=== PATIENT | female | born 1945 | race Caucasian/White ===

== ENCOUNTER → 2016-10-28 | Day surgery (SDC) | payer OTHER, MEDICARE ==
[2016-10-23 14:44] VITALS: Ht 160 cm; Wt 68.2 kg
[~2016-10-28] VITALS: Ht 160 cm; Wt 68.2 kg
[~2016-10-28] MED LIST: 500ML BSS 0.3ML EPI 1:1000PF IRRIG ONE; ACETAMINOPHEN 325 MG TAB PO PRN; ALBU1AER9 INH; AMVISC PLUS 0.8ML SYRINGE INT OCU ONE; ATROPINE SULFATE 0.1 MG/ML 5ML SYR IV PRN; BETAXOLOL HCL 0.25% OP SUSP PER DROP CHARGE OPR SCH; BRIMONIDINE TART 0.2% OP SOLN PER DROP CHARGE ONE; BSS FLUSH ONE; ENDOCOAT 0.85ML SYRINGE INT OCU ONE; EPP3/2 IM; ESZO3TAB15 PO; EpINEphrine INJ 1MG/ML AMP 1 MG/ML AMP ONE; FEXO1TAB58 PO; HydrALAZINE HCL 20 MG/ML VIAL ONE; IPRA0.03 NAE; LACTATED RINGER'S 1000ML 500 ML IV SCH; LEVO75TA PO; LIDOCAINE 4% OP SOLN DROP CHARGE ONE; LIDOCAINE 4% OP SOLN DROP CHARGE OPR SCH; LIDOCAINE HCL 1% MPF 2 ML VIAL ONE; METHPOW7 PO; MIDAZOLAM HCL 1 MG/ML 2ML VIAL ONE; MIX: 4ML BSS 1ML EPI 1:1000 PF INSTIL ONE; MOXIFLOXACIN OPH SOLN PER DROP CHARGE ONE; MULT60CA PO; NAPR1TAB9 PO; OCUCOAT 1 ML SOLN IO ONE; OMEP20TA14 PO; POLY335019 PO; POVIDONE-IODINE OP SOLN 30 ML BTL ONE; PROPARACAINE 0.5% OP SOLN PER DROP CHARGE OPR SCH; TOBRAMYCIN/DEXAMETHASONE OPH OINT PER APPLN CHARGE ONE
--- NOTE | 2016-10-28 06:27 | History & Physical Bridge - [place] ---
H&P Re-Evaluation Bridge Note: I have examined the patient, reviewed the History & Physical and in the interval since the performance of the History & Physical I have noted the following changes of clinical significance: No changes noted
[2016-10-28] MEDS: PHENYLEPHRINE HCL 2.5% OP SOLN PER DROP CHARGE OPR SCH ×2 (06:41→06:45)
[2016-10-28] MEDS: TROPICAMIDE 1% OP SOLN PER DROP CHARGE OPR SCH ×2 (06:42→06:46)
[2016-10-28] MEDS: CYCLOPENTOLATE HCL 1% OP SOLN PER DROP CHARGE OPR SCH ×2 (06:43→06:48)
[2016-10-28] MEDS: MOXIFLOXACIN OPH SOLN PER DROP CHARGE OPR SCH ×2 (06:44→06:53)
--- NOTE | 2016-10-28 07:14 | Discharge Instructions-SurgCtr ---
Discharge Instructions Date of Service Oct 28, 2016. Visit Reason for Visit: Right Cataract Discharge Discharge Diagnosis / Problem: lens implant right eye. Discharge Goals Goal(s): Improve function Activity Recommendations Activity Limitations: resume your previous activity Lifting Limitations: no more than 10 pounds Exercise/Sports Limitations: gradually increase as tolerated May Resume Sexual Activity: when tolerated Shower/Bathe: tomorrow Driving or Machine Use: resume 1 day after discharge Anesthesia . Post Anesthesia Instructions: If you have had General Anesthesia or IV Sedation: * Do not drive today. * Resume driving when surgeon permits. * Do not make important decisions or sign legal documents today. * Call surgeon for: 1. Temperature elevations greater than 101 degrees F. 2. Uncontrollable pain. 3. Excessive bleeding. 4. Persistent nausea and vomiting. 5. Medication intolerance (nausea, vomiting or rash). * For nausea and vomiting use only clear liquids such as: tea, soda, bouillon until nausea subsides, then gradually increase diet as tolerated. * If you have any concerns or questions, call your surgeon's office. If physician is unavailable and it is an emergency, call 911 or go to the nearest emergency room. . Instructions / Follow-Up Instructions / Follow-Up ACTIVITY RECOMMENDATIONS: * Light activities. * Mild irritation and blurred vision are common for the first few days. * You may walk outside, read, watch television. * Redness around the white part of the eye is common. MEDICATIONS: Resume previous medications unless instructed otherwise by your surgeon. Start all eye drops at 1 pm today: * Eye drops (today and tomorrow): Prednisone - one drop in operative eye every 3 hours while awake Ofloxacin - one drop in operative eye every 3 hours while awake Ilevro - one drop in operative eye once a day SPECIAL CARE INSTRUCTIONS: * Tape plastic shield over eye to sleep at night. Call your doctor at with any concerns or problems. FOLLOW UP VISIT: Follow-up with Dr Perez at [place] office as scheduled. Diet Recommendations Home Diet: no limitations Procedures Procedures Performed: Cataract Extraction with Lens Implant Pending Studies Studies pending at discharge: no Medical Emergencies . Who to Call and When: Medical Emergencies: If at any time you feel your situation is an emergency, please call 911 immediately. . Non-Emergent Contact Non-Emergency issues call your: Executive Vice President Of Sales Call Non-Emergent contact if: your pain is not controlled [phone] . . "Provider Documentation" section prepared by Phu Perez.
--- NOTE | 2016-10-28 07:16 | [facility] Operative Report ---
Operative Report Date of Service Oct 28, 2016. Operative Report 1. PREOPERATIVE DIAGNOSIS: Senile nuclear cataract, right eye. 2. POSTOPERATIVE DIAGNOSIS: Senile nuclear cataract, right eye. 3. PROCEDURE: Phacoemulsification of right cataract with posterior chamber lens implant, type [employer], model [id number], power +25.5 diopters. ANESTHESIA: Local standby. SURGEON: Dr. Perez. COMPLICATIONS: None. OPERATING TIME: 10 minutes. 4. OPERATION AND FINDINGS: DESCRIPTION OF PROCEDURE: The right pupil was dilated. The anesthetic was administered using a topical technique. The right eye was prepped and draped. A speculum was placed. A clear corneal incision was formed. The chamber was filled with Amvisc Plus and Endocoat. Epinephrine solution was used. A paracentesis was placed. A capsulorrhexis was performed. The nucleus was hydrodissected. The lens was removed with phacoemulsification. Time was 2.73 seconds. The aspiration unit was used to remove the cortex. The capsule was filled with Amvisc Plus. The lens implant was folded and placed into the capsule. The incision was hydrated. The Amvisc was aspirated. The wound was secure. The chamber was deep. The pupil was round. Brimonidine, TobraDex ointment and Vigamox solution were placed. The speculum was removed. The patient was returned to the Recovery Room in stable condition. I attest to the content of the Intraoperative Record and any orders documented therein. Any exceptions are noted below. The scribe's documentation has been prepared in my presence, under my direction and personally reviewed by me in its entirety. I confirm that the note above accurately reflects all work, treatment, procedures, and medical decision making performed by me. I personally scribed for Phu Perez M.D. ([email or web address]) on 10/28/16 at 07:16. Electronically submitted by Wendy Zaragoza ([email or web address]).
[2016-10-28 07:18] VITALS: TEMP 36.8
--- NOTE | 2016-10-28 07:32 | Anesthesia Progress Nt - [facility] ---
Anesthesia Post Op Note Date & Time Oct 28, 2016 at 07:33 Vital Signs Pain Intensity: 0 Vital Signs Past 12 Hours Date Time Temp Pulse Resp B/P Pulse Ox O2 Delivery O2 Flow Rate FiO2 10/28/16 07:18 36.8 75 18 162/81 99 Room Air 10/28/16 06:36 36.8 65 18 157/78 95 Room Air Notes Mental Status: alert / awake / arousable, participated in evaluation Pt Amnestic to Procedure: Yes Nausea / Vomiting: adequately controlled Pain: adequately controlled Airway Patency, RR, SpO2: stable & adequate BP & HR: stable & adequate Hydration State: stable & adequate Anesthetic Complications: no major complications apparent
[2016-10-28 08:07] VITALS: BP 152/64; PULSE 83; O2SAT 97
== END | disposition home or self-care (01) ==
LOC: X.SURG 06:22
PROVIDERS: ATTEND Specialist
DX: H25.11 Age-related nuclear cataract, right eye (principal)

== ENCOUNTER → 2016-11-11 | Day surgery (SDC) | payer OTHER, MEDICARE ==
[2016-11-09 10:34] VITALS: Ht 160 cm; Wt 68.2 kg
[~2016-11-11] VITALS: Ht 160 cm; Wt 68.2 kg
[~2016-11-11] MED LIST changes: +BETAXOLOL HCL 0.25% OP SUSP PER DROP CHARGE OPL SCH; -BETAXOLOL HCL 0.25% OP SUSP PER DROP CHARGE OPR SCH; +FENTANYL CITRATE INJ 50 MCG/1 ML 2 ML VIAL IV PRN; +FLUMAZENIL 0.1 MG/1 ML 10 ML VIAL IV PRN; -HydrALAZINE HCL 20 MG/ML VIAL ONE; +LABETALOL HCL IV 5 MG/ML 20ML IV PRN; +LIDOCAINE 4% OP SOLN DROP CHARGE OPL SCH; -LIDOCAINE 4% OP SOLN DROP CHARGE OPR SCH; +MEPERIDINE HCL 25 MG/ML CARP IV PRN; +NALOXONE HCL 0.4 MG/1 ML VIAL/CARP IV PRN; +ONDANSETRON INJ 2 MG/ML 2 ML VIAL IV PRN; +PHENYLEPHRINE 100MCG/ML 5ML SYR IV PRN; +PROPARACAINE 0.5% OP SOLN PER DROP CHARGE OPL SCH; -PROPARACAINE 0.5% OP SOLN PER DROP CHARGE OPR SCH
[2016-11-11] MEDS: PHENYLEPHRINE HCL 2.5% OP SOLN PER DROP CHARGE OPL SCH ×2 (06:37→06:42)
[2016-11-11] MEDS: TROPICAMIDE 1% OP SOLN PER DROP CHARGE OPL SCH ×2 (06:38→06:43)
[2016-11-11] MEDS: CYCLOPENTOLATE HCL 1% OP SOLN PER DROP CHARGE OPL SCH ×2 (06:39→06:44)
[2016-11-11] MEDS: MOXIFLOXACIN OPH SOLN PER DROP CHARGE OPL SCH ×2 (06:40→06:49)
--- NOTE | 2016-11-11 07:16 | Discharge Instructions-SurgCtr ---
Discharge Instructions Date of Service Nov 11, 2016. Visit Reason for Visit: Left Cataract Discharge Discharge Diagnosis / Problem: lens implant left eye Discharge Goals Goal(s): Improve function Activity Recommendations Activity Limitations: resume your previous activity Lifting Limitations: no more than 10 pounds Exercise/Sports Limitations: gradually increase as tolerated May Resume Sexual Activity: when tolerated Shower/Bathe: tomorrow Driving or Machine Use: resume 1 day after discharge Anesthesia . Post Anesthesia Instructions: If you have had General Anesthesia or IV Sedation: * Do not drive today. * Resume driving when surgeon permits. * Do not make important decisions or sign legal documents today. * Call surgeon for: 1. Temperature elevations greater than 101 degrees F. 2. Uncontrollable pain. 3. Excessive bleeding. 4. Persistent nausea and vomiting. 5. Medication intolerance (nausea, vomiting or rash). * For nausea and vomiting use only clear liquids such as: tea, soda, bouillon until nausea subsides, then gradually increase diet as tolerated. * If you have any concerns or questions, call your surgeon's office. If physician is unavailable and it is an emergency, call 911 or go to the nearest emergency room. . Instructions / Follow-Up Instructions / Follow-Up ACTIVITY RECOMMENDATIONS: * Light activities. * Mild irritation and blurred vision are common for the first few days. * You may walk outside, read, watch television. * Redness around the white part of the eye is common. MEDICATIONS: Resume previous medications unless instructed otherwise by your surgeon. Start all eye drops at 1 pm today: * Eye drops (today and tomorrow): Prednisone - one drop in operative eye every 3 hours while awake Ofloxacin - one drop in operative eye every 3 hours while awake SPECIAL CARE INSTRUCTIONS: * Tape plastic shield over eye to sleep at night. Call your doctor at with any concerns or problems. FOLLOW UP VISIT: Follow-up with Dr Perez at [facility] as scheduled. Diet Recommendations Home Diet: no limitations Procedures Procedures Performed: Left Cataract Phacoemulsification With Intraocular Lens Implant; Toric Lens Pending Studies Studies pending at discharge: no Medical Emergencies . Who to Call and When: Medical Emergencies: If at any time you feel your situation is an emergency, please call 911 immediately. . Non-Emergent Contact Non-Emergency issues call your: Sales Associate Cashier Call Non-Emergent contact if: your pain is not controlled [phone] . . "Provider Documentation" section prepared by Phu Perez.
--- NOTE | 2016-11-11 07:19 | [facility] Operative Report ---
Operative Report Date of Service Nov 11, 2016. Operative Report 1. PREOPERATIVE DIAGNOSIS: Senile nuclear cataract, left eye. 2. POSTOPERATIVE DIAGNOSIS: Senile nuclear cataract, left eye. 3. PROCEDURE: Phacoemulsification of left cataract with posterior chamber lens implant, type Andres, model [id number], power +21 diopters. ANESTHESIA: Local standby. SURGEON: Dr. Perez. COMPLICATIONS: None. OPERATING TIME: 10 minutes. 4. OPERATION AND FINDINGS: DESCRIPTION OF PROCEDURE: The left pupil was dilated. The anesthetic was administered using a topical technique. The left eye was prepped and draped. A speculum was placed. A clear corneal incision was formed. The chamber was filled with Amvisc Plus and Endocoat. Epinephrine solution was used. A paracentesis was placed. A capsulorrhexis was performed. The nucleus was hydrodissected. The lens was removed with phacoemulsification. Time was 3.61 seconds. The aspiration unit was used to remove the cortex. The capsule was filled with Amvisc Plus. The lens implant was folded and placed into the capsule. The lens implant was rotated to the proper position. The incision was hydrated. The Amvisc was aspirated. The wound was secure. The chamber was deep. The pupil was round. Brimonidine, TobraDex ointment and Vigamox solution were placed. The speculum was removed. The patient was returned to the Recovery Room in stable condition. I attest to the content of the Intraoperative Record and any orders documented therein. Any exceptions are noted below. The scribe's documentation has been prepared in my presence, under my direction and personally reviewed by me in its entirety. I confirm that the note above accurately reflects all work, treatment, procedures, and medical decision making performed by me. I personally scribed for Phu Perez M.D. ([email or web address]) on 11/11/16 at 07:19. Electronically submitted by Wendy Zaragoza ([email or web address]).
[2016-11-11 07:22] VITALS: TEMP 36.5
--- NOTE | 2016-11-11 07:41 | Anesthesia Progress Nt - [facility] ---
Anesthesia Post Op Note Date & Time Nov 11, 2016 at 07:41 Vital Signs Pain Intensity: 0 Vital Signs Past 12 Hours Date Time Temp Pulse Resp B/P Pulse Ox O2 Delivery O2 Flow Rate FiO2 11/11/16 07:25 142/83 11/11/16 07:22 36.5 58 16 164/96 99 Room Air 11/11/16 06:35 36.4 62 16 174/77 97 Room Air Notes Mental Status: alert / awake / arousable, participated in evaluation Pt Amnestic to Procedure: Yes Nausea / Vomiting: adequately controlled Pain: adequately controlled Airway Patency, RR, SpO2: stable & adequate BP & HR: stable & adequate Hydration State: stable & adequate Anesthetic Complications: no major complications apparent
[2016-11-11 07:47] VITALS: BP 152/77; PULSE 60; O2SAT 99
== END | disposition home or self-care (01) ==
LOC: X.SURG 06:21
PROVIDERS: ATTEND Specialist
DX: H25.12 Age-related nuclear cataract, left eye (principal)

== ENCOUNTER 2017-03-17 14:06 | Emergency (ER) | payer OTHER, MEDICARE ==
[~2017-03-17] VITALS: Ht 160 cm; Wt 69.7 kg
[~2017-03-17 14:06] MED LIST changes: -500ML BSS 0.3ML EPI 1:1000PF IRRIG ONE; -ACETAMINOPHEN 325 MG TAB PO PRN; -AMVISC PLUS 0.8ML SYRINGE INT OCU ONE; -ATROPINE SULFATE 0.1 MG/ML 5ML SYR IV PRN; -BETAXOLOL HCL 0.25% OP SUSP PER DROP CHARGE OPL SCH; -BRIMONIDINE TART 0.2% OP SOLN PER DROP CHARGE ONE; -BSS FLUSH ONE; -ENDOCOAT 0.85ML SYRINGE INT OCU ONE; -EpINEphrine INJ 1MG/ML AMP 1 MG/ML AMP ONE; -FENTANYL CITRATE INJ 50 MCG/1 ML 2 ML VIAL IV PRN; -FLUMAZENIL 0.1 MG/1 ML 10 ML VIAL IV PRN; -LABETALOL HCL IV 5 MG/ML 20ML IV PRN; -LACTATED RINGER'S 1000ML 500 ML IV SCH; -LIDOCAINE 4% OP SOLN DROP CHARGE ONE; -LIDOCAINE 4% OP SOLN DROP CHARGE OPL SCH; -LIDOCAINE HCL 1% MPF 2 ML VIAL ONE; -MEPERIDINE HCL 25 MG/ML CARP IV PRN; -MIDAZOLAM HCL 1 MG/ML 2ML VIAL ONE; -MIX: 4ML BSS 1ML EPI 1:1000 PF INSTIL ONE; -MOXIFLOXACIN OPH SOLN PER DROP CHARGE ONE; -NALOXONE HCL 0.4 MG/1 ML VIAL/CARP IV PRN; -OCUCOAT 1 ML SOLN IO ONE; -ONDANSETRON INJ 2 MG/ML 2 ML VIAL IV PRN; -PHENYLEPHRINE 100MCG/ML 5ML SYR IV PRN; -POVIDONE-IODINE OP SOLN 30 ML BTL ONE; -PROPARACAINE 0.5% OP SOLN PER DROP CHARGE OPL SCH; -TOBRAMYCIN/DEXAMETHASONE OPH OINT PER APPLN CHARGE ONE
[2017-03-17 14:10] VITALS: TEMP 36.5; Ht 160 cm; Wt 69.7 kg
--- NOTE | 2017-03-17 14:31 | EMERGENCY ROOM VISIT NOTE ---
History First contact with patient: 14:15 Chief Complaint: ABDOMINAL PAIN Stated Complaint: BLOATING, ABD PAIN Nursing Triage Summary: Abdominal pain, nausea x 3 days. History of Present Illness The patient is a 71 year old female who presents to the Emergency Room via private vehicle with complaints of "bloating, abdominal pain". The patient states that Wednesday she noticed that she was sore in the right side of the abdomen, and now also on the left. She states that she is tried to sleep, but has been unable to do so secondary to the pain. She states it feels as though there is a bloating, and her abdomen feels rigid. She states that she follows with Dr. Dahl, of general surgery she has had mastectomy as well as a trans -flap reconstruction. She has had mesh in the abdomen, and believes it may have migrated. She states that she rates the current pain as a 5/10 but after history and physical exam is now a 6/10. She states that she has had to leave without relief of her pain. She denies any chest pain, shortness of breath, fevers, chills, nausea, vomiting. She states that she does take a regular regimen of MiraLAX. She also states that since the pain began on Wednesday her stools have been smaller in caliber. Review of Systems A complete 10-point Review of Systems was discussed with the patient, with pertinent positives and negatives listed in the History of Present Illness. All remaining Review of Systems questions can be considered negative unless otherwise specified. Past Medical/Surgical History Medical Problems: (1) Breast cancer Surgical Problems: (1) H/O cardiac catheterization Social History Smoking Status: Never Smoker Alcohol Use: none Marital Status: single Occupation Status: employed Current/Historical Medications Scheduled Epinephrine (Epipen), 0.3 MG IM UD Fexofenadine-Pseudoephedrine (Sulma-D 24 Hour Allergy), 1 TAB PO QAM Levothyroxine Sodium (Synthroid), 75 MCG PO QAM Methylcellulose (Laxative) (Citrucel Fiber Laxative), 1 DOSE PO QPM Multiple Vitamins W/ Minerals (Preservision Areds 2), 1 CAP PO BID Omeprazole Magnesium (Prilosec Otc), 20 MG PO BID Polyethylene Glycol 3350 (Miralax), 17 GM PO QPM Scheduled PRN Albuterol Sulfate (Proair Hfa), 2 PUFFS INH Q4 PRN for SOB/Wheezing Ipratropium [place] (Nasal) (Ipratropium [place]), 2 SPRAY COLBY TID PRN for RHINITIS Naproxen (Aleve), 2 TABS PO BID PRN for Pain Physical Exam Vital Signs Date Time Temp Pulse Resp B/P (MAP) Pulse Ox O2 Delivery O2 Flow Rate FiO2 03/17/17 17:31 62 18 159/83 98 Room Air 03/17/17 15:47 62 18 161/62 99 Room Air 03/17/17 14:39 100 Room Air 03/17/17 14:10 36.5 85 18 156/85 100 Room Air Physical Exam VITAL SIGNS - Vital signs and nursing notes were reviewed. Afebrile, hypertensive at 156/85, non-tachycardic and is saturating well on room air at 100%. GENERAL -71-year-old female appearing her stated age who is in no acute distress. Communicates well with provider and answers questions appropriately. SKIN - Without rashes. No petechial rashes. HEAD - NC/AT. EYES - PERRL with EOMI bilaterally. Sclera anicteric. MOUTH/OROPHARYNX - Without perioral cyanosis. NECK - Neck with FROM. Supple to palpation. LUNGS - Chest wall symmetric without accessory muscle use, intercostals retractions, or central cyanosis. Normal vesicular breath sounds CTA B/L. No wheezes, rales, or rhonchi appreciated. CARDIAC - RRR with S1/S2. No murmur, rubs, or gallops appreciated. ABDOMEN - Abdominal contour without pulsations or visible masses. BS normoactive all four quadrants. There is tenderness to palpation overlying the epigastric and periumbilical region. It is tense to palpation but not rigid. No palpable masses, hepatosplenomegaly, or ascites noted. EXTREMITIES - No clubbing or peripheral cyanosis. No pretibial edema present. + 5/5 strength noted in UE/LE bilaterally. NEUROLOGIC - Cranial nerves II through XII grossly intact. PSYCH - A&O. Pt is very pleasant and interacts well with examiner. Medical Decision & Procedures ER Provider Diagnostic Interpretation: CT SCAN OF THE ABDOMEN AND PELVIS WITHOUT CONTRAST CLINICAL HISTORY: Diffuse abdominal pain COMPARISON STUDY: October 2009 TECHNIQUE: CT scan of the abdomen and pelvis was performed from the lung bases to the proximal femurs. Images are reviewed in the axial, sagittal, and coronal planes. IV contrast was not administered for this examination. A dose lowering technique was utilized adhering to the principles of ALARA. CT DOSE: 690.43 mGycm FINDINGS: Lower chest: There are minor basilar atelectatic changes Liver: The unenhanced liver is normal in size, contour, and attenuation. There is no intrahepatic biliary ductal dilatation. Gallbladder: Unremarkable. Spleen: Normal in size and attenuation. Pancreas: Unremarkable. Adrenal glands: Unremarkable. Kidneys: No renal, ureteral, or bladder calculi are visualized. Bowel: There are no transition zones to indicate bowel obstruction. There is colonic diverticulosis. There are no acute peridiverticular inflammatory changes. By history the appendix is surgically absent. Peritoneum: There is no intraperitoneal free air or abdominal ascites. There is a tiny fat-containing umbilical hernia. There is a tiny fat-containing right anterolateral ventral wall hernia. There is rectus muscle atrophy. Vasculature: The abdominal aorta is normal in course and caliber. Adenopathy: None. Pelvic viscera: The uterus appears surgically absent. Skeletal structures: No destructive osseous lesions are seen. IMPRESSION: 1. No evidence of bowel obstruction. No evidence of free air 2. No renal, ureteral, or bladder calculi identified 3. Diverticulosis. No evidence of acute diverticulitis 4. Postsurgical changes involve the anterior abdominal wall. Tiny fat-containing umbilical hernia and right anterolateral lateral abdominal wall hernia Electronically signed by: Damian Pal M.D. 03/17/2017 3:24 PM Dictated Date/Time: 03/17/2017 3:19 PM Laboratory Results 03/17/17 15:30 Red Blood Count 4.07, Mean Corpuscular Volume 91.6, Mean Corpuscular Hemoglobin 31.4, Mean Corpuscular Hemoglobin Concent 34.3, Mean Platelet Volume 10.9, Neutrophils (%) (Auto) 62.1, Lymphocytes (%) (Auto) 27.8, Monocytes (%) (Auto) 7.3, Eosinophils (%) (Auto) 2.4, Basophils (%) (Auto) 0.2, Neutrophils # (Auto) 3.31, Lymphocytes # (Auto) 1.48, Monocytes # (Auto) 0.39, Eosinophils # (Auto) 0.13, Basophils # (Auto) 0.01 03/17/17 15:30 Test 03/17/17 14:45 03/17/17 15:30 Urine Color DK YELLOW Urine Appearance CLOUDY (CLEAR) Urine pH 6.0 (4.5-7.5) Urine Specific [place] 1.015 (1.000-1.030) Urine Protein TRACE (NEG) Urine Glucose (UA) NEG (NEG) Urine Ketones TRACE (NEG) Urine Occult Blood NEG (NEG) Urine Nitrite NEG (NEG) Urine Bilirubin NEG (NEG) Urine Urobilinogen NEG (NEG) Urine Leukocyte Esterase TRACE (NEG) Urine WBC (Auto) 1-5 /hpf (0-5) Urine RBC (Auto) 0-4 /hpf (0-4) Urine Hyaline Casts (Auto) 1-5 /lpf (0-5) Urine Epithelial Cells (Auto) >30 /lpf (0-5) Urine Bacteria (Auto) 1+ (NEG) Urine Pathogenic Casts /lpf (0) Urine Yeast (Auto) PRESENT (NONE PRSENT) White Blood Count 5.33 K/uL (4.8-10.8) Red Blood Count 4.07 M/uL (4.2-5.4) Hemoglobin 12.8 g/dL (12.0-16.0) Hematocrit 37.3 % (37-47) Mean Corpuscular Volume 91.6 fL (80-100) Mean Corpuscular Hemoglobin 31.4 pg (25-34) Mean Corpuscular Hemoglobin Concent 34.3 g/dl (32-36) Platelet Count 225 K/uL (130-400) Mean Platelet Volume 10.9 fL (7.4-10.4) Neutrophils (%) (Auto) 62.1 % Lymphocytes (%) (Auto) 27.8 % Monocytes (%) (Auto) 7.3 % Eosinophils (%) (Auto) 2.4 % Basophils (%) (Auto) 0.2 % Neutrophils # (Auto) 3.31 K/uL (1.4-6.5) Lymphocytes # (Auto) 1.48 K/uL (1.2-3.4) Monocytes # (Auto) 0.39 K/uL (0.11-0.59) Eosinophils # (Auto) 0.13 K/uL (0-0.5) Basophils # (Auto) 0.01 K/uL (0-0.2) RDW Standard Deviation 44.7 fL (36.4-46.3) RDW Coefficient of Variation 13.3 % (11.5-14.5) Immature Granulocyte % (Auto) 0.2 % Immature Granulocyte # (Auto) 0.01 K/uL (0.00-0.02) Prothrombin Time 10.8 SECONDS (9.0-12.0) Prothromb Time International Ratio 1.0 (0.9-1.1) Activated Partial Thromboplast Time 26.8 SECONDS (21.0-31.0) Partial Thromboplastin Ratio 1.0 Venous Blood pH 7.38 (7.36-7.41) Venous Blood Partial Pressure CO2 48 mmHg (38.0-50.0) Venous Blood Partial Pressure O2 28 mmHg Venous Blood HCO3 27 mmol/L Venous Blood Oxygen Saturation < 60.0 % Venous Blood Base Excess 1.7 mEq/L Anion Gap 6.0 mmol/L (3-11) Est Creatinine Clear Calc Drug Dose 55.8 ml/min Estimated GFR () 79.9 Estimated GFR (Non- 69.0 BUN/Creatinine Ratio 22.5 (10-20) Lactic Acid Level 1.0 mmol/L (0.4-2.0) Calcium Level 8.9 mg/dl (8.5-10.1) Magnesium Level 2.0 mg/dl (1.8-2.4) Total Bilirubin 0.4 mg/dl (0.2-1) Aspartate Amino Transf (AST/SGOT) 31 U/L (15-37) Alanine Aminotransferase (ALT/SGPT) 46 U/L (12-78) Alkaline Phosphatase 78 U/L (45-117) Troponin I < 0.015 ng/ml (0-0.045) Total Protein 6.6 gm/dl (6.4-8.2) Albumin 3.9 gm/dl (3.4-5.0) Globulin 2.7 gm/dl (2.5-4.0) Albumin/Globulin Ratio 1.4 (0.9-2) Lipase 180 U/L (73-393) Medications Administered Medications (Trade) Dose Ordered Sig/Pa Route Start Time Stop Time Status Last Admin Dose Admin Fluconazole (Diflucan Tab) 150 mg NOW STAT PO 03/17/17 17:07 03/17/17 17:08 DC 03/17/17 17:27 150 MG Medical Decision Patient was seen and evaluated as above. After obtaining a thorough history and physical examination IV access was initiated, and the above workup was performed. Patient was asked to us today with generalized abdominal pain. She also notes a bloating sensation. She denies any chest pain or shortness of breath. Bedside EKG was obtained secondary to the abdominal pain, and reveals a change in lead V2. This was discussed with my attending, and the decision was made to repeat EKG. It was unchanged. Her troponin was negative. Pain is been going on for 2 days in the abdomen and not the chest. She denies history of heart attack. CBC reveals no leukocytosis. Her blood cell count low at 4.07. VBG unremarkable. Coags unremarkable. CMP reveals BUN high at 19 which is slightly increased from previous. Creatinine is actually improved. Lactic acid negative. Troponin negative. Lipase normal. Liver enzymes normal. Urine does reveal trace ketones, trace protein, trace leuks, and likely contaminated sample secondary to epithelial cells. Yeast is present. I will treat with Diflucan 1. CT scan was obtained without contrast that she noted she had an allergy to all iodinated contrast agents. CT scan results as above. No acute process. I suspect she likely experiencing gas secondary to the MiraLAX she is ingesting. She is to follow-up with her family doctor. She is to return with worsening. Strict precautions were given to her regarding returning to the emergency department secondary to that EKG change which could' ve occurred any point over the past few years since her previous EKG that was performed here. I do not suspect any cardiac causes to her pain at this time, but was rather trying to address all findings are today. She was discharged home in good condition. She noted that she had an appointment she would must to go to a 6 PM. Medication list was reviewed. Blood pressure is high and she is referred to her family doctor for further evaluation and management. In evaluation treatment of this patient the following differential diagnoses were entertained: Acute intra-abdominal process, reflux, MA, PE, among others. Impression Primary Impression: Abdominal pain Additional Impression: Yeast infection Departure Information Dispostion Home / Self-Care Condition GOOD Referrals Tarun Jang D.O. (PCP) Patient Instructions My [facility] Additional Instructions You have been treated in the Emergency Department your Abdominal Pain. Laboratory results and imaging studies have ruled out any emergent causes for your abdominal pain which would warrant admission or surgery. It appears that your urine does show a small amount of yeast. We gave you medication for that here. Please follow-up with her family doctor regarding today's visit. If your urine grows bacteria few will be notified. Drink plenty of water and stay well hydrated. As with any trip to the Emergency Department, you should follow-up with your Primary Care Provider from today's visit. Return to the emergency department if your symptoms persist despite treatment plan outlined above or if the following symptoms occur: increased fevers, chills , worsening nausea/vomiting, blood in your stool or urine. Thank you for your time. Problem Qualifiers Primary Impression: Abdominal pain Abdominal location: generalized Qualified Codes: R10.84 - Generalized abdominal pain
[2017-03-17 14:39] VITALS: O2SAT 100
[2017-03-17 15:10] LABS: URINE APPEARANCE CLOUDY (CLEAR); URINE BILIRUBIN NEG (NEG); URINE COLOR DK YELLOW; URINE EPITHELIAL CELL AUTO >30 /lpf (0-5); URINE NITRITE NEG (NEG); URINE SPECIFIC GRAVITY 1.015 (1.000-1.030); UROBILINOGEN NEG (NEG); ZZUR CULT IF INDIC CLEAN CATCH YES
[2017-03-17 15:16] LABS: MANUAL MICROSCOPIC REQUIRED? NO; REVIEW REQ? YES
--- NOTE | 2017-03-17 15:25 | DIAGNOSTIC IMAGING REPORT ---
CT SCAN OF THE ABDOMEN AND PELVIS WITHOUT CONTRAST CLINICAL HISTORY: Diffuse abdominal pain COMPARISON STUDY: October 2009 TECHNIQUE: CT scan of the abdomen and pelvis was performed from the lung bases to the proximal femurs. Images are reviewed in the axial, sagittal, and coronal planes. IV contrast was not administered for this examination. A dose lowering technique was utilized adhering to the principles of ALARA. CT DOSE: 690.43 mGycm FINDINGS: Lower chest: There are minor basilar atelectatic changes Liver: The unenhanced liver is normal in size, contour, and attenuation. There is no intrahepatic biliary ductal dilatation. Gallbladder: Unremarkable. Spleen: Normal in size and attenuation. Pancreas: Unremarkable. Adrenal glands: Unremarkable. Kidneys: No renal, ureteral, or bladder calculi are visualized. Bowel: There are no transition zones to indicate bowel obstruction. There is colonic diverticulosis. There are no acute peridiverticular inflammatory changes. By history the appendix is surgically absent. Peritoneum: There is no intraperitoneal free air or abdominal ascites. There is a tiny fat-containing umbilical hernia. There is a tiny fat-containing right anterolateral ventral wall hernia. There is rectus muscle atrophy. Vasculature: The abdominal aorta is normal in course and caliber. Adenopathy: None. Pelvic viscera: The uterus appears surgically absent. Skeletal structures: No destructive osseous lesions are seen. IMPRESSION: 1. No evidence of bowel obstruction. No evidence of free air 2. No renal, ureteral, or bladder calculi identified 3. Diverticulosis. No evidence of acute diverticulitis 4. Postsurgical changes involve the anterior abdominal wall. Tiny fat-containing umbilical hernia and right anterolateral lateral abdominal wall hernia Electronically signed by: Damian Pal M.D. 03/17/2017 3:24 PM Dictated Date/Time: 03/17/2017 3:19 PM
[2017-03-17 15:55] LABS: VEN BLD GAS O2 SATURATION < 60.0 %; VEN BLOOD GAS BASE EXCESS 1.7 mEq/L; VENOUS BLOOD GAS PCO2 48 mmHg (38.0-50.0); VENOUS BLOOD GAS PO2 28 mmHg
[2017-03-17 15:56] LABS: BASO % 0.2 %; BASO ABS # 0.01 K/uL (0-0.2); COMPLETE YES; EOS % 2.4 %; HEMATOCRIT 37.3 % (37-47); IG% 0.2 %; LYMPH % 27.8 %; LYMPH ABS # 1.48 K/uL (1.2-3.4); MEAN CELL VOLUME 91.6 fL (80-100); MEAN CORPUSCULAR HEMOGLOBIN 31.4 pg (25-34); MEAN CORPUSCULAR HGB CONC 34.3 g/dl (32-36); MEAN PLATELET VOLUME 10.9 fL (7.4-10.4); MONO % 7.3 %; NEUT % 62.1 %; PLATELET COUNT 225 K/uL (130-400); RED BLOOD COUNT 4.07 M/uL (4.2-5.4); WHITE BLOOD COUNT 5.33 K/uL (4.8-10.8)
[2017-03-17 16:04] LABS: PROTHROMBIN TIME (PATIENT) 10.8 SECONDS (9.0-12.0)
[2017-03-17 16:13] LABS: ALT/SGPT 46 U/L (12-78); BLOOD UREA NITROGEN 19 mg/dl (7-18); BUN/CREATININE RATIO 22.5 (10-20); CALCIUM 8.9 mg/dl (8.5-10.1); CARBON DIOXIDE 27 mmol/L (21-32); CHLORIDE 105 mmol/L (98-107); CREATININE 0.84 mg/dl (0.60-1.20); GLUCOSE 98 mg/dl (70-99); POTASSIUM 3.8 mmol/L (3.5-5.1); SODIUM 138 mmol/L (136-145)
[2017-03-17 16:18] LABS: ALB/GLOB RATIO 1.4 (0.9-2); ALKALINE PHOSPHATASE 78 U/L (45-117); AST/SGOT 31 U/L (15-37)
[2017-03-17] MEDS ORDERED: FLUCONAZOLE 100 MG TAB PO STA (17:07)
[2017-03-17 17:31] VITALS: BP 159/83; PULSE 62; O2SAT 98
== END 2017-03-17 17:45 | disposition home or self-care (01) ==
LOC: C.EDB 14:07 → C.EDC 17:45
DX: R10.9 Unspecified abdominal pain (principal); B37.9 Candidiasis, unspecified; Z85.3 Personal history of malignant neoplasm of breast; Z79.899 Other long term (current) drug therapy; Z90.10 Acquired absence of unspecified breast and nipple

== ENCOUNTER 2023-05-29 11:05 | Inpatient (IN) ==
--- NOTE | 2023-05-29 11:14 | Emergency Department Note ---
Impression & Plan Near syncope, Contusion of scalp, Ambulatory dysfunction ED Provider Note HISTORY OF PRESENT ILLNESS: Patient is a 77-year-old female presenting after a fall from standing. History obtained via EMS from the patient's [facility], as the patient is very demented. Patient reportedly has had some almost passing out episodes in the last few days. She reportedly had an unwitnessed fall from standing earlier today and was found to have a contusion to the back of her head. They state that the patient is her baseline mental status. On arrival to the ER, the patient has no complaints. She is unable to describe anything that happened this morning. She has no complaints of back pain or hip pain ROS: as above PHYSICAL EXAM: Constitutional: Patient appears in no acute distress. HENT: Head: Normocephalic. Hematoma to the upper posterior scalp. Eyes: EOMI, PERRL Mouth/Throat: Mucous membranes moist. Neck: Trachea midline. Neck supple. No midline cervical spine tenderness to palpation. Cardiovascular: RRR, No murmurs, rubs or gallops. Intact distal pulses. Pulmonary/Chest: No respiratory distress. Breath sounds clear and equal bilaterally. No wheezes or rales. No chest wall tenderness to palpation. Abdominal: Abdomen soft, no tenderness, rebound or guarding. Musculoskeletal: No edema, tenderness or deformity noted. Patient is able to straight leg raise bilaterally without any pain or back pain or hip pain. Skin: Warm and dry. No rash, erythema, pallor or cyanosis Psychiatric: Appropriate mood and affect for situation. Neurological: Alert and keenly responsive. CN II-XII grossly intact, moving all extremities equally and fully. MDM: - Vitals signs stable. - History obtained via EMS, given patient's dementia. Patient presents with fal l from standing. Patient reportedly was at her [facility] when she had an unwitnessed fall. She was found to have a contusion to the back of her head. Patient's staff reports she has had episodes of almost passing out and hitting her head in the last few days. Patient is demented and unable to provide any history - Chronic conditions affecting care: GERD; lymph node cancer - Differential diagnoses include, but are not limited to: intracranial hemorrhage; CVA; ACS; pneumonia - Order placed for continuous cardiac monitoring. At this time, monitor showed rate of 70 bpm with normal sinus rhythm, per my interpretation. - External medical records reviewed. EMS run sheet was reviewed. Patient was vitally stable in route. No medications were given prehospital - EKG reviewed by myself showed normal sinus rhythm. Rate bradycardic at 51 bpm. QTc 422. No acute ischemic changes - Laboratory workup interpreted by myself showed normal WBC; stable electrolytes; normal troponin - CXR negative for pneumonia, per my interpretation - CT head wo contrast negative for acute pathology - CT cervical spine negative for acute injury - Orthostatic vital signs stable. - Patient attempted to ambulate with nursing staff, but was very unsteady on her feet. I did call and speak to the patient's facility and they report that she is normally ambulatory without any assistive devices. Unclear etiology for her ambulatory dysfunction at this time. No obvious traumatic injuries. She has not given a urine sample yet - Discussion was had with social work specialist about patient's case and need for admission - Hospitalist consulted for admission - [facility] and [facility]. 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 Garces 06-13-09 History of appendectomy History of colonoscopy 2004, 04/07/2011 History of hysterectomy 1988 History of tonsillectomy History of tooth extraction Hx of breast biopsy 04/22/09 Dr. Garces Incisional hernia REPAIR 06/2017 Dr. Garces Status post transverse rectus abdominis muscle (TRAM) flap breast reconstruction Dr. Ray Lea [place] [facility] [place] Family History Mother Cancer Diabetes Stroke Social History Smoking Status: Unknown if ever smoked Second Hand Exposure: No; Do You Dip or Chew Tobacco: No; Hx Alcohol Use: Yes Alcohol type: wine Hx Substance Use: No Preferred Language: Montserratian Communication Ability: Effective Director Medical Affairs Required: Yes Beliefs That Will Affect Care: None marital status: Single Current Living Situation: Alone Feels Safe at Home: Yes Assistive Devices: Glasses Allergies Allergies Allergy/AdvReac Type Severity Reaction Status Date / Time animal dander Allergy Severe SHORTNESS Verified 05/29/23 15:03 OF BREATH bee venom protein (honey bee) Allergy Severe ANAPHYLAXIS Verified 05/29/23 15:03 bisacodyl Allergy Severe ANAPHYLAXIS Verified 05/29/23 15:03 Iodinated Contrast Media Allergy Severe HIVES, Verified 05/29/23 15:03 DIFFICULTY BREATHING latex Allergy Severe itchy, Verified 05/29/23 15:03 shortness of breath penicillin G Allergy Severe ANAPHYLAXIS Verified 05/29/23 15:03 povidone-iodine Allergy Severe Anaphylaxis Verified 05/29/23 15:03 tuna oil Allergy Severe HIVES AND Verified 05/29/23 15:03 ANAPHYLAXIS codeine Allergy Intermediate GI SYMPTOMS Verified 05/29/23 15:03 ephedrine Allergy Intermediate RASH Verified 05/29/23 15:03 iodine Allergy Intermediate HIVES Verified 05/29/23 15:03 ENVIRONMENTAL Allergy Severe SHORTNESS Uncoded 05/29/23 15:03 OF BREATH ACRYLIC CEMENT OR BONDING Allergy Intermediate HIVES, Uncoded 05/29/23 15:03 PAIN, SWELLING JEWELRY Allergy Intermediate BLISTERS Uncoded 05/29/23 15:03 WITH "CHEAP JEWELRY" Home Meds Home Medications Medication Instructions Recorded Confirmed epinephrine 0.3 mg/0.3 mL 0.3 mg IM Q3H PRN Allergic Reaction 09/12/18 05/29/23 injection, auto-injector (EpiPen) levothyroxine 50 mcg tablet 50 mcg PO QAM 02/26/21 05/29/23 donepezil 10 mg tablet 10 mg PO QAM 02/26/22 05/29/23 acetaminophen 650 mg 1,300 mg PO Q6H PRN Pain 09/22/22 05/29/23 tablet,extended release furosemide 20 mg tablet (Lasix) 20 mg PO QAM 09/22/22 05/29/23 potassium chloride 10 mEq 10 meq PO QAM 09/22/22 05/29/23 capsule,extended release quetiapine 25 mg tablet (Seroquel) 25 mg PO BID 09/22/22 05/29/23 memantine 10 mg tablet 10 mg PO BID 05/29/23 05/29/23 ondansetron HCl 4 mg tablet 4 mg PO Q8 PRN Nausea 05/29/23 05/29/23 Results & Data (ED) Vital Signs Vital Signs - 24 hr 05/29/23 11:24 05/29/23 11:29 05/29/23 11:30 Temperature 36.6 C Temperature Source Oral Pulse Rate - Lying Pulse Rate - Sitting Pulse Rate - Standing Pulse Rate Pulse Rate [Right Finger] 53 L Respiratory Rate 18 Respiratory Effort / Characteristics Non-Labored Spontaneous Respiratory Depth Normal Respiratory Pattern Regular Blood Pressure - Lying Blood Pressure - Sitting Blood Pressure- Standing Blood Pressure [Right Arm] 144/75 H Blood Pressure Mean [Right Arm] 98 Blood Pressure Position [Right Arm] Sitting Pulse Oximetry 99 99 Oxygen Delivery Method Room Air Room Air Sepsis Recent Fever Within 48 Hours No Sepsis New/Unexplained Change in Mental Status N/A Sepsis Action Taken by Nursing No Action Required 05/29/23 13:09 05/29/23 14:25 Temperature Temperature Source Pulse Rate - Lying 53 L Pulse Rate - Sitting 63 Pulse Rate - Standing 81 Pulse Rate 68 Pulse Rate [Right Finger] Respiratory Rate Respiratory Effort / Characteristics Respiratory Depth Respiratory Pattern Blood Pressure - Lying 157/72 H Blood Pressure - Sitting 180/55 H Blood Pressure- Standing 181/92 H Blood Pressure [Right Arm] Blood Pressure Mean [Right Arm] Blood Pressure Position [Right Arm] Pulse Oximetry Oxygen Delivery Method Sepsis Recent Fever Within 48 Hours Sepsis New/Unexplained Change in Mental Status Sepsis Action Taken by Nursing Laboratory Data 05/29/23 11:31 05/29/23 11:31 Lab Results 05/29/23 05/29/23 05/29/23 Range/Units 11:31 11:31 11:31 WBC 6.99 (4.8-10.8) K/ul RBC 3.77 L (4.20-5.40) M/uL Hgb 11.5 L (12.0-16.0) g/dl Hct 34.4 L (37.0-47.0) % MCV 91.2 (80.0-100.0) fL MCH 30.5 (25.0-34.0) pg MCHC 33.4 (32.0-36.0) g/dL RDW Std Deviation 44.3 (36.4-46.3) fL RDW Coeff of Angel 13.3 (11.5-14.5) % Plt Count 205 (130-400) K/uL MPV 11.8 (9.4-12.4) fL Immature Gran % (Auto) 0.3 % Neut % (Auto) 66.8 % Lymph % (Auto) 18.5 % Levy % (Auto) 8.2 % Eos % (Auto) 5.6 % Baso % (Auto) 0.6 % Neut # (Auto) 4.68 (1.40-6.50) K/uL Lymph # (Auto) 1.29 (1.20-3.40) K/uL Levy # (Auto) 0.57 (0.11-0.59) K/uL Eos # (Auto) 0.39 (0.00-0.50) K/uL Baso # (Auto) 0.04 (0.00-0.20) K/uL Immature Gran # (Auto) 0.02 (0.01-0.20) K/uL PT 11.4 (9.0-12.0) Seconds INR 1.0 (0.9-1.1) Sodium 141 (136-145) mmol/L Potassium 4.1 (3.5-5.1) mmol/L Chloride 105 (98-107) mmol/L Carbon Dioxide 31 (21-32) mmol/L Anion Gap 5 (3-11) BUN 22 (6-23) mg/dl Creatinine 0.90 (0.6-1.2) mg/dl Est Cr Clr Drug Dosing Not Reportable Est GFR ( Amer) 70.5 ml/min Est GFR (Non-Af Amer) 60.8 ml/min BUN/Creatinine Ratio 24.4 H (10-20) Glucose 109 H (70-99(Fasting)) mg/dl Calcium 9.0 (8.6-10.3) mg/dl Magnesium 1.9 (1.7-2.4) mg/dl Total Bilirubin 0.5 (0.2-1.0) mg/dl AST 20 (13-39) U/L ALT 12 (7-52) U/L Alkaline Phosphatase 77 (34-104) U/L Troponin I High Sens 6.7 (0-14) pg/ml Total Protein 6.2 (6.0-8.3) gm/dl Albumin 3.9 (3.4-5.0) gm/dl Globulin 2.3 L (2.5-4.0) gm/dl Albumin/Globulin Ratio 1.7 (0.9-2) Imaging Data Radiologist's Impression: Cervical Spine CT 05/29/23 11:06 CT cervical spine wo con CT DOSE: 981.24 mGy.cm CLINICAL HISTORY: 77 years-old Female with fall from standing. Acute neck injury status post fall COMPARISON: None. TECHNIQUE: Multiple axial CT images of the cervical spine were obtained without contrast. A dose lowering technique was utilized adhering to the principles of ALARA. FINDINGS: Multilevel changes of the cervical spine are again noted which appears similar to the prior study. This includes severe disc space narrowing at C4-C5 and C5-C6 with moderate disc space narrowing at C6-C7. Mostly moderate multilevel facet arthrosis. Demineralized appearance of the bones. No acute fracture or subluxation identified. The cervical soft tissues appear unremarkable. The visualized lung apices appear clear. IMPRESSION: No acute cervical spine fracture or subluxation identified. ACT 112: Negative or not required by law. The above report was generated using voice recognition software. It may contain grammatical, syntax or spelling errors. Electronically signed by: Diego De La Cruz M.D. 05/29/2023 12:[address] 05/29/23 11:06 CT head/brain wo con CLINICAL HISTORY: 77 years-old Female with fall from standing. Acute head injury status post fall TECHNIQUE: Multiple axial CT images of the head were obtained without contrast. A dose lowering technique was utilized adhering to the principles of ALARA. COMPARISON: 01/15/2023 FINDINGS: No acute intracranial hemorrhage, midline shift, intracranial mass, hydrocephalus, territorial ischemia or abnormal extra-axial collection. Involu tional changes with chronic microvascular ischemic disease. Coarse calcifications of the falx cerebri. The calvarium is intact. The paranasal sinuses, mastoid air cells, and middle ear cavities are clear. IMPRESSION: No acute intracranial abnormality or calvarial fracture. ACT 112: Negative or not required by law. The above report was generated using voice recognition software. It may contain grammatical, syntax or spelling errors. Electronically signed by: Diego De La Cruz M.D. 05/29/2023 11:52 AM Discharge Plan Visit Data Chief Complaint: Fall Stated Complaint: FALL, CONTUSION TO HEAD, POSSIBLE SYNCOPE ED Provider: Theresa Davis Discharge Problem: Near syncope, Contusion of scalp, Ambulatory dysfunction Patient Disposition: Home - Self-Care Discharge Instructions Krames/Other Patient Handouts: ED Near-Fainting, Uncertain Cause Activity Restrictions/Additional Instructions: Your work-up in the emergency department was grossly unremarkable. Please return to the ER if you develop any chest pain, shortness of breath, lightheadedness or dizziness, or any new or worsening symptoms. Please follow close with your primary care provider. Recommend staying well-hydrated in the next few days Forms Stand Alone Forms: My [facility], Important Visit Information Prescriptions Prescriptions: No Action epinephrine [EpiPen] 0.3 mg/0.3 mL Auto-Injector 0.3 mg IM Q3H PRN (Reason: Allergic Reaction) levothyroxine 50 mcg tablet 50 mcg PO QAM donepezil 10 mg tablet 10 mg PO QAM quetiapine [Seroquel] 25 mg Tablet 25 mg PO BID potassium chloride 10 mEq Capsule, Extended Release 10 meq PO QAM acetaminophen [Tylenol Arthritis] 650 mg Tablet Extended Release 1,300 mg PO Q6H PRN (Reason: Pain) furosemide [Lasix] 20 mg Tablet 20 mg PO QAM ondansetron HCl 4 mg tablet 4 mg PO Q8 PRN (Reason: Nausea) memantine 10 mg tablet 10 mg PO BID Referrals Referrals: [facility] [Primary Care Provider] -
[2023-05-29 11:49] LABS: Basophils # (auto) 0.04 K/uL (0.00-0.20); Basophils % (auto) 0.6 %; Eosinophils # (auto) 0.39 K/uL (0.00-0.50); Eosinophils % (auto) 5.6 %; Hematocrit (blood only) 34.4 % (37.0-47.0); Hemoglobin 11.5 g/dl (12.0-16.0); Immature Granulocytes # (auto) 0.02 K/uL (0.01-0.20); Immature Granulocytes % (auto) 0.3 %; Lymphocytes # (auto) 1.29 K/uL (1.20-3.40); Lymphocytes % (auto) 18.5 %; Mean Corpuscular Hemoglobin 30.5 pg (25.0-34.0); Mean Corpuscular Hgb Conc 33.4 g/dL (32.0-36.0); Mean Corpuscular Volume 91.2 fL (80.0-100.0); Mean Platelet Volume 11.8 fL (9.4-12.4); Monocytes # (auto) 0.57 K/uL (0.11-0.59); Monocytes % (auto) 8.2 %; Neutrophils # (auto) 4.68 K/uL (1.40-6.50); Neutrophils % (auto) 66.8 %; Platelet Count 205 K/uL (130-400); RDW Coefficient of Variation 13.3 % (11.5-14.5); RDW Standard Deviation 44.3 fL (36.4-46.3); Red Blood Count 3.77 M/uL (4.20-5.40); White Blood Count 6.99 K/ul (4.8-10.8)
--- NOTE | 2023-05-29 11:55 | CT Scan Report ---
CT head/brain wo con CLINICAL HISTORY: 77 years-old Female with fall from standing. Acute head injury status post fall TECHNIQUE: Multiple axial CT images of the head were obtained without contrast. A dose lowering tech nique was utilized adhering to the principles of ALARA. COMPARISON: 01/15/2023 FINDINGS: No acute intracranial hemorrhage, midline shift, intracranial mass, hydrocephalus, territorial ischem ia or abnormal extra-axial collection. Involutional changes with chronic microvascular ischemic disea se. Coarse calcifications of the falx cerebri. The calvarium is intact. The paranasal sinuses, mastoid air cells, and middle ear cavities are clear . IMPRESSION: No acute intracranial abnormality or calvarial fracture. ACT 112: Negative or not required by law. The above report was generated using voice recognition software. It may contain grammatical, syntax o r spelling errors. Electronically signed by: Diego De La Cruz M.D. 05/29/2023 11:52 AM
--- NOTE | 2023-05-29 12:07 | CT Scan Report ---
CT cervical spine wo con CT DOSE: 981.24 mGy.cm CLINICAL HISTORY: 77 years-old Female with fall from standing. Acute neck injury status post fall COMPARISON: None. TECHNIQUE: Multiple axial CT images of the cervical spine were obtained without contrast. A dose low ering technique was utilized adhering to the principles of ALARA. FINDINGS: Multilevel changes of the cervical spine are again noted which appears similar to the prior study. This includes severe disc space narrowing at C4-C5 and C5-C6 with moderate disc space narrowi ng at C6-C7. Mostly moderate multilevel facet arthrosis. Demineralized appearance of the bones. No ac [place] fracture or subluxation identified. The cervical soft tissues appear unremarkable. The visualized lung apices appear clear. IMPRESSION: No acute cervical spine fracture or subluxation identified. ACT 112: Negative or not required by law. The above report was generated using voice recognition software. It may contain grammatical, syntax o r spelling errors. Electronically signed by: Diego De La Cruz M.D. 05/29/2023 12:05 PM
[2023-05-29 12:10] LABS: Alanine Aminotransferase 12 U/L (7-52); Albumin Globulin Ratio 1.7 (0.9-2); Albumin Level 3.9 gm/dl (3.4-5.0); Alkaline Phosphatase 77 U/L (34-104); Anion Gap 5 (3-11); Aspartate Aminotransferase 20 U/L (13-39); BUN Creatinine Ratio 24.4 (10-20); Bilirubin,Total 0.5 mg/dl (0.2-1.0); Blood Urea Nitrogen 22 mg/dl (6-23); Carbon Dioxide 31 mmol/L (21-32); Chloride 105 mmol/L (98-107); Est GFR (African American) 70.5 ml/min; Est GFR (Non-African American) 60.8 ml/min; Globulin 2.3 gm/dl (2.5-4.0); Glucose 109 mg/dl (70-99(Fasting)); Magnesium 1.9 mg/dl (1.7-2.4); Potassium 4.1 mmol/L (3.5-5.1); Sodium 141 mmol/L (136-145); Total Protein 6.2 gm/dl (6.0-8.3)
[2023-05-29 12:15] LABS: Troponin I High Sensitivity 6.7 pg/ml (0-14)
[2023-05-29 12:26] LABS: Prothrombin Time 11.4 Seconds (9.0-12.0)
--- NOTE | 2023-05-29 15:45 | History & Physical Report ---
Date of Service May 29, 2023 Assessment & Plan (1) Fall: (2) Ambulatory dysfunction: Plan: Patient is 77 y/o F with PMH Alzheimer dementia with hallucinations, GERD, hypothyroidism, asthma, IBS, PMR, history of breast cancer, osteoarthritis, presented to ER from [facility] after reported fall and hitting head without reported LOC. In ER patient at reported baseline mental status CT head: No acute intracranial abnormality or calvarial fracture. CT C-spine: No acute cervical spine fracture or subluxation identified Attempted to ambulate patient in ER and required 2 person assist We will obtain pelvis x-ray to rule out fracture UA pending PT/OT eval CBC, BMP in a.m. (3) Alzheimer's dementia: Plan: Continue donezepil, memantine, quetiapine Patient will require frequent reorientation (4) Hypothyroidism: Plan: Continue levothyroxine DVT Prophylaxis Lovenox SQ DNR/DNI as per discussion with pt's son Jovi who is POA Follows with [facility] for routine care Pt was seen and care coordinated with Dr Cortez. See addendum History of Present Illness Chief Complaint: Fall Primary Care Provider: Henok Baron PA-C Patient is 77 y/o F with PMH Alzheimer dementia with hallucinations, GERD, hypothyroidism, asthma, IBS, PMR, history of breast cancer, osteoarthritis, presented to ER from [facility] after reported fall. History obtained from ER staff and patient's son and chart review. ER staff report patient sent in for witnessed fall and hit her head and [facility] staff reported patient was at baseline mental status. I spoke with patient's son, Jovi (POA), and he states that he was told by [facility] staff that it appeared patient tripped and fell and hit her head and no LOC was reported. Son states at baseline patient does not use walker and ambulates on her own. Son states patient has had 2 falls in past 6-8 months. Son states at baseline patient typically oriented to self only. Also spoke to patient's other son Galo to update him on status of his mother. Multiple attempts at calling [employer] without answer. Allergies Allergy/AdvReac Type Severity Reaction Status Date / Time animal dander Allergy Severe SHORTNESS Verified 05/29/23 15:03 OF BREATH bee venom protein (honey bee) Allergy Severe ANAPHYLAXIS Verified 05/29/23 15:03 bisacodyl Allergy Severe ANAPHYLAXIS Verified 05/29/23 15:03 Iodinated Contrast Media Allergy Severe HIVES, Verified 05/29/23 15:03 DIFFICULTY BREATHING latex Allergy Severe itchy, Verified 05/29/23 15:03 shortness of breath penicillin G Allergy Severe ANAPHYLAXIS Verified 05/29/23 15:03 povidone-iodine Allergy Severe Anaphylaxis Verified 05/29/23 15:03 tuna oil Allergy Severe HIVES AND Verified 05/29/23 15:03 ANAPHYLAXIS codeine Allergy Intermediate GI SYMPTOMS Verified 05/29/23 15:03 ephedrine Allergy Intermediate RASH Verified 05/29/23 15:03 iodine Allergy Intermediate HIVES Verified 05/29/23 15:03 ENVIRONMENTAL Allergy Severe SHORTNESS Uncoded 05/29/23 15:03 OF BREATH ACRYLIC CEMENT OR BONDING Allergy Intermediate HIVES, Uncoded 05/29/23 15:03 PAIN, SWELLING JEWELRY Allergy Intermediate BLISTERS Uncoded 05/29/23 15:03 WITH "CHEAP JEWELRY" Home Medications Medication Instructions Recorded Confirmed Type epinephrine 0.3 mg/0.3 mL 0.3 mg IM Q3H PRN Allergic Reaction 09/12/18 05/29/23 History injection, auto-injector (EpiPen) levothyroxine 50 mcg tablet 50 mcg PO QAM 02/26/21 05/29/23 History donepezil 10 mg tablet 10 mg PO QAM 02/26/22 05/29/23 History acetaminophen 650 mg 1,300 mg PO Q6H PRN Pain 09/22/22 05/29/23 History tablet,extended release furosemide 20 mg tablet (Lasix) 20 mg PO QAM 09/22/22 05/29/23 History potassium chloride 10 mEq 10 meq PO QAM 09/22/22 05/29/23 History capsule,extended release quetiapine 25 mg tablet (Seroquel) 25 mg PO BID 09/22/22 05/29/23 History memantine 10 mg tablet 10 mg PO BID 05/29/23 05/29/23 History ondansetron HCl 4 mg tablet 4 mg PO Q8 PRN Nausea 05/29/23 05/29/23 History Past Med/Surg History Medical History (Updated 05/29/23 @ 17:53 by Angelia Benedict PA-C) Acute posthemorrhagic anemia Asthma STABLE Benign neoplasm of colon Cancer BREAST CANCER S/P B/L MASTECTOMY + RADIATION Cervical spondylolysis Chondrocalcinosis of knee GERD (gastroesophageal reflux disease) CONTROLLED Hypothyroidism IBS (irritable bowel syndrome) Lymph node cancer pt states 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 Garces 06-13-09 History of appendectomy History of colonoscopy 2004, 04/07/2011 History of hysterectomy 1988 History of tonsillectomy History of tooth extraction Hx of breast biopsy 04/22/09 Dr. Garces Incisional hernia REPAIR 06/2017 Dr. Garces Status post transverse rectus abdominis muscle (TRAM) flap breast reconstruction Dr. 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 Beliefs That Will Affect Care: None marital status: Single Current Living Situation: Assisted Feels Safe at Home: Yes Assistive Devices: None Review of Systems Review of Systems: Unobtainable due to cognitive status Physical Exam Physical Exam: General: no acute distress, WDWN Head: normocephalic, +ecchymosis posterior scalp Eyes: PERRL, conjunctiva non-injected, anicteric ENT: normal inspection external ears, nose, mucous membranes moist Neck: supple, trachea midline, moves neck without noted difficulty or discomfort Lungs: clear, no respiratory distress, no wheezing/rhonchi/rales CV: RRR, no murmur, no pretibial edema Abd: normal BS, soft, non-tender Ext: no cyanosis, no calf tenderness Neuro: Alert, oriented to self only, able to say her name but not her birthday. +confusion noted and talks repeatedly about "being in a trench". no other focal deficits noted Skin: warm, dry Results & Data Results & Data Vital Signs (Past 12 Hours) Vital Signs Temp Pulse Pulse Resp BP Pulse Ox O2 Del Method 05/29/23 13:09 68 05/29/23 11:30 99 Room Air 05/29/23 11:24 36.6 C 53 L 18 144/75 H 99 Room Air Laboratory Results Short CBC 05/29/23 Range/Units 11:31 WBC 6.99 (4.8-10.8) K/ul Hgb 11.5 L (12.0-16.0) g/dl Hct 34.4 L (37.0-47.0) % Plt Count 205 (130-400) K/uL BMP 05/29/23 11:31 Sodium 141 Potassium 4.1 Chloride 105 Carbon Dioxide 31 BUN 22 Creatinine 0.90 Glucose 109 H Calcium 9.0 Liver Function 05/29/23 Range/Units 11:31 Total Bilirubin 0.5 (0.2-1.0) mg/dl AST 20 (13-39) U/L ALT 12 (7-52) U/L Alkaline Phosphatase 77 (34-104) U/L Albumin 3.9 (3.4-5.0) gm/dl Diagnostic Findings Cervical Spine CT 05/29/23 11:06 CT cervical spine wo con CT DOSE: 981.24 mGy.cm CLINICAL HISTORY: 77 years-old Female with fall from standing. Acute neck injury status post fall COMPARISON: None. TECHNIQUE: Multiple axial CT images of the cervical spine were obtained without contrast. A dose lowering technique was utilized adhering to the principles of ALARA. FINDINGS: Multilevel changes of the cervical spine are again noted which appears similar to the prior study. This includes severe disc space narrowing at C4-C5 and C5-C6 with moderate disc space narrowing at C6-C7. Mostly moderate multilevel facet arthrosis. Demineralized appearance of the bones. No acute fracture or subluxation identified. The cervical soft tissues appear unremarkable. The visualized lung apices appear clear. IMPRESSION: No acute cervical spine fracture or subluxation identified. ACT 112: Negative or not required by law. The above report was generated using voice recognition software. It may contain grammatical, syntax or spelling errors. Electronically signed by: Diego De La Cruz M.D. 05/29/2023 12:[address] 05/29/23 11:06 CT head/brain wo con CLINICAL HISTORY: 77 years-old Female with fall from standing. Acute head injury status post fall TECHNIQUE: Multiple axial CT images of the head were obtained without contrast. A dose lowering technique was utilized adhering to the principles of ALARA. COMPARISON: 01/15/2023 FINDINGS: No acute intracranial hemorrhage, midline shift, intracranial mass, hydroceph alus, territorial ischemia or abnormal extra-axial collection. Involutional changes with chronic microvascular ischemic disease. Coarse calcifications of the falx cerebri. The calvarium is intact. The paranasal sinuses, mastoid air cells, and middle ear cavities are clear. IMPRESSION: No acute intracranial abnormality or calvarial fracture. ACT 112: Negative or not required by law. The above report was generated using voice recognition software. It may contain grammatical, syntax or spelling errors. Electronically signed by: Diego De La Cruz M.D. 05/29/2023 11:52 AM ECG Additional Comments: Sinus bradycardia, PVC, rate 51 per my interpretation Supervising Physician Co-Signing Physician Notes Patient seen and examined independently. Discussed with the above provider. Patient is a 77-year-old female with past medical history of dementia, hypothyroidism who presented to the ED with unwitnessed fall. CT of cervical spine and CT head unremarkable for acute abnormality. Will obtain hip x-ray and get PT OT evaluation for further assessment. (1) Fall Encounter type: initial encounter Qualified Code(s): W19.XXXA - Unspecified fall, initial encounter
--- NOTE | 2023-05-29 16:50 | Electrocardiogram Report ---
Test Reason : Blood Pressure : / mmHG Vent. Rate : 051 BPM Atrial Rate : 051 BPM P-R Int : 200 ms QRS Dur : 082 ms QT Int : 458 ms P-R-T Axes : 070 011 036 degrees QTc Int : 422 ms Sinus bradycardia with occasional Premature ventricular complexes Abnormal ECG When compared with ECG of 15-JAN-2023 13:50, Premature supraventricular complexes are no longer Present Confirmed by Dm Tubbs ([id number]) on 05/29/2023 4:50:12 PM Referred By: REFERRED SELF Confirmed By:Douglas Tubbs
--- NOTE | 2023-05-29 18:07 | XRay Report ---
XR hip YAMILKA 2v w pelvis HISTORY: 77 years-old Female fall, ambulatory dysfunction acute pelvic pain status post fall COMPARISON: 12/03/2022 TECHNIQUE: AP view of the pelvis with 2 views of the hips FINDINGS: Surgical clips within the pelvis. Arterial calcifications. Mild osteoarthritis of the hips. No acute fracture, dislocation or avascular necrosis. IMPRESSION: No acute fracture or dislocation. ACT 112: Negative or not required by law. The above report was generated using voice recognition software. It may contain grammatical, syntax o r spelling errors. Electronically signed by: Diego De La Cruz M.D. 05/29/2023 6:06 PM
[2023-05-29] MEDS ORDERED: POLYETHYLENE (MIRALAX) 17 GM PACK PO PRN (21:41)
[2023-05-29] MEDS ORDERED: ACETAMINOPHEN 325 MG TAB PO PRN (21:41)
[2023-05-29] MEDS ORDERED: Patient's HEIGHT &/or WEIGHT Needed STA (21:51)
[2023-05-29] MEDS: QUEtiapine FUMARATE 25 MG TABLET PO SCH (22:24)
[2023-05-29] MEDS: MEMANTINE HCL 10 MG TAB PO SCH (22:24)
[2023-05-30] MEDS: ENOXAPARIN INJ 40 MG/0.4 ML SYR SQ SCH ×2 (01:55→19:52)
[2023-05-30] MEDS: LEVOTHYROXINE SODIUM 50 MCG TABLET PO SCH (06:36)
[2023-05-30] MEDS: POTASSIUM CHLORIDE 10 MEQ TABCR PO SCH (08:13)
[2023-05-30] MEDS: QUEtiapine FUMARATE 25 MG TABLET PO SCH ×2 (08:13→19:52)
[2023-05-30] MEDS: DONEPEZIL HCL 10 MG TAB PO SCH (08:13)
[2023-05-30] MEDS: MEMANTINE HCL 10 MG TAB PO SCH ×2 (08:13→19:52)
[2023-05-30] MEDS: FUROSEMIDE 20 MG TAB PO SCH (08:14)
[2023-05-30 09:12] LABS: Hematocrit (blood only) 33.2 % (37.0-47.0); Hemoglobin 11.1 g/dl (12.0-16.0); Mean Corpuscular Hemoglobin 30.4 pg (25.0-34.0); Mean Corpuscular Hgb Conc 33.4 g/dL (32.0-36.0); Mean Platelet Volume 11.9 fL (9.4-12.4); Platelet Count 209 K/uL (130-400); RDW Coefficient of Variation 13.3 % (11.5-14.5); RDW Standard Deviation 44.8 fL (36.4-46.3); Red Blood Count 3.65 M/uL (4.20-5.40); White Blood Count 6.46 K/ul (4.8-10.8)
[2023-05-30 09:33] LABS: BUN Creatinine Ratio 21.8 (10-20); Calcium 8.8 mg/dl (8.6-10.3); Creatinine Clr Calc Pharmacy 44.1 ml/min; Est GFR (African American) 83.8 ml/min; Est GFR (Non-African American) 72.3 ml/min; Potassium 3.8 mmol/L (3.5-5.1)
--- NOTE | 2023-05-30 13:38 | Hospitalist Progress Note ---
Date of Service May 30, 2023 Assessment & Plan (1) Fall: (2) Ambulatory dysfunction: Plan: Patient is 77 y/o F with PMH Alzheimer dementia with hallucinations, GERD, hypothyroidism, asthma, IBS, PMR, history of breast cancer, osteoarthritis, presented to ER from [facility] after reported fall and hitting head without reported LOC. In ER patient at reported baseline mental status CT head: No acute intracranial abnormality or calvarial fracture. CT C-spine: No acute cervical spine fracture or subluxation identified Attempted to ambulate patient in ER and required 2 person assist Pelvic x-ray personally reviewed; no acute finding Urinalysis not suggestive of infection PT OT evaluation (3) Alzheimer's dementia: Plan: Continue donezepil, memantine, quetiapine Patient will require frequent reorientation (4) Hypothyroidism: Plan: Continue levothyroxine DVT Prophylaxis Lovenox SQ DNR/DNI as per discussion with pt's son Jovi who is POA Dispopending PT OT evaluation. Please note the above document was generated using voice recognition software. It may contain grammatical, syntax or spelling errors. Any formal questions or concerns about the content, text or information contained within the body of this dictation should be directly addressed to the provider for clarification Admission and Anticipated Discharge Date Admission Date: May 29, 2023 Subjective Patient seen and examined at bedside. She is comfortable lying on the bed; not in any distress. Review of Systems Review of Systems: Unobtainable due to cognitive status Physical Exam Physical Exam: General: no acute distress, WDWN Head: normocephalic, +ecchymosis posterior scalp Eyes: PERRL, conjunctiva non-injected, anicteric ENT: normal inspection external ears, nose, mucous membranes moist Neck: supple, trachea midline, moves neck without noted difficulty or discomfort Lungs: clear, no respiratory distress, no wheezing/rhonchi/rales CV: RRR, no murmur, no pretibial edema Abd: normal BS, soft, non-tender Ext: no cyanosis, no calf tenderness Neuro: Alert, oriented to self only, able to say her name but not her birthday. +confusion noted and talks repeatedly. no other focal deficits noted Skin: warm, dry Results & Data Results & Data Vital Signs (Past 12 Hours) Vital Signs Temp Pulse Resp BP Pulse Ox O2 Del Method 05/30/23 07:44 36.8 C 62 16 151/75 H 94 Room Air Laboratory Results Laboratory Results WBC 6.46 K/ul (4.8-10.8) 05/30/23 08:06 RBC 3.65 M/uL (4.20-5.40) L 05/30/23 08:06 Hgb 11.1 g/dl (12.0-16.0) L 05/30/23 08:06 Hct 33.2 % (37.0-47.0) L 05/30/23 08:06 MCV 91.0 fL (80.0-100.0) 05/30/23 08:06 MCH 30.4 pg (25.0-34.0) 05/30/23 08:06 MCHC 33.4 g/dL (32.0-36.0) 05/30/23 08:06 RDW Std Deviation 44.8 fL (36.4-46.3) 05/30/23 08:06 RDW Coeff of Angel 13.3 % (11.5-14.5) 05/30/23 08:06 Plt Count 209 K/uL (130-400) 05/30/23 08:06 MPV 11.9 fL (9.4-12.4) 05/30/23 08:06 Immature Gran % (Auto) 0.3 % 05/29/23 11:31 Neut % (Auto) 66.8 % 05/29/23 11:31 Lymph % (Auto) 18.5 % 05/29/23 11:31 [place] % (Auto) 8.2 % 05/29/23 11:31 Eos % (Auto) 5.6 % 05/29/23 11:31 Baso % (Auto) 0.6 % 05/29/23 11:31 Neut # (Auto) 4.68 K/uL (1.40-6.50) 05/29/23 11:31 Lymph # (Auto) 1.29 K/uL (1.20-3.40) 05/29/23 11:31 [place] # (Auto) 0.57 K/uL (0.11-0.59) 05/29/23 11:31 Eos # (Auto) 0.39 K/uL (0.00-0.50) 05/29/23 11:31 Baso # (Auto) 0.04 K/uL (0.00-0.20) 05/29/23 11:31 Immature Gran # (Auto) 0.02 K/uL (0.01-0.20) 05/29/23 11:31 PT 11.4 Seconds (9.0-12.0) 05/29/23 11:31 INR 1.0 (0.9-1.1) 05/29/23 11:31 Sodium 139 mmol/L (136-145) 05/30/23 08:06 Potassium 3.8 mmol/L (3.5-5.1) 05/30/23 08:06 Chloride 107 mmol/L (98-107) 05/30/23 08:06 Carbon Dioxide 27 mmol/L (21-32) 05/30/23 08:06 Anion Gap 5 (3-11) 05/30/23 08:06 BUN 17 mg/dl (6-23) 05/30/23 08:06 Creatinine 0.78 mg/dl (0.6-1.2) 05/30/23 08:06 Est Cr Clr Drug Dosing 44.1 ml/min 05/30/23 08:06 Est GFR ( Amer) 83.8 ml/min 05/30/23 08:06 Est GFR (Non-Af Amer) 72.3 ml/min 05/30/23 08:06 BUN/Creatinine Ratio 21.8 (10-20) H 05/30/23 08:06 Glucose 81 mg/dl (70-99(Fasting)) 05/30/23 08:06 Calcium 8.8 mg/dl (8.6-10.3) 05/30/23 08:06 Magnesium 1.9 mg/dl (1.7-2.4) 05/29/23 11:31 Total Bilirubin 0.5 mg/dl (0.2-1.0) 05/29/23 11:31 AST 20 U/L (13-39) 05/29/23 11:31 ALT 12 U/L (7-52) 05/29/23 11:31 Alkaline Phosphatase 77 U/L (34-104) 05/29/23 11:31 Troponin I High Sens 6.7 pg/ml (0-14) 05/29/23 11:31 Total Protein 6.2 gm/dl (6.0-8.3) 05/29/23 11:31 Albumin 3.9 gm/dl (3.4-5.0) 05/29/23 11:31 Globulin 2.3 gm/dl (2.5-4.0) L 05/29/23 11:31 Albumin/Globulin Ratio 1.7 (0.9-2) 05/29/23 11:31 Nasal Screen MRSA (PCR) Negative (Negative) 05/30/23 06:[address] 05/29/23 11:06 CT cervical spine wo con CT DOSE: 981.24 mGy.cm CLINICAL HISTORY: 77 years-old Female with fall from standing. Acute neck injury status post fall COMPARISON: None. TECHNIQUE: Multiple axial CT images of the cervical spine were obtained without contrast. A dose lowering technique was utilized adhering to the principles of ALARA. FINDINGS: Multilevel changes of the cervical spine are again noted which appears similar to the prior study. This includes severe disc space narrowing at C4-C5 and C5-C6 with moderate disc space narrowing at C6-C7. Mostly moderate multilevel facet arthrosis. Demineralized appearance of the bones. No acute fracture or subluxation identified. The cervical soft tissues appear unremarkable. The visualized lung apices appear clear. IMPRESSION: No acute cervical spine fracture or subluxation identified. ACT 112: Negative or not required by law. The above report was generated using voice recognition software. It may contain grammatical, syntax or spelling errors. Electronically signed by: Diego De La Cruz M.D. 05/29/2023 12:[address] 05/29/23 11:06 CT head/brain wo con CLINICAL HISTORY: 77 years-old Female with fall from standing. Acute head injury status post fall TECHNIQUE: Multiple axial CT images of the head were obtained without contrast. A dose lowering technique was utilized adhering to the principles of ALARA. COMPARISON: 01/15/2023 FINDINGS: No acute intracranial hemorrhage, midline shift, intracranial mass, hydrocephalus, territorial ischemia or abnormal extra-axial collection. Involutional changes with chronic microvascular ischemic disease. Coarse calcifications of the falx cerebri. The calvarium is intact. The paranasal sinuses, mastoid air cells, and middle ear cavities are clear. IMPRESSION: No acute intracranial abnormality or calvarial fracture. ACT 112: Negative or not required by law. The above report was generated using voice recognition software. It may contain grammatical, syntax or spelling errors. Electronically signed by: Diego De La Cruz M.D. 05/29/2023 11:52 AM Hip/Pelvis X-Ray 05/29/23 16:35 XR hip YAMILKA 2v w pelvis HISTORY: 77 years-old Female fall, ambulatory dysfunction acute pelvic pain status post fall COMPARISON: 12/03/2022 TECHNIQUE: AP view of the pelvis with 2 views of the hips FINDINGS: Surgical clips within the pelvis. Arterial calcifications. Mild osteoarthritis of the hips. No acute fracture, dislocation or avascular necrosis. IMPRESSION: No acute fracture or dislocation. ACT 112: Negative or not required by law. The above report was generated using voice recognition software. It may contain grammatical, syntax or spelling errors. Electronically signed by: Diego De La Cruz M.D. 05/29/2023 6:06 PM (1) Fall Encounter type: initial encounter Qualified Code(s): W19.XXXA - Unspecified fall, initial encounter
[2023-05-31] MEDS: LEVOTHYROXINE SODIUM 50 MCG TABLET PO SCH (05:51)
[2023-05-31] MEDS: MEMANTINE HCL 10 MG TAB PO SCH (09:03)
[2023-05-31] MEDS: POTASSIUM CHLORIDE 10 MEQ TABCR PO SCH (09:03)
[2023-05-31] MEDS: FUROSEMIDE 20 MG TAB PO SCH (09:03)
[2023-05-31] MEDS: DONEPEZIL HCL 10 MG TAB PO SCH (09:03)
[2023-05-31] MEDS: QUEtiapine FUMARATE 25 MG TABLET PO SCH (09:04)
--- NOTE | 2023-05-31 13:50 | Discharge Summary ---
Date of Service May 31, 2023 Admission HPI Per Admitting Provider Patient is 77 y/o F with PMH Alzheimer dementia with hallucinations, GERD, hypothyroidism, asthma, IBS, PMR, history of breast cancer, osteoarthritis, presented to ER from [facility] after reported fall. History obtained from ER staff and patient's son and chart review. ER staff report patient sent in for witnessed fall and hit her head and [facility] staff reported patient was at baseline mental status. I spoke with patient's son, Jovi (KEATON), and he states that he was told by [facility] staff that it appeared patient tripped and fell and hit her head and no LOC was reported. Son states at baseline patient does not use walker and ambulates on her own. Son states patient has had 2 falls in past 6-8 months. Son states at baseline patient typically oriented to self only. Also spoke to patient's other son Galo to update him on status of his mother. Multiple attempts at calling [facility] without answer. Admission Exam Per Admitting Provider General: no acute distress, WDWN Head: normocephalic, +ecchymosis posterior scalp Eyes: PERRL, conjunctiva non-injected, anicteric ENT: normal inspection external ears, nose, mucous membranes moist Neck: supple, trachea midline, moves neck without noted difficulty or discomfort Lungs: clear, no respiratory distress, no wheezing/rhonchi/rales CV: RRR, no murmur, no pretibial edema Abd: normal BS, soft, non-tender Ext: no cyanosis, no calf tenderness Neuro: Alert, oriented to self only, able to say her name but not her birthday. +confusion noted and talks repeatedly about "being in a trench". no other focal deficits noted Skin: warm, dry Principal Diagnosis unwitnessed fall Ambulate dysfunction Discharge Exam General: no acute distress, WDWN Head: normocephalic, +ecchymosis posterior scalp Eyes: PERRL, conjunctiva non-injected, anicteric ENT: normal inspection external ears, nose, mucous membranes moist Neck: supple, trachea midline, moves neck without noted difficulty or discomfort Lungs: clear, no respiratory distress, no wheezing/rhonchi/rales CV: RRR, no murmur, no pretibial edema Abd: normal BS, soft, non-tender Ext: no cyanosis, no calf tenderness Neuro: Alert, oriented to self only, able to say her name but not her birthday. +confusion noted and talks repeatedly. no other focal deficits noted Skin: warm, dry Discharge Data Allergies Allergy/AdvReac Type Severity Reaction Status Date / Time animal dander Allergy Severe SHORTNESS Verified 05/29/23 15:03 OF BREATH bee venom protein (honey bee) Allergy Severe ANAPHYLAXIS Verified 05/29/23 15:03 bisacodyl Allergy Severe ANAPHYLAXIS Verified 05/29/23 15:03 Iodinated Contrast Media Allergy Severe HIVES, Verified 05/29/23 15:03 DIFFICULTY BREATHING latex Allergy Severe itchy, Verified 05/29/23 15:03 shortness of breath penicillin G Allergy Severe ANAPHYLAXIS Verified 05/29/23 15:03 povidone-iodine Allergy Severe Anaphylaxis Verified 05/29/23 15:03 tuna oil Allergy Severe HIVES AND Verified 05/29/23 15:03 ANAPHYLAXIS codeine Allergy Intermediate GI SYMPTOMS Verified 05/29/23 15:03 ephedrine Allergy Intermediate RASH Verified 05/29/23 15:03 iodine Allergy Intermediate HIVES Verified 05/29/23 15:03 ENVIRONMENTAL Allergy Severe SHORTNESS Uncoded 05/29/23 15:03 OF BREATH ACRYLIC CEMENT OR BONDING Allergy Intermediate HIVES, Uncoded 05/29/23 15:03 PAIN, SWELLING JEWELRY Allergy Intermediate BLISTERS Uncoded 05/29/23 15:03 WITH "CHEAP JEWELRY" Consultations 05/29/23 15:38 ED Decision to Admit Stat Ordered Studies 05/29/23 11:06 CT cervical spine wo con Stat CT head/brain wo con Stat Hospital Course (1) Fall: (2) Ambulatory dysfunction: (3) Alzheimer's dementia: (4) Hypothyroidism: Patient is 77 y/o F with PMH Alzheimer dementia with hallucinations, GERD, hypothyroidism, asthma, IBS, PMR, history of breast cancer, osteoarthritis, presented to ER from [facility] after reported fall and hitting head without reported LOC. In ER patient at reported baseline mental status CT head: No acute intracranial abnormality or calvarial fracture. CT C-spine: No acute cervical spine fracture or subluxation identified Attempted to ambulate patient in ER and required 2 person assist Pelvic x-ray personally reviewed; no acute finding Urinalysis not suggestive of infection PT OT evaluation was done; patient was at baseline functional status Patient discharged back to rehab No medication changes were done Please note the above document was generated using voice recognition software. It may contain grammatical, syntax or spelling errors. Any formal questions or concerns about the content, text or information contained within the body of this dictation should be directly addressed to the provider for clarification Total Time Total Time Spent Total Time Spent (In Minutes): 45 Total Time Includes: Examination of the Patient, Discharge Planning, Medication Reconciliation, Communication With Other Providers and Other Discharge Plan Discharge Items Patient Disposition: Personal Mcfp Reason For Visit: FALL Discharge Diagnosis: Mechanical fall Activity: Resume your previous activity Non-emergency contact: Primary Care Provider Call non-emergency contact if: you have any medication questions and your sym ptoms worsen Follow-up/Referrals: Henok Baron PA-C [Outside Practitioners] - 06/02/23 10:00 am (Date & Time 06/02/2023 10:00 AM Provider Brandy Pruett MD Department General Internal Medicine [facility] ) Veronica Suitland [Primary Care Provider] - Diet: Regular Addtl Attending Provider Instructions: You were admitted to the hospital due to mechanical fall. Imaging and lab work were done which did not show any acute finding No medication changes were done. Please follow-up with your primary care doctor within 1 week of discharge next Pending Studies at Discharge: No Stand-Alone Forms: My [employer], Smoking Cessation Skilled Items Patient informed of condition?: No DNR: Yes Discharge Level of Care: Skilled Communicable Disease: No Discharge Prognosis: Stable Lines: None Urinary Catheter: No Medications and DC Order Prescriptions: Continued epinephrine [EpiPen] 0.3 mg/0.3 mL Auto-Injector 0.3 mg IM Q3H PRN (Reason: Allergic Reaction) levothyroxine 50 mcg tablet 50 mcg PO QAM donepezil 10 mg tablet 10 mg PO QAM quetiapine [Seroquel] 25 mg Tablet 25 mg PO BID potassium chloride 10 mEq Capsule, Extended Release 10 meq PO QAM acetaminophen 650 mg Tablet Extended Release 1,300 mg PO Q6H PRN (Reason: Pain) furosemide [Lasix] 20 mg Tablet 20 mg PO QAM ondansetron HCl 4 mg tablet 4 mg PO Q8 PRN (Reason: Nausea) memantine 10 mg tablet 10 mg PO BID Discharge Orders: Discharge Order (Routine); Ordered 05/31/23 Ordered By: Jairo Cortez Admission Data Admit Date/Time: 05/29/23 15:53 Attending Provider: Jairo Cortez Admgraham Provider: Jairo Cortez Primary Care Provider: Veronica kirbySuitland Other Providers: Jairo Cortez Other Interventions: Discharge Summary Assessment (RN) Last Done: 05/31/23 10:29
== END 2023-05-31 16:40 | disposition home or self-care (01) | DRG 312 ==
LOC: ED 11:05 → 3W 15:53

== ENCOUNTER 2023-08-20 09:30 | Inpatient (IN) ==
--- NOTE | 2023-08-20 09:50 | Emergency Department Note ---
Impression & Plan Bilateral edema of lower extremity, Elevated troponin, Dementia, Pleural effusion, Elevated brain natriuretic peptide (BNP) level ED Provider Note ED Provider Note NAME: MORENITA ROBLEDO AGE:77 SEX: Female : 1945 ARRIVES VIA: EMS INFORMANT: EMS ED PROVIDER(s): Flower Alba DO CHIEF COMPLAINT: Right arm and right leg swelling HPI: This is a 77-year-old female presents emerged part via EMS due to staff concern at [place] where the patient resides for increased right lower extremity swelling and right upper extremity swelling. Patient does take Lasix daily according to the medication list provided and staff reported to EMS this was recently increased. Patient unable to provide any history due to significant dementia. When asked where she has pain the patient replied "600". PAST MEDICAL HISTORY:See Below PAST SURGICAL HISTORY:See Below FAMILY HISTORY:See Below SOCIAL HISTORY:See Below HOME MEDICATIONS:See Below ALLERGIES:See Below VITALS:See Below PHYSICAL EXAMINATION: GENERAL: alert, well appearing, well nourished, no distress, non-toxic EYE EXAM: normal conjunctiva, PERRL and EOM's grossly intact OROPHARYNX: no exudate, no erythema, lips, buccal mucosa, and tongue normal and mucous membranes are moist NECK: supple, no nuchal rigidity, no adenopathy, non-tender LUNGS: Clear to auscultation. Normal chest wall mechanics, no w/r/r HEART: no murmurs, S1 normal and S2 normal CHEST: Well-healed surgical scars from prior bilateral mastectomy ABDOMEN: abdomen soft, non-tender, normo-active bowel sounds, no masses, no rebound or guarding. BACK: Back is symmetrical on inspection and there is no deformity, no midline tenderness, no CVA tenderness. SKIN: no rashes, petechiae, orbruising UPPER EXTREMITIES: upper extremities are grossly normal. FROM, nml pulses b/l. No obvious upper extremity edema bilaterally LOWER EXTREMITIES: 1+ b/l symmetric pitting edema. FROM, nml pulses b/l. NEURO EXAM: Confused cranial nerves II-XII grossly intact, normal speech, no facial droop,moving extremities spontaneously, will not cooperate for neurotesting Vital Signs: reviewed and remarkable Differential Diagnosis: CHF, DVT, PE, lymphedema, obstructive lymphadenopathy, occult infection, electrolyte abnormality, KENNETH, nephrotic syndrome, as well as others were considered MEDICAL DECISION MAKING: This is a 77-year-old female who presents emergency department via EMS due to staff concern at [place] for increased edema. Patient unable to provide history due to significant dementia. She was afebrile vital signs stable, no increased work of breathing or hypoxia. Edema in the upper and lower extremities appear symmetric. Labs drawn and sent, IV established, EKG and chest x-ray performed bedside interpreted by me and patient monitored on telemetry. She was sent for lower extremity Dopplers to rule out DVT additionally given her inability to provide history and documented anaphylaxis reaction to IV dye. Patient's Dopplers were negative. No evidence of KENNETH, no evidence of infection. Troponin mildly elevated as well as BNP. She was given additional dose of Lasix and did begin to diurese here. I did attempt to contact a son listed as the primary point of contact and left a voicemail. A repeat troponin was drawn and sent and was increased additionally. No prior echo or cardiology evaluation available to review. In light of findings, case discussed with hospitalist team for additional evaluation and management. Consultation(s): 1435: Discussed with Sonam Benedict, [facility] hospitalist team, for additional evaluation and management. ER Treatment Provided: See below Diagnostics Interpreted By Me: -ECG: Normal sinus at 85, first-degree AV block, normal axis, normal intervals, no acute ST/T wave changes, low voltage throughout -Cardiac Monitoring: An order was placed for continuous cardiac monitoring. The monitor shows a rate of 82 with normal sinus rhythm. -Laboratory studies: As stated above and show below. -Imaging studies: X-ray Chest: A single view study of the chest was reviewed and was negative for cardiomegaly, focal infiltrate, or wide mediastinum. Increased interstitial ayala b/l and b/l pleural effusion. 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 Garces Incisional hernia REPAIR 06/2017 Dr. Garces History of hysterectomy 1989 History of colonoscopy 2004, 04/07/2011 History of appendectomy Status post transverse rectus abdominis muscle (TRAM) flap breast reconstruction Dr. Ray Lea at [facility] H/O mastectomy B/L Dr. 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 Beliefs That Will Affect Care: None marital status: Single Current Living Situation: Long-Term Feels Safe at Home: Yes Assistive Devices: None Allergies Allergies Allergy/AdvReac Type Severity Reaction Status Date / Time animal dander Allergy Severe SHORTNESS Verified 08/20/23 15:06 OF BREATH bee venom protein (honey bee) Allergy Severe ANAPHYLAXIS Verified 08/20/23 15:06 Iodinated Contrast Media Allergy Severe Anaphylaxis Verified 08/20/23 15:06 iodine Allergy Severe Anaphylaxis Verified 08/20/23 15:06 latex Allergy Severe itchy, Verified 08/20/23 15:06 shortness of breath penicillin G Allergy Severe ANAPHYLAXIS Verified 08/20/23 15:06 povidone-iodine Allergy Severe Anaphylaxis Verified 08/20/23 15:06 tuna oil Allergy Severe HIVES AND Verified 08/20/23 15:06 ANAPHYLAXIS bisacodyl Allergy Intermediate Hives Verified 08/20/23 15:06 codeine Allergy Intermediate GI SYMPTOMS Verified 08/20/23 15:06 ephedrine Allergy Intermediate RASH Verified 08/20/23 15:06 ENVIRONMENTAL Allergy Severe SHORTNESS Uncoded 08/20/23 15:06 OF BREATH ACRYLIC CEMENT OR BONDING Allergy Intermediate EDEMA Uncoded 08/20/23 15:06 FACE/LIPS/TONGUE JEWELRY Allergy Intermediate BLISTERS Uncoded 08/20/23 15:06 WITH "CHEAP JEWELRY" Home Meds Home Medications Medication Instructions Recorded Confirmed epinephrine 0.3 mg/0.3 mL 0.3 mg IM DIRECTED PRN Allergic 09/12/18 08/20/23 injection, auto-injector (EpiPen) Reaction levothyroxine 50 mcg tablet 50 mcg PO QAM 02/26/21 08/20/23 donepezil 10 mg tablet 10 mg PO QAM 02/26/22 08/20/23 acetaminophen 650 mg 1,300 mg PO Q6H PRN Pain 09/22/22 08/20/23 tablet,extended release potassium chloride 10 mEq 20 meq PO QAM 09/22/22 08/20/23 capsule,extended release memantine 10 mg tablet 10 mg PO BID 05/29/23 08/20/23 ondansetron HCl 4 mg tablet 4 mg PO Q8 PRN Nausea/vomiting 05/29/23 08/20/23 furosemide 40 mg tablet 40 mg PO QAM 08/20/23 08/20/23 lorazepam 0.5 mg tablet 0.5 mg PO BID PRN Anxiety 08/20/23 08/20/23 melatonin 5 mg tablet 5 mg PO HS 08/20/23 08/20/23 quetiapine 50 mg tablet 50 mg PO BID 08/20/23 08/20/23 Results & Data (ED) Vital Signs Vital Signs - 24 hr 08/20/23 09:41 08/20/23 09:50 08/20/23 11:24 Temperature 37.2 C Temperature Source Oral Pulse Rate 84 81 Pulse Rate [Right Finger] 84 Respiratory Rate 20 18 Respiratory Effort / Characteristics Non-Labored Spontaneous Non-Labored Spontaneous Respiratory Depth Normal Normal Blood Pressure 151/75 H Blood Pressure [Left Arm] 143/89 H Blood Pressure Mean 100 Blood Pressure Mean [Left Arm] 107 Pulse Oximetry 93 92 Oxygen Delivery Method Room Air Room Air Sepsis Recent Fever Within 48 Hours No Sepsis New/Unexplained Change in Mental Status N/A Sepsis Action Taken by Nursing No Action Required 08/20/23 12:58 08/20/23 14:28 Temperature Temperature Source Pulse Rate 81 Pulse Rate [Right Finger] 83 Respiratory Rate 20 Respiratory Effort / Characteristics Non-Labored Spontaneous Respiratory Depth Normal Blood Pressure Blood Pressure [Left Arm] 139/97 Blood Pressure Mean Blood Pressure Mean [Left Arm] 111 Pulse Oximetry 93 Oxygen Delivery Method Room Air Sepsis Recent Fever Within 48 Hours Sepsis New/Unexplained Change in Mental Status Sepsis Action Taken by Nursing Laboratory Data 08/20/23 09:58 08/20/23 09:58 Lab Results 08/20/23 08/20/23 Range/Units 09:58 13:33 WBC 4.66 L (4.8-10.8) K/ul RBC 3.85 L (4.20-5.40) M/uL Hgb 11.1 L (12.0-16.0) g/dl Hct 35.9 L (37.0-47.0) % MCV 93.2 (80.0-100.0) fL MCH 28.8 (25.0-34.0) pg MCHC 30.9 L (32.0-36.0) g/dL RDW Std Deviation 49.5 H (36.4-46.3) fL RDW Coeff of Angel 14.4 (11.5-14.5) % Plt Count 187 (130-400) K/uL MPV 11.6 (9.4-12.4) fL Immature Gran % (Auto) 0.2 % Neut % (Auto) 74.5 % Lymph % (Auto) 15.9 % [place] % (Auto) 8.6 % Eos % (Auto) 0.4 % Baso % (Auto) 0.4 % Neut # (Auto) 3.47 (1.40-6.50) K/uL Lymph # (Auto) 0.74 L (1.20-3.40) K/uL [place] # (Auto) 0.40 (0.11-0.59) K/uL Eos # (Auto) 0.02 (0.00-0.50) K/uL Baso # (Auto) 0.02 (0.00-0.20) K/uL Immature Gran # (Auto) 0.01 (0.01-0.20) K/uL PT 11.4 (9.0-12.0) Seconds INR 1.0 (0.9-1.1) D-Dimer 590 H* (0-500) ug/L FEU Sodium 144 (136-145) mmol/L Potassium 4.0 (3.5-5.1) mmol/L Chloride 108 H (98-107) mmol/L Carbon Dioxide 31 (21-32) mmol/L Anion Gap 5 (3-11) BUN 27 H (6-23) mg/dl Creatinine 0.85 (0.6-1.2) mg/dl Est Cr Clr Drug Dosing 48.5 ml/min Est GFR ( Amer) 75.5 ml/min Est GFR (Non-Af Amer) 65.2 ml/min BUN/Creatinine Ratio 31.8 H (10-20) Glucose 80 (70-99(Fasting)) mg/dl Calcium 9.0 (8.6-10.3) mg/dl Magnesium 2.0 (1.7-2.4) mg/dl Total Bilirubin 0.4 (0.2-1.0) mg/dl AST 56 H (13-39) U/L ALT 58 H (7-52) U/L Alkaline Phosphatase 97 (34-104) U/L Troponin I High Sens 18.3 H 28.9 H D (0-14) pg/ml B-Natriuretic Peptide 246 H (0-100) pg/ml Total Protein 6.1 (6.0-8.3) gm/dl Albumin 3.8 (3.4-5.0) gm/dl Globulin 2.3 L (2.5-4.0) gm/dl Albumin/Globulin Ratio 1.7 (0.9-2) Administered Medications Discontinued Medications Furosemide (Furosemide 40 Mg/4 Ml Vial) 40 mg IV ONE ONE Stop: 08/20/23 11:03 Last Admin: 08/20/23 11:17 Dose: 40 mg Documented By: DORENE Imaging Data Radiologist's Impression: Chest X-Ray 08/20/23 09:48 XR chest 1V portable HISTORY: Lower extremity edema. Confusion. COMPARISON: Chest 01/15/2023. FINDINGS: No pneumothorax. There are low lung volumes. The heart is mildly enlarged. There are small to moderate bilateral pleural effusions with diffuse interstitial/vascular thickening consistent with pulmonary edema. Patchy airspace opacity within the left lower lobe. Surgical clips within the right axilla. Bibasilar densities are also noted. No acute fractures. IMPRESSION: 1. Cardiomegaly with pulmonary edema and small to moderate bilateral pleural fusions. 2. Bibasilar densities are nonspecific and could be due to atelectasis from the pleural effusions or a pneumonia. ACT 112: Negative or not required by law. Electronically signed by: Galo Grullon M.D. 08/20/2023 10:47 AM Venous Doppler Study 08/20/23 11:02 BILATERAL LOWER EXTREMITY VENOUS DOPPLER HISTORY: leg swelling COMPARISON STUDY: None. FINDINGS: There is normal compressibility, flow, and augmentation within the bilateral lower extremity deep venous systems. IMPRESSION: No DVT within the right or left lower extremity. ACT 112: Negative or not required by law. Electronically signed by: Galo Grullon M.D. 08/20/2023 12:25 PM Discharge Plan Visit Data Chief Complaint: Swelling/Edema to Extremity ED Provider: Flower Alba Discharge Problem: Bilateral edema of lower extremity, Elevated troponin, Dementia, Pleural effusion, Elevated brain natriuretic peptide (BNP) level Forms Stand Alone Forms: [facility] [employer] Prescriptions Prescriptions: No Action epinephrine [EpiPen] 0.3 mg/0.3 mL Auto-Injector 0.3 mg IM DIRECTED PRN (Reason: Allergic Reaction) levothyroxine 50 mcg tablet 50 mcg PO QAM donepezil 10 mg tablet 10 mg PO QAM potassium chloride 10 mEq Capsule, Extended Release 20 meq PO QAM acetaminophen 650 mg Tablet Extended Release 1,300 mg PO Q6H PRN (Reason: Pain) furosemide 40 mg tablet 40 mg PO QAM lorazepam 0.5 mg Tablet 0.5 mg PO BID PRN (Reason: Anxiety) quetiapine 50 mg tablet 50 mg PO BID melatonin 5 mg Tablet 5 mg PO HS ondansetron HCl 4 mg tablet 4 mg PO Q8 PRN (Reason: Nausea/vomiting) memantine 10 mg tablet 10 mg PO BID Referrals Referrals: Veronica kirbyInchelium [Primary Care Provider] -
[2023-08-20 10:22] LABS: Basophils # (auto) 0.02 K/uL (0.00-0.20); Basophils % (auto) 0.4 %; Eosinophils # (auto) 0.02 K/uL (0.00-0.50); Eosinophils % (auto) 0.4 %; Hematocrit (blood only) 35.9 % (37.0-47.0); Hemoglobin 11.1 g/dl (12.0-16.0); Immature Granulocytes # (auto) 0.01 K/uL (0.01-0.20); Immature Granulocytes % (auto) 0.2 %; Lymphocytes # (auto) 0.74 K/uL (1.20-3.40); Lymphocytes % (auto) 15.9 %; Mean Corpuscular Hemoglobin 28.8 pg (25.0-34.0); Mean Corpuscular Hgb Conc 30.9 g/dL (32.0-36.0); Mean Corpuscular Volume 93.2 fL (80.0-100.0); Mean Platelet Volume 11.6 fL (9.4-12.4); Monocytes % (auto) 8.6 %; Neutrophils # (auto) 3.47 K/uL (1.40-6.50); Neutrophils % (auto) 74.5 %; Platelet Count 187 K/uL (130-400); RDW Coefficient of Variation 14.4 % (11.5-14.5); RDW Standard Deviation 49.5 fL (36.4-46.3); Red Blood Count 3.85 M/uL (4.20-5.40); White Blood Count 4.66 K/ul (4.8-10.8)
[2023-08-20 10:40] LABS: Albumin Globulin Ratio 1.7 (0.9-2); Albumin Level 3.8 gm/dl (3.4-5.0); BUN Creatinine Ratio 31.8 (10-20); Bilirubin,Total 0.4 mg/dl (0.2-1.0); Creatinine Clr Calc Pharmacy 48.5 ml/min; Est GFR (African American) 75.5 ml/min; Est GFR (Non-African American) 65.2 ml/min; Globulin 2.3 gm/dl (2.5-4.0); Total Protein 6.1 gm/dl (6.0-8.3)
[2023-08-20 10:46] LABS: Troponin I High Sensitivity 18.3 pg/ml (0-14)
--- OUTSIDE RECORDS SUMMARY | 2023-08-20 10:46 | External Medical Summary ---
Author Name Unknown Address Unknown Organization [id number]:[facility] [place] [address] Laboratory Report Ordering Provider Test Date Status ADRIA BLANCAS 06/11/2023 14:42:34 Final Observation Date Value Abnormality Reference (Units ) Status BUN 06/11/2023 14:42:34 26 Above high normal 6-20 (mg/dL) Final Creatinine 06/11/2023 14:42:34 0.9 0.5-1.0 (mg/dL) Final Glomerular filtration rate/1.73 sq M.predicted [Volume Rate/Area] in Serum, Plasma or Blood by Creatinine-based formula (CKD-EPI) 06/11/2023 14:42:34 63 >=60 (mL/min) Final eGFR is calculated based on the CKD-EPI 2020 equation SODIUM 06/11/2023 14:42:34 144 135-146 (m mol/L) Final Potassium 06/11/2023 14:42:34 4.1 3.5-5.1 (m mol/L) Final Cl 06/11/2023 14:42:34 104 98-107 (mm ol/L) Final CO2 06/11/2023 14:42:34 29 22-32 (mmo l/L) Final Anion gap 06/11/2023 14:42:34 11 7-15 (mmol /L) Final Glucose 06/11/2023 14:42:34 91 70-120 (mg /dL) Final Calcium 06/11/2023 14:42:34 9.5 8.4-10.2 ( mg/dL) Final Performing Location [facility] [place] [address]
--- OUTSIDE RECORDS SUMMARY | 2023-08-20 10:46 | External Medical Summary | Summary of Care ---
Author Name Unknown Organization [facility] Address [address] [facility] [place] [address] Phone [phone] Care Team Providers Care Food Science Technician Name Role Phone Henok Covington PA-C Primary Care Provider [phone] Reason for Visit * Reason Comments eRx-Medication Refill Encounter Details Date Type Department Care Team (Late st Contact Info) Description 06/02/2023 Refill General Internal Medicine [facility] [address] [facility] [place] [address] Henok Covington PA-C [address] [facility] [place] [address] Bee sting allergy Allergies Active Allergy Reactions Criticality Noted Date Comments Acrylic Polymer 10/19/2003 blisters Adhesive Tape 02/15/2003 PAPER TAPE ONLY Bee Venom 03/23/2004 stinging insects Cat Dander 12/02/2004 Codeine Nausea/vomiting 02/25/2011 Bisacodyl Hives High 04/07/2011 Iodinated Contrast Media Edema airway High 06/09/2010 Iodine Edema airway High 02/15/2003 Latex Edema Other High 01/19/2012 Caused sores in mouth s/p dental appointment Other - Environmental Edema face/lips/tongue High 04/09/2009 Acrylic used with a dental procedure. --[employer] agent for dental procedures with polymer Developed blisters and edema in mouth and throat. Penicillins 02/15/2003 Blisters in mouth Sulfa Antibiotics 10/22/2016 Tuna Flavor 09/02/2005 Tuna fish documented as of this encounter (statuses as of 06/03/2023) Medications Medication Sig Dispensed Refills Start Date End Date Status Multiple Vitamins-Minerals (PRESERVISION AREDS) Tablet Take 1 Tablet by mouth in the morning and 1 Tablet before bedtime. 0 Active Zoster Vac Recomb Adjuvanted 50 MCG/0.5ML Intramuscular Suspension Reconstituted (Shingrix)Indicati ons:Need for vaccination for zoster Inject 0.5 mL into a large muscle now and repeat dose in 60 to 180 days 1 Each 1 05/27/2020 Active Levothyroxine Sodium 50 MCG Oral Tablet (Levoxyl)Indicatio ns:Hypothyroidism due to acquired atrophy of thyroid Take 1 Tab by mouth daily. (at least 30 min prior to breakfast or other meds) 30 Tab 11 02/06/2021 Active Donepezil HCl 10 MG Oral Tablet (Aricept) Take 1 Tab by mouth daily. Take with largest meal of the day. 30 Tab 5 03/26/2021 Active Potassium Chloride ER 10 MEQ Oral Tablet Extended Release Take 1 Tablet by mouth in the morning. 0 Active Furosemide 20 MG Oral Tablet (Lasix) Take 1 Tablet by mouth in the morning and 1 Tablet before bedtime. 0 03/25/2022 Active QUEtiapine Fumarate 25 MG Oral Tablet (SEROquel) Take 1 Tablet by mouth in the morning and 1 Tablet before bedtime. 0 10/01/2022 Active Acetaminophen ER 650 MG Oral Tablet Extended Release (Tylenol ER) Take 1 Tablet by mouth every 6 hours as needed. 0 Active Memantine HCl 10 MG Oral Tablet (Namenda) Take 1 Tablet by mouth in the morning and 1 Tablet before bedtime. Do not start before December 19, 2022. 180 Tablet 3 12/19/2022 Active EPINEPHrine 0.3 MG/0.3ML Injection Solution Auto-injector (Autoinjector)Thalia cations:Bee sting allergy INJECT 1 PEN (=0.3 MG) INTO THE MUSCLE NEEDED FOR SEVERE ALLERGIC REACTION -PLACE ORANGE END AGAINST OUTER THIGH, PRESS FIRMLY, HOLD IN PLACE FOR 10 SECS AND GO TO ER 2 Each 1 06/03/2023 Active EpiPen 2-Aaron 0.3 MG/0.3ML Injection Solution Auto-injectorIndic ations:Bee sting allergy For a severe reaction: Place orange end against the outer thigh, press firmly, hold in place for 10 seconds and go to the Emergency room. 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 09/25/2022 Bilateral primary osteoarthritis of knee 018 Neural foraminal stenosis of cervical spine 09/2017 Allergic to insect stings 06/27/2012 Irritable bowel syndrome with constipation 04/14 Voice and resonance disorder, hoarseness 011 Intermittent asthma with reliever use up to twic e per week 06/09/2010 HISTORY OF CANCER OF BREAST 08/20/2009 ADVANCE DIRECTIVE INFORMATION 09/02/2005 Overview: Yes, Patient instructed to provide copy of advance directive for provider to review and to be scanned into Electronic Medical Record Hypothyroidism 04/06/2003 Cervical spondylosis Overview: by MRI documented as of this encounter (statuses as of 06/03/2023) Resolved Problems Problem Noted Date Diagnosed Date Resolved Date 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 09/25/2022 09/25/2022 Alzheimer's disease 01/05/2021 09/25/19 23 PMR (polymyalgia rheumatica) 06/22/2019 09/25/2022 Myelopathy 03/20/2019 04/23/2020 B12 deficiency 12/20/2018 09/25/2022 Constipation due to outlet dysfunction 04/13/2015 09/25/2022 LPRD (laryngopharyngeal reflux disease) 04/10/2015 05/16/2019 Allergic conjunctivitis 04/10/201505/02 Overview: History Adverse food reaction 10/04/20142018 Overview: tuna fish caused throat tightness; tolerates other fish without problem GERD (gastroesophageal reflux disease) 06/27/2012 05/16/2019 Recurrent sinus infections 06/27/2012 1 08/14/2016 Chronic laryngitis 08/05/2010 8 RECURRENT ACUTE SINUSITIS 08/05/2010 Acute posthemorrhagic anemia 06/14/2009 06/14/2017 Examination following surgery 06/14/2009 12/14/2017 Malignant neoplasm of female breast 04/18/2007 12/14/2017 Overview: 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 04/06/2003 04/09/2009 Mixed rhinitis 04/06/2003 05/11/2019 Overview: acute documented as of this encounter (statuses as of 06/03/2023) Immunizations Name Administration Dates Next Due COVID-19 mRNA, LNP-s, No Pre serve, 2-Dose Series (Petnet) 10/21/2020,09/30/2020 Pneumococcal Conjugate Vacc, 13 Valent (Prevnar) 12/05/2015 Pneumococcal Polysaccharide PPV23 (Pneumovax) 09/06/2009 SEASONAL INFLUENZA, PF, 6 M & Above, IM , (FLULAVAL or FLUZONE) 06/20/2018 Season Influenza, Quad, PF, Adjuvanted, 65+ Yrs, IM (FLUAD) 05/27/2020 Seasonal Influenza, Split, I IV3, With Preserve, Inj 04/14/2011,04/30/2010,09/06/2009,05/16 Seasonal Influenza, Trivalen t, Adjuvanted, 65+ yrs 05/16/2019 TD - Tetanus/Diptheria (ADULT) 12/13/2007 TDAP (age 10 and older)(Boostrix) 12/14/2017 Varicella Zoster Vaccine (Adult) 06/14/2007 Zoster Vaccine Recombinant (Shingrix) 10/13/2019 documented as of this encounter Social History Tobacco Use Types Packs/Day Years Used Date Smoking Tobacco: Never Smokeless Tobacco: Never Comments:no passive smoke Alcohol Use Standard Drinks/Week Comments Yes 6 (1 standard drink = 0.6 oz pur e alcohol) occ PHQ-2 Answer Date Recorded PHQ Adult Total Score 0 11/25/2020 Hunger Vital Sign Answer Date Recorded Worried About Running Out of Food in the Last Ye ar Never true 06/22/2019 Ran Out of Food in the Last Year Never true 06/22/2019 Sex and Gender Information Value Date Recorded Sex Assigned at Female 12/20/2018 1:04 PM EDT Gender Identity Female 12/20/2018 1:04 PM EDT Sexual Orientation Straight 12/20/2018 1: 04 PM EDT Job Start Date Occupation Industry Not on file Not on file Not on file documented as of this encounter Miscellaneous Notes * Telephone Encounter - Henok Covington PA-C - 06/03/2023 11:15 AM EDTSigned Prescriptions: Disp Refills EPINEPHrine 0.3 MG/0.3ML Injection Solutio*2 Each 1 Sig: INJECT 1 PEN (=0.3 MG) INTO THE MUSCLE NEEDED FOR SEVERE ALLERGIC REACTION -PLACE ORANGE END AGAINST OUTER THIGH, PRESS FIRMLY, HOLD IN PLACE FOR 10 SECS AND GO TO ER Authorizing Provider: HENOK COVINGTON * Telephone Encounter - Jovi Rebolledo [facility] - 06/03/2023 10:59 AM EDTPending Prescriptions: Disp Refills EPINEPHrine 0.3 MG/0.3ML Injection Solutio*2 Each 1 Sig: INJECT 1 PEN (=0.3 MG) INTO THE MUSCLE NEEDED FOR SEVERE ALLERGIC REACTION -PLACE ORANGE END AGAINST OUTER THIGH, PRESS FIRMLY, HOLD IN PLACE FOR 10 SECS AND GO TO ER * Telephone Encounter - Jovi Rebolledo [facility] - 06/03/2023 10:59 AM EDT Pending Prescriptions: Disp Refills EPINEPHrine 0.3 MG/0.3ML Injection Solutio*2 Each 1 Sig: INJECT 1 PEN (=0.3 MG) INTO THE MUSCLE NEEDED FOR SEVERE ALLERGIC REACTION -PLACE ORANGE END AGAINST OUTER THIGH, PRESS FIRMLY, HOLD IN PLACE FOR 10 SECS AND GO TO ER 04/06/2023 (in office), Visit date not found (telemedicine) 10/05/2023 If no future appointments scheduled, and last appointment is greater than a year ago, please schedule patient for a follow-up appointment Last date the medication was ordered: 01/06/23 Pharmacy: [facility] [address] Is this request for a controlled substance?No Urine Drug Screen:No results found. However, due to the size of the patient record, not all encounters were searched. Please check Results Review for a complete set of results. Patient Phone Numbers Labs: Lab Results Component Value Date/Time CREAT 1.0 04/06/2023 01:55 PM CREAT 0.81 10/06/2022 12:00 AM CREAT 0.9 04/23/2020 02:35 PM POTASSIUM 4.3 04/06/2023 01:55 PM POTASSIUM 4.1 10/06/2022 12:00 AM POTASSIUM 4.6 04/23/2020 02:35 PM TSH 0.64 04/06/2023 01:55 PM TSH 0.92 05/27/2020 12:48 PM LDLCALC 110 11/02/2016 09:36 AM LDLDIRECT NOT APPLICABLE 11/02/2016 09:36 AM LDLDIRECT 102 04/27/2012 05:05 PM ALT 21 03/25/2022 12:51 PM ALT 19 04/23/2020 02:35 PM HGBA1C 5.7 10/12/2008 10:09 AM documented in this encounter Plan of Treatment Upcoming Encounters Date Type Department Care Team (Late st Contact Info) Description 07/20/2023 8:00 AM EST Telemedicine Neurology, [place] [address] [facility] [place] [id number] Yarelis Guevara PA-C [facility] [place] [address] 10/05/2023 1:40 PM EST Office Visit General Internal Medicine [facility] [place] [place] [address] [facility] [place] [address] Henok Covington PA-C [address] [facility] [place] [address] Health Maintenance Due Date Last Done Comments Zoster Vaccines (3 of 3) 12/08/2019 10/13/2019, 06/02 Depression Screening 11/25/2021 11/25/2020 COVID-19 Vaccine ( season) 2023 10/21/2020, 09/30/2020 Influenza Vaccine (FLU shot) (#1) 2023 05/27/2020, 05/16/2019, 06/20/2018, Additional history exists TSH 04/06/2024 04/06/2023, 03/03, 11/25/2021, Additional history exists DTaP,Tdap,and Td Vaccines (2 - Td or Tdap) 12/15/2027 12/14/2017, 12/13/2007 Hepatitis C Screening Completed 01/31/2010 Pneumococcal Vaccine: 65+ Years Completed 12/05/2015, 09/06/2009 DXA Scan Discontinued 06/27/2018, 03/02, 02/28/2013, Additional history exists GARDASIL-HPV IMMUNIZATION SERIES Aged Out No longer eligible based on patient's age to complete this topic Hepatitis B Aged Out No longer eligi ble based on patient's age to complete this topic MENINGOCOCCAL (MENACTRA/MENVEO) Aged Out No longer eligible based on patient's age to complete this topic documented as of this encounter Medical Devices Implanted Type Area Branch Account Executive Device Identifier Shelf Expiration Date Model / Serial / Lot Mesh Flat Sheet 10x14 [id number] - [id number] Implanted:Qty: 1 on 06/13/2009 [place] [facility] [place]: Abdomen CR BARD : DAVOL 09/02/2013 [id number] / / [id number] Description:Bard Mesh monofi lament knitted polypropylene 10 x 14 inches documented as of this encounter Visit Diagnoses Diagnosis Bee sting allergy Allergy to insects and arachnids documented in this encounter Advance Directives Latest Code Status on File Code Status Date Activated Date Inactivated Comments Full Code 06/13/2009 3:57 PM 06/19/2009 3:27 PM Thi s order reflects the patients wishes and were consensually agreed upon. Question Answer Comments Discussion of Advance Directives occurred with: Patient Does the patient have a Living Will? Yes, in chart and reviewed as current Care Teams Food Science Technician Relationship Specialty Start Date End Date Henok Covington PA-C [address] [place] [address] [place] [id number] PCP - General Physician Captain Airline Pilot 04/06/23 documented as of this encounter
--- OUTSIDE RECORDS SUMMARY | 2023-08-20 10:46 | External Medical Summary | Summary of Care ---
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 Penicillins 02/15/2003 Blisters in mouth Sulfa Antibiotics 10/22/2016 Tuna Flavor 09/02/2005 Tuna fish documented as of this encounter (statuses as of 07/20/2023) Medications Medication Sig Dispensed Refills Start Date End Date Status Multiple Vitamins-Minerals (PRESERVISION AREDS) Tablet Take 1 Tablet by mouth in the morning and 1 Tablet before bedtime. 0 Active Zoster Vac Recomb Adjuvanted 50 MCG/0.5ML Intramuscular Suspension Reconstituted (Shingrix)Indications :Need for vaccination for zoster Inject 0.5 mL into a large muscle now and repeat dose in 60 to 180 days 1 Each 1 05/27/2020 Active Levothyroxine Sodium 50 MCG Oral Tablet (Levoxyl)Indications: Hypothyroidism due to acquired atrophy of thyroid Take [...] Active EPINEPHrine 0.3 MG/0.3ML Injection Solution Auto-injector (Autoinjector)Indicat ions:Bee sting allergy INJECT 1 PEN (=0.3 MG) INTO THE MUSCLE NEEDED FOR SEVERE ALLERGIC REACTION -PLACE ORANGE END AGAINST OUTER THIGH, PRESS FIRMLY, HOLD IN PLACE FOR 10 SECS AND GO TO ER 2 Each 1 06/03/2023 Active documented as of this encounter (statuses as of 07/20/2023) Active Problems Problem Noted Date Diagnosed Date [...] as of this encounter (statuses as of 07/20/2023) Resolved Problems Problem Noted Date Diagnosed Date [...] as of this encounter (statuses as of 07/20/2023) Immunizations Name Administration Dates Next Due COVID-19 mRNA, LNP-s, No Pre serve, 2-Dose Series (Pfizer) 10/21/2020,09/30/2020 Pneumococcal Conjugate Vacc, 13 Valent (Prevnar) 12/05/2015 Pneumococcal Polysaccharide PPV23 (Pneumovax) 09/06/2009 Season Influenza, Quad, PF, Adjuvanted, 65+ Yrs, IM (FLUAD) 05/27/2020 Seasonal Influenza, PF, 6 M & above, IM , (FluLaval or Fluzone) 06/20/2018 Seasonal Influenza, Split, I IV3, With Preserve, [...] on file documented as of this encounter Patient Instructions * Patient Instructions* Yarelis Guevara PA-C - 07/20/2023 8:09 AM EST Images from the original note were not included. 22/02 Alzheimer's Association Help Line: [phone] For immediate support, guidance, education, help Caregiver educational courses, webinars: Https://training.alz.org/ Alzheimers [employer] [place] -- https://alzfdn.org/ AFA Helpline: 9 am-9 pm ET, seven days a week. Connect with a licensed life and health agent by phone [phone]; or text message: [phone] 24 Hour Alzheimer's Caregiver Helpline -- Youre Not Alone. Were here to help whenever you reach out. Virtual/Telephonic Caregiver Support Groups & Platforms 2022 Alzheimers Association Virtual Caregiver Support Group The and Wednesday every month 09/15/2022 - 08/24/2023 -- 11:30 AM - 12:30 PM Go online, multiple online options: https://www.alz.org/help-support/community/support-groups [facility] Support Group for Caregivers of a Loved One in a Care Setting -- via Telephone -- (Starting February 11, 2023) -- 3:30 pm - 4:30 pm (ET) This group, which is open to family members and caregivers whose loved ones reside in a care setting, will provide opportunities for participants to connect with others in a supportive environment; share thoughts and emotions; and learn about coping strategies and resources. For more information orto start the registration process, please contact Deanna Bosch at or [phone]. REGISTER: [email or web address]-[email or web address] WHEN: One hour most Mondays: 7:00 PM EST WHERE: Hosted on the Zoom platform via desktop computer, tablet, or smartphone. Once registered, you may join with Zoom online, or just by phone. Cameras are also turned OFF by default (unless turned on with consent), but you can always see/hear the expert live via Zoom. DEMENTIA CAREGIVER BLOG WEBSITES: ALZHEIMERS SPEAKS -- #1 online influencer for Alzheimers https://www.[facility].InsideMaps/ ALZ AUTHORS -- https://[employer]ia.InsideMaps/ BLOG, PODCASTS, BOOKS, STORIES, HELPFUL WEBSITES THE REEF -- MALE CAREGIVER BLOG https://alzheimerAriel [email or web address].InsideMaps/rwj-qwrw-jrv-male-caregivers/ Quick Guide: Holidays & Dementia For most families, the holidays are filled with opportunities for togetherness, sharing laughter and memories. For people caring for loved ones with dementia, the holidays can also be filled with stress, disappointment and sadness. Because of the changes caused by dementia, families as well as the person with the disease, may feel a special sense of loss during the holidays. Caregivers may also feel overwhelmed by trying to maintain holiday traditions while providing care. In addition, there may be some hesitation about inviting family and friends over to share the holiday for fear they will be uncomfortable with the changes they see in the person with the disease. Preparing for the Holidays in General: Adjust expectations - The gift of perspective, the stress of caregiving, layered with holiday traditions can take a toll. Set your own limits, and be clear about them with others. You do not have to live up to the expectations of friends or relatives. Your situation is different now. If you receive invitations to events that the person with dementia cannot attend, consider going yourself. Ask a friend or family member to spend time with the person while youre out. Try to avoid situations that may confuse or frustrate the person with dementia, such as significantchanges in routine and strange places. Consider simplifying your holidays around the home. For example, rather than cooking an elaborate dinner, consider a smaller dinner with close family. Celebrate earlier in the day to reduce the likelihood of owning - Have a holiday lunch rather than a dinner. Involve the person with dementia in simple holiday preparations, or have him or her observe your preparations. Observing you will familiarize him or her with the upcoming festivities. Participating with you may give the person the pleasure of helping and the fun of anticipating and reminiscing. Prepare quiet distractions to use, such as looking at pictures or going for a walk, if the person with dementia becomes upset or overstimulated. Make sure there is a quiet space where the person can rest and have time to recharge. If this is the first visit since the person with dementia became severely impaired, inform people ahead of time what they can expect. The memory-impaired person may not remember guests names or relationships but can still enjoy their company. Explain that memory loss is the result of the diseaseand is not intentional. Stress that the meaningfulness of the moment together matters more than what the person remembers. Preparing for Family Gatherings - Holidays with a Person who has Dementia Invite family and friends to a [id number] meeting, video or phone call to discuss the situation: The holidays are full of emotions, so it can help to let guests know what to expect before they arrive. Familiarize friends and family with changes in behavior and appearance that they may notice in your loved one. Give them tips for communicating and how to watch for increased anxiety or situations that might cause frustration and methods for helping calm your loved one down. Make sure everyone understands your caregiving situation and has realistic expectations about what you can do. Be honest about any limitations or needs, such as keeping a daily routine. You may find this easier to share changes in a letter or email that can be sent to multiple recipients: Im writing to let you know how things are going at our house. While were looking forward to your visit, we thought it might be helpful if you understood our current situation before you arrive You may notice that ___ has changed since you last saw him/her. Among the changes you may noticeare ___. Because ___ sometimes has problems remembering and thinking clearly, his/ her behavior is a little unpredictable. Please understand that ___ may not remember who you are and may confuse you with someone else. Please dont feel offended by this. He/she appreciates your being with us and so do I. If the person is in the early stages of dementia - relatives and friends might not notice any changes. But the person with dementia may have trouble following conversation or tend to repeat him- or herself. Family can help with communication by being patient, not interrupting or correcting, and giving the person time to finish his or her thoughts. If the person is in the middle or late stages of dementia - there may be significant changes in cognitive abilities since the last time an out-of-town friend or relative has visited. These changes can be hard to accept. Make sure visitors understand that changes in behavior and memory are caused bythe disease and not the person. Be good to yourself - Give yourself permission to do only what you can reasonably manage. If youve always invited 15 to 20 people to your home, consider paring it down to a few guests for a simple meal. Let others contribute - Have a potluck dinner or ask them to host at their home. You also may want to consider breaking large gatherings up into smaller visits of two or three people at a time to keep the person with Alzheimers and yourself from getting overtired. Timing - If evening confusion and agitation are a problem, consider changing a holiday dinner into a holiday lunch or brunch. If you do keep the celebration at night, keep the room well-lit and try to avoid any known triggers. Involve the person with dementia with preparations - As the persons abilities allow, invite him or her to help you prepare food, wrap packages, help decorate or set the table. This could be as simple as having the person measure an ingredient or hand decorations to you as you put them up. (Be careful with decoration choices. Blinking lights may confuse or scare a person with dementia, and decorations that look like food could be mistaken as edible.) Build on past traditions and memories - Focus on activities that are meaningful to the person with dementia. Your family member may find comfort in singing old holiday songs or looking through old photo albums. Preparing the Person with Dementia: Begin showing a photo of the guest to the person a week before arrival. Each day, explain who the visitor is while showing the photo; or if it is not at that extent and there are just a few *blips* once in a while, talk about and tell stories about those coming - Like a prep. Arrange a phone call for the person with dementia and the visitor(s). The call gives the visitor anidea of what to expect and gives the person with dementia an opportunity to become familiar with the visitor. Keep the memory-impaired persons routine as close to normal as possible. During the hustle and bustle of the holiday season, guard against fatigue and find time for adequate rest. Try a trial run of what may occur - If there will be music or chu movies playing, see how they respond a few days prior. If you need to move furniture to accommodate for guests, do not do it all at once. Do a little overa few days. Sudden change can be triggering and cause confusion. Also make sure there are no safetyhazards or fall hazards with these changes. If there will be more than a few people, try to socialize them in groups or with several people before hand. You may get a feel of how they will respond. It can help ease the person with dementia into things. Being in large groups can be intimidating, and it can also be difficult to keep track of conversation if several people are talking. How should family members initially approach a loved one with dementia? DOS ?? Enter the room slowly and offer your hand respectfully. Wait for the loved one to take it and respect them if they do not. Introduce yourself by name and relationship. If you want to hug them, lean in slowly and read their cues. If they get tense or back up, they arenot comfortable. Realize that people who never wanted to be touched may suddenly be interested in holding your hand all the time - and vice versa. *Communication Tips: Help family understand that communication is different with a person who has dementia, and provide suggestions on how to better communicate with your loved one. -Be patient & supportive - Offer comfort & reassurance - Focus on feelings, not facts Address the person by name when talking to them Speak slowly and clearly - Use short, simple and familiar words Ask one question at a time - Some may do better with closed ended responses to questions. Give them time to process what was said and respond If they are struggling to get the words out, they get frustrated and it may be helpful to help themfind the words - Offer a guess if he/she is struggling to find a word. But some will also getagitated if you try to finish all of their sentences for them. People with dementia may lose their ability to have a conversation: Guests and caregivers can converse, but should make the loved one feel included even if they dont respond. Dont shy away from reminiscing as that can be a comfort to the caregiver. If there is a significant language deficit and they ramble or babble do not act like they are not actually speaking or trying to communicate. Acknowledge them with a smile and kind words.Try to engage as much as you can. If dementia is more progressed and/or there are language/communication deficits, use nonverbal communication such as pointing, touching, photos. Communication and picture boards can be helpful. DONTS ?? Do not talk about the person as if he/she was not there. Avoid criticizing, correcting, and arguing. This almost always makes things worse. Never ask Do you know who I am? Do you remember me? Avoid asking them If they remember a certain situation - This can cause anxiety and they may become defensive or agitated if they do not remember. This can be very upsetting to the person with dementia, but also their loved ones based on the response. Do not say things like you just asked me that. Do not make them feel like they are a bother or stupid. It can be *annoying* to answer the same question 100x, especially if you are not a caregiver or used to this OR if you are a caregiver on their last leg due to the demands of the holiday season! Do not get angry or raise your voice. What are the best ways family members can spend quality time with a loved one during a visit? Bring a bag of tricks - snacks, coloring books, crafts, photographs or memorabilia. There are so many ways we can connect with each other even when a person can no longer talk or remember a shared history. Music - especially singing songs together - is a wonderful way to share an experience. *Although people lose the ability to converse, their ability to sing may be preserved in a beautiful way. [place]/ primary language - If [place]ian is your loved ones second language. *Try speaking to them in their primary language - Often times this can be more preserved. Engage loved ones in ways that match their abilities - Perhaps they can hold a bowl or roll dough. Its even meaningful if they simply sit at the table while others perform the tasks. You also can look at holiday cards together and use the visuals to make small talk. CULTIVATE A SENSE OF PURPOSE IN THOSE WITH DEMENTIA For people living with Alzheimers disease or dementia, the right activities are crucial. Findingactivities for seniors with dementia can offer benefits such as cognitive stimulation, the opportunity to connect with others, comfort and relaxation, and more. But perhaps the main obstacles to pursuing effective dementia activities are the helplessness, lack of identity and boredom that typicallyaccompany a dementia diagnosis. The condition is progressive, and many people with dementia simply give up doing what they used to enjoy, losing their sense of purpose. But that only leads to sadness, depression and loneliness. Finding meaningful activities for your loved one with dementia is myers to coping with this challenging disease, and is worthwhile for both of you. THE IMPORTANCE OF PURPOSE Research has shown that having a sense of purpose is therapeutic for people living with dementia. In what is now considered a landmark study, [facility] in [place] conducted a long-term study of over 1,400 senior citizens over a 15-year period. Those who rated high on their purpose of life scale had a 30% lower rate of cognitive decline over those who rated lower. Sense of purpose and meaning in life are also increased through role continuation, reminiscence, and the vanessa of teaching children. These relationships, established between children and individuals with dementia, can decrease anxiety and help preserve physical health. MOVING PAST FEELINGS OF HELPLESSNESS Though dementia can, in fact, limit certain abilities, its important to avoid something called learned helplessness. This happens when expectations about the capabilities of an afflicted individual become so low that they lead to an actual decline in their true abilities. For example, if you do everything for your loved one, theyll eventually forget how or be unwilling to do these things themselves. This growing feeling of helplessness is directly at odds with the sense of purpose youre trying to instill. The myers is finding the balance between offering help when its needed, while encouraging independence and self-sufficiency whenever possible. FINDING DEMENTIA ACTIVITIES WITH A BENEFICIAL OUTCOME Many people with dementia struggle with feelings that theyve become a burden to the person caring for them. They want to help, but dont know what to do. Even a simple chore they can manage easily will give them something to do and provide the beginnings of a new sense of purpose. These can besimple chores like folding laundry or sorting through a drawer to help organize the items inside. Even simple tasks like these can help people with dementia feel useful.Finding purpose might be as simple as drawing upon what your loved one has always enjoyed. Did they love animals? Sometimes peopleenjoy cutting out magazine photos and making a collage or simply pinning them to a bulletin board. It may take some thought and experimentation to create activities that are neither too difficult norso simple that they may offend your loved one.A step up from this type of dementia activity involves looking back over the persons life and helping them develop their biography or timeline of events in a scrapbook. This can be very enjoyable for you and your loved one. People with dementia are often able to remember events from decades ago more easily than what happened last week. This dementia activity provides a range of tasks to do, such as looking through old photos and finding other mementos like ticket stubs or theater programs that are appropriate for a scrapbook. And as the scrapbook develops, the pleasure and satisfaction from sharing it is quite rewarding.Perosphere is a website that features articles, activities and resources for caregivers working with Alzheimers patients. SOME OF THE BEST ACTIVITIES FOR SENIORS WITH DEMENTIA These include activities that yield a tangible outcome and purpose, like making things together -- a cushion cover, a birdhouse, threading beads for a necklace. The sense of engagement and satisfaction can be very high with this type of dementia activity. Here are some additional guidelines for finding the right activities for seniors with dementia: Focus on activities that promote relaxation. Dementia can be a source of great anxiety and tension.Some people with dementia will not be able to take part in certain physical activities, but this doesnt mean theyve lost their capacity for enjoyment. Relaxation through music, sunlight, warmth, smell and touch is always beneficial. Sometimes the activity is more important than the outcome. Worry less about how an activity should be done or what the end product is supposed to be than how engaged your loved one is. People in the middle and late stages of dementia arent always capable of understanding the goal of an activity.Try to help them enjoy the process by being in the moment. Know your loved ones daily rhythms. People move through the disease in their own way at their own pace. Be alert to signs that an activity may be causing frustration. Make some modifications or try something else if necessary. Is there a better time of day to try this particular activity? Are noise and distractions causing sensory overload? The goal is engagement. Whether playing a game or performing exercises together, the important thing is that the person with dementia stays connected and engaged in the activity. Sensory stimulation in this way helps preserve basic skills -- such as being able to button a shirt -- and lets them function as independently as possible for as long as possible. Arrange for a visit with children or a pet. Visiting with children or a dog or cat can often touch people with dementia deeply. Embrace artistic pursuits like painting, writing or music. Visual arts, assembling a collage or creating a karen ornament, writing, and music are great ways to encourage creativity, improve behavioralissues, and provide an outlet for self-expression. The arts can help create a mood, stimulate the imagination and offer genuine enjoyment. Source: https://[employer]mal.InsideMaps/blog/onzrqrkljz-fntjos-llnf-activities/ Develop new habits for talking with someone who has Alzheimers (or other dementia). Learn to cherish each new conversation My [id number], Concepcion, loved to talk. She was polite and engaging, a good listener ready to sharea kind word of encouragement. Her friends and family always looked forward to talking with her. But Alzheimers changed how Concepcion was able to engage in conversations. When she started losing her ability to store new memories, we had to learn new ways to talk with her. Rethinking Conversation Think of how many conversations you have had during your lifetime. You have had years of practice. And you have developed many practical habits, such as asking questions, sharing details, correcting mistakes, and building on earlier conversations. Such habits help when talking with a normally functioning person. But when talking with someone who has Alzheimers, you need a new set of habits. When I tried talking with Concepcion the same way I always had, both of us usually ended up frustrated, confused, and discouraged. So, I started rethinking how to have conversations with her and others living with Alzheimers. I sought advice from other caregivers, and I tried new methods. Several books were extremely helpful to me, especially Creating Moments of Vanessa by Renetta Rodriguez and Contented Dementia by Steve Queen. As I started thinking differently, I started having better conversations with Concepcion. Frustration and confusion didnt disappear completely. But more and more of our conversations were now marked bylaughter, kindness, and vanessa. I was learning to adapt. I was recognizing that Alzheimers had stolen Zoey ability to storenew memories. And I was adapting my behavior accordingly. By changing my thinking and my actions, Iwas helping Concepcion feel more comfortable. When she felt more comfortable, she was more likely to be p olite and encouraging. In other words, she was more like herself. 4 Helpful Habits for Talking With Someone Who Has Alzheimers: Its a simple list. But putting these four things into practice can be challenging. Why? Because each involves a new way of thinking. They go against what youve been taught. In fact, each of these simple statements involves a complete reversal of some of our most common habits of conservation. Make statements (instead of asking questions) Example of what not to say: Are you hungry? What do you want for breakfast? Instead, try: Its almost time for breakfast. Pancakes sound good to me. Share feelings (instead of details) Example of what not to say: Your sister is flying in from [place] this afternoon at 2:36 p.m., so Ill pick her up at the airport and well drive straight here. If her flight is on time,we should be here by 4 at the latest. Instead, try: Im so happy. Your sister is coming to visit you today. She loves you so much. Always agree (instead of correcting mistakes) Example of what not to say: No. Your daughter isnt coming today. She has to work. Instead, try: Yes. Your daughter loves you, and she likes to come and see you. Start fresh (instead of building on earlier conversations) Example of what not to say: Yesterday you said you wanted to go for a drive in the country, so thats what were doing. Instead, try: Today would be a beautiful day for a drive in the country. Practice, Practice, Practice Habits form over time. You will need training and practice. Some of these new habits may feel unnatural. Thats okay. Keep at it. You will get better. As you develop these habits, you will start toexperience more enjoyable and more productive conversations. Developing new habits of conversation is especially challenging when talking with a loved one, suchas a parent or a spouse. You have grown accustomed to how conversation happens between you and those closest to you. You cherish the back and forth, the give and take. You have come to rely on the responses of your loved one. My , Damari, had enjoyed a lifetime of quality conversations with her mom. She had learned to rely on her moms ability to accurately answer her questions. For her entire life, Damari had been able to go to her mom and share new stories and details of her life. Practicing new habits of conversation felt unnatural and reminded her of what she had lost. Paying Attention Talking with someone who has Alzheimers, especially a loved on, can be challenging. But the rewards are immeasurable. Damari and I started learning to grieve for the loss of the easy rild-wjp-evqcvdiav we used to have with her mom. At the same time, we were developing new habits and learning tocherish each new conversation. We started learning to pay close attention to Trishs responses, and we started learning what to say and what not to say. Trial and error, mixed with patience, can be a wonderful teacher. Let your loved one who has Alzheimers become your guide. If something you say upsets them, try saying something else. Or, at least, try saying it in a different way. If something you say or do makes the person smile, keep that up and try more of the same. Learn new habits. Work on making statements, instead of asking questions. Focus on sharing feelingsinstead of facts and details. Practice agreeing, instead of correcting mistakes and misconceptions.And learn to start fresh, recognizing the potential for vanessa in each new day and each new conversation. [email or web address]/tdwuiec-jurc-gdargjn-fsv-elq-tplgltekjt/ _ Music connects us with our memories and with each other. Its an essential part of life, so its an essential part of dementia care. A growing amount of research is confirming the power of music. But we dont need scientists to tell us why music matters. We all know. Music surrounds us, and somehow, music gets inside of us. We all know the feeling of hearing a song that takes us back, renewing memories. Songs of childhood. Songs of summer. Songs of love. Music Connects For a person who has Alzheimers, a favorite song can be the myers to unlocking old memories. Musiccan help connect someone who has Alzheimers with their own vanessa-filled memories. [place] seen it happen many times. Hearing the right song can bring a smile to a face, or sometimes a tender tear to an eye. Music can connect a person to a specific time in their life. When a certain song unlocks a set of special memories, you may hear stories shared for the first time. [place] seen Take Me Out to the Ball Game bring a man back to his own days playing baseball. [place] seen All Shook Up take awoman back to a high school dance. And [place] seen Some Enchanted Evening bring people back to a first love. Music also connects us with each other. As we share a song, we share memories. And we create new memories. While we were caring for my szwlcx-eo-riq, Concepcion, our family experienced the vanessa of singing together. Yes, we grieved as Alzheimers stole her memories and, eventually, her life. The loss and the pain is very real. But so are the moments of vanessa. Now, as our family continues to grieve, we also cherish each special moment of vanessa we shared with Concepcion. Many of those moments of vanessa involved music, so we know firsthand why music matters. When Im leading singalongs, of course Im doing my best to connect with the audience. As we sing together, we also share smiles and winks and knowing looks. But Im also connecting with my ownmemories, including memories of singing with Concepcion. So, when I sing Keep on the Enrique Side I remember standing next to her, watching her grandchildren perform at a [place] festival. When I sing Blue Suede Shoes, I remember hearing her talk about Gabriele Delaney and her high school days.And when I sing Cant Help Falling in Love With You, I remember how Concepcion loved that song and how she would reach out and take my hand as I sang those words of the chorus. Music Brings Vanessa Music is part of life. Were each immersed in music in a personal way. 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 She then started working to help people understand more about dementia and how to live with it. Please watch this video to hear some of the reasons Dr. Mendoza believes music is an essential part of dementia care. Throughout our lives, Dr. Mendoza says, we use music to calm, to reassure, to energize, and to bring vanessa. For someone living with Alzheimers, music continues to provide those benefits, even when few other things can. More Reasons Why Music Matters It is a non-medical way to help manage symptoms of dementia, anxiety and depression. It is inherently social, so it helps reduce social isolation. Improves quality of life; promotes confidence, retention of speech and language skills. ACTIVITIES FOR PEOPLE WITH DEMENTIA Create a memory box: A memory or rummage box can help your older adult feel connected to their pastcareer and previous hobbies. Get any kind of box and fill it with things they would have used at work, copies of photos and non-important keepsakes, or objects from hobbies. Untie knots: Find our buy a length of medium-thickness rope from the local [employer] store. Loosely tie a few simple knots and ask your older adult to help you untie them. Thread pasta with yarn or string: Get some dry pasta with big holes and some thick yarn or regular string. Make a needle by taping around the end of the string, making it longer than the piece of pasta. Have your older adult string the pasta using their needle and thread. Create a box of fun fabrics: This is fun for everyone, but especially for someone who used to enjoysewing or fabric crafts. Get a box and put dozens of pieces of assorted fabrics inside. Try to get different colors and a variety of textures like lace, felt, silk, velvet, wool, cotton, etc. Sort some items: Give them a box filled with different colored beads, miscellaneous buttons, or coins; have them sort these items into groups based on similarity. This activity not only offers them aclear, specific objective, but also engagement with colors and textures that stimulate the senses, which can help to keep them interested for a prolonged period of time. Thread beads to make necklaces/bracelets Music: singing, instruments, play guess that tune Make a collage or a scrap book Get a rubix cube, fidget spinner, fidget board Jigsaw puzzles, card games, card matching, cross words, trivia Coloring, painting, Playdoh, reading/audiobooks Cook or bake something together Keep a garden or plant (indoor or outdoor) Give them a list of regular chores or tasks documented in this encounter Progress Notes * Yarelis Guevara PA-C - 07/20/2023 10:15 AM EST [facility] Today I had the pleasure of seeing Sandy Soares in follow-up at the [facility]. History: Ms. Sandy Soares is a 77 year old right-handed female with 12 years of education presenting for follow up for Alzheimer's dementia (onset at least since 2017, progressive, rapid worsening since 2020) with hallucination, delusion and paranoia. Neuropsychological testing in 12/2020 showed global impairment, impression was late mild dementia likely due to Alzheimer's disease, with contribution from vascular etiologies. Last appointment was October 2022, seen by Dr. Doyle. Two appts ago, we were unable to complete an MMSE, given patient was getting frustrated. Son Jovi is her POA. She also has advanced directive/living will. October 2022: No major events. Cognition has worsened, unable to recall. I did not start memantine even though I planned it (forgot to send Rx?). She does not recall son's name on arrival, which is new. She carries a baby doll whom she talks to and coos. Living at [place], 1 level. Med list that was brought did not properly show mediations (words were cut off) and we requested new copies, not yet received. Jovi sees her every 2 weeks. Other son Galo sees her weekly. Apptite good. No nausea or vomiting reported No reported BM problems No pain with bathroom She is a poor historian. Unable to to answer questions appropriately. Home noticed swelling in her ankles. Interval Changes: - Son, "Gene" says holding pretty steady, but she needs more cueing with tasks. Need to say/ask things a few times. Denied known issue with hearing. - Namenda BID, Aricept QD, Seroquel -- working well for mood and behaviors. Always a little "feisty" whole life. Facility has not mentioned any concerns. - Appetite and weight stable. No trouble swallowing. - Some day and night confusion. - She has been calling her sons her brother for the last 4-6 months. When asked today who was next to her, what his name was, could not tell me. - Walking stable, no frequent falls, but since last appt she had a few, feel it was related to fatigue, tripped over feet. No further events. - She went to [facility] December 2022, cbc wnl, UA without infx. CTH and c spine WNL. No fractures in pelvis/ribs. - Pending follow up appt/labs/med recs for thyroid. - Meds the same per son. FUNCTIONAL ASSESSMENT: Intact/impaired Comments Tineo ADLs: Bathing ? Dressing some confusion with certain clothing (turtle neck as skirt). Overdresses. Toileting ? Transferring (bed to chair) intact Knows to ask family to slow down. Trouble with weakness. Has fluid in the knees and arthritic knees. Continence Intact to family's knowledge. Feeding intact Outpatient Medications Prior to Visit Medication Sig Dispense Refill EPINEPHrine 0.3 MG/0.3ML Injection Solution Auto-injector (Autoinjector) INJECT 1 PEN (=0.3 MG) INTO THE MUSCLE NEEDED FOR SEVERE ALLERGIC REACTION -PLACE ORANGE END AGAINST OUTER THIGH, PRESS FIRMLY, HOLD IN PLACE FOR 10 SECS AND GO TO ER 2 Each 1 Memantine HCl 10 MG Oral Tablet (Namenda) Take 1 Tablet by mouth in the morning and 1 Tablet beforebedtime. Do not start before December 19, 2022. 180 Tablet 3 Acetaminophen ER 650 MG Oral Tablet Extended Release (Tylenol ER) Take 1 Tablet by mouth every 6 hours as needed. QUEtiapine Fumarate 25 MG Oral Tablet (SEROquel) Take 1 Tablet by mouth in the morning and 1 Tabletbefore bedtime. Furosemide 20 MG Oral Tablet (Lasix) Take 1 Tablet by mouth in the morning and 1 Tablet before bedtime. Potassium Chloride ER 10 MEQ Oral Tablet Extended Release Take 1 Tablet by mouth in the morning. Donepezil HCl 10 MG Oral Tablet (Aricept) Take 1 Tab by mouth daily. Take with largest meal of the day. 30 Tab 5 Levothyroxine Sodium 50 MCG Oral Tablet (Levoxyl) Take 1 Tab by mouth daily. (at least 30 min priorto breakfast or other meds) 30 Tab 11 Zoster Vac Recomb Adjuvanted 50 MCG/0.5ML Intramuscular Suspension Reconstituted (Shingrix) Inject 0.5 mL into a large muscle now and repeat dose in 60 to 180 days 1 Each 1 Multiple Vitamins-Minerals (PRESERVISION AREDS) Tablet Take 1 Tablet by mouth in the morning and 1 Tablet before bedtime. No facility-administered medications prior to visit. Last reviewed on 04/06/2023 1:24 PM by Albina Arias LPN Review of patient's allergies indicates: Allergen Reactions Dulcolax [Bisacodyl] Hives Iodinated Contrast Media Edema airway Iodine Edema airway Latex Edema Other Caused sores in mouth s/p dental appointment Other - Environmental Edema face/lips/tongue Acrylic used with a dental procedure. 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 Acrylic Polymer blisters Adhesive Tape PAPER TAPE ONLY Bee Venom stinging insects Cat Dander Codeine Nausea/vomiting Penicillins Blisters in mouth Sulfa Antibiotics Tuna Flavor Tuna fish Examination: On examination today, the patients general appearance was well nourished, well developed, and inno apparent distress. Awake and alert. Normal respiratory effort. No acute distress, she started getting antsy when cognitive testing attempted. Limited. No facial droop or abnormal movements noted. +Aphasia/cog communication deficit - Repeated 3 words: Table apple and prince - Repeated today is a caryn day but had to ask couple times - Could not name pen -- "long thing" - Could not tell me who was next to her/or their name (son) - Could not tell me month/year Assessment: Sandy Soares is a 77 year old right-handed female presenting for follow up for moderate to severe Alzheimer's dementia + vascular contribution (onset at least since 2017, progressive with rapid worsening since 2020) with psychosis (hallucination, delusion and paranoia). Neuropsychological testing in 12/2020 showed global impairment, impression was late mild dementia likely due toAlzheimer's disease, with contribution from vascular etiologies at that time. Since 05/2022, she continues to progress, but since January 2023 she has been pretty steady, mild expected changes. Donepezil 10 mg daily (10/2020- ) provided no benefit. Quetiapine 25 mg BID (since at least 03/2022- ) with some benefit. Memantine was started and tolerating. EKG 08/2019 showed QTc 407 ms. November 2022 EKG reviewed by isrrael Harp, eva to start quetiapine. We were unable to perform cognitive testing again today due to her level of cognitive impairment and ability to participate. She resides at [place] on the first level. Son Jovi is POA, other son Galo involved as well. No safety concerns currently, but over the summer she had a few falls, went to [facility] December 2022 with normal UA, CBC, and CTH/C spine/Xrays without acute findings or fractures. No events since. 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 Continue memantine 10 mg 2x daily. Continue Quetiapine 25 mg BID. If needed, melatonin 1-2 hours before bed. 5 mg, can increase up to 15 mg max over few weeks. Keep cognitively, socially and physically engaged much as possible. Fall prevention and precautions. Recommend PT as allotted per insurance, even for general conditioning and health. At risk for long QT syndrome Recommend annual EKG Additional Information: This encounter was completed via telemedicine. Patient was identified by name and . They were informed this is a telemedicine visit and nobody was present in the room with me. Patient agreed to continue with encounter. I spent a total of 31 minutes on the date of service in preparation, delivery, and documentation of the care provided to this patient, excluding any timespent in the performance of separately billed services. Pre-charting/Chart review; 4 mins. Encounter; 1013 - 1032 AM; 19 mins. Documentation, orders, communications, resources; 10:32 - 10:40 AM; 8 mins. Yarelis Guevara PA-C documented in this encounter Plan of Treatment Upcoming Encounters Date Type Department Care Team (Late st Contact Info) Description 10/05/2023 1:40 PM EST Office Visit General Internal Medicine State Juliette Barker [address] [place] [address] [place] [address] Henok Baron PA-C [address] [employer] [place] [id number] Health Maintenance Due Date Last Done Comments Zoster Vaccines (3 of 3) 12/08/2019 10/13/2019, 06/02 Depression Screening 11/25/2021 11/25/2020 COVID-19 Vaccine (3 - season) 2023 10/21/2020, 09/30/2020 Influenza Vaccine (FLU [...] this encounter Medical Devices Implanted Type Area Field Property Loss Specialist Device Identifier Shelf Expiration Date Model / Serial / Lot Mesh Flat Sheet [id number] - [id number] Implanted:Qty: 1 on 06/13/2009 [place] [facility] [place] Abdomen CR BARD : DAVOL 09/02/2013 [id number] / / [id number] Description:Bard Mesh monofi lament knitted polypropylene 10 x 14 inches documented as of this encounter Visit Diagnoses Diagnosis 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
--- OUTSIDE RECORDS SUMMARY | 2023-08-20 10:46 | External Medical Summary | Summary of Care ---
Author Name Unknown Organization [facility] Address [address] [facility] [address] Phone [phone] Care Team Providers Care Employment Agency Manager Name Role Phone Henok Covington PA-C Primary Care Provider +1- [phone] Reason for Visit * Reason Comments Follow Up 6mo return--Son ment ions her knees are starting to bother her again, has not had shots or fluid drained for about a year. 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 Penicillins 02/15/2003 Blisters in mouth Sulfa Antibiotics 10/22/2016 Tuna Flavor 09/02/2005 Tuna fish documented as of this encounter (statuses as of 04/07/2023) Medications Medication Sig Dispensed Refills Start Date [...] 19, 2022. 180 Tablet 3 12/19/2022 Active EpiPen 2-Aaron 0.3 MG/0.3ML Injection Solution Auto-injectorIndicati ons:Bee sting allergy For a severe reaction: Place orange end against the outer thigh, press firmly, hold in place for 10 seconds and go to the Emergency room. 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 09/25/2022 Bilateral primary osteoarthritis of knee 06/20/2018 Neural foraminal stenosis of cervical sp ine 06/04/2018 Allergic to insect stings 06/27/2012 Irritable bowel syndrome with constipati on 04/14/2011 Voice and resonance disorder, hoarseness 08/05/2010 Intermittent asthma with reliever use up to twice per week 06/09/2010 HISTORY OF CANCER OF BREAST 08/20/2009 ADVANCE DIRECTIVE INFORMATION 09/02/2005 Overview: Yes, Patient instructed to provide copy of advance directive for provider to review and to be scanned into Electronic Medical Record Hypothyroidism 04/06/2003 Cervical spondylosis Overview: by MRI documented as of this encounter (statuses as of 04/07/2023) Resolved Problems Problem Noted Date Resolved Date 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 09/25/2022 09/25/2022 Alzheimer's disease 01/05/2021 09/25/2022 PMR (polymyalgia rheumatica) 06/22/2019 Myelopathy 03/20/2019 04/23/2020 B12 deficiency 12/20/2018 09/25/2022 Constipation due to outlet dysfunction 5 09/25/2022 LPRD (laryngopharyngeal reflux disease) 04/10/20 15 05/16/2019 Allergic conjunctivitis 04/10/2015 05/11/20 19 Overview: History Adverse food reaction 10/04/2014 06/22/2019 Overview: tuna fish caused throat tightness; tolerates other fish without problem GERD (gastroesophageal reflux disease) 2 05/16/2019 Recurrent sinus infections 06/27/201206/14 Chronic laryngitis 08/05/2010 12/14/2017 RECURRENT ACUTE SINUSITIS 08/05/20102011 Acute posthemorrhagic anemia 06/14/2009 Examination following surgery 06/14/2009 Malignant neoplasm of female breast 04/18/2007 12/14/2017 Overview: 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 04/06/2003 04/09/2009 Mixed rhinitis 04/06/2003 05/11/2019 Overview: acute documented as of this encounter (statuses as of 04/07/2023) Immunizations Name Administration Dates Next Due COVID-19 mRNA, LNP-s, No Pre serve, 2-Dose Series (Pfizer) 10/21/2020,09/30/2020 Pneumococcal Conjugate Vacc, 13 Valent (Prevnar) 12/05/2015 Pneumococcal Polysaccharide PPV23 (Pneumovax) 09/06/2009 Season Influenza, Quad, PF, Adjuvanted, 65+ Yrs, IM (FLUAD) 05/27/2020 Seasonal Influenza, PF, 6 mo ns & Above, IM , (Flulaval) 06/20/2018 Seasonal Influenza, Split, I IV3, With [...] = 0.6 oz pur e alcohol) occ Food Insecurity Answer Date Recorded Within the past 12 months, y ou worried that your food would run out before you got money to buy more. Never true 06/22/2019 Within the past 12 months, t he food you bought just didn't last and you didn't have money to get more. Never true 06/22/2019 Sex Assigned at Date Recorded Female 12/20/2018 1:04 PM E DT Job Start Date Occupation Industry Not on file Not on file Not on file documented as of this encounter Last Filed Vital Signs Vital Sign Reading Time Taken Comments Blood Pressure 134/72 04/06/2023 1:25 PM EDT Pulse 47 04/06/2023 1:25 PM EDT Temperature 36.1 C (97 F) 04/06/2023 1:25 PM EDT Respiratory Rate - - Oxygen Saturation 99% 04/06/2023 1:25 PM EDT Inhaled Oxygen Concentration - - Weight 52.3 kg (115 lb 6.4 oz) 04/06/2023 1:25 P M EDT Height 160 cm (5' 3") 04/06/2023 1:25 PM EDT Body Mass Index 20.44 04/06/2023 1:25 PM EDT documented in this encounter Progress Notes * Henok Covington PA-C - 04/06/2023 1:34 PM EDT Subjective: Sandy Soares is a 77 year old female. Chief Complaint Patient presents with Follow Up 6mo return--Son mentions her knees are starting to bother her again, has not had shots or fluid drained for about a year. HPI: 77 y/o female with hypothyroidism, asthma, IBS, PMR, alzheimers, cervical foraminal stenosis seen today for follow up. Seems to be fiddlign with her knees. No overt complaint of knee pain. Previously drawn fluid off inpast. Has appointment with orthopedics this week. Living at [facility]. Seems to be doing well. 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 Zoster Vac Recomb Adjuvanted 50 MCG/0.5ML Intramuscular Suspension Reconstituted (Shingrix) Inject 0.5 mL into a large muscle now and repeat dose in 60 to 180 days 1 Each 1 Levothyroxine Sodium 50 MCG Oral Tablet (Levoxyl) Take 1 Tab by mouth daily. (at least 30 min priorto breakfast or other meds) 30 Tab 11 Donepezil HCl 10 MG Oral Tablet (Aricept) Take 1 Tab by mouth daily. Take with largest meal of the day. 30 Tab 5 Potassium Chloride ER 10 MEQ Oral Tablet Extended Release Take 1 Tablet by mouth in the morning. Furosemide 20 MG Oral Tablet (Lasix) Take 1 Tablet by mouth in the morning and 1 Tablet before bedtime. QUEtiapine Fumarate 25 MG Oral Tablet (SEROquel) Take 1 Tablet by mouth in the morning and 1 Tabletbefore bedtime. Acetaminophen ER 650 MG Oral Tablet Extended Release (Tylenol ER) Take 1 Tablet by mouth every 6 hours as needed. Memantine HCl 10 MG Oral Tablet (Namenda) Take 1 Tablet by mouth in the morning and 1 Tablet beforebedtime. Do not start before December 19, 2022. 180 Tablet 3 EpiPen 2-Aaron 0.3 MG/0.3ML Injection Solution Auto-injector For a severe reaction: Place orange end against the outer thigh, press firmly, hold in place for 10 seconds and go to the Emergency room. 2 Each 1 No current facility-administered medications for this visit. Review of patient's allergies indicates: Allergen Reactions Dulcolax [Bisacodyl] Hives Iodinated Contrast Media Edema airway Iodine Edema airway Latex Edema Other Caused sores in mouth s/p dental appointment Other - Environmental Edema face/lips/tongue Acrylic used with a dental procedure. 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 Acrylic Polymer blisters Adhesive Tape PAPER TAPE ONLY Bee Venom stinging insects Cat Dander Codeine Nausea/vomiting Penicillins Blisters in mouth Sulfa Antibiotics Tuna Flavor Tuna fish All other review of systems reviewed and negative other than mentioned in HPI. Objective: BP 134/72 | Pulse 47 | Temp 36.1 C (97 F) (Tympanic) | Ht 1.6 m (5' 3") | Wt 52.3 kg (115 lb 6.4 oz) | SpO2 99% | BMI 20.44 kg/m | BSA 1.52 m Results for orders placed or performed in visit on 10/07/22 BASIC METABOLIC PANEL Result Value Ref Range CREATININE-OUTSIDE LAB 0.81 0.6 - 1.2 MG/DL EGFR-OUTSIDE LAB 69.5 ML/MIN POTASSIUM-OUTSIDE LAB 4.1 3.5 - 5.1 MMOL/L GLUCOSE-OUTSIDE LAB 76 70 - 99 MG/DL *Note: Due to a large number of results and/or encounters for the requested time period, some results have not been displayed. A complete set of results can be found in Results Review. Physical Exam Constitutional: General: She is not in acute distress. Appearance: Normal appearance. She is normal weight. She is not ill-appearing or toxic-appearing. HENT: Head: Normocephalic and atraumatic. Right Ear: Tympanic membrane normal. Left Ear: Tympanic membrane normal. Mouth/Throat: Mouth: Mucous membranes are moist. Pharynx: Oropharynx is clear. No oropharyngeal exudate or posterior oropharyngeal erythema. Eyes: Extraocular Movements: Extraocular movements intact. Conjunctiva/sclera: Conjunctivae normal. Pupils: Pupils are equal, round, and reactive to light. Cardiovascular: Rate and Rhythm: Normal rate and regular rhythm. Heart sounds: Murmur heard. No friction rub. No gallop. Pulmonary: Effort: Pulmonary effort is normal. Breath sounds: Normal breath sounds. No wheezing, rhonchi or rales. Abdominal: General: Bowel sounds are normal. There is no distension. Palpations: Abdomen is soft. There is no mass. Tenderness: There is no abdominal tenderness. There is no guarding or rebound. Neurological: Mental Status: She is alert. ASSESSMENT: Hypothyroidism due to acquired atrophy of thyroid (Primary) - TSH; Future; Expected date: 04/06/2023 Continue levoxyl. Intermittent asthma with reliever use up to twice per week without complication No complaints. 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 Aricept, namenda, seroquel Follow Up: Return in about 6 months (around 10/05/2023), or if symptoms worsen or fail to improve, for Return with AP. | For: Return with AP Henok Covington PA-C documented in this encounter Nursing Notes * Albina Arias LPN - 04/06/2023 1:24 PM EDT Chief Complaint Patient presents with Follow Up 6mo return--Son mentions her knees are starting to bother her again, has not had shots or fluid drained for about a year. documented in this encounter Miscellaneous Notes * Addendum Note - Henok Covington PA-C - 04/07/2023 7:23 AM EDTAddended by: HENOK COVINGTON on: 04/07/2023 07:23 AM Modules accepted: Orders documented in this encounter Plan of Treatment Upcoming Encounters Date Type Specialty Care Team Description 07/20/2023 Telemedicine Neurology Yarelis Guevara PA-C [address] [facility] [place] [address] 10/05/2023 Office Visit Internal Medicine [facility]ovington [facility] [address] Scheduled Orders Name Type Priority Associated Diagnoses Orde r Schedule CBC Lab Routine Anemia, unspecified type Expected: 05/07/2023 (Approximate), Expires: 04/06/2024 BASIC METABOLIC PANEL Lab Routine Anemia, unspecified type Expected: 05/07/2023 (Approximate), Expires: 04/06/2024 Health Maintenance Due Date Last Done Comments Zoster Vaccines (3 of 3) 12/08/2019 10/13/2019, 06/02 COVID-19 Vaccine (3 - Pfizer series) 12/16/2020 10/21/2020, 09/30/2020 Depression Screening, Annual for Pts 12 and Over 11/25/2021 11/25/2020 Influenza Vaccine (FLU shot) (#1) 2023 05/27/2020, [...] this encounter Medical Devices Implanted Type Area Gis Database Administrator Device Identifier Shelf Expiration Date Model / Serial / Lot Mesh Flat Sheet 10x14 [id number] - [id number] Implanted:Qty: 1 on 06/13/2009 at OR [facility] [place] N/A: Abdomen CR BARD : DAVOL 09/02/2013 [id number] / / [id number] Description:Bard Mesh monofi lament knitted polypropylene 10 x 14 inches documented as of this encounter Results * TSH (04/06/2023 1:55 PM EDT) TSH 0.64 0.27 - 4.20 uIU/mL 04/07/2023 1:33 AM EDT LABORATORY [facility] Blood Venous blood specimen / Unknown Venipuncture / Unknown 04/06/2023 1:55 PM EDT 04/06/2023 1:55 PM EDT Henok Covington PA-C LAB BLOOD ORDERABL ES LABORATORY [facility] [address] [place] [address] * (ABNORMAL) CBC (04/06/2023 1:55 PM EDT) WBC 5.68 4.00 - 10.80 K/uL 04/06/2023 2:15 PM EDT [facility] 56 RBC 3.79 3.85 - 5.15 M/uL 04/06/2023 2:15 PM EDT [facility] 56 HGB 11.5(L) 12.0 - 15.3 g/dL 04/06/2023 2:15 [address]T [address] HCT 36.1 36.0 - 45.2 % 04/06/2023 2:15 PM EDT [facility] 56 MCV 95.3 81.5 - 97.5 fL 04/06/2023 2:15 PM EDT [address] MCH 30.3 27.0 - 34.0 pg 04/06/2023 2:15 PM EDT [address] MCHC 31.9 32.0 - 36.0 g/dL 04/06/2023 2:15 PM EDT [address] RDW 13.9 11.5 - 15.5 % 04/06/2023 2:15 PM EDT [facility] 56 PLT 202 140 - 400 K/uL 04/06/2023 2:15 PM EDT [facility] 56 MPV 11.7 6.6 - 11.1 fL 04/06/2023 2:15 PM EDT [facility] 56 Blood Venous blood specimen / Unknown Venipuncture / Unknown 04/06/2023 1:55 PM EDT 04/06/2023 1:55 PM EDT Henok Covington PA-C LAB BLOOD ORDERABL ES [facility] [address] [place] [address] documented in this encounter Visit Diagnoses Diagnosis Hypothyroidism due to acquired atrophy of thyroid- Primary Intermittent asthma with reliever use up to twice per week without complication History of polymyalgia rheumatica Personal history of other musculoskeletal disorders Bilateral primary osteoarthritis of knee 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
--- OUTSIDE RECORDS SUMMARY | 2023-08-20 10:46 | External Medical Summary | Summary of Care ---
Author Name Unknown Organization [facility] Address [address] [facility] [place] [address] Phone [phone] Care Team Providers Care Transfer Car Operator Name Role Phone Henok Baron PA-C Primary Care Provider +1- [phone] Reason for Visit * Reason Comments Outpatient Testing Encounter Details Date Type Department Care Team (Late st Contact Info) Description 06/11/2023 2:50 PM EST Laboratory Laboratory [address] [place] [address] [place] [phone] [facility] Lab Scenery [address] [place] [address] Anemia, unspecified type Allergies Active Allergy Reactions Criticality Noted Date [...] 04/09/2009 Acrylic used with a dental procedure. 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 Penicillins 02/15/2003 Blisters in mouth Sulfa Antibiotics 10/22/2016 Tuna Flavor 09/02/2005 Tuna fish documented as of this encounter (statuses as of 06/11/2023) Medications Medication Sig Dispensed Refills Start Date [...] as of this encounter (statuses as of 06/11/2023) Active Problems Problem Noted Date Diagnosed Date [...] as of this encounter (statuses as of 06/11/2023) Resolved Problems Problem Noted Date Diagnosed Date [...] as of this encounter (statuses as of 06/11/2023) Immunizations Name Administration Dates Next Due COVID-19 [...] on file documented as of this encounter Plan of Treatment Upcoming Encounters Date Type Department Care Team (Late st Contact Info) Description 07/20/2023 8:00 AM EST Telemedicine Neurology, [place] [address] [facility] [place] [phone] Yarelis Guevara PA-C [address] [facility] [place] [address] 10/05/2023 1:40 PM EST Office Visit General Internal Medicine [facility] [address] [facility] [place] [address] Henok Baron PA-C [address] [facility] [place] [address] Pending Results Name Type Priority Associated Diagnoses Date /Time CBC Lab Routine Anemia, unspecified type 06/11/2023 2:42 PM EST BASIC METABOLIC PANEL Lab Routine Anemia, unspecified type 06/11/2023 2:42 PM EST Health Maintenance Due Date Last Done Comments [...] this encounter Medical Devices Implanted Type Area Project Systems Engineer Device Identifier Shelf Expiration Date Model / Serial / Lot Mesh Flat Sheet 10x14 [id number] - [id number] Implanted:Qty: 1 on 06/13/2009 at [place] [facility] [place] N/A: Abdomen CR BARD : DAVOL 09/02/2013 [id number] / / [id number] Description:Bard Mesh monofi lament knitted polypropylene 10 x 14 inches documented as of this encounter Visit Diagnoses Diagnosis Anemia, unspecified type documented in this encounter [...] chart and reviewed as current Care Teams Transfer Car Operator Relationship Specialty Start Date End Date Henok Baron PA-C [facility] [place] [address] PCP - General Physician Nurse Anesthesia Program Director 04/06/23 documented as of this encounter
--- OUTSIDE RECORDS SUMMARY | 2023-08-20 10:46 | External Medical Summary | Summary of Care ---
Author Name Unknown Organization [facility] Address [address] [facility] [place] [address] Phone [phone] Care Team Providers Care Outside Sales Executive Name Role Phone Henok Baron PA-C Primary Care Provider +1- [phone] Reason for Visit * Reason Onset Date Comments Test Results 04/07/2023 Encounter Details Date Type Department Care Team Description 04/07/2023 Telephone General Internal Medicine [facility] [address] [facility] [place] [address] Henok Baron PA-C [address] [facility] [place] [address] Test Results Allergies Active Allergy Reactions Severity Noted Date [...] 04/09/2009 Acrylic used with a dental procedure. 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 Reason for Call: Test Results Contact: Telephone Call Contact Type: Information Total Time including non face to face (minutes): 5 * Telephone Encounter - Julian Khoury LPN - 04/07/2023 10:26 AM EDT Left message for patient to return call. * Telephone Encounter - Julian Khoury LPN - 04/07/2023 10:25 AM EDT ----- Message from Henok Baron PA-C sent at 04/07/2023 7:23 AM EDT ----- Slight elevation in BUN and hgb. Repeat CBC and BMP in one month. documented in this encounter Plan of Treatment Upcoming Encounters Date Type Specialty Care Team Description 07/20/2023 Telemedicine Neurology Yarelis Guevara PA-C [address] [facility] [place] [address] 10/05/2023 Office Visit Internal Medicine Henok Baron PA-C 200 [place] [address] Health Maintenance Due Date Last Done Comments [...] this encounter Medical Devices Implanted Type Area Back Tender Insulation Board Device Identifier Shelf Expiration Date Model / Serial / Lot Mesh Flat Sheet 10x14 [id number] - [id number] Implanted:Qty: 1 on 06/13/2009 at [place] [facility] [place] N/A: Abdomen CR BARD : DAVOL 09/02/2013 [id number] / / [id number] Description:Bard Mesh monofi lament knitted polypropylene 10 x 14 inches documented as of this encounter Advance Directives Latest Code Status on File Code Status Date Activated Date Inactivated Comments Full Code 06/13/2009 3:57 PM 06/19/2009 3:27 PM Thi s order reflects the patients wishes and were consensually agreed upon. Question Answer Comments Discussion of Advance Directives occurred with: Patient Does the patient have a Living Will? Yes, in chart and reviewed as current Care Teams Outside Sales Executive Relationship Specialty Start Date End Date Henok Baron PA-C [facility] [address] PCP - General Physician Mission Commander 04/06/23 documented as of this encounter
--- OUTSIDE RECORDS SUMMARY | 2023-08-20 10:46 | External Medical Summary | Summary of Care ---
Author Name Unknown Organization [facility] Address [address] [facility] [place] [address] Phone [phone] Care Team Providers Care Wellness Program Manager Name Role Phone Henok Baron PA-C Primary Care Provider +1- [phone] Reason for Visit * Reason Comments Outpatient Testing Encounter Details Date Type Department Care Team (Late st Contact Info) Description 06/11/2023 2:50 PM EST Laboratory Laboratory [address]ery [place] [address] [place] [phone] [facility] Lab Scenery [address] [place] [address] Anemia, unspecified type Allergies Active Allergy Reactions [...] 04/09/2009 Acrylic used with a dental procedure. 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 [address] [place] [address] Henok Baron PA-C [address] [facility] [place] [address] Pending Results Name Type Priority Associated Diagnoses [...] this encounter Medical Devices Implanted Type Area Bench Chemist Device Identifier Shelf Expiration Date Model / Serial / Lot Mesh Flat Sheet 10x14 [id number] - [id number] Implanted:Qty: 1 on 06/13/2009 at OR [facility] [place] N/A: Abdomen CR BARD : DAVOL 09/02/2013 [id number] / / [id number] Description:Bard Mesh monofi lament knitted polypropylene 10 [...] chart and reviewed as current Care Teams Wellness Program Manager Relationship Specialty Start Date End Date Henok Baron PA-C [facility] [place] [address] PCP - General Physician Transcript Evaluator 04/06/23 documented as of this encounter
--- OUTSIDE RECORDS SUMMARY | 2023-08-20 10:46 | External Medical Summary ---
Author Name Unknown Address Unknown Organization [id number]:[facility] [address] Laboratory Report Ordering Provider Test Date Status ADRIA BLANCAS 06/11/2023 14:42:34 Final Observation Date Value Abnormality Reference (Units ) Status WBC, Total 06/11/2023 14:42:34 7.23 4.00-10.8 0 (K/uL) Final RBC 06/11/2023 14:42:34 3.93 3.85-5.15 (M/uL) Final Hemoglobin 06/11/2023 14:42:34 11.8 Below low normal 12 .0-15.3 (g/dL) Final HCT 06/11/2023 14:42:34 37.6 36.0-45.2 (%) Final MCV 06/11/2023 14:42:34 95.7 81.5-97.5 (fL) Final MCH 06/11/2023 14:42:34 30.0 27.0-34.0 (pg) Final MCHC 06/11/2023 14:42:34 31.4 32.0-36.0 (g/dL) Final RDW 06/11/2023 14:42:34 14.0 11.5-15.5 (%) Final Platelets 06/11/2023 14:42:34 271 140-400 (K /uL) Final MPV 06/11/2023 14:42:34 11.4 6.6-11.1 ( fL) Final Performing Location [facility] [address]
--- OUTSIDE RECORDS SUMMARY | 2023-08-20 10:46 | External Medical Summary | Summary of Care ---
Author Name Unknown Organization [facility] Address [address] [facility] [place] [address] Phone [phone] Care Team Providers Care Hotel Services Supervisor Name Role Phone Henok Baron PA-C Primary Care Provider +1- [phone] Reason for Visit * Reason Onset Date Comments Test Results 04/07/2023 Encounter Details Date Type Department Care Team Description 04/07/2023 Telephone General Internal Medicine [facility] [address] [facility] [place] [address] Henok Baron PA-C [address] [facility] [place] [address] Test Results Allergies Active Allergy Reactions Severity [...] 04/09/2009 Acrylic used with a dental procedure. 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 * Telephone Encounter - Jluian Khoury LPN - 04/07/2023 10:25 AM EDT ----- Message from Henok Baron PA-C sent at 04/07/2023 7:23 AM EDT ----- Slight elevation in BUN and hgb. Repeat CBC and BMP in one month. documented in this encounter Plan of Treatment Upcoming Encounters Date Type Specialty Care Team Description 07/20/2023 Telemedicine Neurology Yarelis Guevara PA-C [address] [facility] [place] [id number] 10/05/2023 Office Visit Internal Medicine Henok Baron PA-C [address] [place] [address] Health Maintenance Due Date Last Done Comments [...] this encounter Medical Devices Implanted Type Area Metal Or Wood Blocker Device Identifier Shelf Expiration Date Model / Serial / Lot Mesh Flat Sheet 10x14 [id number] - [id number] Implanted:Qty: 1 on 06[place]13[place]2009 [place] [facility] [place] Abdomen CR BARD : DAVOL 09/02/2013 [id number] / / [id number] Description:Bard Mesh monofi lament knitted polypropylene 10 [...] chart and reviewed as current Care Teams Hotel Services Supervisor Relationship Specialty Start Date End Date Henok Baron PA-C [address] [facility] [place] [address] PCP - General Physician Nurseryperson 04/06/23 documented as of this encounter
--- OUTSIDE RECORDS SUMMARY | 2023-08-20 10:47 | External Medical Summary ---
Author Name Unknown Address Unknown Organization [id number]:[facility] [place] - [address] [facility] [address] Laboratory Report Ordering Provider Test Date Status ADRIA BLANCAS 04/06/2023 13:55:18 Final Observation Date Value Abnormality Reference (Units ) Status TSH 04/06/2023 13:55:18 0.64 0.27-4.20 (uIU/mL) Final Performing Location [facility] - [address] [facility] [address]
--- OUTSIDE RECORDS SUMMARY | 2023-08-20 10:47 | External Medical Summary ---
Author Name Unknown Address Unknown Organization K09:[facility] [place] [address] Laboratory Report Ordering Provider Test Date Status ADRIA BLANCAS 04/06/2023 13:55:18 Final Observation Date Value Abnormality Reference (Units ) Status WBC, Total 04/06/2023 13:55:18 5.68 4.00-10.8 0 (K/uL) Final RBC 04/06/2023 13:55:18 3.79 3.85-5.15 (M/uL) Final Hemoglobin 04/06/2023 13:55:18 11.5 Below low normal 12 .0-15.3 (g/dL) Final HCT 04/06/2023 13:55:18 36.1 36.0-45.2 (%) Final MCV 04/06/2023 13:55:18 95.3 81.5-97.5 (fL) Final MCH 04/06/2023 13:55:18 30.3 27.0-34.0 (pg) Final MCHC 04/06/2023 13:55:18 31.9 32.0-36.0 (g/dL) Final RDW 04/06/2023 13:55:18 13.9 11.5-15.5 (%) Final Platelets 04/06/2023 13:55:18 202 140-400 (K /uL) Final MPV 04/06/2023 13:55:18 11.7 6.6-11.1 ( fL) Final Performing Location [facility] [place] [address]
--- OUTSIDE RECORDS SUMMARY | 2023-08-20 10:47 | External Medical Summary | Summary of Care ---
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 Penicillins 02/15/2003 Blisters in mouth Sulfa Antibiotics 10/22/2016 Tuna Flavor 09/02/2005 Tuna fish documented as of this encounter (statuses as of 04/06/2023) Medications Medication Sig Dispensed Refills Start Date [...] as of this encounter (statuses as of 04/06/2023) Active Problems Problem Noted Date History of [...] as of this encounter (statuses as of 04/06/2023) Resolved Problems Problem Noted Date Resolved Date [...] as of this encounter (statuses as of 04/06/2023) Immunizations Name Administration Dates Next Due COVID-19 [...] Telemedicine Neurology Yarelis Guevara PA-C [address] [facility] [place] [address] 10/05/2023 Office Visit Internal Medicine [facility]C [facility] [address] Pending Results Name Type Priority Associated Diagnoses Date /Time BASIC METABOLIC PANEL Lab Routine Fall, subsequent encounter 04/06/2023 1:55 PM EDT CBC Lab Routine 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) 04/06/2023 1:55 PM EDT TSH Lab Routine Hypothyroidism due to acquired atrophy of thyroid 04/06/2023 1:55 PM EDT Health Maintenance Due Date Last Done Comments Zoster Vaccines (3 of 3) 12/08/2019 10/13/2019, 06/02 COVID-19 Vaccine (3 - Pfizer series) 12/16/2020 10/21/2020, 09/30/2020 Depression Screening, Annual for Pts 12 and Over 11/25/2021 11/25/2020 TSH 03/25/2023 03/25/2022, 11/01, 05/27/2021, Additional history exists Influenza Vaccine (FLU shot) (#1) 2023 05/27/2020, 05/16/2019, 06/20/2018, Additional history exists DTaP,Tdap,and Td Vaccines (2 [...] this encounter Medical Devices Implanted Type Area Infection Control Coordinator Device Identifier Shelf Expiration Date Model / Serial / Lot Mesh Flat Sheet 10x14 [id number] - [id number] Implanted:Qty: 1 on 06/13/2009 at OR [facility] N/A: Abdomen CR BARD : DAVOL 09/02/2013 [id number] / / [id number] Description:Bard Mesh monofi lament knitted polypropylene 10 x 14 inches documented as of this encounter Visit Diagnoses Diagnosis Fall, subsequent encounter 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
--- OUTSIDE RECORDS SUMMARY | 2023-08-20 10:47 | External Medical Summary ---
Author Name Unknown Address Unknown Organization K09:[facility] [place] [address] Laboratory Report Ordering Provider Test Date Status ADRIA BLANCAS 04/06/2023 13:55:18 Final Observation Date Value Abnormality Reference (Units ) Status BUN 04/06/2023 13:55:18 33 Above high normal 6-20 (mg/dL) Final Creatinine 04/06/2023 13:55:18 1.0 0.5-1.0 (mg/dL) Final Glomerular filtration rate/1.73 sq M.predicted [Volume Rate/Area] in Serum, Plasma or Blood by Creatinine-based formula (CKD-EPI) 04/06/2023 13:55:18 55 Below low normal >=60 (mL/min) Final eGFR is calculated based on the CKD-EPI 2020 equation SODIUM 04/06/2023 13:55:18 143 135-146 (m mol/L) Final Potassium 04/06/2023 13:55:18 4.3 3.5-5.1 (m mol/L) Final Cl 04/06/2023 13:55:18 105 98-107 (mm ol/L) Final CO2 04/06/2023 13:55:18 28 22-32 (mmo l/L) Final Anion gap 04/06/2023 13:55:18 10 7-15 (mmol /L) Final Glucose 04/06/2023 13:55:18 93 70-120 (mg /dL) Final Calcium 04/06/2023 13:55:18 9.5 8.4-10.2 ( mg/dL) Final Performing Location [facility] [place] [address]
--- OUTSIDE RECORDS SUMMARY | 2023-08-20 10:47 | External Medical Summary | Summary of Care ---
Author Name Unknown Organization [facility] Address [address] [facility] [place] [address] Phone [phone] Care Team Providers Care Slot Supervisor Name Role Phone Henok Baron PA-C Primary Care Provider +1- [phone] Reason for Visit * Reason Comments Follow Up 6mo return--Son ment ions her knees are starting to bother her again, has not had shots or fluid drained for about a year. 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 [place]. Seems to be doing well. PMH: Patient [...] face/lips/tongue Acrylic used with a dental procedure. 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 | For: Return with AP Henok Baron PA-C documented in this encounter Nursing Notes * Albina Arias LPN - 04/06/2023 1:24 PM EDT Chief Complaint Patient presents with Follow Up 6mo return--Son mentions her knees are starting to bother her again, has not had shots or fluid drained for about a year. documented in this encounter Plan of Treatment Upcoming Encounters Date Type Specialty Care Team Description 07/20/2023 Telemedicine Neurology Yarelis Guevara PA-C [address] [facility] [place] [address] 10/05/2023 Office Visit Internal Medicine Henok Baron PA-C [address] [facility] [address] Pending Results Name Type Priority Associated Diagnoses Date /Time TSH Lab Routine Hypothyroidism due to acquired atrophy of thyroid 04/06/2023 1:55 PM EDT Scheduled Orders Name Type Priority Associated Diagnoses Orde r Schedule TSH Lab Routine Hypothyroidism due to acquired atrophy of thyroid Expected: 04/06/2023 (Approximate), Expires: 04/05/2024 Health Maintenance Due Date Last Done Comments [...] this encounter Medical Devices Implanted Type Area Bolt Threader Device Identifier Shelf Expiration Date Model / Serial / Lot Mesh Flat Sheet 10x14 [id number] - [id number] Implanted:Qty: 1 on 06/13/2009 at [place] [facility] [place] N/A: Abdomen CR BARD : DAVOL 09/02/2013 [id number] / / [id number] Description:Bard Mesh monofi lament knitted polypropylene 10 x 14 inches documented as of this encounter Results * (ABNORMAL) CBC (04/06/2023 1:55 PM EDT) WBC 5.68 4.00 - 10.80 K/uL 04/06/2023 2:15 PM EDT [facility] 56- RBC 3.79 3.85 - 5.15 M/uL 04/06/2023 2:15 PM EDT [facility] 56- HGB 11.5(L) 12.0 - 15.3 g/dL 04/06/2023 2:15 PM EDT [facility] 56- HCT 36.1 36.0 - 45.2 % 04/06/2023 2:15 PM EDT [facility] 56- MCV 95.3 81.5 - 97.5 fL 04/06/2023 2:15 PM EDT [facility] 56- MCH 30.3 27.0 - 34.0 pg 04/06/2023 2:15 PM EDT [facility] 56- MCHC 31.9 32.0 - 36.0 g/dL 04/06/2023 2:15 PM EDT [facility] 56-02 RDW 13.9 11.5 - 15.5 % 04/06/2023 2:15 PM EDT [facility] 56- PLT 202 140 - 400 K/uL 04/06/2023 2:15 PM EDT [facility] 56-02 MPV 11.7 6.6 - 11.1 fL 04/06/2023 2:15 PM EDT [facility] 56-02 Blood Venous blood specimen / Unknown Venipuncture / Unknown 04/06/2023 1:55 PM EDT 04/06/2023 1:55 PM EDT Henok Baron PA-C LAB BLOOD ORDERABL ES [facility] [address] [facility] [address] documented in this encounter Visit Diagnoses Diagnosis Hypothyroidism due to acquired atrophy of thyroid- Primary Intermittent asthma with reliever use up to twice per week without complication History of polymyalgia rheumatica Personal history of other musculoskeletal disorders Bilateral primary osteoarthritis of knee 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
--- NOTE | 2023-08-20 10:49 | XRay Report ---
XR chest 1V portable HISTORY: Lower extremity edema. Confusion. COMPARISON: Chest 01/15/2023. FINDINGS: No pneumothorax. There are low lung volumes. The heart is mildly enlarged. There are small to moderate bilateral pleural effusions with diffuse interstitial/vascular thickening consistent with pulmonary edema. Patchy airspace opacity within the left lower lobe. Surgical clips within the right axilla. Bibasilar densities are also noted. No acute fractures. IMPRESSION: 1. Cardiomegaly with pulmonary edema and small to moderate bilateral pleural fusions. 2. Bibasilar densities are nonspecific and could be due to atelectasis from the pleural effusions or a pneumonia. ACT 112: Negative or not required by law. Electronically signed by: Galo Grullon M.D. 08/20/2023 10:47 AM
[2023-08-20 10:51] LABS: Prothrombin Time 11.4 Seconds (9.0-12.0)
[2023-08-20 11:01] LABS: D Dimer 590 ug/L FEU (0-500)
[2023-08-20] MEDS ORDERED: FUROSEMIDE 40 MG/4 ML VIAL IV ONE (11:02)
--- NOTE | 2023-08-20 12:27 | Ultrasound Report ---
BILATERAL LOWER EXTREMITY VENOUS DOPPLER HISTORY: leg swelling COMPARISON STUDY: None. FINDINGS: There is normal compressibility, flow, and augmentation within the bilateral lower extremit y deep venous systems. IMPRESSION: No DVT within the right or left lower extremity. ACT 112: Negative or not required by law. Electronically signed by: Galo Grullon M.D. 08/20/2023 12:25 PM
--- NOTE | 2023-08-20 14:49 | History & Physical Report ---
Date of Service August 20, 2023 Assessment & Plan (1) Fluid overload: (2) Elevated troponin: Plan: Patient is 77 y/o F with PMH Alzheimer dementia with hallucinations, GERD, hypothyroidism, asthma, IBS, PMR, history of breast cancer, osteoarthritis, presented to ER from [facility] for reported lower extremity edema x several weeks. In ER afebrile, not hypoxic, other vitals stable. BNP: 246. D-dimer: 590 is WNL for age adjusted D-dimer. Troponin: 18-->28.9 EKG: poor tracing, sinus rhythm, nonspecific T wave changes Trend troponin. Likely demand from CHF CXR: Cardiomegaly with pulmonary edema and small to moderate bilateral pleural fusions. Bibasilar densities are nonspecific and could be due to atelectasis from the pleural effusions or a pneumonia. Doppler BLE: No DVT within the right or left lower extremity. In ER given lasix 40mg IV with 500ml urine output so far Continue Lasix 40mg IV daily Low sodium diet, daily weights, monitor I's & O's Echo EKG in am Cardiology consult CBC, BMP in am (3) Alzheimer's dementia: Plan: Continue donezepil, memantine, quetiapine Attempt frequent reorientation Follows with [facility] neurology (4) Hypothyroidism: Plan: Continue levothyroxine (5) Polymyalgia rheumatica: Plan: Reported history of PMR. Not on any medications DVT Prophylaxis Lovenox SQ DNR/DNI as per discussion with pt's son and Gene PUGH Pt was seen and care coordinated with Dr Menon. See addendum History of Present Illness Chief Complaint: LE edema Primary Care Provider: [facility] Patient is 77 y/o F with PMH Alzheimer dementia with hallucinations, GERD, hypothyroidism, asthma, IBS, PMR, history of breast cancer, osteoarthritis, presented to ER from [facility] for reported lower extremity edema. History obtained from [facility] staff, patient's son as patient unable to provide any history. [facility] staff report past couple weeks patient with increased bilateral lower extremity edema. Unfortunately very limited information was able to be obtained from staff. Patient on Lasix 40mg daily. Staff report Lasix dose was increased however unsure when that was. Staff have not noted fever/chills, SOB, cough, vomiting or diarrhea. Patient states her name but is unable to give any more history. Spoke with patient's son and Gene PUGH on phone. Allergies Allergy/AdvReac Type Severity Reaction Status Date / Time animal dander Allergy Severe SHORTNESS Verified 08/20/23 15:06 OF BREATH bee venom protein (honey bee) Allergy Severe ANAPHYLAXIS Verified 08/20/23 15:06 Iodinated Contrast Media Allergy Severe Anaphylaxis Verified 08/20/23 15:06 iodine Allergy Severe Anaphylaxis Verified 08/20/23 15:06 latex Allergy Severe itchy, Verified 08/20/23 15:06 shortness of breath penicillin G Allergy Severe ANAPHYLAXIS Verified 08/20/23 15:06 povidone-iodine Allergy Severe Anaphylaxis Verified 08/20/23 15:06 tuna oil Allergy Severe HIVES AND Verified 08/20/23 15:06 ANAPHYLAXIS bisacodyl Allergy Intermediate Hives Verified 08/20/23 15:06 codeine Allergy Intermediate GI SYMPTOMS Verified 08/20/23 15:06 ephedrine Allergy Intermediate RASH Verified 08/20/23 15:06 ENVIRONMENTAL Allergy Severe SHORTNESS Uncoded 08/20/23 15:06 OF BREATH ACRYLIC CEMENT OR BONDING Allergy Intermediate EDEMA Uncoded 08/20/23 15:06 FACE/LIPS/TONGUE JEWELRY Allergy Intermediate BLISTERS Uncoded 08/20/23 15:06 WITH "CHEAP JEWELRY" Home Medications Medication Instructions Recorded Confirmed Type epinephrine 0.3 mg/0.3 mL 0.3 mg IM DIRECTED PRN Allergic 09/12/18 08/20/23 History injection, auto-injector (EpiPen) Reaction levothyroxine 50 mcg tablet 50 mcg PO QAM 02/26/21 08/20/23 History donepezil 10 mg tablet 10 mg PO QAM 02/26/22 08/20/23 History acetaminophen 650 mg 1,300 mg PO Q6H PRN Pain 09/22/22 08/20/23 History tablet,extended release potassium chloride 10 mEq 20 meq PO QAM 09/22/22 08/20/23 History capsule,extended release memantine 10 mg tablet 10 mg PO BID 05/29/23 08/20/23 History ondansetron HCl 4 mg tablet 4 mg PO Q8 PRN Nausea/vomiting 05/29/23 08/20/23 History furosemide 40 mg tablet 40 mg PO QAM 08/20/23 08/20/23 History lorazepam 0.5 mg tablet 0.5 mg PO BID PRN Anxiety 08/20/23 08/20/23 History melatonin 5 mg tablet 5 mg PO HS 08/20/23 08/20/23 History quetiapine 50 mg tablet 50 mg PO BID 08/20/23 08/20/23 History Past Med/Surg History Medical History (Updated 08/20/23 @ 16:19 by Flower Alba DO) Chondrocalcinosis of knee Benign neoplasm of colon Polymyalgia rheumatica Acute posthemorrhagic anemia 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 Garecs Incisional hernia REPAIR 06/2017 Dr. Garces History of hysterectomy 1989 History of colonoscopy 2004, 04/07/2011 History of appendectomy Status post transverse rectus abdominis muscle (TRAM) flap breast reconstruction [place] Ray Le[place] [facility] [place] mastectomy B/L Dr. Garces 06-13-09 History of tooth extraction History of tonsillectomy Family History Mother Cancer Diabetes Stroke Social History Smoking Status: Unknown if ever smoked Second Hand Exposure: No; Do You Dip or Chew Tobacco: No; Hx Alcohol Use: Yes Alcohol type: wine Hx Substance Use: No Preferred Language: Malaysian Communication Ability: Impaired Communication Ability Comment: advanced dementia Venereal Disease Investigator Required: No Beliefs That Will Affect Care: None marital status: Single Current Living Situation: [facility] Feels Safe at Home: Yes Assistive Devices: None Review of Systems Review of Systems: Unobtainable due to cognitive status Physical Exam Physical Exam: PE per Dr Menon Results & Data Results & Data Vital Signs (Past 12 Hours) Vital Signs Temp Pulse Pulse Resp BP BP Pulse Ox 08/20/23 14:28 81 08/20/23 12:58 83 20 139/97 93 08/20/23 11:24 84 18 143/89 H 92 08/20/23 09:50 81 08/20/23 09:41 37.2 C 84 20 151/75 H 93 O2 Del Method 08/20/23 14:28 08/20/23 12:58 Room Air 08/20/23 11:24 Room Air 08/20/23 09:50 08/20/23 09:41 Room Air Laboratory Results Short CBC 08/20/23 Range/Units 09:58 WBC 4.66 L (4.8-10.8) K/ul Hgb 11.1 L (12.0-16.0) g/dl Hct 35.9 L (37.0-47.0) % Plt Count 187 (130-400) K/uL BMP 08/20/23 09:58 Sodium 144 Potassium 4.0 Chloride 108 H Carbon Dioxide 31 BUN 27 H Creatinine 0.85 Glucose 80 Calcium 9.0 Liver Function 08/20/23 Range/Units 09:58 Total Bilirubin 0.4 (0.2-1.0) mg/dl AST 56 H (13-39) U/L ALT 58 H (7-52) U/L Alkaline Phosphatase 97 (34-104) U/L Albumin 3.8 (3.4-5.0) gm/dl Diagnostic Findings Chest X-Ray 08/20/23 09:48 XR chest 1V portable HISTORY: Lower extremity edema. Confusion. COMPARISON: Chest 01/15/2023. FINDINGS: No pneumothorax. There are low lung volumes. The heart is mildly enlarged. There are small to moderate bilateral pleural effusions with diffuse interstitial/vascular thickening consistent with pulmonary edema. Patchy airspace opacity within the left lower lobe. Surgical clips within the right axilla. Bibasilar densities are also noted. No acute fractures. IMPRESSION: 1. Cardiomegaly with pulmonary edema and small to moderate bilateral pleural fusions. 2. Bibasilar densities are nonspecific and could be due to atelectasis from the pleural effusions or a pneumonia. ACT 112: Negative or not required by law. Electronically signed by: Galo Grullon M.D. 08/20/2023 10:47 AM Venous Doppler Study 08/20/23 11:02 BILATERAL LOWER EXTREMITY VENOUS DOPPLER HISTORY: leg swelling COMPARISON STUDY: None. FINDINGS: There is normal compressibility, flow, and augmentation within the bilateral lower extremity deep venous systems. IMPRESSION: No DVT within the right or left lower extremity. ACT 112: Negative or not required by law. Electronically signed by: Galo Grullon M.D. 08/20/2023 12:25 PM Supervising Physician Co-Signing Physician Notes 77 year old woman with Alzheimer's dementia, GERD, hypothyroidism, IBS, asthma, PMR, IBS, h/o breast cancer brought in from nursing facility for leg swelling. Cannot obtain any history from patient. She is alert and oriented to person only. Inappropriate and occasional nonsensical response to questions. On exam, General: Elderly woman in no distress Eyes: PERRL, conjunctivae normal, not pale, anicteric sclerae, EOM intact bilaterally ENMT: External ear and nose normal, oropharynx normal Respiratory: Normal respiratory effort, no respiratory distress, Diminished breath sounds Cardiovascular: RRR S1 S2 Gastrointestinal (Abdomen): Abdomen is not distended, soft, non-tender to palpation, no guarding, no palpable hepatosplenomegaly, normal bowel sounds Musculoskeletal: Bilateral pedal edema Neurologic: Alert, oriented to person only. Limited exam due to mental status. Labs notable for Hb 11.1 (baseline), WBC 4.66, DDimer 590, AST 56, ALT 58, Trop 18-28, BNP 246 XR Chest showing Cardiomegaly with pulm edema, small to mod bilateral pleural effusion Acute diastolic heart failure IV lasix Get TTE Cards consult Doppler LE did not show DVT Continue home meds I spent a total of 45 minutes coordinating, documenting and providing care for this patient excluding time spent in performance of separately billed services
[2023-08-20] MEDS ORDERED: ACETAMINOPHEN 325 MG TAB PO PRN (21:13)
[2023-08-20] MEDS ORDERED: POLYETHYLENE (MIRALAX) 17 GM PACK PO PRN (21:13)
[2023-08-20] MEDS: QUEtiapine FUMARATE 25 MG TABLET PO SCH (22:07)
[2023-08-20] MEDS: MEMANTINE HCL 10 MG TAB PO SCH (22:07)
[2023-08-20] MEDS: MELATONIN 3 MG TAB PO SCH (22:07)
[2023-08-20] MEDS: ENOXAPARIN INJ 40 MG/0.4 ML SYR SQ SCH (22:08)
[2023-08-21] MEDS: LEVOTHYROXINE SODIUM 50 MCG TABLET PO SCH (05:10)
--- NOTE | 2023-08-21 06:17 | Electrocardiogram Report ---
Test Reason : Blood Pressure : / mmHG Vent. Rate : 085 BPM Atrial Rate : 085 BPM P-R Int : 206 ms QRS Dur : 062 ms QT Int : 402 ms P-R-T Axes : 061 038 028 degrees QTc Int : 478 ms Poor data quality, interpretation may be adversely affected Sinus rhythm with Premature supraventricular complexes Low voltage QRS Septal infarct (cited on or before 20-AUG-2023) Nonspecific T wave abnormality Abnormal ECG When compared with ECG of 29-MAY-2023 13:15, Premature ventricular complexes are no longer Present Premature supraventricular complexes are now Present Vent. rate has increased BY 34 BPM Nonspecific T wave abnormality now evident in Lateral leads Confirmed by Kvng May ([id number]) on 08/21/2023 6:17:21 AM Referred By: Confirmed By:Kvng May
[2023-08-21 06:41] LABS: Basophils # (auto) 0.03 K/uL (0.00-0.20); Basophils % (auto) 0.7 %; Hematocrit (blood only) 35.9 % (37.0-47.0); Hemoglobin 11.9 g/dl (12.0-16.0); Lymphocytes # (auto) 1.06 K/uL (1.20-3.40); Lymphocytes % (auto) 24.2 %; Mean Corpuscular Hemoglobin 29.9 pg (25.0-34.0); Mean Corpuscular Hgb Conc 33.1 g/dL (32.0-36.0); Mean Corpuscular Volume 90.2 fL (80.0-100.0); Mean Platelet Volume 11.7 fL (9.4-12.4); Monocytes # (auto) 0.33 K/uL (0.11-0.59); Monocytes % (auto) 7.5 %; Neutrophils # (auto) 2.96 K/uL (1.40-6.50); Neutrophils % (auto) 67.6 %; Platelet Count 200 K/uL (130-400); RDW Coefficient of Variation 14.2 % (11.5-14.5); RDW Standard Deviation 47.2 fL (36.4-46.3); Red Blood Count 3.98 M/uL (4.20-5.40); White Blood Count 4.38 K/ul (4.8-10.8)
[2023-08-21 07:00] LABS: Albumin Globulin Ratio 1.7 (0.9-2); Albumin Level 3.8 gm/dl (3.4-5.0); BUN Creatinine Ratio 30.2 (10-20); Bilirubin,Total 0.4 mg/dl (0.2-1.0); Calcium 9.2 mg/dl (8.6-10.3); Creatinine Clr Calc Pharmacy 45.8 ml/min; Est GFR (African American) 74.5 ml/min; Est GFR (Non-African American) 64.3 ml/min; Globulin 2.3 gm/dl (2.5-4.0); Potassium 3.8 mmol/L (3.5-5.1); Total Protein 6.1 gm/dl (6.0-8.3)
[2023-08-21 07:14] LABS: Thyroid Stimulating Hormone 2.243 uIu/ml (0.300-4.500)
[2023-08-21] MEDS ORDERED: INFLUENZA VACCINE HIGH-DOSE (HD-IIV4) PF 65+ 0.7mL SYR IM ONE (07:24)
[2023-08-21] MEDS ORDERED: PNEUMOCOCCAL VACCINE (PCV20) 20-VAL CONJ-DIP CRM/PF 0.5 ML SYR IM ONE (07:24)
[2023-08-21] MEDS ORDERED: FUROSEMIDE 40 MG/4 ML VIAL IV SCH (09:00)
[2023-08-21] MEDS: POTASSIUM CHLORIDE CRTAB 20 MEQ TABCR PO SCH (09:59)
[2023-08-21] MEDS: QUEtiapine FUMARATE 25 MG TABLET PO SCH ×2 (09:59→20:52)
[2023-08-21] MEDS: DONEPEZIL HCL 10 MG TAB PO SCH (09:59)
[2023-08-21] MEDS: MEMANTINE HCL 10 MG TAB PO SCH ×2 (10:00→20:52)
[2023-08-21] MEDS: FUROSEMIDE 40 MG/4 ML VIAL IV SCH ×2 (10:00→17:33)
--- NOTE | 2023-08-21 12:31 | Hospitalist Progress Note ---
Date of Service August 21, 2023 Assessment & Plan (1) Fluid overload: (2) Demand ischemia: Plan: Patient is 77 y/o F with PMH Alzheimer dementia with hallucinations, GERD, hypothyroidism, asthma, IBS, PMR, history of breast cancer, osteoarthritis, presented to ER from [facility] for reported lower extremity edema x several weeks. Her body weight in May was documented to be around 53 kg; presents with weight of 60 kgs BNP: 246. High sensitive troponin troponin: 18,> 28.9 > 23 EKG: poor tracing, sinus rhythm, nonspecific T wave changes CXR on admission personally reviewed cardiomegaly with pulmonary edema and small to moderate bilateral pleural fusions. Doppler BLE: No DVT within the right or left lower extremity. Echocardiogram shows EF of 55 to 60%; dilated IVC with reduced collapsibility with sniff indicates elevated right atrial pressure of 15 mmHg. Estimated systolic pulmonary pressure of 58 mmHg. Continue IV diuretics with Lasix 40 mg twice daily. Daily weights Strict IRA's. Patient was discharged last admission in May on Lasix 20 mg once a day; currently on Lasix 40 mg once a day. Will follow-up cardiology recommendation regarding diuretic dose at discharge. (3) Alzheimer's dementia: Plan: Continue donezepil, memantine, quetiapine Attempt frequent reorientation Follows with [facility] neurology (4) Hypothyroidism: Plan: Continue levothyroxine (5) Polymyalgia rheumatica: Plan: Reported history of PMR. Not on any medications DVT Prophylaxis Lovenox SQ DNR/DNI as per discussion with pt's son and Gene PUGH Discussed with patient's son at bedside. Provided clinical update. Answered questions/queries. Time spent evaluating patient, direct bedside care, chart review, placing orders, interpretation of diagnostic studies, discussion with consultants, patient, and family members, as well as other required patient management activities is 50 minutes Please note the above document was generated using voice recognition software. It may contain grammatical, syntax or spelling errors. Any formal questions or concerns about the content, text or information contained within the body of this dictation should be directly addressed to the provider for clarification Admission and Anticipated Discharge Date Admission Date: August 20, 2023 Subjective Patient seen and examined at bedside. She appears to be comfortable; not in any distress. She is not requiring any supplemental oxygen. Vitals remained stable. Review of Systems Review of Systems: Unobtainable due to cognitive status Physical Exam Physical Exam: Constitutional: Awake, oriented to self. Able to follow simple commands. Respiratory: Decreased breath sound at bases. Cardiovascular: RRR, no murmur, no edema Vessels: no JVD or carotid bruit Chest: normal inspection of chest Abdomen: normal bowel sounds, soft, nontender, no hepatosplenomegaly Musculoskeletal: no cyanosis or clubbing, extremities motor strength 5/5. 1+ pitting edema Skin: no rashes, warm and dry normal turgor Neurologic: PERRL, EOMI, accommodation nl, no face palsy, no dysarthria CN's II- XI intact bilaterally and moves all extremities Psychiatric: A+Ox1 euthymic affect Results & Data Results & Data Vital Signs (Past 12 Hours) Vital Signs Temp Pulse Pulse Resp BP Pulse Ox O2 Del Method 08/21/23 12:08 84 16 131/70 93 Room Air 08/21/23 08:06 100 H 16 139/73 93 Room Air 08/21/23 07:50 77 08/21/23 04:00 36.5 C 88 18 134/79 92 Room Air 08/21/23 00:34 36.7 C 91 H 18 127/79 92 Room Air
--- NOTE | 2023-08-21 19:50 | Cardiology Consultation ---
Date of Consultation August 21, 2023 Assessment & Plan (1) Fluid overload: ?outside of the CXR pt does not appear to be fluid overloaded on exam today? Pt does have moderate pulmonary HTN and TR so she will some degree of LE swelling She has been getting IV lasix and based on I/Os is making good urine I think we can transition to PO tomorrow-given her elevated pulmonary pressures would recommend change to torsemide 20mg daily rather than her home dose of lasix (2) Pulmonary hypertension: (3) Tricuspid regurgitation: (4) Hypothyroidism: Continue levothyroxine (5) Alzheimer's dementia: Continue donezepil, memantine, quetiapine (6) Polymyalgia rheumatica: Plan 77y/o F with PMH polymyalgia rheumatic, advanced dementia, hypothryoidism. [facility] in from [facility] due to concerns for leg swelling. Her BNP was not that elevated; i am concerned that maybe some of that CXR is mroe due to PNA then all fluid. Recommend changing to torsemide 20mg daily tomorrow Repeat CXR tomorrow-if the possible lower lobe infiltrates are still there would do a CT chest; if they are resolved then it will help us confirm she needs better diuretics i will also add low dose toprol given her telemetry is variable HR and SA please re-consult as necessary discussed with the hospitalist via tiger text and he agreed with my recommendations History of Present Illness Reason for Consultation: CHF Requesting Physician: hospitalist Attending Physician: Jairo Cortez MD Allergies Allergy/AdvReac Type Severity Reaction Status Date / Time animal dander Allergy Severe SHORTNESS Verified 08/20/23 15:06 OF BREATH bee venom protein (honey bee) Allergy Severe ANAPHYLAXIS Verified 08/20/23 15:06 Iodinated Contrast Media Allergy Severe Anaphylaxis Verified 08/20/23 15:06 iodine Allergy Severe Anaphylaxis Verified 08/20/23 15:06 latex Allergy Severe itchy, Verified 08/20/23 15:06 shortness of breath penicillin G Allergy Severe ANAPHYLAXIS Verified 08/20/23 15:06 povidone-iodine Allergy Severe Anaphylaxis Verified 08/20/23 15:06 tuna oil Allergy Severe HIVES AND Verified 08/20/23 15:06 ANAPHYLAXIS bisacodyl Allergy Intermediate Hives Verified 08/20/23 15:06 codeine Allergy Intermediate GI SYMPTOMS Verified 08/20/23 15:06 ephedrine Allergy Intermediate RASH Verified 08/20/23 15:06 ENVIRONMENTAL Allergy Severe SHORTNESS Uncoded 08/20/23 15:06 OF BREATH ACRYLIC CEMENT OR BONDING Allergy Intermediate EDEMA Uncoded 08/20/23 15:06 FACE/LIPS/TONGUE JEWELRY Allergy Intermediate BLISTERS Uncoded 08/20/23 15:06 WITH "CHEAP JEWELRY" Home Medications Medication Instructions Recorded Confirmed Type epinephrine 0.3 mg/0.3 mL 0.3 mg IM DIRECTED PRN Allergic 09/12/18 08/20/23 History injection, auto-injector (EpiPen) Reaction levothyroxine 50 mcg tablet 50 mcg PO QAM 02/26/21 08/20/23 History donepezil 10 mg tablet 10 mg PO QAM 02/26/22 08/20/23 History acetaminophen 650 mg 1,300 mg PO Q6H PRN Pain 09/22/22 08/20/23 History tablet,extended release potassium chloride 10 mEq 20 meq PO QAM 09/22/22 08/20/23 History capsule,extended release memantine 10 mg tablet 10 mg PO BID 05/29/23 08/20/23 History ondansetron HCl 4 mg tablet 4 mg PO Q8 PRN Nausea/vomiting 05/29/23 08/20/23 History furosemide 40 mg tablet 40 mg PO QAM 08/20/23 08/20/23 History lorazepam 0.5 mg tablet 0.5 mg PO BID PRN Anxiety 08/20/23 08/20/23 History melatonin 5 mg tablet 5 mg PO HS 08/20/23 08/20/23 History quetiapine 50 mg tablet 50 mg PO BID 08/20/23 08/20/23 History Patient History Medical History Chondrocalcinosis of knee Benign neoplasm of colon Polymyalgia rheumatica Acute posthemorrhagic anemia Lymph node cancer pt states lymph nodes removed from right breast/axillia Cervical spondylolysis Osteoarthritis IBS (irritable bowel syndrome) GERD (gastroesophageal reflux disease) CONTROLLED Hypothyroidism Cancer BREAST CANCER S/P B/L MASTECTOMY + RADIATION Migraine HX Asthma STABLE Surgical History Coronary angioplasty status [facility] At [facility] Hx of breast biopsy 04/22/09 Dr. Garces Incisional hernia REPAIR 06/2017 Dr. Garces History of hysterectomy 1989 History of colonoscopy 2004, 04/07/2011 History of appendectomy Status post transverse rectus abdominis muscle (TRAM) flap breast reconstruction Dr. Ray Lea at [facility] H/O mastectomy B/L Dr. Garces 06-13-09 History of tooth extraction History of tonsillectomy Family History Mother Cancer Diabetes Stroke Social History Smoking Status: Unknown if ever smoked Second Hand Exposure: No; Do You Dip or Chew Tobacco: No; Hx Alcohol Use: Yes Alcohol type: wine Hx Substance Use: No Preferred Language: Polish Communication Ability: Impaired Communication Ability Comment: advanced dementia Manager Logistic Required: No Beliefs That Will Affect Care: None marital status: Single Current Living Situation: [facility]irement Feels Safe at Home: Yes Assistive Devices: None Review of Systems Review of Systems: Unobtainable due to cognitive status Physical Exam Physical Exam: alert and awake, NAD NC/AT, EOMI Supple No JVD Nrl irregular S1/S2, No murmur CTA b/l no w/r/r soft nt/nd no LE edema b/l skin intact Results & Data Vital Signs (Past 12 Hours) Vital Signs Temp Pulse Pulse Resp BP Pulse Ox O2 Del Method 08/21/23 16:14 35.8 C L 82 18 132/77 93 Room Air 08/21/23 15:03 81 08/21/23 12:08 84 16 131/70 93 Room Air 08/21/23 08:06 100 H 16 139/73 93 Room Air 08/21/23 07:50 77 Laboratory Results Cardiac Enzymes 08/20/23 08/21/23 Range/Units 21:28 06:10 AST 50 H (13-39) U/L Troponin I High Sens 23.7 H (0-14) pg/ml CBC 08/21/23 Range/Units 06:10 WBC 4.38 L (4.8-10.8) K/ul RBC 3.98 L (4.20-5.40) M/uL Hgb 11.9 L (12.0-16.0) g/dl Hct 35.9 L (37.0-47.0) % Plt Count 200 (130-400) K/uL Neut # (Auto) 2.96 (1.40-6.50) K/uL Lymph # (Auto) 1.06 L (1.20-3.40) K/uL Terry # (Auto) 0.33 (0.11-0.59) K/uL Eos # (Auto) 0.00 (0.00-0.50) K/uL Baso # (Auto) 0.03 (0.00-0.20) K/uL Comprehensive Metabolic Panel 08/21/23 Range/Units 06:10 Sodium 144 (136-145) mmol/L Potassium 3.8 (3.5-5.1) mmol/L Chloride 107 (98-107) mmol/L Carbon Dioxide 28 (21-32) mmol/L BUN 26 H (6-23) mg/dl Creatinine 0.86 (0.6-1.2) mg/dl Glucose 69 L (70-99(Fasting)) mg/dl Calcium 9.2 (8.6-10.3) mg/dl AST 50 H (13-39) U/L ALT 57 H (7-52) U/L Alkaline Phosphatase 105 H (34-104) U/L Total Protein 6.1 (6.0-8.3) gm/dl Albumin 3.8 (3.4-5.0) gm/dl Intake and Output 08/21/23 08/21/23 08/21/23 06:59 14:59 22:59 Intake Total 0 / 0 Output Total 0 1999 950 / 950 Balance 0 / -2000 -950 / -950 Intake: Oral 0 / 0 Output: Urine Amount (Catheter) 0 / 0 950 / 950 External 0 / 0 950 / 950 Other: Other Intake Source sips Weight 60.8 kg Weight Measurement Method Built in [facility] Diagnostic Findings CXR: 08/20/2023 based on my independent interpretation b/l pleural effusions with probably PNA Echocardiogram 08/20/2023: EF normal Moderate TR Moderate pulmonary HTN EC08/20/2022 SR Medications Administered Current Inpatient Medications Acetaminophen (Acetaminophen 325 Mg Tab) 650 mg PO Q4H PRN PRN Reason: Pain or Fever Stop: 09/19/23 21:12 Donepezil HCl (Donepezil Hcl 10 Mg Tab) 10 mg PO QAM [facility] Stop: 09/20/23 08:59 Last Admin: 08/21/23 09:59 Dose: 10 mg Enoxaparin Sodium (Enoxaparin Inj 40 Mg/0.4 Ml Syr) 40 mg SQ HS [facility] Stop: 09/19/23 21:12 Last Admin: 08/20/23 22:08 Dose: 40 mg Furosemide (Furosemide 40 Mg/4 Ml Vial) 40 mg IV BID17 [facility] Stop: 09/20/23 08:59 Last Admin: 08/21/23 17:33 Dose: 40 mg Levothyroxine Sodium (Levothyroxine Sodium 50 Mcg Tablet) 50 mcg PO DAILYBB [facility] Stop: 09/20/23 06:29 Last Admin: 08/21/23 05:10 Dose: 50 mcg Melatonin (Melatonin 3 Mg Tab) 3 mg PO HS [facility] Stop: 09/19/23 21:12 Last Admin: 08/20/23 22:07 Dose: 3 mg Memantine (Memantine Hcl 10 Mg Tab) 10 mg PO BID [facility] Stop: 09/19/23 21:12 Last Admin: 08/21/23 10:00 Dose: 10 mg Polyethylene Glycol (Polyethylene (Miralax) 17 Gm Pack) 17 gm PO DAILY PRN PRN Reason: Constipation Stop: 09/19/23 21:12 Potassium Chloride (Potassium Chloride Crtab 20 Meq Tabcr) 20 meq PO QAM [facility] Stop: 09/20/23 08:59 Last Admin: 08/21/23 09:59 Dose: 20 meq Quetiapine Fumarate (Quetiapine Fumarate 25 Mg Tablet) 50 mg PO BID [facility] Stop: 09/19/23 21:12 Last Admin: 08/21/23 09:59 Dose: 50 mg
[2023-08-21] MEDS: MELATONIN 3 MG TAB PO SCH (20:52)
[2023-08-21] MEDS: ENOXAPARIN INJ 40 MG/0.4 ML SYR SQ SCH (20:52)
[2023-08-22] MEDS: LEVOTHYROXINE SODIUM 50 MCG TABLET PO SCH (05:44)
[2023-08-22 06:27] LABS: Basophils # (auto) 0.04 K/uL (0.00-0.20); Basophils % (auto) 0.6 %; Eosinophils # (auto) 0.19 K/uL (0.00-0.50); Hematocrit (blood only) 42.2 % (37.0-47.0); Hemoglobin 13.5 g/dl (12.0-16.0); Immature Granulocytes # (auto) 0.01 K/uL (0.01-0.20); Immature Granulocytes % (auto) 0.2 %; Lymphocytes # (auto) 0.85 K/uL (1.20-3.40); Lymphocytes % (auto) 13.3 %; Mean Corpuscular Hemoglobin 29.5 pg (25.0-34.0); Mean Corpuscular Volume 92.1 fL (80.0-100.0); Mean Platelet Volume 11.5 fL (9.4-12.4); Monocytes # (auto) 0.56 K/uL (0.11-0.59); Monocytes % (auto) 8.8 %; Neutrophils # (auto) 4.72 K/uL (1.40-6.50); Neutrophils % (auto) 74.1 %; Platelet Count 205 K/uL (130-400); RDW Coefficient of Variation 14.3 % (11.5-14.5); Red Blood Count 4.58 M/uL (4.20-5.40); White Blood Count 6.37 K/ul (4.8-10.8)
[2023-08-22 06:32] LABS: BUN Creatinine Ratio 27.7 (10-20); Calcium 9.6 mg/dl (8.6-10.3); Creatinine Clr Calc Pharmacy 41.9 ml/min; Est GFR (African American) 66.9 ml/min; Est GFR (Non-African American) 57.7 ml/min; Potassium 3.8 mmol/L (3.5-5.1)
--- NOTE | 2023-08-22 09:57 | XRay Report ---
XR chest 2V PA/lateral CLINICAL HISTORY: reassess b/l lower lobe/ effusion/infiltrates COMPARISON STUDY: Chest CT November 13, 2009. Chest radiograph August 20, 2023. FINDINGS: Right axillary surgical clips are again noted. Moderate right pleural effusion is similar t o prior exam. Small to moderate left pleural effusion has slightly decreased. Associated bibasilar op acities are present. Cardiomediastinal silhouette is stable. Mild interstitial thickening persists. N o pneumothorax. IMPRESSION: 1. Moderate right pleural effusion, similar to prior exam. Slight decrease in size of a small to mode rate left pleural effusion. Persistent bibasilar opacities. 2. Cardiomegaly with persistent pulmonary edema. ACT 112: Negative or not required by law. Electronically signed by: Girma Calderon M.D. 08/22/2023 9:54 AM
[2023-08-22] MEDS: POTASSIUM CHLORIDE CRTAB 20 MEQ TABCR PO SCH (10:15)
[2023-08-22] MEDS: FUROSEMIDE 40 MG/4 ML VIAL IV SCH ×2 (10:15→18:19)
[2023-08-22] MEDS: QUEtiapine FUMARATE 25 MG TABLET PO SCH ×3 (10:15→21:43)
[2023-08-22] MEDS: MEMANTINE HCL 10 MG TAB PO SCH ×3 (10:15→21:43)
[2023-08-22] MEDS: DONEPEZIL HCL 10 MG TAB PO SCH (10:15)
[2023-08-22] MEDS: METOPROLOL SUCC 25MG EXT REL TAB PO SCH (10:16)
--- NOTE | 2023-08-22 11:07 | CT Scan Report ---
CT OF THE CHEST WITHOUT IV CONTRAST CLINICAL HISTORY: evaluation of right sided pleural effusion COMPARISON STUDY: Chest CT November 13, 2009. Chest radiograph performed earlier today. CT DOSE: 365.48 mGy.cm TECHNIQUE: Axial images of the chest were obtained without IV contrast. Images were reviewed in the axial, sagittal, and coronal planes. IV contrast was not administered for this examination. Automat ed exposure control was utilized for the study. A dose lowering technique was utilized adhering to t he principles of ALARA. FINDINGS: No enlarged axillary, mediastinal or hilar lymph nodes are present. Bilateral breast recon structions are noted. There are right axillary surgical clips. Moderate cardiomegaly is present. Ther e is no pericardial effusion. Moderate right and xkikx-gd-denlnkwo left pleural effusions are present . Extensive lower lobe airspace opacities with volume loss favor atelectasis. There are scattered agusto undglass opacities within the upper lobes. No central obstructing mass is identified. No acute fractu res within the bony thorax are present. Visualized portions of the upper abdomen are unremarkable on unenhanced exam. IMPRESSION: 1. Moderate right and vbaox-zj-htrioeic left pleural effusions. Extensive associated lower lobe opaci ties favor atelectasis. 2. Scattered groundglass opacities within the upper lobes which could be related to pulmonary edema o r an infectious process. ACT 112: Negative or not required by law. Electronically signed by: Girma Calderon M.D. 08/22/2023 11:05 AM
--- NOTE | 2023-08-22 13:44 | Hospitalist Progress Note ---
Date of Service August 22, 2023 Assessment & Plan (1) Acute on chronic diastolic (congestive) heart failure: (2) Pleural effusion: (3) Fluid overload: (4) Demand ischemia: Plan: Patient is 77 y/o F with PMH Alzheimer dementia with hallucinations, GERD, hypo thyroidism, asthma, IBS, PMR, history of breast cancer, osteoarthritis, presented to ER from [facility] for reported lower extremity edema x several weeks. Her body weight in May was documented to be around 53 kg; presents with weight of 60 kgs BNP: 246. High sensitive troponin troponin: 18,> 28.9 > 23 EKG: poor tracing, sinus rhythm, nonspecific T wave changes CXR on admission personally reviewed cardiomegaly with pulmonary edema and small to moderate bilateral pleural fusions. Doppler BLE: No DVT within the right or left lower extremity. Pro-Kike negative Echocardiogram shows EF of 55 to 60%; dilated IVC with reduced collapsibility with sniff indicates elevated right atrial pressure of 15 mmHg. Estimated systolic pulmonary pressure of 58 mmHg. Patient is being diuresed with IV Lasix 40 mg twice daily. Repeat chest x-ray on August 22 shows moderate right-sided pleural effusion similar to previous x-ray. Pulmonary edema present. CT chest without contrast personally reviewed; moderate size right-sided pleural effusion. Continue on IV diuretics. Will appreciate pulmonology input to see if patient will benefit from thoracentesis. No evidence of infection; Pro-Kike negative. Pleural effusion likely secondary to CHF. Cardiology on board; placed on metoprolol. (5) Alzheimer's dementia: Plan: Continue donezepil, memantine, quetiapine Attempt frequent reorientation Follows with [facility] neurology (6) Hypothyroidism: Plan: Continue levothyroxine (7) Polymyalgia rheumatica: Plan: Reported history of PMR. Not on any medications DVT Prophylaxis Lovenox SQ DNR/DNI as per discussion with pt's son and Gene PUGH Discussed with patient's son at bedside on August 21. Provided clinical updates. Answered questions/queries. Time spent evaluating patient, direct bedside care, chart review, placing orders, interpretation of diagnostic studies, discussion with consultants, patient, and family members, as well as other required patient management activities is 50 minutes Please note the above document was generated using voice recognition software. It may contain grammatical, syntax or spelling errors. Any formal questions or concerns about the content, text or information contained within the body of this dictation should be directly addressed to the provider for clarification Admission and Anticipated Discharge Date Admission Date: August 20, 2023 Subjective Patient seen and examined at bedside. She is lying in the bed comfortably; not in distress. Review of Systems Review of Systems: Unobtainable due to cognitive status Physical Exam Physical Exam: Constitutional: Awake, oriented to self. Able to follow simple commands. Respiratory: Decreased breath sound at bases. (Right greater than left) Cardiovascular: RRR, no murmur, no edema Vessels: no JVD or carotid bruit Chest: normal inspection of chest Abdomen: normal bowel sounds, soft, nontender, no hepatosplenomegaly Musculoskeletal: no cyanosis or clubbing, extremities motor strength 5/5. 1+ pitting edema Skin: no rashes, warm and dry normal turgor Neurologic: PERRL, EOMI, accommodation nl, no face palsy, no dysarthria CN's II- XI intact bilaterally and moves all extremities Psychiatric: A+Ox1 euthymic affect Results & Data Results & Data Vital Signs (Past 12 Hours) Vital Signs Temp Pulse Resp BP Pulse Ox O2 Del Method 08/22/23 11:31 36.0 C L 65 18 104/61 90 Room Air 08/22/23 07:56 36.0 C L 82 18 132/63 95 Room Air
--- NOTE | 2023-08-22 14:23 | Pulmonary Consultation ---
Date of Consultation August 22, 2023 Assessment & Plan (1) Acute on chronic diastolic (congestive) heart failure: (2) Pleural effusion: (3) Elevated brain natriuretic peptide (BNP) level: Plan 77-year-old female with a history of heart failure with preserved ejection fraction, advanced Alzheimer's dementia and rheumatoid arthritis who presented to the hospital from [facility] due to increased leg swelling. The patient is without any complaints presently. She is confused at baseline. She is not requiring any supplemental oxygen. She has not had a fever or elevated white count. She does have an elevated BNP and her lower extremity edema has responded favorably to diuresis. Pulmonary was consulted for possible thoracentesis. Per discussion with the nurse, the patient has been refusing even basic care and gets very distressed with basic care such as vital signs and lab draws. I do not think a thoracentesis would be of benefit at this time. The patient does not have any clinical signs or symptoms of pneumonia. A palliative care consultation may be beneficial to establish goals of care. Pulmonary to sign off at this time. Please call questions. History of Present Illness Reason for Consultation: Bilateral pleural effusion Attending Physician: Jairo Cortez MD History of Present Illness 77-year-old female with a past medical history of heart failure with preserved ejection fraction, rheumatoid arthritis and advanced Alzheimer's dementia who presented to the hospital due to increased leg swelling and shortness of breath. Patient is unable to give me any history given her severe advanced dementia. History is obtained from reviewing the chart and discussion with the bedside nurse. Upon my evaluation, the patient was laying supine and resting comfortably. She denies any shortness of breath or pain. Otherwise she is unable to give any coherent history or able to answer questions coherently. She has been diuresed by the hospitalist service. She had a CT scan of her chest today which revealed right greater than left pleural effusions. She has been afebrile this admission. She is without leukocytosis. There has been no documented cough. Her BNP is mildly elevated. Allergies Allergy/AdvReac Type Severity Reaction Status Date / Time animal dander Allergy Severe SHORTNESS Verified 08/20/23 15:06 OF BREATH bee venom protein (honey bee) Allergy Severe ANAPHYLAXIS Verified 08/20/23 15:06 Iodinated Contrast Media Allergy Severe Anaphylaxis Verified 08/20/23 15:06 iodine Allergy Severe Anaphylaxis Verified 08/20/23 15:06 latex Allergy Severe itchy, Verified 08/20/23 15:06 shortness of breath penicillin G Allergy Severe ANAPHYLAXIS Verified 08/20/23 15:06 povidone-iodine Allergy Severe Anaphylaxis Verified 08/20/23 15:06 tuna oil Allergy Severe HIVES AND Verified 08/20/23 15:06 ANAPHYLAXIS bisacodyl Allergy Intermediate Hives Verified 08/20/23 15:06 codeine Allergy Intermediate GI SYMPTOMS Verified 08/20/23 15:06 ephedrine Allergy Intermediate RASH Verified 08/20/23 15:06 ENVIRONMENTAL Allergy Severe SHORTNESS Uncoded 08/20/23 15:06 OF BREATH ACRYLIC CEMENT OR BONDING Allergy Intermediate EDEMA Uncoded 08/20/23 15:06 FACE/LIPS/TONGUE JEWELRY Allergy Intermediate BLISTERS Uncoded 08/20/23 15:06 WITH "CHEAP JEWELRY" Home Medications Medication Instructions Recorded Confirmed Type epinephrine 0.3 mg/0.3 mL 0.3 mg IM DIRECTED PRN Allergic 09/12/18 08/20/23 History injection, auto-injector (EpiPen) Reaction levothyroxine 50 mcg tablet 50 mcg PO QAM 02/26/21 08/20/23 History donepezil 10 mg tablet 10 mg PO QAM 02/26/22 08/20/23 History acetaminophen 650 mg 1,300 mg PO Q6H PRN Pain 09/22/22 08/20/23 History tablet,extended release potassium chloride 10 mEq 20 meq PO QAM 09/22/22 08/20/23 History capsule,extended release memantine 10 mg tablet 10 mg PO BID 05/29/23 08/20/23 History ondansetron HCl 4 mg tablet 4 mg PO Q8 PRN Nausea/vomiting 05/29/23 08/20/23 History furosemide 40 mg tablet 40 mg PO QAM 08/20/23 08/20/23 History lorazepam 0.5 mg tablet 0.5 mg PO BID PRN Anxiety 08/20/23 08/20/23 History melatonin 5 mg tablet 5 mg PO HS 08/20/23 08/20/23 History quetiapine 50 mg tablet 50 mg PO BID 08/20/23 08/20/23 History metoprolol succinate 25 mg 25 mg PO QAM #30 tabs 08/22/23 Rx tablet,extended release 24 hr torsemide 20 mg tablet 20 mg PO DAILY #30 tabs 08/22/23 Rx Patient History Medical History Chondrocalcinosis of knee Benign neoplasm of colon Polymyalgia rheumatica Acute posthemorrhagic anemia Lymph node cancer pt states lymph nodes removed from right breast/axillia Cervical spondylolysis Osteoarthritis IBS (irritable bowel syndrome) GERD (gastroesophageal reflux disease) CONTROLLED Hypothyroidism Cancer BREAST CANCER S/P B/L MASTECTOMY + RADIATION Migraine HX Asthma STABLE Surgical History Coronary angioplasty status [facility] [place] [facility] [place] Hx of breast biopsy 04/22/09 Dr. Garces Incisional hernia REPAIR 06/2017 Dr. Garces History of hysterectomy 1989 History of colonoscopy 2004, 04/07/2011 History of appendectomy Status post transverse rectus abdominis muscle (TRAM) flap breast reconstruction Dr. Ray Lea at [facility] [place] H/O mastectomy B/L Dr. 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 Patient is in no apparent distress. Patient is well-developed. Eyes: Pupils are equal round and reactive to light. Conjunctivae are normal. Anicteric sclera. Ears nose, mouth and throat: Deferred. Neck: Trachea is midline. Visual inspection is normal. Respiratory: Diminished bibasilar lung sounds with crackles. Cardiovascular: Regular rate and rhythm. No murmurs. Trace edema in the lower extremities bilaterally. Gastrointestinal: Normal bowel sounds, soft, nontender and nondistended. No hepatosplenomegaly noted. Musculoskeletal: No cyanosis. Patient is able to move all extremities. Strength is 5 out of 5 in the upper and lower extremities. Skin: No rashes, warm dry and intact. Neurologic: No obvious focal neurological deficits seen. Psychiatric: Not able to answer any questions appropriately aside for simple questions such as "are you in pain?" Results & Data Results & Data Vital Signs (Past 12 Hours) Vital Signs Temp Pulse Resp BP Pulse Ox O2 Del Method 08/22/23 11:31 36.0 C L 65 18 104/61 90 Room Air 08/22/23 07:56 36.0 C L 82 18 132/63 95 Room Air PG Care Time/CCT Total # of Minutes Spent Total Time Spent with Patient: Total time spent is greater than 50% in coordination of care (as documented) at patient's floor/unit and/or counseling patient: Coding Level of Care Code 69030 INT INP/OBS CARE 2/55MIN Diagnoses Acute on chronic diastolic (congestive) heart failure I50.33 Pleural effusion J90 Elevated brain natriuretic peptide (BNP) level R79.89
[2023-08-22] MEDS: MELATONIN 3 MG TAB PO SCH ×2 (21:39→21:43)
[2023-08-22] MEDS: ENOXAPARIN INJ 40 MG/0.4 ML SYR SQ SCH ×2 (21:40→21:42)
[2023-08-23] MEDS: LEVOTHYROXINE SODIUM 50 MCG TABLET PO SCH ×2 (06:15→06:18)
[2023-08-23 06:39] LABS: Basophils # (auto) 0.03 K/uL (0.00-0.20); Basophils % (auto) 0.4 %; Eosinophils # (auto) 0.01 K/uL (0.00-0.50); Eosinophils % (auto) 0.1 %; Hematocrit (blood only) 45.7 % (37.0-47.0); Hemoglobin 15.5 g/dl (12.0-16.0); Immature Granulocytes # (auto) 0.03 K/uL (0.01-0.20); Immature Granulocytes % (auto) 0.4 %; Lymphocytes # (auto) 1.21 K/uL (1.20-3.40); Lymphocytes % (auto) 16.7 %; Mean Corpuscular Hemoglobin 30.5 pg (25.0-34.0); Mean Corpuscular Hgb Conc 33.9 g/dL (32.0-36.0); Mean Corpuscular Volume 89.8 fL (80.0-100.0); Mean Platelet Volume 11.3 fL (9.4-12.4); Neutrophils # (auto) 5.16 K/uL (1.40-6.50); Neutrophils % (auto) 71.4 %; Platelet Count 221 K/uL (130-400); RDW Coefficient of Variation 14.2 % (11.5-14.5); RDW Standard Deviation 46.3 fL (36.4-46.3); Red Blood Count 5.09 M/uL (4.20-5.40); White Blood Count 7.24 K/ul (4.8-10.8)
[2023-08-23 06:49] LABS: Calcium 10.3 mg/dl (8.6-10.3); Magnesium 2.1 mg/dl (1.7-2.4); Potassium 3.7 mmol/L (3.5-5.1)
[2023-08-23 06:55] LABS: BUN Creatinine Ratio 29.8 (10-20); Creatinine Clr Calc Pharmacy 41.9 ml/min; Est GFR (African American) 66.9 ml/min; Est GFR (Non-African American) 57.7 ml/min
[2023-08-23] MEDS: POTASSIUM CHLORIDE CRTAB 20 MEQ TABCR PO SCH (09:21)
[2023-08-23] MEDS: DONEPEZIL HCL 10 MG TAB PO SCH (09:21)
[2023-08-23] MEDS: MEMANTINE HCL 10 MG TAB PO SCH ×2 (09:21→20:49)
[2023-08-23] MEDS: QUEtiapine FUMARATE 25 MG TABLET PO SCH ×2 (09:21→20:49)
[2023-08-23] MEDS: METOPROLOL SUCC 25MG EXT REL TAB PO SCH (09:21)
[2023-08-23] MEDS: FUROSEMIDE 40 MG/4 ML VIAL IV SCH (09:21)
[2023-08-23] MEDS ORDERED: DEXTROSE 5% 1,000 ML IV SCH (14:45)
--- NOTE | 2023-08-23 14:48 | Hospitalist Progress Note ---
Date of Service August 23, 2023 Assessment & Plan (1) Acute on chronic diastolic (congestive) heart failure: (2) Pleural effusion: (3) Fluid overload: (4) Demand ischemia: Plan: Patient is 77 y/o F with PMH Alzheimer dementia with hallucinations, GERD, hypo thyroidism, asthma, IBS, PMR, history of breast cancer, osteoarthritis, presented to ER from [facility] for reported lower extremity edema x several weeks. Her body weight in May was documented to be around 53 kg; presents with weight of 60 kgs BNP: 246. High sensitive troponin troponin: 18,> 28.9 > 23 EKG: poor tracing, sinus rhythm, nonspecific T wave changes CXR on admission personally reviewed cardiomegaly with pulmonary edema and small to moderate bilateral pleural fusions. Doppler BLE: No DVT within the right or left lower extremity. Pro-Kike negative Echocardiogram shows EF of 55 to 60%; dilated IVC with reduced collapsibility with sniff indicates elevated right atrial pressure of 15 mmHg. Estimated systolic pulmonary pressure of 58 mmHg. Patient was diuresed with IV Lasix 40 mg twice daily. Repeat chest x-ray on August 22 shows moderate right-sided pleural effusion similar to previous x-ray. Pulmonary edema present. CT chest without contrast personally reviewed; moderate size right-sided pleural effusion. Discussed with pulmonology; pleural effusion likely due to heart failure. No plans for thoracentesis. Given her uptrending sodium level; will start her on D5 and stop IV Lasix; switched to torsemide 20 mg once a day as per cardiology. Family meeting done with patient's son (Zabrina) at bedside on August 23, 2023. Patient has advanced dementia along with multiple comorbidities which can lead to multiple hospitalization and multiple medical interventions. Discussed possible hospice care at discharge that will provide her extra care at [facility] and also prevent frequent hospitalization. They are open to the idea. Discussed with case management. PT OT ordered. (5) Alzheimer's dementia: Plan: Continue donezepil, memantine, quetiapine Attempt frequent reorientation Follows with [facility] neurology (6) Hypothyroidism: Plan: Continue levothyroxine (7) Polymyalgia rheumatica: Plan: Reported history of PMR. Not on any medications DVT Prophylaxis Lovenox SQ Dispositionpossible discharge back to [place] on hospice care in next few days. Time spent evaluating patient, direct bedside care, chart review, placing orders, interpretation of diagnostic studies, discussion with consultants, patient, and family members, as well as other required patient management activities is 50 minutes Please note the above document was generated using voice recognition software. It may contain grammatical, syntax or spelling errors. Any formal questions or concerns about the content, text or information contained within the body of this dictation should be directly addressed to the provider for clarification Admission and Anticipated Discharge Date Admission Date: August 20, 2023 Subjective Patient seen and examined at bedside. She is comfortable; not in distress. Needs redirection. Not in respiratory distress. Review of Systems Review of Systems: All systems reviewed & are unremarkable except as noted in Subjective Physical Exam Physical Exam: Constitutional: Awake, oriented to self. Able to follow simple commands. Respiratory: Decreased breath sound at bases. (Right greater than left) Cardiovascular: RRR, no murmur, no edema Vessels: no JVD or carotid bruit Chest: normal inspection of chest Abdomen: normal bowel sounds, soft, nontender, no hepatosplenomegaly Musculoskeletal: no cyanosis or clubbing, extremities motor strength 5/5. 1+ pitting edema Skin: no rashes, warm and dry normal turgor Neurologic: PERRL, EOMI, accommodation nl, no face palsy, no dysarthria CN's II- XI intact bilaterally and moves all extremities Psychiatric: A+Ox1 euthymic affect Results & Data Results & Data Vital Signs (Past 12 Hours) Vital Signs Temp Pulse Resp BP Pulse Ox O2 Del Method 08/23/23 12:06 36.3 C L 58 L 18 85/52 L 89 L Room Air 08/23/23 08:01 Room Air 08/23/23 07:52 36.7 C 62 16 100/72 94 Room Air 08/23/23 04:00 36.5 C 78 18 128/83 95 Room Air
[2023-08-23] MEDS: MAGNESIUM SULFATE / D5W 1 GM/100 ML BAG IV SCH ×3 (18:03→22:47)
[2023-08-23] MEDS: ENOXAPARIN INJ 40 MG/0.4 ML SYR SQ SCH (20:49)
[2023-08-23] MEDS: MELATONIN 3 MG TAB PO SCH (20:49)
[2023-08-24] MEDS: MAGNESIUM SULFATE / D5W 1 GM/100 ML BAG IV SCH (01:13)
[2023-08-24] MEDS: LEVOTHYROXINE SODIUM 50 MCG TABLET PO SCH (05:56)
[2023-08-24 06:28] LABS: Basophils # (auto) 0.04 K/uL (0.00-0.20); Basophils % (auto) 0.4 %; Eosinophils # (auto) 0.37 K/uL (0.00-0.50); Eosinophils % (auto) 3.4 %; Hemoglobin 13.6 g/dl (12.0-16.0); Immature Granulocytes # (auto) 0.04 K/uL (0.01-0.20); Immature Granulocytes % (auto) 0.4 %; Lymphocytes # (auto) 1.87 K/uL (1.20-3.40); Lymphocytes % (auto) 17.1 %; Mean Corpuscular Hemoglobin 30.3 pg (25.0-34.0); Mean Corpuscular Hgb Conc 33.2 g/dL (32.0-36.0); Mean Corpuscular Volume 91.3 fL (80.0-100.0); Mean Platelet Volume 11.3 fL (9.4-12.4); Monocytes # (auto) 1.23 K/uL (0.11-0.59); Monocytes % (auto) 11.3 %; Neutrophils # (auto) 7.38 K/uL (1.40-6.50); Neutrophils % (auto) 67.4 %; Platelet Count 219 K/uL (130-400); RDW Coefficient of Variation 14.6 % (11.5-14.5); RDW Standard Deviation 48.5 fL (36.4-46.3); Red Blood Count 4.49 M/uL (4.20-5.40); White Blood Count 10.93 K/ul (4.8-10.8)
[2023-08-24 07:23] LABS: BUN Creatinine Ratio 34.5 (10-20); Calcium 9.4 mg/dl (8.6-10.3); Creatinine Clr Calc Pharmacy 34.9 ml/min; Est GFR (African American) 53.5 ml/min; Est GFR (Non-African American) 46.2 ml/min; Magnesium 3.2 mg/dl (1.7-2.4); Potassium 3.2 mmol/L (3.5-5.1)
[2023-08-24] MEDS: MEMANTINE HCL 10 MG TAB PO SCH ×2 (09:44→20:03)
[2023-08-24] MEDS: TORSEMIDE 10 MG TAB PO SCH (09:44)
[2023-08-24] MEDS: POTASSIUM CHLORIDE CRTAB 20 MEQ TABCR PO SCH (09:44)
[2023-08-24] MEDS: DONEPEZIL HCL 10 MG TAB PO SCH (09:44)
[2023-08-24] MEDS: QUEtiapine FUMARATE 25 MG TABLET PO SCH ×2 (09:44→20:04)
[2023-08-24] MEDS: METOPROLOL SUCC 25MG EXT REL TAB PO SCH (09:44)
[2023-08-24] MEDS ORDERED: POTASSIUM CHLORIDE CRTAB 20 MEQ TABCR PO STA (11:31)
--- NOTE | 2023-08-24 12:14 | XRay Report ---
XR knee RT 1 or 2V routine CLINICAL HISTORY: Tenderness on the palpation TECHNIQUE: 2 views of the right knee were obtained. Comparison: None available at the time of this dictation. FINDINGS: There is no evidence of an acute fracture. Degenerative changes and chondrocalcinosis are noted. No j oint effusion is seen. Vascular calcifications are noted. IMPRESSION: Degenerative changes without evidence of acute injury. ACT 112: Negative or not required by law. Electronically signed by: Dequan Scott M.D. 08/24/2023 12:13 PM
--- NOTE | 2023-08-24 12:18 | XRay Report ---
XR knee LT 1 or 2V routine CLINICAL HISTORY: Swelling and tenderness COMPARISON: Left knee radiographs March 22, 2020. FINDINGS: Alignment of the left knee is anatomic. No acute fracture. No osseous lesions are noted. L inear 1.3 cm calcific density along the medial femoral condyle was shown on prior exam. This could in dicate old MCL injury. Chondrocalcinosis within the menisci is noted. Minimal chondrocalcinosis withi n the suprapatellar joint space is present. There is a moderate joint effusion. No lipohemarthrosis i s identified. Medial and lateral compartment joint spaces are preserved. There is moderate to severe patellofemoral compartment osteoarthritis. IMPRESSION: 1. No fractures within the left knee. 2. Moderate-sized left knee joint effusion. 3. Moderate to severe patellofemoral compartment osteoarthritis. Chondrocalcinosis within the menisci . 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 ACT 112: Negative or not required by law. Electronically signed by: Girma Calderon M.D. 08/24/2023 12:15 PM
--- NOTE | 2023-08-24 12:25 | Electrocardiogram Report ---
Test Reason : Blood Pressure : / mmHG Vent. Rate : 067 BPM Atrial Rate : 083 BPM P-R Int : 000 ms QRS Dur : 086 ms QT Int : 416 ms P-R-T Axes : 000 000 103 degrees QTc Int : 439 ms Poor data quality, interpretation may be adversely affected Atrial fibrillation Abnormal ECG When compared with ECG of 20-AUG-2023 09:58, Atrial fibrillation has replaced Sinus rhythm Confirmed by Dm Tubbs ([id number]) on 08/24/2023 12:24:28 PM Referred By: [facility] Confirmed By:Douglas Tubbs
--- NOTE | 2023-08-24 14:53 | Hospitalist Progress Note ---
Date of Service August 24, 2023 Assessment & Plan (1) Acute on chronic diastolic (congestive) heart failure: (2) Pleural effusion: (3) Fluid overload: (4) Demand ischemia: Plan: Patient is 77 y/o F with PMH Alzheimer dementia with hallucinations, GERD, hypo thyroidism, asthma, IBS, PMR, history of breast cancer, osteoarthritis, presented to ER from [facility] for reported lower extremity edema x several weeks. Her body weight in May was documented to be around 53 kg; presents with weight of 60 kgs BNP: 246. High sensitive troponin troponin: 18,> 28.9 > 23 EKG: poor tracing, sinus rhythm, nonspecific T wave changes CXR on admission personally reviewed cardiomegaly with pulmonary edema and small to moderate bilateral pleural fusions. Doppler BLE: No DVT within the right or left lower extremity. Pro-Kike negative Echocardiogram shows EF of 55 to 60%; dilated IVC with reduced collapsibility with sniff indicates elevated right atrial pressure of 15 mmHg. Estimated systolic pulmonary pressure of 58 mmHg. Patient was diuresed with IV Lasix 40 mg twice daily. Repeat chest x-ray on August 22 shows moderate right-sided pleural effusion similar to previous x-ray. Pulmonary edema present. CT chest without contrast personally reviewed; moderate size right-sided pleural effusion. Discussed with pulmonology; pleural effusion likely due to heart failure. No plans for thoracentesis. Switched over to torsemide 20 mg once a day. Family meeting done with patient's son (Zabrina) at bedside on August 23, 2023. Patient has advanced dementia along with multiple comorbidities which can lead to multiple hospitalization and multiple medical interventions. Discussed possible hospice care at discharge that will provide her extra care at personal-correction and also prevent frequent hospitalization. They are open to the idea. Discussed with case management. PT OT ordered. (5) Atrial fibrillation: Plan: Telemetry shows atrial fibrillation with ventricular rate in 60s to 70s on overview on August 24, 2023. EKG done and interpreted; atrial fibrillation with ventricular rate of 67 Echocardiogram as above Rate controlled on metoprolol started by cardiology during this hospitalization. Her [id number] score is 4. Discussed with her son Gene over the phone. Discussed the pathophysiology of atrial fibrillation and risks of stroke. Patient has history of multiple falls; her last admission was in May. She was admitted after a fall and hitting her head. Patient has history of multiple falls as per Gene. We discussed about risks and benefits of anticoagulation. Given her severe dementia and multiple falls-benefit could outweigh the risks. Gene to discuss with his brother Galo. Discussed with cardiology; possibly adding aspirin could be of some benefit. Gene also agrees. Patient started on aspirin 81 mg once a day. (6) Degenerative arthritis of knee, bilateral: Plan: History of osteoarthritis of both knees Left knee appears to have effusion; no overlying redness. Tender on palpation. X-ray of both knees were done; no fractures; moderate size left knee joint effusion. Patient has history of steroid injection and aspiration of the joint as per her son. Consulted orthopedic for possible aspiration of the joint/intra-articular steroid injection. (7) Alzheimer's dementia: Plan: Continue donezepil, memantine, quetiapine Attempt frequent reorientation Follows with [facility] neurology (8) Hypothyroidism: Plan: Continue levothyroxine (9) Polymyalgia rheumatica: Plan: Reported history of PMR. Not on any medications DVT Prophylaxis Lovenox SQ Dispositionpossible discharge back to [place] on hospice care in next few days. Case management on board. Patient continues to be hospitalized due to acute on chronic heart failure, atrial fibrillation. Time spent evaluating patient, direct bedside care, chart review, placing orders, interpretation of diagnostic studies, discussion with consultants, patient, and family members, as well as other required patient management activities is 50 minutes Please note the above document was generated using voice recognition software. It may contain grammatical, syntax or spelling errors. Any formal questions or concerns about the content, text or information contained within the body of this dictation should be directly addressed to the provider for clarification Admission and Anticipated Discharge Date Admission Date: August 20, 2023 Subjective Patient seen and examined at bedside. She is comfortable; not in distress. She denies any fever, chills, chest pain palpitation or shortness of breath. Telemetry shows atrial fibrillation with ventricular rate in 60s to 70s Review of Systems Review of Systems: Unobtainable due to cognitive status Physical Exam Physical Exam: Constitutional: Awake, oriented to self. Able to follow simple commands. Respiratory: Decreased breath sound at bases. (Right greater than left) Cardiovascular: RRR, no murmur, no edema Vessels: no JVD or carotid bruit Chest: normal inspection of chest Abdomen: normal bowel sounds, soft, nontender, no hepatosplenomegaly Musculoskeletal: no cyanosis or clubbing, extremities motor strength 5/5. 1+ pitting edema Skin: no rashes, warm and dry normal turgor Neurologic: PERRL, EOMI, accommodation nl, no face palsy, no dysarthria CN's II- XI intact bilaterally and moves all extremities Psychiatric: A+Ox1 euthymic affect Results & Data Results & Data Vital Signs (Past 12 Hours) Vital Signs Temp Pulse Pulse Resp BP BP Pulse Ox 08/24/23 12:01 74 18 115/69 96 08/24/23 07:33 36.3 C L 70 18 129/77 96 08/24/23 07:30 67 08/24/23 03:04 35.5 C L 74 18 106/61 95 O2 Del Method 08/24/23 12:01 Room Air 08/24/23 07:33 Room Air 08/24/23 07:30 08/24/23 03:04 Room Air
--- NOTE | 2023-08-24 14:57 | Cardiology Progress Note ---
Date of Service August 24, 2023 Assessment & Plan (1) Acute on chronic diastolic (congestive) heart failure: (2) Atrial fibrillation: (3) NSVT (nonsustained ventricular tachycardia): Plan 77-year-old female initially presented on 08/20/2023 from [facility] care unit due to concerns of lower extremely edema. Patient with established history of Alzheimer's dementia. Echocardiogram performed 08/20/2023 revealed normal left ventricular myocardial thickness, normal LV wall motion, normal LVEF in the range of 55 to 60%. Mild left atrial dilatation noted. Grade 1 diastolic dysfunction noted. Moderate tricuspid regurgitation noted with moderately elevated pulmonary artery systolic pressure of 58 mmHg and right atrial pressure of 15 mmHg. Patient initially received IV furosemide and transition to oral torsemide. At time of presentation on 08/20/2023 she was in sinus rhythm but has since reverted to a persistent atrial fibrillation which is a new diagnosis for her. On 08/23/2023 she was observed to have a 17 beat run of nonsustained ventricular tachycardia without associated subjective symptoms. Her volume status appears stable. Recommend ongoing treatment with torsemide 20 mg by mouth daily. At present recommend ongoing treatment with metoprolol succinate 25 mg daily for both rate control in the setting of atrial fibrillation as well as for the nonsustained ventricular tachycardia. Potassium replacement has already been ordered by the primary team. TSH was within normal limits as measured on 08/21/2023. With regards to stroke prophylaxis, her [id number] score is likely 4 for risk factors of age over 75, female sex, and history of CHF, however I am not certain what her ambulatory status is.Dr Cortez expressed that he planned to discussed the benefits versus risks of anticoagulation with the patient's family today. Tentative plan is for consideration of transfer back to the memory unit with a palliative care approach which I think would be reasonable given the patient's cognitive status. I do not think be more aggressive from a cardiology perspective with regards to evaluation of the nonsustained ventricular tachycardia would change her trajectory. Admission and Anticipated Discharge Date Admission Date: August 20, 2023 Subjective Patient seen in cardiology reassessment as per request of Dr Cortez for the evaluation of CHF, atrial fibrillation, and nonsustained ventricular tachycardia. Patient with cognitive impairment. Unable to provide subjective history. Appears comfortable eating her midday meal. Telemetry reveals persistent atrial fibrillation over the last 48 hours with rates for the most part in the 70s. A 17 beat run of nonsustained ventricular tachycardia was observed on 08/23/2023 spontaneous conversion to sinus rhythm. Review of Systems Review of Systems: Unobtainable due to cognitive status Physical Exam Constitutional: well developed Eyes: PERRL, conjunctivae normal, anicteric sclerae Respiratory: normal respiratory effort, lungs clear to auscultation Cardiovascular: RRR, no murmur, no edema Gastrointestinal (Abdomen): normal bowel sounds, soft, nontender, no hepatosplenomegaly Neurologic: Moves all 4 extremities, conversant, cognitive impairment Results & Data Vital Signs (Past 12 Hours) Vital Signs Temp Pulse Pulse Resp BP BP Pulse Ox 08/24/23 12:01 74 18 115/69 96 08/24/23 07:33 36.3 C L 70 18 129/77 96 08/24/23 07:30 67 08/24/23 03:04 35.5 C L 74 18 106/61 95 O2 Del Method 08/24/23 12:01 Room Air 08/24/23 07:33 Room Air 08/24/23 07:30 08/24/23 03:04 Room Air Laboratory Results CBC 08/24/23 Range/Units 05:42 WBC 10.93 H (4.8-10.8) K/ul RBC 4.49 (4.20-5.40) M/uL Hgb 13.6 (12.0-16.0) g/dl Hct 41.0 (37.0-47.0) % Plt Count 219 (130-400) K/uL Neut # (Auto) 7.38 H (1.40-6.50) K/uL Lymph # (Auto) 1.87 (1.20-3.40) K/uL Thomas # (Auto) 1.23 H (0.11-0.59) K/uL Eos # (Auto) 0.37 (0.00-0.50) K/uL Baso # (Auto) 0.04 (0.00-0.20) K/uL Comprehensive Metabolic Panel 08/24/23 Range/Units 05:42 Sodium 137 D (136-145) mmol/L Potassium 3.2 L (3.5-5.1) mmol/L Chloride 99 (98-107) mmol/L Carbon Dioxide 29 (21-32) mmol/L BUN 39 H (6-23) mg/dl Creatinine 1.13 (0.6-1.2) mg/dl Glucose 112 H (70-99(Fasting)) mg/dl Calcium 9.4 (8.6-10.3) mg/dl Diagnostic Findings EKG performed today 08/24/2023 at 10:58 AM and interpret independently: Atrial fibrillation at 67 bpm. Diffuse nonspecific T wave flattening noted. Compared to the previous dated 08/20/2023 atrial fibrillation has replaced sinus rhythm. (2) Atrial fibrillation Atrial fibrillation type: persistent (not longstanding) Qualified Code(s): I48.19 - Other persistent atrial fibrillation
[2023-08-24] MEDS: MELATONIN 3 MG TAB PO SCH (20:03)
[2023-08-24] MEDS: ENOXAPARIN INJ 40 MG/0.4 ML SYR SQ SCH (20:04)
[2023-08-24 22:10] VITALS: RESP 18; TEMP 97.3
[2023-08-25 05:34] LABS: Calcium 9.2 mg/dl (8.6-10.3); Potassium 3.7 mmol/L (3.5-5.1)
[2023-08-25 05:37] LABS: Basophils # (auto) 0.01 K/uL (0.00-0.20); Basophils % (auto) 0.1 %; Eosinophils # (auto) 0.04 K/uL (0.00-0.50); Eosinophils % (auto) 0.5 %; Hematocrit (blood only) 40.4 % (37.0-47.0); Hemoglobin 13.2 g/dl (12.0-16.0); Immature Granulocytes # (auto) 0.03 K/uL (0.01-0.20); Immature Granulocytes % (auto) 0.4 %; Lymphocytes # (auto) 1.21 K/uL (1.20-3.40); Lymphocytes % (auto) 15.1 %; Mean Corpuscular Hemoglobin 29.7 pg (25.0-34.0); Mean Corpuscular Hgb Conc 32.7 g/dL (32.0-36.0); Mean Platelet Volume 11.7 fL (9.4-12.4); Monocytes # (auto) 0.94 K/uL (0.11-0.59); Monocytes % (auto) 11.8 %; Neutrophils # (auto) 5.77 K/uL (1.40-6.50); Neutrophils % (auto) 72.1 %; Platelet Count 216 K/uL (130-400); RDW Coefficient of Variation 14.5 % (11.5-14.5); RDW Standard Deviation 47.8 fL (36.4-46.3); Red Blood Count 4.44 M/uL (4.20-5.40)
[2023-08-25 05:40] LABS: BUN Creatinine Ratio 36.1 (10-20); Creatinine Clr Calc Pharmacy 36.5 ml/min; Est GFR (African American) 56.5 ml/min; Est GFR (Non-African American) 48.8 ml/min
[2023-08-25] MEDS: LEVOTHYROXINE SODIUM 50 MCG TABLET PO SCH (05:55)
[2023-08-25] MEDS ORDERED: ASPIRIN 81 MG CHEW PO SCH (09:00)
[2023-08-25] MEDS: MEMANTINE HCL 10 MG TAB PO SCH (09:41)
[2023-08-25] MEDS: QUEtiapine FUMARATE 25 MG TABLET PO SCH (09:42)
[2023-08-25] MEDS: TORSEMIDE 10 MG TAB PO SCH (09:42)
[2023-08-25] MEDS: POTASSIUM CHLORIDE CRTAB 20 MEQ TABCR PO SCH (09:43)
[2023-08-25] MEDS: DONEPEZIL HCL 10 MG TAB PO SCH (09:44)
[2023-08-25] MEDS: METOPROLOL SUCC 25MG EXT REL TAB PO SCH (09:44)
--- NOTE | 2023-08-25 11:42 | Discharge Summary ---
Date of Service August 25, 2023 Admission HPI Per Admitting Provider Patient is 77 y/o F with PMH Alzheimer dementia with hallucinations, GERD, hypothyroidism, asthma, IBS, PMR, history of breast cancer, osteoarthritis, presented to ER from [facility] for reported lower extremity edema. History obtained from [facility] staff, patient's son as patient unable to provide any history. [facility] staff report past couple weeks patient with increased bilateral lower extremity edema. Unfortunately very limited information was able to be obtained from staff. Patient on Lasix 40mg daily. Staff report Lasix dose was increased however unsure when that was. Staff have not noted fever/chills, SOB, cough, vomiting or diarrhea. Patient states her name but is unable to give any more history. Spoke with patient's son and Gene PUGH on phone. Admission Exam Per Admitting Provider General: Elderly woman in no distress Eyes: PERRL, conjunctivae normal, not pale, anicteric sclerae, EOM intact bilaterally ENMT: External ear and nose normal, oropharynx normal Respiratory: Normal respiratory effort, no respiratory distress, Diminished breath sounds Cardiovascular: RRR S1 S2 Gastrointestinal (Abdomen): Abdomen is not distended, soft, non-tender to palpation, no guarding, no palpable hepatosplenomegaly, normal bowel sounds Musculoskeletal: Bilateral pedal edema Neurologic: Alert, oriented to person only. Limited exam due to mental status. Principal Diagnosis Acute on chronic diastolic heart failure Discharge Exam Constitutional: Awake, oriented to self. Able to follow simple commands. Respiratory: Decreased breath sound at bases. (Right greater than left) Cardiovascular: RRR, no murmur, no edema Vessels: no JVD or carotid bruit Chest: normal inspection of chest Abdomen: normal bowel sounds, soft, nontender, no hepatosplenomegaly Musculoskeletal: no cyanosis or clubbing, extremities motor strength 5/5. trace to 1+ pitting edema Skin: no rashes, warm and dry normal turgor Neurologic: PERRL, EOMI, accommodation nl, no face palsy, no dysarthria CN's II- XI intact bilaterally and moves all extremities Psychiatric: A+Ox1 euthymic affect Discharge Data Allergies Allergy/AdvReac Type Severity Reaction Status Date / Time animal dander Allergy Severe SHORTNESS Verified 08/20/23 15:06 OF BREATH bee venom protein (honey bee) Allergy Severe ANAPHYLAXIS Verified 08/20/23 15:06 Iodinated Contrast Media Allergy Severe Anaphylaxis Verified 08/20/23 15:06 iodine Allergy Severe Anaphylaxis Verified 08/20/23 15:06 latex Allergy Severe itchy, Verified 08/20/23 15:06 shortness of breath penicillin G Allergy Severe ANAPHYLAXIS Verified 08/20/23 15:06 povidone-iodine Allergy Severe Anaphylaxis Verified 08/20/23 15:06 tuna oil Allergy Severe HIVES AND Verified 08/20/23 15:06 ANAPHYLAXIS bisacodyl Allergy Intermediate Hives Verified 08/20/23 15:06 codeine Allergy Intermediate GI SYMPTOMS Verified 08/20/23 15:06 ephedrine Allergy Intermediate RASH Verified 08/20/23 15:06 ENVIRONMENTAL Allergy Severe SHORTNESS Uncoded 08/20/23 15:06 OF BREATH ACRYLIC CEMENT OR BONDING Allergy Intermediate EDEMA Uncoded 08/20/23 15:06 FACE/LIPS/TONGUE JEWELRY Allergy Intermediate BLISTERS Uncoded 08/20/23 15:06 WITH "CHEAP JEWELRY" Consultations 08/20/23 14:37 ED Decision to Admit Stat 08/20/23 21:13 Consult Cardiology Routine 08/23/23 08:00 Consult Pulmonology Routine 08/24/23 14:07 Consult Orthopedic Surgery Routine Ordered Studies 08/20/23 11:02 US venous doppler LE BI Stat 08/22/23 10:09 CT chest diagnostic wo con Routine Hospital Course (1) Acute on chronic diastolic (congestive) heart failure: (2) Pleural effusion: (3) Fluid overload: (4) Demand ischemia: Per prior attending with addendum: Patient is 77 y/o F with PMH Alzheimer dementia with hallucinations, GERD, hypothyroidism, asthma, IBS, PMR, history of breast cancer, osteoarthritis, presented to ER from [facility] for reported lower extremity edema x several weeks. Her body weight in May was documented to be around 53 kg; presents with weight of 60 kgs BNP: 246. High sensitive troponin troponin: 18,> 28.9 > 23 EKG: poor tracing, sinus rhythm, nonspecific T wave changes CXR on admission personally reviewed cardiomegaly with pulmonary edema and small to moderate bilateral pleural fusions. Doppler BLE: No DVT within the right or left lower extremity. Pro-Kike negative Echocardiogram shows EF of 55 to 60%; dilated IVC with reduced collapsibility with sniff indicates elevated right atrial pressure of 15 mmHg. Estimated systolic pulmonary pressure of 58 mmHg. Patient was diuresed with IV Lasix 40 mg twice daily. Repeat chest x-ray on August 22 shows moderate right-sided pleural effusion similar to previous x-ray. Pulmonary edema present. CT chest without contrast personally reviewed; moderate size right-sided pleural effusion. Discussed with pulmonology; pleural effusion likely due to heart failure. No plans for thoracentesis. Switched over to torsemide 20 mg once a day. Family meeting done with patient's son (Gene and Galo) at bedside on August 23, 2023. Patient has advanced dementia along with multiple comorbidities which can lead to multiple hospitalization and multiple medical interventions. Discussed possible hospice care at discharge that will provide her extra care at personal-residential and also prevent frequent hospitalization. They are open to the idea. Discussed with case management. PT OT ordered. (5) Atrial fibrillation: Telemetry shows atrial fibrillation with ventricular rate in 60s to 70s on overview on August 24, 2023. EKG done and interpreted; atrial fibrillation with ventricular rate of 67 Echocardiogram as above Rate controlled on metoprolol started by cardiology during this hospitalization. Her [id number] score is 4. Discussed with her son Gene over the phone. Discussed the pathophysiology of atrial fibrillation and risks of stroke. Patient has history of multiple falls; her last admission was in May. She was admitted after a fall and hitting her head. Patient has history of multiple falls as per Gene. We discussed about risks and benefits of anticoagulation. Given her severe dementia and multiple falls-benefit could outweigh the risks. Gene to discuss with his brother Galo. Discussed with cardiology; possibly adding aspirin could be of some benefit. Gene also agrees. Patient started on aspirin 81 mg once a day. (6) Degenerative arthritis of knee, bilateral: History of osteoarthritis of both knees Left knee appears to have effusion; no overlying redness. Tender on palpation. X-ray of both knees were done; no fractures; moderate size left knee joint effusion. Patient has history of steroid injection and aspiration of the joint as per her son. Consulted orthopedic for possible aspiration of the joint/intra-articular steroid injection. (7) Alzheimer's dementia: Continue donezepil, memantine, quetiapine Attempt frequent reorientation Follows with [facility] neurology (8) Hypothyroidism: Continue levothyroxine (9) Polymyalgia rheumatica: Reported history of PMR. Not on any medications DVT Prophylaxis Lovenox SQ Dispositionpossible discharge back to [facility] on hospice care in next few days. Case management on board. Patient continues to be hospitalized due to acute on chronic heart failure, atrial fibrillation. Time spent evaluating patient, direct bedside care, chart review, placing orders, interpretation of diagnostic studies, discussion with consultants, patient, and family members, as well as other required patient management activities is 50 minutes Please note the above document was generated using voice recognition software. It may contain grammatical, syntax or spelling errors. Any formal questions or concerns about the content, text or information contained within the body of this dictation should be directly addressed to the provider for clarification Plan Addendum 08/25/2023: Patient was seen and examined at bedside. Patient hemodynamically stable, resting comfortably, not in any acute distress. Denies any pain today. Noted prior attending's communication with the family regarding anticoagulation need and the risks being more than the benefit given her comorbidities/recurrent falls, patient was started on baby aspirin only. She is being discharged to facility with hospice with following instruction at the point of discharge: You are being discharged to facility with hospice. Your care will be further guided by providers from hospice care. You were admitted to the hospital due to acute on chronic diastolic heart failure. Your evaluated by cardiology during the hospitalization. They recommend following medication changes: 1) start taking metoprolol 25 mg once a day 2) start taking torsemide 20 mg once a day. Stop taking Lasix. Please measure your weight daily, standing on a weighing scale. If your weight goes up by 3 to 5 pounds and you noticed that the legs are starting to swell up; please take extra dose of torsemide daily in the afternoon till your weight goes back to normal. Also discuss with your primary care doctor. For your bilateral knee arthritis, continue to follow-up with orthopedics for ongoing management of your pain. You can use [id number] Voltaren gel over the knees as needed up to 4 times a day. Home Health Attestation I certify that this patient is under my care and that I, or a physicians mobile sales assistant working with me, had a face to-face encounter that meets the [facility] [id number] encounter requirements with this patient. The encounter with the patient was in whole, or in part, for the following medical condition, which is the primary reason for home health care (list medical condition): I certify that, based on my findings, the following services are medically necessary home health services: My clinical findings support the need for the above services because: Further, I certify that my clinical findings support that this patient is homebound (i.e. absences from home require considerable and taxing effort and are for medical reasons or orthodox services or infrequently or of short duration when for other reasons) because: Certification for Home Health Services: Based on the above findings, I certify that this patient is confined to the home and needs intermittent snf care, physical therapy and/or speech therapy or continues to need occupational therapy. The patient is under my care, and I have initiated the establishment of the plan of care. This patient will be followed by a physician who will periodically review the plan of care. Total Time Total Time Spent Total Time Spent (In Minutes): 40 Discharge Plan Discharge Items Patient Disposition: Transfer [facility] Reason For Visit: EDEMA Discharge Diagnosis: Acute on chronic diastolic heart failure Activity: Resume your previous activity Non-emergency contact: Primary Care Provider Call non-emergency contact if: you have any medication questions and your symptoms worsen Follow-up/Referrals: Veroncia kirbyBrighton [Primary Care Provider] - Diet: Regular and Low Sodium (2gm) Addtl Attending Provider Instructions: You are being discharged to facility with hospice. Your care will be further guided by providers from hospice care. You were admitted to the hospital due to acute on chronic diastolic heart failure. Your evaluated by cardiology during the hospitalization. They recommend following medication changes: 1) start taking metoprolol 25 mg once a day 2) start taking torsemide 20 mg once a day. Stop taking Lasix. Please measure your weight daily, standing on a weighing scale. If your weight goes up by 3 to 5 pounds and you noticed that the legs are starting to swell up; please take extra dose of torsemide daily in the afternoon till your weight goes back to normal. Also discuss with your primary care doctor. For your bilateral knee arthritis, continue to follow-up with orthopedics for ongoing management of your pain. You can use [id number] Voltaren gel over the knees as needed up to 4 times a day. Pending Studies at Discharge: No Stand-Alone Forms: My [employer], Smoking Cessation Skilled Items Patient informed of condition?: Yes DNR: Yes Discharge Level of Care: Skilled Communicable Disease: No Discharge Prognosis: Stable Lines: None Urinary Catheter: No Medications and DC Order Prescriptions: New metoprolol succinate 25 mg Tablet Extended Release 24 Hr 25 mg PO QAM Qty: 30 0RF torsemide 20 mg tablet 20 mg PO DAILY Qty: 30 0RF aspirin [Children's Aspirin] 81 mg Tablet,Chewable 81 mg PO DAILY Qty: 30 0RF Continued epinephrine [EpiPen] 0.3 mg/0.3 mL Auto-Injector 0.3 mg IM DIRECTED PRN (Reason: Allergic Reaction) levothyroxine 50 mcg tablet 50 mcg PO QAM donepezil 10 mg tablet 10 mg PO QAM potassium chloride 10 mEq Capsule, Extended Release 20 meq PO QAM acetaminophen 650 mg Tablet Extended Release 1,300 mg PO Q6H PRN (Reason: Pain) lorazepam 0.5 mg Tablet 0.5 mg PO BID PRN (Reason: Anxiety) quetiapine 50 mg tablet 50 mg PO BID melatonin 5 mg Tablet 5 mg PO HS ondansetron HCl 4 mg tablet 4 mg PO Q8 PRN (Reason: Nausea/vomiting) memantine 10 mg tablet 10 mg PO BID Discontinued furosemide 40 mg tablet 40 mg PO QAM Discharge Orders: Discharge Order (Routine); Ordered 08/25/23 Ordered By: Corby Sevilla Admission Data Admit Date/Time: 08/20/23 15:06 Attending Provider: Corby Sevilla Admit Provider: Rosanna Menon I. Primary Care Provider: Veronica kirbyBrighton Other Providers: Rosanna Menon I.; Gabriel kSy; Gigi Arellano; Ezio Borges
[2023-08-25 11:46] VITALS: PULSE 70; O2SAT 97
[2023-08-25 11:54] VITALS: BP 119/76
--- NOTE | 2023-08-25 12:44 | Orthopedic Consultation ---
Date of Service August 25, 2023 Assessment & Plan (1) Degenerative arthritis of knee, bilateral: I had a long and detailed discussion today with the patient's son about his mothers bilateral knee pathology. He had ample amount of time to ask any questions or state any concerns. All questions and concerns were answered to the patient's son's satisfaction. At this point in time I discussed conservative treatment options that can be completed here in the hospital which are include but not limited to activity modifications, physical therapy evaluations, oral analgesics, and/or steroid/aspiration of the bilateral knees. At this point in time, her son states that he would like his mother to be discharged back to her normal living facility to get back to a normal living situation and feels that injections into her bilateral knees may cause her unnecessary stress. He does note that if he notices his mother's gait begin to worsen, he will make a appointment to see [facility] orthopedics for aspiration and injection of bilateral knees as an outpatient. He notes that she has been nonambulatory for the last week due to other medical issues going on as well as her being currently on Lasix to get the fluid off her lower extremity. She is set to be discharged back to her living facility today. From an orthopedic standpoint, she is cleared for discharge. We will recommend her working with physical therapy when she gets back to her living facility to hopefully get her back to ambulatory status again. Please reach out by [facility] text or to [facility] orthopedics if this patient's situation is to change. History of Present Illness Reason for Consultation: . Bilateral knee pain. Requesting Physician: . Attending Physician: Corby Sevilla MD . Sandy is a pleasantly confused 77-year-old female who we are asked to see on consultation for bilateral knee pain. She has been seen in our office previously for bilateral knee injections and aspirations. She really does not provide much history today. I did discuss her care today with her son (Jovi Marie) over the phone today and most of the history obtained today is from him. He notes that for the past week, she has been nonambulatory due to her being on Lasix and pulling a lot of fluid off of her lower extremity. He notes that she really does not ever complain about pain but she will begin ambulating differently whenever her knee start bothering her. When it gets to this point, they usually come to the office for bilateral knee aspirations and steroid injections. They note that she has been nonambulatory for other reasons and not for her knee pain. At this point in time, he does not feel that she really n eeds an aspiration or injection into the knees. He would like her to take be discharged back to her usual living facility and then monitor her knees from there. He denies any other concerns today about his mother and her care that received. Allergies Allergy/AdvReac Type Severity Reaction Status Date / Time animal dander Allergy Severe SHORTNESS Verified 08/20/23 15:06 OF BREATH bee venom protein (honey bee) Allergy Severe ANAPHYLAXIS Verified 08/20/23 15:06 Iodinated Contrast Media Allergy Severe Anaphylaxis Verified 08/20/23 15:06 iodine Allergy Severe Anaphylaxis Verified 08/20/23 15:06 latex Allergy Severe itchy, Verified 08/20/23 15:06 shortness of breath penicillin G Allergy Severe ANAPHYLAXIS Verified 08/20/23 15:06 povidone-iodine Allergy Severe Anaphylaxis Verified 08/20/23 15:06 tuna oil Allergy Severe HIVES AND Verified 08/20/23 15:06 ANAPHYLAXIS bisacodyl Allergy Intermediate Hives Verified 08/20/23 15:06 codeine Allergy Intermediate GI SYMPTOMS Verified 08/20/23 15:06 ephedrine Allergy Intermediate RASH Verified 08/20/23 15:06 ENVIRONMENTAL Allergy Severe SHORTNESS Uncoded 08/20/23 15:06 OF BREATH ACRYLIC CEMENT OR BONDING Allergy Intermediate EDEMA Uncoded 08/20/23 15:06 FACE/LIPS/TONGUE JEWELRY Allergy Intermediate BLISTERS Uncoded 08/20/23 15:06 WITH "CHEAP JEWELRY" Home Medications Medication Instructions Recorded Confirmed Type epinephrine 0.3 mg/0.3 mL 0.3 mg IM DIRECTED PRN Allergic 09/12/18 08/20/23 History injection, auto-injector (EpiPen) Reaction levothyroxine 50 mcg tablet 50 mcg PO QAM 02/26/21 08/20/23 History donepezil 10 mg tablet 10 mg PO QAM 02/26/22 08/20/23 History acetaminophen 650 mg 1,300 mg PO Q6H PRN Pain 09/22/22 08/20/23 History tablet,extended release potassium chloride 10 mEq 20 meq PO QAM 09/22/22 08/20/23 History capsule,extended release memantine 10 mg tablet 10 mg PO BID 05/29/23 08/20/23 History ondansetron HCl 4 mg tablet 4 mg PO Q8 PRN Nausea/vomiting 05/29/23 08/20/23 History lorazepam 0.5 mg tablet 0.5 mg PO BID PRN Anxiety 08/20/23 08/20/23 History melatonin 5 mg tablet 5 mg PO HS 08/20/23 08/20/23 History quetiapine 50 mg tablet 50 mg PO BID 08/20/23 08/20/23 History metoprolol succinate 25 mg 25 mg PO QAM #30 tabs 08/22/23 Rx tablet,extended release 24 hr torsemide 20 mg tablet 20 mg PO DAILY #30 tabs 08/22/23 Rx aspirin 81 mg chewable tablet 81 mg PO DAILY #30 tabs 08/25/23 Rx (Children's Aspirin) Past Med/Surg History Medical History Chondrocalcinosis of knee Benign neoplasm of colon Polymyalgia rheumatica Acute posthemorrhagic anemia 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 Garces Incisional hernia REPAIR 06/2017 Dr. Garces History of hysterectomy 1989 History of colonoscopy 2004, 04/07/2011 History of appendectomy Status post transverse rectus abdominis muscle (TRAM) flap breast reconstruction Dr. Ray Lea at [facility] H/O mastectomy B/L Dr. 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 Physical Exam .Constitutional: Awake, oriented to self. Able to follow simple commands. Respiratory: Decreased breath sound at bases. (Right greater than left) Cardiovascular: RRR, no murmur, no edema Vessels: no JVD or carotid bruit Chest: normal inspection of chest Abdomen: normal bowel sounds, soft, nontender, no hepatosplenomegaly Skin: no rashes, warm and dry normal turgor Neurologic: PERRL, EOMI, accommodation nl, no face palsy, no dysarthria CN's II- XI intact bilaterally and moves all extremities Psychiatric: A+Ox1 euthymic affect Musculoskeletal On examination of her bilateral knees, she does have a mild effusion to the left knee with normal-appearing right knee. She does not appear to have any tenderness with palpation. She does express mild discomfort when legs brought to full extension. Able to passively flex both legs to about 110 degrees degrees due to patient positioning. Calf soft and nontender to palpation bilaterally +2 DP and PT pulses. Less than 2-second capillary refill. Normal sensation. Neurovascular intact. Results & Data Results & Data Laboratory Results . Diagnostic Findings Venous Doppler Study 08/20/23 11:02 BILATERAL LOWER EXTREMITY VENOUS DOPPLER HISTORY: leg swelling COMPARISON STUDY: None. FINDINGS: There is normal compressibility, flow, and augmentation within the bilateral lower extremity deep venous systems. IMPRESSION: No DVT within the right or left lower extremity. ACT 112: Negative or not required by law. Electronically signed by: Galo Grullon M.D. 08/20/2023 12:25 PM Knee X-Ray 08/24/23 10:55 XR knee RT 1 or 2V routine CLINICAL HISTORY: Tenderness on the palpation TECHNIQUE: 2 views of the right knee were obtained. Comparison: None available at the time of this dictation. FINDINGS: There is no evidence of an acute fracture. Degenerative changes and chondrocalcinosis are noted. No joint effusion is seen. Vascular calcifications are noted. IMPRESSION: Degenerative changes without evidence of acute injury. ACT 112: Negative or not required by law. Electronically signed by: Dequan Scott M.D. 08/24/2023 12:13 PM Knee X-Ray 08/24/23 10:55 XR knee LT 1 or 2V routine CLINICAL HISTORY: Swelling and tenderness COMPARISON: Left knee radiographs March 22, 2020. FINDINGS: Alignment of the left knee is anatomic. No acute fracture. No osseous lesions are noted. Linear 1.3 cm calcific density along the medial femoral condyle was shown on prior exam. This could indicate old MCL injury. Chondrocalcinosis within the menisci is noted. Minimal chondrocalcinosis within the suprapatellar joint space is present. There is a moderate joint effusion. No lipohemarthrosis is identified. Medial and lateral compartment joint spaces are preserved. There is moderate to severe patellofemoral compartment osteoarthritis. IMPRESSION: 1. No fractures within the left knee. 2. Moderate-sized left knee joint effusion. 3. Moderate to severe patellofemoral compartment osteoarthritis. Chondrocalcinosis within the menisci. 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 ACT 112: Negative or not required by law. Electronically signed by: Girma Calderon M.D. 08/24/2023 12:15 PM PG Care Time/CCT Total # of Minutes Spent Total Time Spent with Patient: Total time spent is greater than 50% in coordination of care (as documented) at patient's floor/unit and/or counseling patient: Coding Level of Care Code 74141 IN/OBS CONSULT LVL 3,45M Diagnoses Primary osteoarthritis of both knees M17.0 Osteoarthritis type: primary (1) Degenerative arthritis of knee, bilateral Osteoarthritis type: primary Qualified Code(s): M17.0 - Bilateral primary osteoarthritis of knee
== END 2023-08-25 13:39 | disposition hospice, home (50) | DRG 292 ==
LOC: ED 09:30 → EDINP 15:06 → SUATTDRO 15:06 → 2W 20:11

== ENCOUNTER 2024-08-08 12:02 | Inpatient (IN) ==
--- NOTE | 2024-08-08 12:10 | Emergency Department Note ---
Impression & Plan Acute confusion, KENNETH (acute kidney injury), Acute hypernatremia, Influenza A ED Provider Note HISTORY OF PRESENT ILLNESS: Patient is an 78-year-old female presenting with reported lethargy. Patient presents from [facility]. She reportedly was more lethargic and hypoxic this morning per report to EMS. They got called because her saturations were reportedly in the 60s and she had "blue fingers." On arrival to the ER, the patient offers no meaningful history given that she is demented. EMS reports the patient was recently taken off of hospice care as of 4 days ago. Patient vocalizes no complaints on arrival. ROS: as above PHYSICAL EXAM: Constitutional: Patient appears in no acute distress. HENT: Head: Normocephalic and atraumatic. Eyes: EOMI, PERRL Mouth/Throat: Mucous membranes moist. Neck: Trachea midline. Neck supple. Cardiovascular: Irregular irregular rhythm. No murmurs, rubs or gallops. Intact distal pulses. Pulmonary/Chest: No respiratory distress. Breath sounds clear and equal bilaterally. No wheezes or rales. Abdominal: Abdomen soft, no tenderness, rebound or guarding. Musculoskeletal: No edema, tenderness or deformity noted. Skin: Warm and dry. No rash, erythema, pallor or cyanosis Neurological: Alert but confused to self, time and place. CN II-XII grossly intact, moving all extremities equally and fully. MDM: - Vitals signs showed borderline hypoxia and hypothermia. Patient placed on a Sharri hugger. - History obtained via EMS, given patient's confusion. History as above. - Chronic conditions affecting care: Afib; GERD; breast cancer (s/p bilateral mastectomy and radiation); dementia; hypothyroidism - Differential diagnoses include, but are not limited to: CVA; intracranial hemorrhage; ACS; electrolyte abnormality; viral syndrome; pneumonia - Order placed for continuous cardiac monitoring. At this time, monitor showed rate of 87 bpm with normal sinus rhythm, per my interpretation. - External medical records reviewed. Discharge summary dated 08/21/2023 was reviewed. Patient was admitted at that time for acute on chronic CHF. - EKG interpreted by myself showed atrial fibrillation. Rate 91 bpm. QT 356. No acute ischemic changes. Noted to have some ST depressions in leads V4 through V6. - Laboratory workup interpreted by myself showed normal WBC; thrombocytopenia (plt 110); normal INR; hypernatremia (Na 151); KENNETH (Cr 1.48 - baseline around 1.1); normal troponin; normal procalcitonin; normal lactate - Hypernatremia likely secondary to dehydration. - CXR negative for pneumonia, per my interpretation - Viral aspiratory panel positive for influenza A. - Patient given 1L NS in ER. - VBG shows slight respiratory acidosis with a pH of 7.33 and pCO2 of 63 mmHg. - CT head without contrast negative for acute pathology. - Discussion was had with case worker about patient's case and need for admission - Hospitalist consulted for admission - Patient admitted to [facility] for further evaluation and management. ASSESSMENT AND PLAN: Diagnosis: acute confusion; hypernatremia; KENNETH; influenza A Plan: admit Past Med/Surg History Problem List Influenza A (Acute) Acute hypernatremia (Acute) KENNETH (acute kidney injury) (Acute) Acute confusion (Acute) NSVT (nonsustained ventricular tachycardia) Atrial fibrillation Acute on chronic diastolic (congestive) heart failure Pulmonary hypertension Demand ischemia Elevated brain natriuretic peptide (BNP) level (Acute) Pleural effusion (Acute) Dementia (Acute) Elevated troponin (Acute) Bilateral edema of lower extremity (Acute) Polymyalgia rheumatica Elevated troponin Fluid overload Alzheimer's dementia Near syncope (Acute) Contusion of scalp (Acute) Ambulatory dysfunction (Acute) Left rotator cuff tear Degenerative arthritis of knee, bilateral History of bilateral mastectomy Chondrocalcinosis of knee Rheumatoid arthritis Right knee DJD Right knee pain Abdominal pain, RLQ (right lower quadrant) (Acute) Abdominal wall hernia (Acute) Adverse food reaction (Acute) Allergic conjunctivitis (Acute) Allergic to insect stings (Acute) Breast cancer, right (Acute) Cataract (Acute) Cervical spondylosis (Acute) Chronic laryngitis (Acute) Constipation due to outlet obstruction (Acute) Dermatochalasis (Acute) GERD with esophagitis (Acute) Hernia (Acute) LPRD (laryngopharyngeal reflux disease) (Acute) Mixed rhinitis (Acute) Recurrent sinus infections (Acute) 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 Garces 06-13-09 Status post transverse rectus abdominis muscle (TRAM) flap breast reconstruction [facility] [place] [facility] Hypothyroidism GERD (gastroesophageal reflux disease) CONTROLLED IBS (irritable bowel syndrome) History of appendectomy History of colonoscopy 2004, 04/07/2011 Osteoarthritis History of hysterectomy 1989 Cervical spondylolysis Incisional hernia REPAIR 06/2017 Dr. Garces Medical History Tricuspid regurgitation Benign neoplasm of colon Acute posthemorrhagic anemia Lymph node cancer Surgical History Coronary angioplasty status Hx of breast biopsy Family History Mother Cancer Diabetes Stroke Social History Smoking Status: Unknown if ever smoked Second Hand Exposure: No; Do You Dip or Chew Tobacco: No; Hx Alcohol Use: Yes Alcohol type: wine Hx Substance Use: No Preferred Language: Thai Communication Ability: Impaired Communication Ability Comment: advanced dementia Claim Specialist Required: No Beliefs That Will Affect Care: None marital status: Single Current Living Situation: [facility] Feels Safe at Home: Yes Assistive Devices: None Allergies Allergies Allergy/AdvReac Type Severity Reaction Status Date / Time bee venom protein (honey bee) Allergy Severe ANAPHYLAXIS Verified 11/13/23 20:42 Iodinated Contrast Media Allergy Severe Anaphylaxis Verified 11/13/23 20:42 iodine Allergy Severe Anaphylaxis Verified 11/13/23 20:42 latex Allergy Severe itchy, Verified 11/13/23 20:42 shortness of breath Penicillins Allergy Severe Anaphylaxis Verified 11/13/23 20:44 povidone-iodine Allergy Severe Anaphylaxis Verified 11/13/23 20:42 tuna oil Allergy Severe HIVES AND Verified 11/13/23 20:42 ANAPHYLAXIS bisacodyl Allergy Intermediate Hives Verified 11/13/23 20:42 codeine Allergy Intermediate GI SYMPTOMS Verified 11/13/23 20:42 ephedrine Allergy Intermediate RASH Verified 08/20/23 15:06 cat dander Allergy short of Verified 11/13/23 20:44 breath Sulfa (Sulfonamide Allergy Unknown Verified 11/13/23 20:43 Antibiotics) ENVIRONMENTAL Allergy Severe SHORTNESS Uncoded 08/20/23 15:06 OF BREATH ACRYLIC CEMENT OR BONDING Allergy Intermediate EDEMA Uncoded 08/20/23 15:06 FACE/LIPS/TONGUE JEWELRY Allergy Intermediate BLISTERS Uncoded 08/20/23 15:06 WITH "CHEAP JEWELRY" Home Meds Home Medications Medication Instructions Recorded Confirmed epinephrine 0.3 mg/0.3 mL 0.3 mg IM DIRECTED PRN Allergic 09/12/18 11/13/23 injection, auto-injector (EpiPen) Reaction levothyroxine 50 mcg tablet 50 mcg PO QAM 02/26/21 11/13/23 donepezil 10 mg tablet 10 mg PO QAM 02/26/22 11/13/23 potassium chloride 10 mEq 20 meq PO QAM 09/22/22 11/13/23 capsule,extended release memantine 10 mg tablet 10 mg PO BID 05/29/23 11/13/23 ondansetron HCl 4 mg tablet 4 mg PO Q8 PRN Nausea/vomiting 05/29/23 11/13/23 melatonin 5 mg tablet 5 mg PO HS 08/20/23 11/13/23 quetiapine 50 mg tablet 50 mg PO BID 08/20/23 11/13/23 Phenergan Gel 25 mg topical Q6 PRN Nausea And 11/13/23 11/13/23 Vomiting acetaminophen 325 mg tablet 650 mg PO Q6 PRN Fever Or Pain 11/13/23 11/13/23 acetaminophen 500 mg tablet 1,000 mg PO .DAILY IN MORNING 11/13/23 11/13/23 (Tylenol Extra Strength) atropine sulfate (PF) 1 % eye 2 drp .EVERY HOUR PRN terminal 11/13/23 11/13/23 drops in a dropperette secretions loperamide 2 mg tablet (Imodium 2 mg PO QID PRN Diarrhea 11/13/23 11/13/23 A-D) morphine concentrate 100 mg/5 mL 10 mg PO .EVERY 2 HOURS PRN 11/13/23 11/13/23 (20 mg/mL) oral solution pain/respiratory dist rate>28/min polyethylene glycol 3350 17 17 g PO DAILY 11/13/23 11/13/23 gram/dose oral powder (Miralax) torsemide 20 mg tablet 20 mg PO .DAILY X 5 DAYS PRN wt 11/13/23 11/13/23 gain of 3LBS in 24hrs or 5LBS in week Previous Rx's Medication Instructions Recorded metoprolol succinate 25 mg 25 mg PO QAM #30 tabs 08/22/23 tablet,extended release 24 hr torsemide 20 mg tablet 20 mg PO DAILY #30 tabs 08/22/23 aspirin 81 mg chewable tablet 81 mg PO DAILY #30 tabs 08/25/23 (Children's Aspirin) Results & Data (ED) Vital Signs Vital Signs - 24 hr 08/08/24 11:56 08/08/24 11:56 08/08/24 12:09 Temperature 35 C L Temperature Source Rectal Pulse Rate 81 90 Pulse Rate [Apical] Pulse Rhythm Regular Respiratory Rate 20 Respiratory Effort / Characteristics Non-Labored Spontaneous Respiratory Depth Normal Respiratory Pattern Blood Pressure 118/95 Blood Pressure [Left Arm] Blood Pressure [Right Arm] Blood Pressure Mean 102 Blood Pressure Mean [Left Arm] Blood Pressure Mean [Right Arm] Blood Pressure Position [Left Arm] Blood Pressure Position [Right Arm] Pulse Oximetry 92 91 Oxygen Delivery Method Room Air Room Air Sepsis Recent Fever Within 48 Hours No Sepsis New/Unexplained Change in Mental Status N/A Sepsis Action Taken by Nursing No Action Required Oxygen Flow Rate - Titration Pulse Oximetry Post Tiitration 08/08/24 12:48 08/08/24 12:48 08/08/24 14:52 Temperature Temperature Source Pulse Rate 79 Pulse Rate [Apical] 86 Pulse Rhythm Regular Respiratory Rate 14 17 Respiratory Effort / Characteristics Non-Labored Spontaneous Respiratory Depth Normal Respiratory Pattern Regular Blood Pressure Blood Pressure [Left Arm] Blood Pressure [Right Arm] 118/95 Blood Pressure Mean Blood Pressure Mean [Left Arm] Blood Pressure Mean [Right Arm] 102 Blood Pressure Position [Left Arm] Blood Pressure Position [Right Arm] Semi-fowlers Pulse Oximetry 90 90 96 Oxygen Delivery Method Room Air Room Air Room Air Sepsis Recent Fever Within 48 Hours Sepsis New/Unexplained Change in Mental Status Sepsis Action Taken by Nursing Oxygen Flow Rate - Titration Pulse Oximetry Post Tiitration 08/08/24 14:54 08/08/24 14:55 Temperature Temperature Source Pulse Rate Pulse Rate [Apical] Pulse Rhythm Respiratory Rate Respiratory Effort / Characteristics Respiratory Depth Respiratory Pattern Blood Pressure Blood Pressure [Left Arm] 134/65 Blood Pressure [Right Arm] Blood Pressure Mean Blood Pressure Mean [Left Arm] 88 Blood Pressure Mean [Right Arm] Blood Pressure Position [Left Arm] Semi-fowlers Blood Pressure Position [Right Arm] Pulse Oximetry 96 Oxygen Delivery Method Room Air Sepsis Recent Fever Within 48 Hours Sepsis New/Unexplained Change in Mental Status Sepsis Action Taken by Nursing Oxygen Flow Rate - Titration 1 Pulse Oximetry Post Tiitration 99 Laboratory Data 08/08/24 12:37 08/08/24 12:37 Lab Results 08/08/24 08/08/24 Range/Units 12:37 13:18 WBC 7.23 (4.8-10.8) K/ul RBC 3.86 L (4.20-5.40) M/uL Hgb 12.1 (12.0-16.0) g/dl Hct 38.8 (37.0-47.0) % MCV 100.5 H (80.0-100.0) fL MCH 31.3 (25.0-34.0) pg MCHC 31.2 L (32.0-36.0) g/dL RDW Std Deviation 54.9 H (36.4-46.3) fL RDW Coeff of Angel 15.0 H (11.5-14.5) % Plt Count 110 L (130-400) K/uL MPV 11.2 (9.4-12.4) fL Immature Gran % (Auto) 1.0 % Neut % (Auto) 85.5 % Lymph % (Auto) 5.3 % [place] % (Auto) 7.9 % Eos % (Auto) 0.0 % Baso % (Auto) 0.3 % Neut # (Auto) 6.19 (1.40-6.50) K/uL Lymph # (Auto) 0.38 L (1.20-3.40) K/uL [place] # (Auto) 0.57 (0.11-0.59) K/uL Eos # (Auto) 0.00 (0.00-0.50) K/uL Baso # (Auto) 0.02 (0.00-0.20) K/uL Immature Gran # (Auto) 0.07 (0.01-0.20) K/uL PT 11.4 (9.0-12.0) Seconds INR 1.1 (0.9-1.1) APTT 29 (21-31) Seconds PTT Ratio 1.1 VBG pH 7.33 L (7.36-7.41) VBG pCO2 63 H (38-50) mmHg VBG pO2 42 mmHg VBG HCO3 33 mmol/L VBG O2 Saturation 64.7 % VBG Base Excess 5.3 mEq/L Sodium 151 H (136-145) mmol/L Potassium 4.4 (3.5-5.1) mmol/L Chloride 107 (98-107) mmol/L Carbon Dioxide 33 H (21-32) mmol/L Anion Gap 11 (3-11) BUN 50 H (6-23) mg/dl Creatinine 1.48 H (0.6-1.2) mg/dl Est Cr Clr Drug Dosing 28.3 ml/min eGFR 35.58 BUN/Creatinine Ratio 33.8 H (10-20) Glucose 83 (70-99(Fasting)) mg/dl Lactate 1.7 (0.4-2.0) mmol/L Calcium 9.1 (8.6-10.3) mg/dl Magnesium 2.3 (1.7-2.4) mg/dl Total Bilirubin 0.4 (0.2-1.0) mg/dl AST 26 (13-39) U/L ALT 15 (7-52) U/L Alkaline Phosphatase 144 H (34-104) U/L Troponin I High Sens 9.8 (0-14) pg/ml Total Protein 7.6 (6.0-8.3) gm/dl Albumin 4.0 (3.4-5.0) gm/dl Globulin 3.6 (2.5-4.0) gm/dl Albumin/Globulin Ratio 1.1 (0.9-2) Procalcitonin 0.04 (0-0.5) ng/ml Adenovirus (PCR) Not Detected (NotDetected) B. pertussis DNA (PCR) Not Detected (NotDetected) B.parapertussis DNA PCR Not Detected (NotDetected) C. pneumoniae DNA (PCR) Not Detected (NotDetected) Coronavirus OC43 (PCR) Not Detected (NotDetected) Coronavirus HKU1 (PCR) Not Detected (NotDetected) Coronavirus 229E (PCR) Not Detected (NotDetected) SARS-CoV-2 (PCR) Not Detected (NotDetected) Coronavirus NL63 (PCR) Not Detected (NotDetected) Human Metapneumovir PCR Not Detected (NotDetected) Influenza A (H3) PCR DETECTED A (NotDetected) Influenza Type B (PCR) Not Detected (NotDetected) M. pneumoniae (PCR) Not Detected (NotDetected) Parainfluenza 1 (PCR) Not Detected (NotDetected) Parainfluenza 2 (PCR) Not Detected (NotDetected) Parainfluenza 3 (PCR) Not Detected (NotDetected) Parainfluenza 4 (PCR) Not Detected (NotDetected) RSV (PCR) Not Detected (NotDetected) Entero/Rhino (PCR) Not Detected (NotDetected) Administered Medications Discontinued Medications Sodium Chloride (Nss) 1,000 mls @ 999 mls/hr IV .Q1H1M ONE Stop: 08/08/24 14:53 Last Infusion: 08/08/24 15:14 Dose: Infused Documented By: Admin: 08/08/24 14:06 Dose: 999 mls/hr Documented By: TED Imaging Data Radiologist's Impression: Chest X-Ray 08/08/24 12:07 XR chest 1V portable CLINICAL HISTORY: confusion; lethargy TECHNIQUE: Single frontal radiograph of the chest was obtained. Comparison: Comparison is made to chest radiograph 11/13/2023 FINDINGS: No lines and tubes are seen. Calcified aortic knob is seen. Right lower lung airspace opacities are seen. Moderate pleural effusion is again seen. IMPRESSION: Moderate right pleural effusion with underlying airspace opacities likely representing atelectasis. These are unchanged from prior exam. ACT 112: Negative or not required by law. Electronically signed by: Dequan Scott M.D. 08/08/2024 12:[address] 08/08/24 12:25 CT head/brain wo con CLINICAL HISTORY: 78 years-old Female with weakness. Acute weakness TECHNIQUE: Multiple axial CT images of the head were obtained without contrast. A dose lowering technique was utilized adhering to the principles of ALARA. CT DOSE: 1250.21 mGy.cm COMPARISON: 11/13/2023 FINDINGS: No acute intracranial hemorrhage, midline shift, intracranial mass, hydrocephalus, territorial ischemia or abnormal extra-axial collection. Involutional changes with ex vacuo ventriculomegaly redemonstrated. White matter hypodensities suggestive of chronic microvascular ischemic disease. Coarse calcifications of the falx cerebri. The calvarium is intact. Bilateral lens repair. Mastoid air cells are clear. Mild mucosal thickening of the nasal turbinates, ethmoid air cells and left maxillary sinus. IMPRESSION: No acute intracranial abnormality. ACT 112: Negative or not required by law. The above report was generated using voice recognition software. It may contain grammatical, syntax or spelling errors. Electronically signed by: Diego De La Cruz M.D. 08/08/2024 12:58 PM Discharge Plan Visit Data Chief Complaint: Lethargic Stated Complaint: LETHARGIC, DIFFICULTY BREATHING ED Provider: Theresa Davis Discharge Problem: Acute confusion, KENNETH (acute kidney injury), Acute hypernatremia, Influenza A Forms Stand Alone Forms: [facility] Prescriptions: No Action epinephrine [EpiPen] 0.3 mg/0.3 mL Auto-Injector 0.3 mg IM DIRECTED PRN (Reason: Allergic Reaction) levothyroxine 50 mcg tablet 50 mcg PO QAM donepezil 10 mg tablet 10 mg PO QAM potassium chloride 10 mEq Capsule, Extended Release 20 meq PO QAM quetiapine 50 mg tablet 50 mg PO BID melatonin 5 mg Tablet 5 mg PO HS metoprolol succinate 25 mg Tablet Extended Release 24 Hr 25 mg PO QAM Qty: 30 0RF torsemide 20 mg tablet 20 mg PO DAILY Qty: 30 0RF aspirin [Children's Aspirin] 81 mg Tablet,Chewable 81 mg PO DAILY Qty: 30 0RF ondansetron HCl 4 mg tablet 4 mg PO Q8 PRN (Reason: Nausea/vomiting) memantine 10 mg tablet 10 mg PO BID acetaminophen [Tylenol Extra Strength] 500 mg Tablet 1,000 mg PO .DAILY IN MORNING polyethylene glycol 3350 [Miralax] 17 gram/dose Powder 17 g PO DAILY acetaminophen 325 mg Tablet 650 mg PO Q6 PRN (Reason: Fever Or Pain) loperamide [Imodium A-D] 2 mg Tablet 2 mg PO QID PRN (Reason: Diarrhea) atropine sulfate (PF) 1 % Dropperette 2 drp .EVERY HOUR PRN (Reason: terminal secretions) Rx Instructions: 2 drops under tongue morphine concentrate 100 mg/5 mL (20 mg/mL) Solution 10 mg PO .EVERY 2 HOURS PRN (Reason: pain/respiratory dist rate>28/min) Rx Instructions: 10mg=0.5mls torsemide 20 mg tablet 20 mg PO .DAILY X 5 DAYS PRN (Reason: wt gain of 3LBS in 24hrs or 5LBS in week) Phenergan Gel 25 mg topical Q6 PRN (Reason: Nausea And Vomiting) Referrals [place]: [email or web address] [Primary Care Provider] -
[2024-08-08 12:44] LABS: Base Excess VBG 5.3 mEq/L; HCO3 VBG 33 mmol/L; Oxygen Saturation VBG 64.7 %; PCO2 VBG 63 mmHg (38-50); PO2 VBG 42 mmHg; pH VBG 7.33 (7.36-7.41)
--- NOTE | 2024-08-08 12:53 | XRay Report ---
XR chest 1V portable CLINICAL HISTORY: confusion; lethargy TECHNIQUE: Single frontal radiograph of the chest was obtained. Comparison: Comparison is made to chest radiograph 11/13/2023 FINDINGS: No lines and tubes are seen. Calcified aortic knob is seen. Right lower lung airspace opacities are s een. Moderate pleural effusion is again seen. IMPRESSION: Moderate right pleural effusion with underlying airspace opacities likely representing atelectasis. T hese are unchanged from prior exam. ACT 112: Negative or not required by law. Electronically signed by: Dequan Scott M.D. 08/08/2024 12:52 PM
--- NOTE | 2024-08-08 12:59 | CT Scan Report ---
CT head/brain wo con CLINICAL HISTORY: 78 years-old Female with weakness. Acute weakness TECHNIQUE: Multiple axial CT images of the head were obtained without contrast. A dose lowering tech nique was utilized adhering to the principles of ALARA. CT DOSE: 1250.21 mGy.cm COMPARISON: 11/13/2023 FINDINGS: No acute intracranial hemorrhage, midline shift, intracranial mass, hydrocephalus, territorial ischem ia or abnormal extra-axial collection. Involutional changes with ex vacuo ventriculomegaly redemonstr ated. White matter hypodensities suggestive of chronic microvascular ischemic disease. Coarse calcifi cations of the falx cerebri. The calvarium is intact. Bilateral lens repair. Mastoid air cells are clear. Mild mucosal thickening of the nasal turbinates, ethmoid air cells and left maxillary sinus. IMPRESSION: No acute intracranial abnormality. ACT 112: Negative or not required by law. The above report was generated using voice recognition software. It may contain grammatical, syntax o r spelling errors. Electronically signed by: Diego De La Cruz M.D. 08/08/2024 12:58 PM
[2024-08-08 13:08] LABS: Basophils # (auto) 0.02 K/uL (0.00-0.20); Basophils % (auto) 0.3 %; Hematocrit (blood only) 38.8 % (37.0-47.0); Hemoglobin 12.1 g/dl (12.0-16.0); Immature Granulocytes # (auto) 0.07 K/uL (0.01-0.20); Lymphocytes # (auto) 0.38 K/uL (1.20-3.40); Lymphocytes % (auto) 5.3 %; Mean Corpuscular Hemoglobin 31.3 pg (25.0-34.0); Mean Corpuscular Hgb Conc 31.2 g/dL (32.0-36.0); Mean Corpuscular Volume 100.5 fL (80.0-100.0); Mean Platelet Volume 11.2 fL (9.4-12.4); Monocytes # (auto) 0.57 K/uL (0.11-0.59); Monocytes % (auto) 7.9 %; Neutrophils # (auto) 6.19 K/uL (1.40-6.50); Neutrophils % (auto) 85.5 %; Platelet Count 110 K/uL (130-400); RDW Standard Deviation 54.9 fL (36.4-46.3); Red Blood Count 3.86 M/uL (4.20-5.40); White Blood Count 7.23 K/ul (4.8-10.8)
[2024-08-08 13:26] LABS: Albumin Globulin Ratio 1.1 (0.9-2); BUN Creatinine Ratio 33.8 (10-20); Bilirubin,Total 0.4 mg/dl (0.2-1.0); Calcium 9.1 mg/dl (8.6-10.3); Creatinine Clr Calc Pharmacy 28.3 ml/min; Globulin 3.6 gm/dl (2.5-4.0); Magnesium 2.3 mg/dl (1.7-2.4); Potassium 4.4 mmol/L (3.5-5.1); Total Protein 7.6 gm/dl (6.0-8.3)
[2024-08-08 13:32] LABS: Troponin I High Sensitivity 9.8 pg/ml (0-14)
[2024-08-08 13:36] LABS: INR 1.1 (0.9-1.1); Partial Thromboplastin Ratio 1.1; Partial Thromboplastin Time 29 Seconds (21-31); Prothrombin Time 11.4 Seconds (9.0-12.0)
[2024-08-08] MEDS: SODIUM CHLORIDE 0.9% 1,000 ML IV ONE (14:06)
[2024-08-08 14:37] LABS: Adenovirus PCR Not Detected (NotDetected); Bordetella parapertussis PCR Not Detected (NotDetected); Bordetella pertussis PCR Not Detected (NotDetected); Chlamydia pneumoniae PCR Not Detected (NotDetected); Coronavirus 229E PCR Not Detected (NotDetected); Coronavirus CoV-2 (COVID19)PCR Not Detected (NotDetected); Coronavirus HKU1 PCR Not Detected (NotDetected); Coronavirus NL63 PCR Not Detected (NotDetected); Coronavirus OC43PCR Not Detected (NotDetected); Human Metapneumovirus PCR Not Detected (NotDetected); Influenza A (H3) PCR DETECTED (NotDetected); Influenza B PCR Not Detected (NotDetected); Mycoplasma pneumoniae PCR Not Detected (NotDetected); Parainfluenza Virus 1 PCR Not Detected (NotDetected); Parainfluenza Virus 2 PCR Not Detected (NotDetected); Parainfluenza Virus 3 PCR Not Detected (NotDetected); Parainfluenza Virus 4 PCR Not Detected (NotDetected); Respiratory Syncytial VirusPCR Not Detected (NotDetected); Rhinovirus/Enterovirus PCR Not Detected (NotDetected)
[2024-08-08] MEDS ORDERED: ALUMINUM/MAGNESIUM SUSP 30 ML UDC PO PRN (16:04)
[2024-08-08] MEDS ORDERED: ONDANSETRON INJ 2 MG/ML 2 ML VIAL IV PRN (16:04)
[2024-08-08] MEDS ORDERED: ACETAMINOPHEN 325 MG TAB PO PRN (16:04)
[2024-08-08] MEDS ORDERED: POLYETHYLENE (MIRALAX) 17 GM PACK PO PRN (16:04)
[2024-08-08] MEDS ORDERED: MAGNESIUM HYDROXIDE SUSP 30 ML UDC PO PRN (16:04)
[2024-08-08 16:09] LABS: Thyroid Stimulating Hormone 2.561 uIu/ml (0.300-4.500)
--- NOTE | 2024-08-08 16:17 | Electrocardiogram Report ---
Test Reason : Blood Pressure : */* mmHG Vent. Rate : 91 BPM Atrial Rate : * BPM P-R Int : * ms QRS Dur : 60 ms QT Int : 356 ms P-R-T Axes : * 3 214 degrees QTcB Int : 437 ms Atrial fibrillation Possible Old Septal infarct (cited on or before 15-Jan-2023) Diffuse Nonspecific ST and T wave abnormality Abnormal ECG When compared with ECG of 24-Aug-2023 10:58, HR has increased by [address] abnormality now present Confirmed by Jamison Verduzco ([id number]) on 08/08/2024 4:16:47 PM Referred By: Confirmed By: Jamison Verduzco
--- NOTE | 2024-08-08 16:31 | History & Physical Report ---
Date of Service August 08, 2024 Assessment & Plan (1) Influenza A: (2) Acute hypernatremia: (3) Alzheimer's dementia: (4) Chondrocalcinosis of knee: Plan Influenza A: Became hypoxic and hypotensive this AM. SpO2 68%, BP 88/62 Hypothermic 95.3; placed on a bearhugger CXR moderate right pleural effusion/atelectasis no leukocytosis, lactic acid 1.7 Negative troponin Procalcitonin negative Flu positive on bio fire Will keep n.p.o. as patient lethargic If patient passes dysphagia screen; okay to start Tamiflu Acute hypernatremia: Likely secondary to decreased p.o. intake Want to be cautious with fluid rehydration due to CHF Will initiate D5 normal saline at 60 mL/h x 2 bags and reassess Recheck BMP in a.m. KENNETH: Likely secondary to decreased PO intake creatinine 1.48; baseline 1.08-1.15 Alzheimer's dementia: Chronic Fast scale all of 6 and up to 7b Uses a walker at baseline; uses a wheelchair and can ambulate well with an assist Incontinent of bowel and urine at baseline Was recently discharged from Hospice services on Friday 08/04 due to not meeting recertification Goals of care conversation; discussion: Lengthy conversation with patient's son Galo at [phone] patient confirmed CODE STATUS DNR/DNI Patient has been declining over the last Chondrocalcinosis of the knee: Chronic Was being followed as an outpatient for joint fluid removal; has recently stopped due to advanced dementia Tramadol was increased from BID--> TID 6-8 weeks ago and noticed patient became more sedentary around the same time Will order Voltaren gel and scheduled tylenol for chronic pain in this patient with dementia. HFpEF: Chronic Takes Torsemide 20 mg daily and 20 mg PRN at [facility] based on weight gain Most recent ECHO: Disposition: PCP: Dr. Connors;. permanent resident at [facility] nia ferrara ( was using [facility] and passed; was discharged on Friday 08/04 for not meeting recertification qualification for diagnosis? CHF) CODE STATUS: DNR/DNI; confirmed with son Galo [facility]: [phone] VTE prophylaxis: Teds and SCDs for now I spent a total of 82 minutes coordinating, documenting, and providing care for this patient excluding time spent in the performance of separately billed services. All of the aforementioned completed while collaborating with the assigned attending physician for a full treatment plan. Please see their addendum for further details. History of Present Illness Chief Complaint: influenza A Primary Care Provider: [facility] Ms. Soares is an 78-year-old female that presented to the [facility] from [facility] where she is a permanent residence after staff found that she was hypoxic SpO2 68%, hypotensive BP 88/62, hypothermic 95.3 and confused off of her normal mental state. she does have advanced Alzheimer's disease and over the last 2 months she has been slowing down. Additional past medical history includes CHF, advanced dementia, hypothyroidism, HTN Chest x-ray reveals moderate right pleural effusions and atelectasis. Head CT was negative in ED. No leukocytosis, lactate normal, troponin normal, procalcitonin negative. Some KENNETH noted creatinine 1.48; baseline 1.08-1.41.415 suspect secondary to dehydration and poor p.o. intake over past few days. I had a lengthy conversation with [facility] staff member, Mehreen, and the patient's son Galo, separately at [phone]. He was able to get some insight that she was being followed as an outpatient for joint fluid removal and is recently stopped due to her advanced dementia. Her tramadol was increased to 3 times daily about 2 months ago and since then they have noticed the patient becoming more sedentary and less interactive around the same time. She does have advanced dementia with a fast scale of all of 6 and up to 70. She uses a walker at baseline but does use a wheelchair as well. She is incontinent of bowel and urine at baseline. Reportedly she is under hospice services up until Friday 08/04 due to not meeting recertification criteria; hospice services were discontinued. Patient did open her eyes to painful stimuli, but was unable to respond to verbal stimuli. Patient will be admitted for further evaluation and management of her influenza A, acute hypernatremia with D5 normal to reduce her sodium levels, anticipate KENNETH improves with IV fluids; will trend. Patient's family overarching goal is to return to [facility] with hospice services but would like to see how patient does participate in PT OT to determine if patient requires more skilled support if she does not return to [facility]. Allergies Allergy/AdvReac Type Severity Reaction Status Date / Time bee venom protein (honey bee) Allergy Severe ANAPHYLAXIS Verified 11/13/23 20:42 Iodinated Contrast Media Allergy Severe Anaphylaxis Verified 11/13/23 20:42 iodine Allergy Severe Anaphylaxis Verified 11/13/23 20:42 latex Allergy Severe itchy, Verified 11/13/23 20:42 shortness of breath Penicillins Allergy Severe Anaphylaxis Verified 11/13/23 20:44 povidone-iodine Allergy Severe Anaphylaxis Verified 11/13/23 20:42 tuna oil Allergy Severe HIVES AND Verified 11/13/23 20:42 ANAPHYLAXIS bisacodyl Allergy Intermediate Hives Verified 11/13/23 20:42 codeine Allergy Intermediate GI SYMPTOMS Verified 11/13/23 20:42 ephedrine Allergy Intermediate RASH Verified 08/20/23 15:06 cat dander Allergy short of Verified 11/13/23 20:44 breath Sulfa (Sulfonamide Allergy Unknown Verified 11/13/23 20:43 Antibiotics) ENVIRONMENTAL Allergy Severe SHORTNESS Uncoded 08/20/23 15:06 OF BREATH ACRYLIC CEMENT OR BONDING Allergy Intermediate EDEMA Uncoded 08/20/23 15:06 FACE/LIPS/TONGUE JEWELRY Allergy Intermediate BLISTERS Uncoded 08/20/23 15:06 WITH "CHEAP JEWELRY" Home Medications Medication Instructions Recorded Confirmed Type epinephrine 0.3 mg/0.3 mL 0.3 mg IM DIRECTED PRN Allergic 09/12/18 08/08/24 History injection, auto-injector (EpiPen) Reaction levothyroxine 50 mcg tablet 50 mcg PO QAM 02/26/21 08/08/24 History donepezil 10 mg tablet 10 mg PO QAM 02/26/22 08/08/24 History potassium chloride 10 mEq 20 meq PO QAM 09/22/22 08/08/24 History capsule,extended release memantine 10 mg tablet 10 mg PO BID 05/29/23 08/08/24 History ondansetron HCl 4 mg tablet 4 mg PO Q8 PRN Nausea/vomiting 05/29/23 08/08/24 History melatonin 5 mg tablet 5 mg PO HS 08/20/23 08/08/24 History quetiapine 50 mg tablet 50 mg PO BID 08/20/23 08/08/24 History metoprolol succinate 25 mg 25 mg PO QAM #30 tabs 08/22/23 08/08/24 Rx tablet,extended release 24 hr torsemide 20 mg tablet 20 mg PO DAILY #30 tabs 08/22/23 08/08/24 Rx aspirin 81 mg chewable tablet 81 mg PO DAILY #30 tabs 08/25/23 08/08/24 Rx (Children's Aspirin) Phenergan Gel 25 mg topical Q6 PRN Nausea And 11/13/23 08/08/24 History Vomiting acetaminophen 325 mg tablet 650 mg PO Q6 PRN Fever Or Pain 11/13/23 08/08/24 History acetaminophen 500 mg tablet 1,000 mg PO .DAILY IN MORNING 11/13/23 08/08/24 History (Tylenol Extra Strength) atropine sulfate (PF) 1 % eye 2 drp .EVERY HOUR PRN terminal 11/13/23 08/08/24 History drops in a dropperette secretions loperamide 2 mg tablet (Imodium 2 mg PO QID PRN Diarrhea 11/13/23 08/08/24 History A-D) morphine concentrate 100 mg/5 mL 10 mg PO .EVERY 2 HOURS PRN 11/13/23 08/08/24 History (20 mg/mL) oral solution pain/respiratory dist rate>28/min polyethylene glycol 3350 17 17 g PO DAILY 11/13/23 08/08/24 History gram/dose oral powder (Miralax) torsemide 20 mg tablet 20 mg PO .DAILY X 5 DAYS PRN wt 11/13/23 08/08/24 History gain of 3LBS in 24hrs or 5LBS in week divalproex 125 mg capsule,delayed 500 mg PO QAM 08/08/24 08/08/24 History release sprinkle divalproex 125 mg capsule,delayed See Rx Instructions .Route .COMPLEX 08/08/24 08/08/24 History release sprinkle Past Med/Surg History Problem List Influenza A (Acute) Acute hypernatremia (Acute) KENNETH (acute kidney injury) (Acute) Acute confusion (Acute) NSVT (nonsustained ventricular tachycardia) Atrial fibrillation Acute on chronic diastolic (congestive) heart failure Pulmonary hypertension Demand ischemia Elevated brain natriuretic peptide (BNP) level (Acute) Pleural effusion (Acute) Dementia (Acute) Elevated troponin (Acute) Bilateral edema of lower extremity (Acute) Polymyalgia rheumatica Elevated troponin Fluid overload Alzheimer's dementia Near syncope (Acute) Contusion of scalp (Acute) Ambulatory dysfunction (Acute) Left rotator cuff tear Degenerative arthritis of knee, bilateral History of bilateral mastectomy Chondrocalcinosis of knee Rheumatoid arthritis Right knee DJD Right knee pain Abdominal pain, RLQ (right lower quadrant) (Acute) Abdominal wall hernia (Acute) Adverse food reaction (Acute) Allergic conjunctivitis (Acute) Allergic to insect stings (Acute) Breast cancer, right (Acute) Cataract (Acute) Cervical spondylosis (Acute) Chronic laryngitis (Acute) Constipation due to outlet obstruction (Acute) Dermatochalasis (Acute) GERD with esophagitis (Acute) Hernia (Acute) LPRD (laryngopharyngeal reflux disease) (Acute) Mixed rhinitis (Acute) Recurrent sinus infections (Acute) 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 Garces 06-13-09 Status post transverse rectus abdominis muscle (TRAM) flap breast reconstruction Dr. Ray Lea at [facility] [place] Hypothyroidism GERD (gastroesophageal reflux disease) CONTROLLED IBS (irritable bowel syndrome) History of appendectomy History of colonoscopy 2004, 04/07/2011 Osteoarthritis History of hysterectomy 1989 Cervical spondylolysis Incisional hernia REPAIR 06/2017 Dr. 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 Garces Family History Mother Cancer Diabetes Stroke Social History Smoking Status: Unknown if ever smoked Second Hand Exposure: No; Do You Dip or Chew Tobacco: No; Hx Alcohol Use: Yes Alcohol type: wine Hx Substance Use: No Preferred Language: Bhutanese Communication Ability: Impaired Communication Ability Comment: advanced dementia Foam Charger Required: No Beliefs That Will Affect Care: None marital status: Single Current Living Situation: Skilled Nursing Feels Safe at Home: Yes Assistive Devices: None Review of Systems Review of Systems: Unobtainable due to cognitive status Physical Exam Physical Exam: Neuro: AAOx1, PERRLA, no aphagia, memory changes, CNII-XII grossly intact HEENT: head normocephalic, moist mucus membranes CV: S1/S2, (-) M/G/R, (+) 2BL LE edema, cap refill < 3 seconds Resp: Lungs coarse throughout. On 2LNC GI: Abdomen S/NT/ND, Ax4 bowel sounds. Musculoskeletal: unable to assess. withdraws to painful stimuli. Skin: (-) rashes , (-) erythema. Psych: unable to assess due to advanced dementia Results & Data Results & Data Vital Signs (Past 12 Hours) Vital Signs Temp Pulse Pulse Resp BP BP BP 08/08/24 16:05 36.4 C L 08/08/24 14:55 134/65 08/08/24 14:54 08/08/24 14:52 86 17 118/95 08/08/24 12:48 79 14 08/08/24 12:48 08/08/24 12:09 90 08/08/24 11:56 08/08/24 11:56 35 C L 81 20 118/95 Pulse Ox O2 Del Method 08/08/24 16:05 08/08/24 14:55 08/08/24 14:54 96 Room Air 08/08/24 14:52 96 Room Air 08/08/24 12:48 90 Room Air 08/08/24 12:48 90 Room Air 08/08/24 12:09 08/08/24 11:56 91 Room Air 08/08/24 11:56 92 Room Air Laboratory Results Short CBC 08/08/24 Range/Units 12:37 WBC 7.23 (4.8-10.8) K/ul Hgb 12.1 (12.0-16.0) g/dl Hct 38.8 (37.0-47.0) % Plt Count 110 L (130-400) K/uL BMP 08/08/24 12:37 Sodium 151 H Potassium 4.4 Chloride 107 Carbon Dioxide 33 H BUN 50 H Creatinine 1.48 H Glucose 83 Calcium 9.1 Liver Function 08/08/24 Range/Units 12:37 Total Bilirubin 0.4 (0.2-1.0) mg/dl AST 26 (13-39) U/L ALT 15 (7-52) U/L Alkaline Phosphatase 144 H (34-104) U/L Albumin 4.0 (3.4-5.0) gm/dl Diagnostic Findings Chest X-Ray 08/08/24 12:07 XR chest 1V portable CLINICAL HISTORY: confusion; lethargy TECHNIQUE: Single frontal radiograph of the chest was obtained. Comparison: Comparison is made to chest radiograph 11/13/2023 FINDINGS: No lines and tubes are seen. Calcified aortic knob is seen. Right lower lung airspace opacities are seen. Moderate pleural effusion is again seen. IMPRESSION: Moderate right pleural effusion with underlying airspace opacities likely representing atelectasis. These are unchanged from prior exam. ACT 112: Negative or not required by law. Electronically signed by: Dequan Scott M.D. 08/08/2024 12:[address] 08/08/24 12:25 CT head/brain wo con CLINICAL HISTORY: 78 years-old Female with weakness. Acute weakness TECHNIQUE: Multiple axial CT images of the head were obtained without contrast. A dose lowering technique was utilized adhering to the principles of ALARA. CT DOSE: 1250.21 mGy.cm COMPARISON: 11/13/2023 FINDINGS: No acute intracranial hemorrhage, midline shift, intracranial mass, hydrocephalus, territorial ischemia or abnormal extra-axial collection. Involutional changes with ex vacuo ventriculomegaly redemonstrated. White matter hypodensities suggestive of chronic microvascular ischemic disease. Coarse calcifications of the falx cerebri. The calvarium is intact. Bilateral lens repair. Mastoid air cells are clear. Mild mucosal thickening of the nasal turbinates, ethmoid air cells and left maxillary sinus. IMPRESSION: No acute intracranial abnormality. ACT 112: Negative or not required by law. The above report was generated using voice recognition software. It may contain grammatical, syntax or spelling errors. Electronically signed by: Diego De La Cruz M.D. 08/08/2024 12:58 PM Code Status & VTE Plan Code Status DNR/DNI in the event of cardiac or respiratory arrest VTE Prophylaxis Plan VTE Prophylaxis will be ordered: Yes Supervising Physician Co-Signing Physician Notes I have seen and discussed the case with the collaborating advanced practitioner. I agree with the above H&P. I have reviewed and confirmed the patients medical history, the findings on physical examination, and the patients diagnosis and treatment plan with WILMAN Don and agree with the information documented. In short, Ms. Soares is an 78-year-old female with severe dementia found to be hypoxic SpO2 68%, hypotensive BP 88/62, hypothermic 95.3 and confused off of her normal mental state. Noted to be Flu A and hypernatremic. Exam revealed lethargic woman, who is AOx1. resp exam limited 2/2 effort. RRR. flushed. #Influenza A conservative management tamiflu if able to take po #Generalized weakness #Alzheimer Dementia recent hospice patient no escalation of care, conservative management Consider further hospice discussions contingent on course #Hypernatremia D5W 1L, reasses bmp in am rest of plan as above I spent a total of 20 minutes coordinating, documenting, and providing care for this patient excluding time spent in the performance of separately billed services. All of the aforementioned completed outside of collaborating with the assigned advanced practitioner for a full treatment plan. I have reviewed the advanced practitioner's documentation, and I agree with, and take responsibility for the plan of care
[2024-08-08] MEDS: DEXTROSE 5% 500 ML IV SCH (17:54)
[2024-08-08] MEDS: OSELTAMIVIR PHOSPHATE SUSP 30 MG/5 ML UDP PO SCH (20:06)
[2024-08-08] MEDS: DICLOFENAC SOD 1% GEL 100 GM TUBE EXT SCH (20:07)
--- OUTSIDE RECORDS SUMMARY | 2024-08-08 20:57 | External Medical Summary | Summary of Care ---
Author Name Unknown Organization [facility] Address [address] [place] [address] Phone [phone] Care Team Providers Care Wire Dropper Name Role Phone Rolanda Connors MD Primary Care Provider [phone] Reason for Visit * Reason Onset Date Comments FYI 08/04/2024 Encounter Details Date Type Department Care Team (Late st Contact Info) Description 08/04/2024 Telephone Family Practice [facility] [address] [place] [address] Rolanda Connors MD [address] [place] [address] Allergies Active Allergy Reactions Criticality Noted Date [...] 04/09/2009 Acrylic used with a dental procedure. 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 Penicillins 02/15/2003 Blisters in mouth Sulfa Antibiotics 10/22/2016 Tuna Flavoring Agent (Non-Screening) 09/02/2005 Tuna fish documented as of this encounter (statuses as of 08/04/2024) Medications Multiple Vitamins-Minera ls (PRESERVISION AREDS) Tablet Take 1 Tablet by mouth in the morning and 1 Tablet before bedtime. Active Levothyroxine Sodium 50 MCG Oral Tablet (Levoxyl)Indica tions:Hypothyro idism due to acquired atrophy of thyroid Take 1 Tab by mouth daily. (at least 30 min prior to breakfast or other meds) 30 Tab 11 1 Active Donepezil HCl 10 MG Oral Tablet (Aricept) Take 1 Tab by mouth daily. Take with largest meal of the day. 30 Tab 5 1 Active Potassium Chloride ER 10 MEQ Oral Tablet Extended Release Take 1 Tablet by mouth in the morning. Active Acetaminophen ER 650 MG Oral Tablet Extended Release (Tylenol ER) Take 1 Tablet by mouth every 6 hours as needed. Active Memantine HCl 10 MG Oral Tablet (Namenda) Take 1 Tablet by mouth in the morning and 1 Tablet before bedtime. Do not start before December 19, 2022. 180 Tablet 3 3 Active EPINEPHrine 0.3 MG/0.3ML Injection Solution Auto-injector (Autoinjector)I ndications:Bee sting allergy INJECT 1 PEN (=0.3 MG) INTO THE MUSCLE NEEDED FOR SEVERE ALLERGIC REACTION -PLACE ORANGE END AGAINST OUTER THIGH, PRESS FIRMLY, HOLD IN PLACE FOR 10 SECS AND GO TO ER 2 Each 1 3 Active Additional Information Patient not taking.Reported on 05/02/2024 Metoprolol Succinate ER 25 MG Oral Tablet Extended Release 24 Hour (toPROL XL) Take 1 Tablet by mouth in the morning. 4 Active Aspirin 81 MG Oral Tablet Chewable Take 1 Tablet by mouth in the morning. Active Torsemide 40 MG Oral TabletIndicatio ns:Acute on chronic heart failure with preserved ejection fraction (HFpEF) ([facility]) Take 80 mg by mouth daily. 60 Tablet 11 4 Active QUEtiapine Fumarate 100 MG Oral Tablet (SEROquel) Take 1 Tablet by mouth at bedtime. 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 09/06/2023 Chronic heart failure with preserved ejection fr action 09/06/2023 Bilateral primary osteoarthritis of knee 018 Neural foraminal stenosis of cervical spine 09/2017 Allergic to insect stings 06/27/2012 Irritable bowel syndrome with constipation 04/14 Intermittent asthma with reliever use up to twic e per week 06/09/2010 History of breast cancer 08/20/2009 Hypothyroidism 04/06/2003 Cervical spondylosis Overview (09/09/2009): by MRI documented as of this encounter (statuses as of 08/04/2024) Resolved Problems Problem Noted Date Diagnosed Date Resolved Date 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 09/25/2022 09/25/2022 Alzheimer's disease 01/05/2021 09/25/19 23 PMR (polymyalgia rheumatica) 06/22/2019 09/25/2022 Myelopathy 03/20/2019 04/23/2020 B12 deficiency 12/20/2018 09/25/2022 Constipation due to outlet dysfunction 04/13/2015 09/25/2022 LPRD (laryngopharyngeal reflux disease) 04/10/2015 05/16/2019 Allergic conjunctivitis 04/10/201505/02 Overview (05/11/2019): History Adverse food reaction 10/04/20142018 Overview (10/04/2014): tuna fish caused throat tightness; tolerates other fish without problem GERD (gastroesophageal reflux disease) 06/27/2012 05/16/2019 Recurrent sinus infections 06/27/2012 1 08/14/2016 Chronic laryngitis 08/05/2010 8 RECURRENT ACUTE SINUSITIS 08/05/2010 Acute posthemorrhagic anemia 06/14/2009 06/14/2017 Examination following surgery 06/14/2009 12/14/2017 Malignant neoplasm of female breast 04/18/2007 12/14/2017 Overview (03/28/2008): 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 04/06/2003 04/09/2009 Mixed rhinitis 04/06/2003 05/11/2019 Overview (05/11/2019): acute documented as of this encounter (statuses as of 08/04/2024) Immunizations Name Administration Dates Next Due COVID-19 mRNA, LNP-s, No Pre serve, 2-Dose Series (Your Survival) 08/26/2021,10/21/2020,09/30/2020 Pneumococcal Conjugate Vacc, 13 Valent (Prevnar) 12/05/2015 Pneumococcal Polysaccharide PPV23 (Pneumovax) 09/06/2009 Season Influenza, Quad, PF, Adjuvanted, 65+ Yrs, IM (FLUAD) 05/27/2020 Seasonal Influenza Vac., MDV , IM, 0.5 mL (Fluzone) 04/14/2011,04/30/2010,09/06/2009,05/16 Seasonal Influenza, PF, 6 M & above, IM , (FluLaval or Fluzone) 06/20/2018 Seasonal Influenza, Trivalen t, Adjuvanted, 65+ YRS, PF, (Fluad) 05/16/2019 TD - Tetanus/Diptheria (ADULT) 12/13/2007 TDAP [...] in the Last Year Never true 06/22/2019 Comments No Sex and Gender Information Value Date Recorded Sex Assigned at Female 12/20/2018 1:04 PM EDT Legal Sex Female 5:49 AM EST Gender Identity Female 12/20/2018 1:04 PM EDT Sexual Orientation Straight 12/20/2018 1: 04 PM EDT 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 * Telephone Encounter - China Correia OSA - 08/04/2024 1:21 PM EST [facility] care called in stating that pt no longer needs hospice and will follow up from on with pcp [phone] documented in this encounter Plan of Treatment Upcoming Encounters Date Type Department Care Team (Late st Contact Info) Description 09/05/2024 1:00 PM EST Office Visit Family Practice [facility] [place] [address] [place] [address] Rolanda Connors MD [address] [place] [address] Health Maintenance Due Date Last Done Comments Albumin/Creatinine Ratio 11/22/1963 Adult Wellness Visit 11/22/2009 Zoster Vaccines (3 of 3) 12/08/2019 10/13/2019, 06/02 Depression Screening 11/25/2021 11/25/2020 COVID-19 Vaccine ( season) 2024 08/26/2021, 10/21/2020, 09/30/2020 Influenza Vaccine (FLU shot) (#1) 2024 05/27/2020, 05/16/2019, 06/20/2018, Additional history exists GFR 10/19/2024 04/21/2024, 11/02, 2023, Additional history exists CKD PHOS USE SMARTSET 41710 11/29/2024 11/30/2023 CKD HGB USE SMARTSET 76365 04/21/202504/21, 04/21/2024, 10/05/2023, Additional history exists TSH 04/21/2025 04/21/2024, 090 11/2022, 03/25/2022, Additional history exists DTap/Tdap Vaccines (2 - Td or Tdap) 12/15/2027 12/14/2017, 12/13/2007 Pneumococcal Vaccine: 50+ Years Completed 12/05/2015, 09/06/2009 DXA Scan Discontinued 06/27/2018, 03/02, 02/28/2013, Additional history exists HPV (Gardasil) Vaccine Aged Out No lo nger eligible based on patient's age to complete this topic Hepatitis B Vaccine Aged Out No longe r eligible based on patient's age to complete this topic MENINGOCOCCAL (MENACTRA/MENVEO) Aged Out No longer eligible based on patient's age to complete this topic documented as of this encounter Medical Devices Implanted Type Area Software Packager Device Identifier Shelf Expiration Date Model / Serial / Lot Mesh Flat Sheet 10x14 [id number] - [id number] Implanted:Qty: 1 on [place]13[place]2009 [place] [facility] [place] Abdomen CR BARD : DAVOL 09/02/2013 [id number] / / [id number] Description:Bard Mesh monofi lament knitted polypropylene 10 x 14 inches documented as of this encounter Advance Directives Documents on File Type Date Recorded Patient 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 Question Answer Comments Discussion of Advance Direct sebastián occurred with: Patient Does the patient have a Living Will? Yes, in jarad rt and reviewed as current Care Teams Wire Dropper Relationship Specialty Start Date End Date Rolanda Connors MD [address] [place] [address] PCP - General Family Medicine 10/01/23 documented as of this encounter
--- OUTSIDE RECORDS SUMMARY | 2024-08-08 20:57 | External Medical Summary ---
Author Name Unknown Address Unknown Organization [id number][facility] [place] [address] Laboratory Report Ordering Provider Test Date Status CARMEN SUAREZ 04/21/2024 11:25:28 Final Observation Date Value Abnormality Reference (Units ) Status BUN 04/21/2024 11:25:28 36 Above high normal 6-20 (mg/dL) Final Creatinine 04/21/2024 11:25:28 1.2 Above high normal 0.5-1.0 (mg/dL) Final Glomerular filtration rate/1.73 sq M.predicted [Volume Rate/Area] in Serum, Plasma or Blood by Creatinine-based formula (CKD-EPI) 04/21/2024 11:25:28 46 Below low normal >=60 (mL/min) Final eGFR is calculated based on the CKD-EPI 2020 equation. Sodium 04/21/2024 11:25:28 147 Above high normal 13 5-146 (mmol/L) Final Potassium 04/21/2024 11:25:28 4.0 3.5-5.1 (m mol/L) Final Cl 04/21/2024 11:25:28 102 98-107 (mm ol/L) Final CO2 04/21/2024 11:25:28 33 Above high normal 22 -32 (mmol/L) Final Anion gap 04/21/2024 11:25:28 12 7-15 (mmol /L) Final Glucose 04/21/2024 11:25:28 66 Below low normal 70- 120 (mg/dL) Final Calcium 04/21/2024 11:25:28 9.1 8.4-10.2 ( mg/dL) Final Performing Location [facility] [place] [address]
--- OUTSIDE RECORDS SUMMARY | 2024-08-08 20:57 | External Medical Summary ---
Author Name Unknown Address Unknown Organization K01[facility] [place] [address] [place] [address] Laboratory Report Ordering Provider Test Date Status ESDRAS SUAREZOLLY 04/21/2024 11:25:28 Final Observation Date Value Abnormality Reference (Units ) Status TSH 04/21/2024 11:25:28 3.98 0.27-4.20 (uIU/mL) Final Performing Location [facility] - [address] [place] [address]
--- OUTSIDE RECORDS SUMMARY | 2024-08-08 20:57 | External Medical Summary | Summary of Care ---
Author Name Unknown Organization [facility] Address [address] [place] [address] Phone [phone] Care Team Providers Care Kiln Loader Name Role Phone Rolanda Connors MD Primary Care Provider [phone] Encounter Details Date Type Department Care Team (Late st Contact Info) Description 04/20/2024 Orders Only PATIENT PORTAL DO NOT DELETE THIS DEPT USED BY [facility] [place] [id number] Allergies Active Allergy Reactions Criticality Noted Date [...] 04/09/2009 Acrylic used with a dental procedure. --dramatic agent for dental procedures with polymer Developed blisters and edema in mouth and throat. Penicillins 02/15/2003 Blisters in mouth Sulfa Antibiotics 10/22/2016 Tuna Flavor 09/02/2005 Tuna fish documented as of this encounter (statuses as of 04/20/2024) Medications Medication Sig Dispensed Refills Start Date End Date Status Multiple Vitamins-Minerals (PRESERVISION AREDS) Tablet Take 1 Tablet by mouth in the morning and 1 Tablet before bedtime. Active Levothyroxine Sodium 50 MCG Oral Tablet (Levoxyl)Indication s:Hypothyroidism due to acquired atrophy of thyroid Take [...] Active EPINEPHrine 0.3 MG/0.3ML Injection Solution Auto-injector (Autoinjector)Indic ations:Bee sting allergy INJECT 1 PEN (=0.3 MG) INTO THE MUSCLE NEEDED FOR SEVERE ALLERGIC REACTION -PLACE ORANGE END AGAINST OUTER THIGH, PRESS FIRMLY, HOLD IN PLACE FOR 10 SECS AND GO TO ER 2 Each 1 06/03/2023 Active Metoprolol Succinate ER 25 MG Oral Tablet Extended Release 24 Hour (toPROL XL) Take 1 Tablet by mouth in the morning. 08/23/2023 Active Aspirin 81 MG Oral Tablet Chewable Take 1 Tablet by mouth in the morning. Active Torsemide 40 MG Oral TabletIndications:A cute on chronic heart failure with preserved ejection fraction (HFpEF) ([facility]) Take 80 mg by mouth daily. 60 Tablet 11 12/03/2023 Active QUEtiapine Fumarate 100 MG Oral Tablet (SEROquel) Take 1 Tablet by mouth at bedtime. Active Divalproex Sodium 125 MG Oral Capsule Delayed Release Sprinkle (Depakote Sprinkle)Indication s:Mood disorder Take 4 capsules by mouth at 08:00 and 6 capsules by mouth at 16:00 900 Capsule 3 03/14/2024 Active documented as of this encounter (statuses as of 04/20/2024) Active Problems Problem Noted Date Diagnosed Date Acute on chronic diastolic (congestive) heart fa ilure 2023 Ambulatory dysfunction 10/05/2023 Atrial fibrillation 10/05/2023 Bilateral [...] breast cancer 08/20/2009 Hypothyroidism 04/06/2003 Cervical spondylosis Overview: by MRI documented as of this encounter (statuses as of 04/20/2024) Resolved Problems Problem Noted Date Diagnosed Date [...] as of this encounter (statuses as of 04/20/2024) Immunizations Name Administration Dates Next Due COVID-19 mRNA, LNP-s, No Pre serve, 2-Dose Series (Pfizer) 08/26/2021,10/21/2020,09/30/2020 Pneumococcal Conjugate Vacc, 13 Valent (Prevnar) 12/05/2015 Pneumococcal Polysaccharide PPV23 (Pneumovax) 09/06/2009 Season Influenza, Quad, PF, Adjuvanted, 65+ Yrs, IM (FLUAD) 05/27/2020 Seasonal Influenza, PF, 6 M & above, IM , (FluLaval or Fluzone) 06/20/2018 Seasonal Influenza, Trivalen t, (IIV3), with Preserv, (Fluzone) 04/14/2011,04/30/2010,09/06/2009,05/16 Seasonal Influenza, Trivalen t, Adjuvanted, 65+ YRS, [...] in the Last Year Never true 06/22/2019 Utilities Answer Date Recorded Do you have trouble paying y our heating, water, or electric bill? (Adult - for ages 18 years and over) Not on file 01/18/2024 Is your family able to pay t he heat, water, or electric bill? (Household - for ages 0-17 years) Not on file 01/18/2024 Does your family have access to good internet? (Household - for ages 0-17 years) Not on file 01/18/2024 Social Connections Answer Date Recorded How often do you feel lonely or isolated from those around you? (Adult - for ages 18 years and over) Not on file 01/18/2024 Sex and Gender Information Value Date Recorded [...] Care Team (Late st Contact Info) Description 05/02/2024 1:00 PM EDT Office Visit Family Practice [facility] [address] [place] [address] Rolanda Connors MD [address] [place] [address] Health Maintenance Due Date Last Done Comments Adult Wellness Visit 11/22/2009 Zoster Vaccines (3 of 3) 12/08/2019 10/13/2019, 06/02 Depression Screening 11/25/2021 11/25/2020 COVID-19 Vaccine ( season) 2024 08/26/2021, 10/21/2020, 09/30/2020 Influenza Vaccine (FLU shot) (#1) 2024 05/27/2020, 05/16/2019, 06/20/2018, Additional history exists TSH 04/06/2024 04/06/2023, 03/03, 11/25/2021, Additional history exists DTap/Tdap Vaccines (2 - Td or Tdap) 12/15/2027 12/14/2017, 12/13/2007 Pneumococcal Vaccine: 65+ Years Completed 12/05/2015, 09/06/2009 [...] this encounter Medical Devices Implanted Type Area Manufacturing Cost Estimator Device Identifier Shelf Expiration Date Model / Serial / Lot Mesh Flat Sheet 10x14 [id number] - [id number] Implanted:Qty: 1 on 06/13/2009 [place] [facility] [place] Abdomen CR BARD : DAVOL 09/02/2013 [id number] / / [id number] Description:Bard Mesh monofi lament knitted polypropylene 10 x 14 inches documented as of this encounter Advance Directives Documents on File Type Date Recorded Patient Hole Puncher Strap Expl anation Power of Steward Dishwasher 10/09/2014 POWER OF A TTORNEY * Full Code (Latest Code Status on File) Date Activated Date Inactivated Comments 06/13/2009 3:57 PM 06/19/2009 3:27 PM This order reflects the patients wishes and were consensually agreed upon. Question Answer Comments Discussion of Advance Direct sebastián occurred with: Patient Does the patient have a Living Will? Yes, in jarad rt and reviewed as current Care Teams Kiln Loader Relationship Specialty Start Date End Date Rolanda Connors MD [address] [place] [address] PCP - General Family Medicine 10/01/23 documented as of this encounter
--- OUTSIDE RECORDS SUMMARY | 2024-08-08 20:57 | External Medical Summary | Summary of Care ---
Author Name Unknown Organization [facility] Address [address] [place] [address] Phone [phone] Care Team Providers Care Core Stripper Name Role Phone Rolanda Connors MD Primary Care Provider [phone] Reason for Visit * Reason Comments Follow Up 3 month follow up. S on wants to discuss recent lab results. Encounter Details Date Type Department Care Team (Late st Contact Info) Description 05/02/2024 1:00 PM EDT Office Visit [facility] [address] [place] [address] Rolanda Connors MD [address] [place] [address] Chronic heart failure with preserved ejection fraction (HCC)*; Chronic atrial fibrillation (HCC); Hypothyroidism due to acquired atrophy of thyroid; Chronic kidney disease, stage 3a (HCC); Severe late onset Alzheimer's dementia with psychotic disturbance ([facility]) Allergies Active Allergy Reactions Criticality Noted Date [...] 04/09/2009 Acrylic used with a dental procedure. 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 Penicillins 02/15/2003 Blisters in mouth Sulfa Antibiotics 10/22/2016 Tuna Flavor 09/02/2005 Tuna fish documented as of this encounter (statuses as of 05/19/2024) Medications Medication Sig Dispensed Refills Start Date [...] TO ER 2 Each 1 06/03/2023 Active Additional Information Patient not taking.Reported on 05/02/2024 Metoprolol Succinate ER 25 MG Oral Tablet Extended Release 24 Hour (toPROL XL) Take 1 Tablet by mouth in the morning. 08/23/2023 Active Aspirin 81 MG Oral Tablet Chewable Take 1 Tablet by mouth in the morning. Active Torsemide 40 MG Oral TabletIndications: Acute on chronic heart failure with preserved ejection fraction (HFpEF) ([facility]) Take 80 mg by mouth daily. 60 Tablet 11 12/03/2023 Active QUEtiapine Fumarate 100 MG Oral Tablet (SEROquel) Take 1 Tablet by mouth at bedtime. Active Divalproex Sodium 125 MG Oral Capsule Delayed Release Sprinkle (Depakote Sprinkle)Indicatio ns:Mood disorder Take 4 capsules by mouth at 08:00 and 6 capsules by mouth at 16:00 900 Capsule 3 03/14/2024 Active documented as of this encounter (statuses as of 05/19/2024) Active Problems Problem Noted Date Diagnosed Date [...] as of this encounter (statuses as of 05/19/2024) Resolved Problems Problem Noted Date Diagnosed Date [...] as of this encounter (statuses as of 05/19/2024) Immunizations Name Administration Dates Next Due COVID-19 mRNA, LNP-s, No Pre serve, 2-Dose Series (HashCube) 08/26/2021,10/21/2020,09/30/2020 Pneumococcal Conjugate Vacc, 13 Valent (Prevnar) [...] Sign Reading Time Taken Comments Blood Pressure - - Pulse 80 05/02/2024 1:04 PM EDT Temperature 34.9 C (94.9 F) 05/02/2024 1:04 PM ED T Respiratory Rate - - Oxygen Saturation - - Inhaled Oxygen Concentration - - Weight 65.3 kg (144 lb) 05/02/2024 1:04 PM EDT Height - - Body Mass Index 25.51 04/06/2023 1:25 PM EDT documented in this encounter Progress Notes * Rolanda Connors MD - 05/19/2024 7:14 AM EDT Subjective Chief Complaint Patient presents with Follow Up 3 month follow up. Son wants to discuss recent lab results. HPI: Sandy Soares is a 78 year old female. Patient is accompanied by her son. The followingissues were addressed today: Patient presents for routine follow-up. Son has no new concerns today. Her weight has been stable and she denies any shortness of breath or lower extremity edema. Son states she has been eating well. Recently had labs done including CBC, BMP, TSH which we reviewed together. Creatinine stable at baseline. We discussed mild anemia. Hgb 10.9, Hct 35.7. Patient remains on hospice care and he declines any additional work-up. Review of Systems: See HPI Objective Pulse 80 | Temp (!) 34.9 C (94.9 F) (Tympanic) | Wt 65.3 kg (144 lb) | BMI 25.51 kg/m | BSA 1.7 m Wt Readings from Last 3 Encounters: 05/02/24 65.3 kg (144 lb) 01/18/24 64.9 kg (143 lb) 12/03/23 69.5 kg (153 lb 1.9 oz) BP Readings from Last 3 Encounters: 01/18/24 124/60 12/03/23 134/74 11/30/23 128/60 General: Well-appearing, no acute distress Cardiovascular: Irregularly irregular rhythm, normal rate, no murmur Respiratory: Good respiratory effort, breath sounds equal and clear to auscultation bilaterally Extremities: No edema Skin: Warm and dry Assessment & Plan 1. Chronic heart failure with preserved ejection fraction (HCC) Stable. Patient is euvolemic on exam today. Continue torsemide 80mg daily. 2. Chronic atrial fibrillation (HCC) Stable. Continue Toprol XL 25mg daily. Patient is not on anticoagulation. 3. Hypothyroidism due to acquired atrophy of thyroid Well-controlled. Continue levothyroxine 50mcg daily. 4. Chronic kidney disease, stage 3a (HCC) Stable. 5. 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 Continue donepezil, memantine. Takes Depakote, Seroquel at bedtime. Return in about 4 months (around 09/02/2024). This note was electronically signed by Rolanda Connors MD documented in this encounter Nursing Notes * Silvia Cowart, MED ASSIST - 05/02/2024 1:08 PM EDT Chief Complaint Patient presents with Follow Up 3 month follow up. Son wants to discuss recent lab results. Patient has been verbally educated on the need or importance of Flu Vaccine and has declined topic(s). documented in this encounter Plan of Treatment Upcoming Encounters Date Type Department Care Team (Late st Contact Info) Description 09/05/2024 1:00 PM EST Office Visit Family Practice [facility] [place] [address] [place] [address] Rolanda Connors MD [address] [place] [address] Health Maintenance Due Date Last Done Comments Albumin/Creatinine Ratio 11/22/1963 Adult Wellness Visit 11/22/2009 Zoster Vaccines (3 of 3) 12/08/2019 10/13/2019, 06/02 Depression Screening 11/25/2021 11/25/2020 COVID-19 Vaccine ( season) 2024 08/26/2021, 10/21/2020, 09/30/2020 Influenza Vaccine (FLU shot) (#1) 2024 05/27/2020, 05/16/2019, 06/20/2018, Additional history exists GFR 10/19/2024 04/21/2024, 11/02, 2023, Additional history exists CKD PHOS USE SMARTSET 56472 11/29/2024 11/30/2023 CKD HGB USE SMARTSET 76049 04/21/202504/21, 04/21/2024, 10/05/2023, Additional history exists TSH 04/21/2025 04/21/2024, 09/0 11/2022, 03/25/2022, Additional history exists DTap/Tdap Vaccines [...] this encounter Medical Devices Implanted Type Area Guest Experience Representative Device Identifier Shelf Expiration Date Model / Serial / Lot Mesh Flat Sheet 10x14 [id number] - [id number] Implanted:Qty: 1 on 06/13/2009 [place] [facility] [place]A: Abdomen CR BARD : DAVOL 09/02/2013 [id number] / / [id number] Description:Bard Mesh monofi lament knitted polypropylene 10 x 14 inches documented as of this encounter Visit Diagnoses Diagnosis Chronic heart failure with preserved ejection fraction (HCC)- Primary Chronic atrial fibrillation (HCC) Atrial fibrillation Hypothyroidism due to acquired atrophy of thyroid Chronic kidney disease, stage 3a (HCC) Severe late onset Alzheimer's dementia with psychotic disturbance (HCC) documented in this encounter Advance Directives Documents on File Type Date Recorded Patient Paperboard Boxes Estimator Expl anation Power of Gi Physician 10/09/2014 POWER OF A TTORNEY * Full Code (Latest Code Status on File) Date Activated Date Inactivated Comments 06/13/2009 3:57 PM 06/19/2009 3:27 PM This order reflects the patients wishes and were consensually agreed upon. Question Answer Comments Discussion of Advance Direct sebastián occurred with: Patient Does the patient have a Living Will? Yes, in jarad rt and reviewed as current Care Teams Core Stripper Relationship Specialty Start Date End Date Rolanda Connors MD [address] [place] [address] PCP - General Family Medicine 10/01/23 documented as of this encounter"
--- OUTSIDE RECORDS SUMMARY | 2024-08-08 20:57 | External Medical Summary | Summary of Care ---
Author Name Unknown Organization [facility] Address [address] [place] [facility] [place] [place] [address] Phone [phone] Care Team Providers Care Soda Fountain Operator Name Role Phone Rolanda Connors MD Primary Care Provider [phone] Reason for Visit * Reason Comments Outpatient Testing Encounter Details Date Type Department Care Team (Late st Contact Info) Description 04/21/2024 11:20 AM EDT Laboratory [facility] [place] [address] [place] [id number] [place], [facility] [address] [place] [address] Hypothyroidism due to acquired atrophy of thyroid; Chronic heart failure with preserved ejection fraction (HCC) Allergies Active Allergy Reactions Criticality Noted Date [...] 04/09/2009 Acrylic used with a dental procedure. 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 Penicillins 02/15/2003 Blisters in mouth Sulfa Antibiotics 10/22/2016 Tuna Flavor 09/02/2005 Tuna fish documented as of this encounter (statuses as of 04/21/2024) Medications Medication Sig Dispensed Refills Start Date [...] heart failure with preserved ejection fraction (HFpEF) (HCC) Take 80 mg by mouth daily. 60 [...] as of this encounter (statuses as of 04/21/2024) Active Problems Problem Noted Date Diagnosed Date [...] as of this encounter (statuses as of 04/21/2024) Resolved Problems Problem Noted Date Diagnosed Date [...] as of this encounter (statuses as of 04/21/2024) Immunizations Name Administration Dates Next Due COVID-19 mRNA, LNP-s, No Pre serve, 2-Dose Series (BioMers) 08/26/2021,10/21/2020,09/30/2020 Pneumococcal Conjugate Vacc, 13 Valent (Prevnar) [...] 1:00 PM EDT Office Visit Family Practice [facility] [place] [address] [facility] [place] [address] Rolanda Connors MD [address] [facility] [place] [address] Pending Results Name Type Priority Associated Diagnoses Date /Time TSH WITH FREE T4 IF INDICATED Lab Routine Hypothyroidism due to acquired atrophy of thyroid 04/21/2024 11:25 AM EDT BASIC METABOLIC PANEL Lab Routine Chronic heart failure with preserved ejection fraction (HCC) 04/21/2024 11:25 AM EDT BNP, NT-PRO Lab Routine Chronic heart failure with preserved ejection fraction (HCC) Hypothyroidism due to acquired atrophy of thyroid 04/21/2024 11:25 AM EDT Health Maintenance Due Date Last Done [...] this encounter Medical Devices Implanted Type Area Pole Maker Device Identifier Shelf Expiration Date Model / Serial / Lot Mesh Flat Sheet 10x14 [id number] - [id number] Implanted:Qty: 1 on 06/13/2009 at [place] [facility] [place] N/A: Abdomen CR BARD : DAVOL 09/02/2013 [id number] / / [id number] Description:Bard Mesh monofi lament knitted polypropylene 10 x 14 inches documented as of this encounter Procedures Procedure Name Priority Date/Time Associated Diagnosis Comments DIFFERENTIAL, AUTOMATED Routine 04/21/2024 11:25 AM EDT Chronic heart failure with preserved ejection fraction (HCC) CBC Routine 04/21/2024 11:25 AM EDT Chronic heart failure with preserved ejection fraction (HCC) CBC Routine 04/21/2024 11:25 AM EDT Chronic heart failure with preserved ejection fraction (HCC) documented in this encounter Results * (ABNORMAL) DIFFERENTIAL, AUTOMATED (04/21/2024 11:25 AM EDT) WBC 6.20 4.00 - 10.80 K/uL 04/21/2024 11:38 AM EDT LABORATORY [facility] 56-02 Neutrophils % 71.3 40.0 - 75.0 % 04/21/2024 11:38 AM EDT [facility] 56- Lymphocytes % 13.7(L) 18.0 - 42.0 % 04/21/2024 11:38 AM EDT [facility] 56- Monocytes % 11.6(H) 1.0 - 11.0 % 04/21/2024 11:38 AM EDT [facility] 56- Eosinophils % 3.2 0.0 - 6.0 % 04/21/2024 11:38 AM EDT [facility] 56- Basophils % 0.2 0.0 - 2.0 % 04/21/2024 11:38 AM EDT [facility] 56 Absolute Neutrophils 4.42 1.80 - 7.70 K/uL 04/21/2024 11:38 AM EDT [facility] 56- Absolute Lymphocytes 0.85(L) 1.00 - 4.80 K/ul 04/21/2024 11:38 AM EDT [facility] 56 Absolute Monocytes 0.72 0.00 - 1.10 K/uL 04/21/2024 11:38 AM EDT [facility] 56 Absolute Eosinophils 0.20 0.00 - 0.70 K/uL 04/21/2024 11:38 AM EDT [facility] 56 Absolute Basophils 0.01 0.00 - 0.20 K/uL 04/21/2024 11:38 AM EDT [facility] 56 Blood Venous blood specimen / Unknown Venipuncture / Unknown 04/21/2024 11:25 AM EDT 04/21/2024 11:25 AM EDT Rolanda Connors MD LAB BLOOD ORDERABLES [facility] 56- [address] [place] [address] * (ABNORMAL) CBC (04/21/2024 11:25 AM EDT) WBC 6.20 4.00 - 10.80 K/uL 04/21/2024 11:38 AM EDT [facility] 56- RBC 3.74 3.85 - 5.15 M/uL 04/21/2024 11:38 AM EDT [address] HGB 10.9(L) 12.0 - 15.3 g/dL 04/21/2024 11:38 AM EDT [address] HCT 35.7(L) 36.0 - 45.2 % 04/21/2024 11:38 AM EDT [address] MCV 95.5 81.5 - 97.5 fL 04/21/2024 11:38 AM EDT [address] MCH 29.1 27.0 - 34.0 pg 04/21/2024 11:38 AM EDT [address] MCHC 30.5 32.0 - 36.0 g/dL 04/21/2024 11:38 AM EDT [address] RDW 17.8 11.5 - 15.5 % 04/21/2024 11:38 AM EDT [address] PLT 171 140 - 400 K/uL 04/21/2024 11:38 AM EDT [address] MPV 11.0 6.6 - 11.1 fL 04/21/2024 11:38 AM EDT [address] Blood Venous blood specimen / Unknown Venipuncture / Unknown 04/21/2024 11:25 AM EDT 04/21/2024 11:25 AM EDT Rolanda Connors MD LAB BLOOD ORDERABLES [place] [address] [place] [address] documented in this encounter Visit Diagnoses Diagnosis Hypothyroidism due to acquired atrophy of thyroid Chronic heart failure with preserved ejection fraction (HCC) documented in this encounter Advance Directives Documents on File Type Date Recorded Patient Immunochemist Expl anation Power of Model And Mold Maker Plaster 10/09/2014 POWER OF A TTORNEY * Full Code (Latest Code Status on File) Date Activated Date Inactivated Comments 06/13/2009 3:57 PM 06/19/2009 3:27 PM This order reflects the patients wishes and were consensually agreed upon. Question Answer Comments Discussion of Advance Direct sebastián occurred with: Patient Does the patient have a Living Will? Yes, in jarad rt and reviewed as current Care Teams Soda Fountain Operator Relationship Specialty Start Date End Date Rolanda Connors MD [address] [place] [address] PCP - General Family Medicine 10/01/23 documented as of this encounter
--- OUTSIDE RECORDS SUMMARY | 2024-08-08 20:57 | External Medical Summary | Summary of Care ---
Author Name Unknown Organization [facility] Address [address] [place] [address] Phone [phone] Care Team Providers Care Fried Cake Maker Name Role Phone Rolanda Connors MD Primary Care Provider [phone] Reason for Visit * Reason Onset Date Comments Forms Request 03/16/2024 [place] Form Encounter Details Date Type Department Care Team (Late st Contact Info) Description 03/16/[address] [place] [address] Specified, [place] No Resource [address] [place] [address] Forms Request ([place] Form) Allergies Active Allergy Reactions Criticality Noted Date [...] as of this encounter (statuses as of 03/20/2024) Medications Medication Sig Dispensed Refills Start Date [...] as of this encounter (statuses as of 03/20/2024) Active Problems Problem Noted Date Diagnosed Date [...] as of this encounter (statuses as of 03/20/2024) Resolved Problems Problem Noted Date Diagnosed Date [...] as of this encounter (statuses as of 03/20/2024) Immunizations Name Administration Dates Next Due COVID-19 [...] encounter Miscellaneous Notes * Telephone Encounter - Jagruti Callejas OSA - 03/20/2024 2:46 PM EDT Received final [place] form, from provider. This has been scanned and placed in file for 31 days and faxed successfully with most recent office notes to [phone]. SAMY Koch * Telephone Encounter - Jacob Doyle DO - 03/20/2024 2:03 PM EDT Pt hasn't been seen by neurology since 07/30/23 I last saw the pt in 10/2022 Attempted to complete the disability form but there is information needed I called Veronica at [place] at [phone] to get more info but no one answered. @[email or web address], Please phone family to get missing info for the disability forms. If they don't know (e.g. ADL and IADL functional status), please ask them for direct line to [place], if that's where she still resides so we can contact and get the answers. Please also include last clinic note from 07/30/23 with the form Thanks! Jacob Doyle DO 03/20/2024 2:04 PM * Telephone Encounter - Jagruti Callejas OSA - 03/16/2024 2:22 PM EDT Received initial [place] form, from [facility]. This has been scanned and placed in provider's folder, for completion. When form is completed please return to hospital secretary. SAMY Koch Route Encounter : No Routing needed. documented in this encounter Plan of Treatment Upcoming Encounters Date Type Department Care Team (Late st Contact Info) Description 05/02/2024 1:00 PM EDT Office Visit Family Practice [facility] [place] [address] [facility] [place] [address] Rolanda Connors MD [address] [facility] [place] [address] Health Maintenance Due Date Last Done Comments Adult Wellness Visit 11/22/2009 Zoster Vaccines (3 of 3) 12/08/2019 10/13/2019, 06/02 Depression Screening 11/25/2021 11/25/2020 COVID-19 Vaccine ( season) 2023 08/26/2021, 10/21/2020, 09/30/2020 Influenza Vaccine (FLU shot) [...] this encounter Medical Devices Implanted Type Area Breast Puller Device Identifier Shelf Expiration Date Model / Serial / Lot Mesh Flat Sheet 10x14 [id number] - [id number] Implanted:Qty: 1 on 06/13/2009 at OR [facility] [place] N/A: Abdomen CR BARD : DAVOL 09/02/2013 [id number] / / [id number] Description:Bard Mesh monofi lament knitted polypropylene 10 x 14 inches documented as of this encounter Advance Directives Documents on File Type Date Recorded Patient Director Of Nursing Expl anation Power of Auto Dealership Porter 10/09/2014 POWER OF A TTORNEY * Full Code (Latest Code Status on File) Date Activated Date Inactivated Comments 06/13/2009 3:57 PM 06/19/2009 3:27 PM This order reflects the patients wishes and were consensually agreed upon. Question Answer Comments Discussion of Advance Direct sebastián occurred with: Patient Does the patient have a Living Will? Yes, in [facility] rt and reviewed as current Care Teams Fried Cake Maker Relationship Specialty Start Date End Date Rolanda Connors MD [address] [place] [address] PCP - General Family Medicine 10/01/23 documented as of this encounter
--- OUTSIDE RECORDS SUMMARY | 2024-08-08 20:57 | External Medical Summary | Summary of Care ---
Author Name Unknown Organization [facility] Address [address] [place] [address] Phone [phone] Care Team Providers Care Winch Operator Name Role Phone Rolanda Connors MD Primary Care Provider [phone] Reason for Visit * Reason Onset Date Comments Health Maintenance 05/24/2024 Encounter Details Date Type Department Care Team (Late st Contact Info) Description 05/24/2024 Telephone Family Practice [facility] [address] [facility] [place] [address] Rolanda Connors MD [address] [place] [address] Health Maintenance Allergies Active Allergy Reactions Criticality Noted Date [...] 04/09/2009 Acrylic used with a dental procedure. 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 Penicillins 02/15/2003 Blisters in mouth Sulfa Antibiotics 10/22/2016 Tuna Flavor 09/02/2005 Tuna fish documented as of this encounter (statuses as of 05/24/2024) Medications Medication Sig Dispensed Refills Start Date [...] as of this encounter (statuses as of 05/24/2024) Active Problems Problem Noted Date Diagnosed Date [...] as of this encounter (statuses as of 05/24/2024) Resolved Problems Problem Noted Date Diagnosed Date [...] as of this encounter (statuses as of 05/24/2024) Immunizations Name Administration Dates Next Due COVID-19 mRNA, LNP-s, No Pre serve, 2-Dose Series (Aggregate Knowledge) 08/26/2021,10/21/2020,09/30/2020 Pneumococcal Conjugate Vacc, 13 Valent (Prevnar) [...] encounter Miscellaneous Notes * Telephone Encounter - Lennie Wilkerson LPN - 05/24/2024 9:36 AM EDT Care Gaps Comprehensive Care Outreach Last Office/Telemedicine Visit: 05/02/2024 (in office), Visit date not found (telemedicine) Next Office Visit: 09/05/2024 Hemoglobin AIC Results: Lab Results Component Value Date/Time HEMOGLOBIN A1C - RIKA 5.7 10/12/2008 10:09 AM BP Readings from Last 1 Encounters: 01/18/24 124/60 Reviewed Health Maintenance below: Health Maintenance Topic Date Due Albumin/Creatinine Ratio Never done Adult Wellness Visit Never done Zoster Vaccines (3 of 3) 12/08/2019 Depression Screening 11/25/2021 Influenza Vaccine (FLU shot) (1) 04/02/2024 COVID-19 Vaccine ( season) 2024 On hospice care per pcp note may Care Gap Outreach Action Taken: Outreach not indicated documented in this encounter Plan of Treatment Upcoming Encounters Date Type Department Care Team (Late st Contact Info) Description 09/05/2024 1:00 PM EST Office Visit Family Practice [facility] [place] [address] [place] [address] Rolanda Connors MD [address] [place], [place] [address] Health Maintenance Due Date Last Done Comments Albumin/Creatinine Ratio 11/22/1963 Adult Wellness Visit 11/22/2009 Zoster Vaccines (3 of 3) 12/08/2019 10/13/2019, 06/02 Depression Screening 11/25/2021 11/25/2020 COVID-19 Vaccine ( season) 2024 08/26/2021, 10/21/2020, 09/30/2020 Influenza Vaccine (FLU shot) (#1) 2024 05/27/2020, 05/16/2019, 06/20/2018, Additional history exists GFR 10/19/2024 04/21/2024, 11/02, 2023, Additional history exists CKD PHOS USE SMARTSET 70516 11/29/2024 11/30/2023 CKD HGB USE SMARTSET 26310 04/21/202504/21, 04/21/2024, 10/05/2023, Additional history exists TSH 04/21/2025 04/21/2024, 11/2022, 03/25/2022, Additional history exists DTap/Tdap Vaccines [...] this encounter Medical Devices Implanted Type Area Life Enrichment Assistant Device Identifier Shelf Expiration Date Model / Serial / Lot Mesh Flat Sheet 10x14 [id number] - [id number] Implanted:Q[place] 1 [place] [facility] [place] Abdomen CR BARD : DAVOL 09/02/2013 [id number] / / [id number] Description:Bard Mesh monofi lament knitted polypropylene 10 x 14 inches documented as of this encounter Advance Directives Documents on File Type Date Recorded Patient Technical Illustrator Expl anation Power of Calender Feeder 10/09/2014 POWER OF A TTORNEY * Full Code (Latest Code Status on File) Date Activated Date Inactivated Comments 06/13/2009 3:57 PM 06/19/2009 3:27 PM This order reflects the patients wishes and were consensually agreed upon. Question Answer Comments Discussion of Advance Direct sebastián occurred with: Patient Does the patient have a Living Will? Yes, in jarad rt and reviewed as current Care Teams Winch Operator Relationship Specialty Start Date End Date Rolanda Connors MD [address] [facility] [place] [address] PCP - General Family Medicine 10/01/23 documented as of this encounter
--- OUTSIDE RECORDS SUMMARY | 2024-08-08 20:57 | External Medical Summary ---
Author Name Unknown Address Unknown Organization [facility] [place] [address] Laboratory Report Ordering Provider Test Date Status CARMEN SUAREZ 04/21/2024 11:25:28 Final Observation Date Value Abnormality Reference (Units ) Status SYNC LEUKOCYTES IN BLOOD BY AUTOMATED COUNT 04/21/2024 11:25:28 6.20 4.00-10.80 (K/uL) Final Segs 04/21/2024 11:25:28 71.3 40.0-75.0 (%) Final Lymphs % 04/21/2024 11:25:28 13.7 Below low normal 18.0-42.0 (%) Final Monos 04/21/2024 11:25:28 11.6 Above high normal 1.0-11.0 (%) Final Eosinophils 04/21/2024 11:25:28 3.2 0.0-6.0 (%) Final Basos 04/21/2024 11:25:28 0.2 0.0-2.0 (%) Final Absolute Segs 04/21/2024 11:25:28 4.42 1.80-7.70 (K/uL) Final Lymphs, absolute 04/21/2024 11:25:28 0.85 Below low normal 1.00-4.80 (K/ul) Final Monos, Abs 04/21/2024 11:25:28 0.72 0.00-1.10 (K/uL) Final Eos, Abs 04/21/2024 11:25:28 0.20 0.00-0.70 (K/uL) Final Basos, Abs 04/21/2024 11:25:28 0.01 0.00-0.20 (K/uL) Final Performing Location [facility] [address] [place] [address]
--- OUTSIDE RECORDS SUMMARY | 2024-08-08 20:58 | External Medical Summary | Summary of Care ---
Author Name Unknown Organization [facility] Address [address] [place] [address] Phone [phone] Care Team Providers Care Balloon Seller Name Role Phone Rolanda Connors MD Primary Care Provider [phone] Reason for Visit * Reason Comments Re-Check Encounter Details Date Type Department Care Team (Late st Contact Info) Description 01/18/2024 3:00 PM EDT Office Visit [facility] [address] [facility] [place] [address] Rolanda Connors MD [address] [place] [address] Chronic heart failure with preserved ejection fraction (HCC)*; Chronic atrial fibrillation (HCC); 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 Penicillins 02/15/2003 Blisters in mouth Sulfa Antibiotics 10/22/2016 Tuna Flavor 09/02/2005 Tuna fish documented as of this encounter (statuses as of 02/16/2024) Medications Medication Sig Dispensed Refills Start Date End Date Status Multiple Vitamins-Minerals (PRESERVISION AREDS) Tablet Take 1 Tablet by mouth in the morning and 1 Tablet before bedtime. Active Levothyroxine Sodium 50 MCG Oral Tablet (Levoxyl)Indications :Hypothyroidism due to acquired atrophy of thyroid Take [...] Active EPINEPHrine 0.3 MG/0.3ML Injection Solution Auto-injector (Autoinjector)Indica tions:Bee sting allergy INJECT 1 PEN (=0.3 MG) [...] Tablet by mouth in the morning. 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 30 Tablet 11 2023 Active Torsemide 40 MG Oral TabletIndications:Ac [place] on chronic heart failure with preserved ejection fraction (HFpEF) (HCC) Take 80 mg by mouth daily. 60 Tablet 11 12/03/2023 Active documented as of this encounter (statuses as of 02/16/2024) Active Problems Problem Noted Date Diagnosed Date [...] as of this encounter (statuses as of 02/16/2024) Resolved Problems Problem Noted Date Diagnosed Date [...] as of this encounter (statuses as of 02/16/2024) Immunizations Name Administration Dates Next Due COVID-19 mRNA, LNP-s, No Pre serve, 2-Dose Series (Qomuty) 08/26/2021,10/21/2020,09/30/2020 Pneumococcal Conjugate Vacc, 13 Valent (Prevnar) [...] Sign Reading Time Taken Comments Blood Pressure 124/60 01/18/2024 3:06 PM EDT Pulse 76 01/18/2024 3:06 PM EDT Temperature 35.7 C (96.3 F) 01/18/2024 3:06 PM ED T Respiratory Rate 18 01/18/2024 3:06 PM EDT Oxygen Saturation 93% 01/18/2024 3:06 PM EDT Inhaled Oxygen Concentration - - Weight 64.9 kg (143 lb) 01/18/2024 3:06 PM EDT Height - - Body Mass Index 25.33 04/06/2023 1:25 PM EDT documented in this encounter Progress Notes * Rolanda Connors MD - 01/18/2024 3:15 PM EDT Subjective Chief Complaint Patient presents with Re-Check HPI: Sandy Soares is a 78 year old female. Patient is accompanied by her son Galo. The following issues were addressed today: Patient with HFpEF, atrial fibrillation not on AC, hypothyroidism, Alzheimer's dementia presents today for routine follow-up. She denies any concerns. Son Galo states she has been doing well at [facility] and has lost about 10lb since we last saw her. Swelling in her legs has improved significantlyand she seems less short of breath. She is on torsemide 40mg BID. Has been watching salt intake. Has medication list from [facility] with her today. Listed is Depakote 500mg at 0800 and 750mg at 1600. Has been getting this medication for several weeks but unclear why. Patient has no history of seizure disorder and son is not aware of any new seizures. She is on Seroquel 100mg HS to help with wandering and confusion at nighttime but has no history of behavioral disturbances. Review of Systems: See HPI Objective BP 124/60 | Pulse 76 | Temp 35.7 C (96.3 F) (Tympanic) | Resp 18 | Wt 64.9 kg (143 lb) | SpO2 93% | BMI 25.33 kg/m | BSA 1.7 m Wt Readings from Last 3 Encounters: 01/18/24 64.9 kg (143 lb) 12/03/23 69.5 kg (153 lb 1.9 oz) 11/30/23 70.3 kg (155 lb 0.6 oz) BP Readings from Last 3 Encounters: 01/18/24 124/60 12/03/23 134/74 11/30/23 128/60 General: Well-appearing, no acute distress Cardiovascular: Irregularly irregular rhythm, normal rate, no murmur Respiratory: Good respiratory effort, breath sounds equal and clear to auscultation bilaterally Abdomen: Soft, non-distended, non-tender, normoactive bowel sounds Extremities: No edema Neurological: Alert Psychiatric: Appropriate mood and affect Assessment & Plan 1. Chronic heart failure with preserved ejection fraction (HCC) Stable. Patient is euvolemic on examination today. Continue torsemide 40mg BID. 2. Chronic atrial fibrillation (HCC) Stable. Continue metoprolol succinate 25mg daily. Previously discussed AC when diagnosed. Patient on hospice, fall risk and felt risks outweigh benefits. She is on daily ASA 81mg. 3. 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 Continue current medications. 4. Hypothyroidism due to acquired atrophy of thyroid Well-controlled. Continue levothyroxine at current dose. 5. Medication monitoring encounter Unclear why patient is being prescribed Depakote. [facility] why and by whom it is being prescribed. Return in about 3 months (around 04/19/2024) for routine follow-up. This note was electronically signed by Rolanda Connors MD documented in this encounter Nursing Notes * Kandy Mora LPN - 01/18/2024 3:01 PM EDT Sandy Worrell Fany presents for 3 month recheck. Medications & HM reviewed. Is doing well today Veronica has Seroquel at 100 mg we have it at 50 mg Which dose should she be taking documented in this encounter Plan of Treatment Upcoming Encounters Date Type Department Care Team (Late st Contact Info) Description 05/02/2024 1:00 PM EDT Office Visit Family Practice [facility] [place] [address] [facility] [place] [address] Rolanda Connors MD [address] [facility] [place] [address] Health Maintenance Due Date Last Done Comments Zoster Vaccines (3 of 3) 12/08/2019 10/13/2019, 06/02 Depression Screening 11/25/2021 11/25/2020 COVID-19 Vaccine (2022- season) 2023 08/26/2021, 10/21/2020, 09/30/2020 Influenza Vaccine [...] this encounter Medical Devices Implanted Type Area Header Set Up Operator Device Identifier Shelf Expiration Date Model / Serial / Lot Mesh Flat Sheet 10x14 [id number] - [id number] Implanted:Qty: 1 on 06/13/2009 at OR [facility] [place] N/A: Abdomen CR BARD : DAVOL 09/02/2013 [id number] / / [id number] Description:Bard Mesh monofi lament knitted polypropylene 10 x 14 inches documented as of this encounter Visit Diagnoses Diagnosis Chronic heart failure with preserved ejection fraction (HCC)- Primary Chronic atrial fibrillation (HCC) Atrial fibrillation 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 Question Answer Comments Discussion of Advance Direct sebastián occurred with: Patient Does the patient have a Living Will? Yes, in jarad rt and reviewed as current Care Teams Balloon Seller Relationship Specialty Start Date End Date Rolanda Connors MD [address] [place], [place] [address] PCP - General Family Medicine 10/01/23 documented as of this encounter"
--- OUTSIDE RECORDS SUMMARY | 2024-08-08 20:58 | External Medical Summary | Summary of Care ---
Author Name Unknown Organization [facility] Address [address] [place] [address] Phone [phone] Care Team Providers Care Shaper Hand Name Role Phone Rolanda Connors MD Primary Care Provider [phone] Reason for Visit * Reason Onset Date Comments Forms Request 03/16/2024 [place] Form Encounter Details Date Type Department Care Team (Late st Contact Info) Description 03/16/2024 Telephone [address]rology [address] [place] [address] Specified, [place] No Resource [address] [place] [address] Forms Request ([place] Form) Allergies Active Allergy Reactions Criticality Noted [...] 04/09/2009 Acrylic used with a dental procedure. 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 This has been scanned and placed in provider's folder, for completion. When form is completed please return to knitting machine operator automatic. SAMY Koch Route Encounter : No Routing needed. documented in this encounter Plan of Treatment Upcoming Encounters Date Type Department Care Team (Late st Contact Info) Description 05/02/2024 1:00 PM EDT Office Visit Family Practice [facility] [address] [place] [address] Rolanda Connors MD 200 [facility] [place] [address] Health Maintenance Due Date Last Done Comments [...] this encounter Medical Devices Implanted Type Area Central Office Repairer Device Identifier Shelf Expiration Date Model / Serial / Lot Mesh Flat Sheet 10x14 [id number] - [id number] Im[place]ed:Q[place] 1 [place] [facility] [place] Abdomen CR BARD : DAVOL 09/02/2013 [id number] / / [id number] Description:Bard Mesh monofi lament knitted polypropylene 10 x 14 inches documented as of this encounter Advance Directives Documents on File Type Date Recorded Patient Cleaner Assistant Expl anation Power of Silk Screen Processor 10/09/2014 POWER OF A TTORNEY * Full Code (Latest Code Status on File) Date Activated Date Inactivated Comments 06/13/2009 3:57 PM 06/19/2009 3:27 PM This order reflects the patients wishes and were consensually agreed upon. Question Answer Comments Discussion of Advance Direct sebastián occurred with: Patient Does the patient have a Living Will? Yes, in jarad rt and reviewed as current Care Teams Shaper Hand Relationship Specialty Start Date End Date Rolanda Connors MD [address] [place] [address] PCP - General Family Medicine 10/01/23 documented as of this encounter
--- OUTSIDE RECORDS SUMMARY | 2024-08-08 20:58 | External Medical Summary | Summary of Care ---
Author Name Unknown Organization [facility] Address [address] [facility] [place] [place] [address] Phone [phone] Care Team Providers Care Contact Lens Edge Buffer Name Role Phone Rolanda Connors MD Primary Care Provider [phone] Reason for Visit * Reason Onset Date Comments Med Request 03/14/2024 Encounter Details Date Type Department Care Team (Late st Contact Info) Description 03/14/2024 Telephone Family Practice [facility] [address] [facility] [place] [place] [address] Rolanda Connors MD [address] [place] [address] Med Request Allergies Active Allergy Reactions Criticality Noted Date [...] 04/09/2009 Acrylic used with a dental procedure. 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 Penicillins 02/15/2003 Blisters in mouth Sulfa Antibiotics 10/22/2016 Tuna Flavor 09/02/2005 Tuna fish documented as of this encounter (statuses as of 03/14/2024) Medications Medication Sig Dispensed Refills Start Date End Date Status Multiple Vitamins-Mineral s (PRESERVISION AREDS) Tablet Take 1 Tablet by mouth in the morning and 1 Tablet before bedtime. Active Levothyroxine Sodium 50 MCG Oral Tablet (Levoxyl)Indicat ions:Hypothyroid ism due to acquired atrophy of thyroid Take [...] Active EPINEPHrine 0.3 MG/0.3ML Injection Solution Auto-injector (Autoinjector)In dications:Bee sting allergy INJECT 1 PEN (=0.3 MG) [...] the morning. Active Torsemide 40 MG Oral TabletIndication s:Acute on chronic heart failure with preserved ejection fraction (HFpEF) (HCC) Take 80 mg by mouth daily. 60 Tablet 11 12/03/2023 Active QUEtiapine Fumarate 100 MG Oral Tablet (SEROquel) Take 1 Tablet by mouth at bedtime. Active Divalproex Sodium 125 MG Oral Capsule Delayed Release Sprinkle (Depakote Sprinkle)Indicat ions:Mood disorder Take 4 capsules by mouth at 08:00 and 6 capsules by mouth at 16:00 900 Capsule 3 03/14/2024 Active Divalproex Sodium 125 MG Oral Capsule Delayed Release Sprinkle (Depakote Sprinkle)Indicat ions:Mood disorder Take 4 capsules by mouth at 08:00 and 6 capsules by mouth at 1600 03/14/2024 Discontinue d(Refill) documented as of this encounter (statuses as of 03/14/2024) Active Problems Problem Noted Date Diagnosed Date [...] as of this encounter (statuses as of 03/14/2024) Resolved Problems Problem Noted Date Diagnosed Date [...] as of this encounter (statuses as of 03/14/2024) Immunizations Name Administration Dates Next Due COVID-19 mRNA, LNP-s, No Pre serve, 2-Dose Series (paOnde) 08/26/2021,10/21/2020,09/30/2020 Pneumococcal Conjugate Vacc, 13 Valent (Prevnar) [...] encounter Miscellaneous Notes * Telephone Encounter - Batool Champion CPhT - 03/14/2024 8:59 AM EDT [facility] calling requesting the following medication below that is listed as "Historical". The following information was provided: Medication Name: Divalproex Sodium Strength: 25 MG Oral Capsule Directions: Take 4 capsules by mouth at 08:00 and 6 capsules by mouth at 1600 Preferred Quantity: 90 day supply Previous Prescriber: unknown Preferred Pharmacy: [facility] - [address] Please review and approve if appropriate. Thank you, Batool Champion CPhT Land Surveying Party Chief II [facility] 03/14/2024,9:00 AM documented in this encounter Plan of Treatment Upcoming Encounters Date Type Department Care Team ([facility] st Contact Info) Description 05/02/2024 1:00 PM EDT Office Visit Family Practice [facility] [address] [place] [address] Rolanda Connors MD [address] [place] [address] Health Maintenance Due Date Last Done Comments [...] this encounter Medical Devices Implanted Type Area Sagger Filler Device Identifier Shelf Expiration Date Model / Serial / Lot Mesh Flat Sheet 10x14 [id number] - [id number] Implanted:Qty: 1 on 06/13/2009 at OR [facility] [place] N/A: Abdomen CR BARD : DAVOL 09/02/2013 [id number] / / [id number] Description:Bard Mesh monofi lament knitted polypropylene 10 x 14 inches documented as of this encounter Advance Directives Documents on File Type Date Recorded Patient Process Coach Expl anation Power of Machine Cutter 10/09/2014 POWER OF A TTORNEY * Full Code (Latest Code Status on File) Date Activated Date Inactivated Comments 06/13/2009 3:57 PM 06/19/2009 3:27 PM This order reflects the patients wishes and were consensually agreed upon. Question Answer Comments Discussion of Advance Direct sebastián occurred with: Patient Does the patient have a Living Will? Yes, in jarad rt and reviewed as current Care Teams Contact Lens Edge Buffer Relationship Specialty Start Date End Date Rolanda Connors MD [address] [place] [address] PCP - General Family Medicine 10/01/23 documented as of this encounter
--- OUTSIDE RECORDS SUMMARY | 2024-08-08 20:58 | External Medical Summary | Summary of Care ---
Author Name Unknown Organization [facility] Address [address] [place] [address] Phone [phone] Care Team Providers Care Adult Care Provider Name Role Phone Rolanda Connors MD Primary Care Provider [phone] Reason for Visit * Reason Comments Re-Check Encounter Details Date Type Department Care Team (Late st Contact Info) Description 01/18/2024 3:00 PM EDT Office Visit [facility] 200 [facility] [place] [address] Rolanda Connors MD [address] [place] [address] Chronic heart failure with preserved ejection fraction [...] 04/09/2009 Acrylic used with a dental procedure. 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 Penicillins 02/15/2003 Blisters in mouth Sulfa Antibiotics 10/22/2016 Tuna Flavor 09/02/2005 Tuna fish documented as of this encounter (statuses as of 02/18/2024) Medications Medication Sig Dispensed Refills Start Date [...] 2023 Active Torsemide 40 MG Oral TabletIndications:Ac [place] on chronic heart failure with preserved ejection fraction (HFpEF) (HCC) Take 80 mg by mouth daily. 60 Tablet 11 12/03/2023 Active documented as of this encounter (statuses as of 02/18/2024) Active Problems Problem Noted Date Diagnosed Date [...] as of this encounter (statuses as of 02/18/2024) Resolved Problems Problem Noted Date Diagnosed Date [...] as of this encounter (statuses as of 02/18/2024) Immunizations Name Administration Dates Next Due COVID-19 mRNA, LNP-s, No Pre serve, 2-Dose Series ([employer]) 08/26/2021,10/21/2020,09/30/2020 Pneumococcal Conjugate Vacc, 13 Valent (Prevnar) [...] female. Patient is accompanied by her son Gene. The following issues were addressed today: Patient with HFpEF, atrial fibrillation not on AC, hypothyroidism, Alzheimer's dementia presents today for routine follow-up. She denies any concerns. Son Galo states she has been doing well at [facility] and has lost about 10lb since we last saw her. Swelling in her legs has improved significantlyand she seems less short of breath. She is on torsemide 40mg BID. Has been watching salt intake. Has medication list from [facility] [place] with her today. Listed is Depakote 500mg [...] [facility] [...] EDT Office Visit Family Practice [facility] [place] [address] [facility] [place] [address] Rolanda Connors MD [address] [facility] [place] [address] Health Maintenance Due Date Last Done Comments [...] this encounter Medical Devices Implanted Type Area Chemical Processing Equipment Repairer Device Identifier Shelf Expiration Date Model / Serial / Lot Mesh Flat Sheet 10x14 [id number] - [id number] Implanted:Q[place] 1 [place] [facility] [place] Abdomen CR BARD : DAVOL 09/02/2013 [id number] / / [id number] Description:Bard Mesh monofi lament knitted polypropylene 10 [...] Documents on File Type Date Recorded Patient Well Service Floor Worker Expl anation Power of Hotel Sales Manager 10/09/2014 POWER OF A TTORNEY * Full Code (Latest Code Status on File) Date Activated Date Inactivated Comments 06/13/2009 3:57 PM 06/19/2009 3:27 PM This order reflects the patients wishes and were consensually agreed upon. Question Answer Comments Discussion of Advance Direct sebastián occurred with: Patient Does the patient have a Living Will? Yes, in jarad rt and reviewed as current Care Teams Adult Care Provider Relationship Specialty Start Date End Date Rolanda Connors MD [address] [place], [place] [address] PCP - General Family Medicine 10/01/23 documented as of this encounter"
--- OUTSIDE RECORDS SUMMARY | 2024-08-08 20:58 | External Medical Summary | Summary of Care ---
Author Name Unknown Organization [facility] Address [address] [place] [facility] [place] [address] Phone [phone] Care Team Providers Care Principal Investigator Name Role Phone Rolanda Connors MD Primary Care Provider [phone] Reason for Visit * Reason Comments eRx-Medication Refill Encounter Details Date Type Department Care Team (Late st Contact Info) Description 03/14/2024 Refill Family Practice [facility] [address] [facility] [address] Rolanda Connors MD 200 [place] [address] Allergies Active Allergy Reactions Criticality Noted Date [...] 04/09/2009 Acrylic used with a dental procedure. 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 Developed [...] mRNA, LNP-s, No Pre serve, 2-Dose Series ([employer]) 08/26/2021,10/21/2020,09/30/2020 Pneumococcal Conjugate Vacc, 13 Valent (Prevnar) [...] encounter Miscellaneous Notes * Telephone Encounter - Cyndee Cotter - 03/14/2024 7:24 PM EDTRefused Prescriptions: Disp Refills Divalproex Sodium 125 MG Oral Capsule Melba*1 Caps*0 Sig: TAKE 4 CAPSULES =(500MG) BY MOUTH ONCE A DAY AT 8AM FOR MOOD DISORDER -NEED NEW RX FOR March- TAKE6 CAPSULES =(750MG) BY MOUTH ONCE A DAY TIMES 4PM FOR MOOD DISORDERRefused By: Kati COTTER for Refusal: Duplicate Request --------- documented in this encounter Plan of Treatment Upcoming Encounters Date Type Department Care Team (Late st Contact Info) Description 05/02/2024 1:00 PM EDT Office Visit Family Practice [facility] [address] [place] [address] Rolanda Connors MD [address] [place] [address] Health Maintenance Due Date Last Done Comments [...] this encounter Medical Devices Implanted Type Area Datastage Developer Device Identifier Shelf Expiration Date Model / Serial / Lot Mesh Flat Sheet 10x14 [id number] - [id number] Implanted:Qty: 1 on 06/13/2009 at [place] [facility] [place]/A: Abdomen CR BARD : DAVOL 09/02/2013 [id number] / / [id number] Description:Bard Mesh monofi lament knitted polypropylene 10 x 14 inches documented as of this encounter Advance Directives Documents on File Type Date Recorded Patient Mercerizing Range Controller Expl anation Power of Field Artillery Basic 10/09/2014 POWER OF A TTORNEY * Full Code (Latest Code Status on File) Date Activated Date Inactivated Comments 06/13/2009 3:57 PM 06/19/2009 3:27 PM This order reflects the patients wishes and were consensually agreed upon. Question Answer Comments Discussion of Advance Direct sebastián occurred with: Patient Does the patient have a Living Will? Yes, in [facility] rt and reviewed as current Care Teams Principal Investigator Relationship Specialty Start Date End Date Rolanda Connors MD [address] [place] [address] PCP - General Family Medicine 10/01/23 documented as of this encounter
--- OUTSIDE RECORDS SUMMARY | 2024-08-08 20:58 | External Medical Summary | Summary of Care ---
Author Name Unknown Organization [facility] Address [address] [facility] [place] [address] Phone [phone] Care Team Providers Care Cage Clerk Name Role Phone Rolanda Connors MD Primary Care Provider [phone] Reason for Visit * Reason Onset Date Comments Med Request 03/14/2024 Encounter Details Date Type Department Care Team (Late st Contact Info) Description 03/14/2024 Telephone Family Practice [facility] [address] [facility] [place] [address] Rolanda Connors MD [address] [place] [address] Med Request Allergies Active Allergy Reactions Criticality [...] 04/09/2009 Acrylic used with a dental procedure. 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 Thank you, Batool Champion CPhT Staff Cytotechnologist II [facility] ([facility]) 03/14/2024,9:00 AM documented in this encounter Plan of Treatment Upcoming Encounters Date Type Department Care Team ([facility] st Contact Info) Description 05/02/2024 1:00 PM EDT Office Visit Family Practice State [facility]te Barker [address] [place] [address] Rolanda Connors MD [address] [place] [address] Health Maintenance Due Date Last Done Comments [...] this encounter Medical Devices Implanted Type Area Counter Roller Device Identifier Shelf Expiration Date Model / Serial / Lot Mesh Flat Sheet 10x14 [id number] - [id number] Implanted:Qty: 1 on 06/13/2009 at OR [facility] N/A: Abdomen CR BARD : DAVOL 09/02/2013 [id number] / / [id number] Description:Bard Mesh monofi lament knitted polypropylene 10 x 14 inches documented as of this encounter Advance Directives Documents on File Type Date Recorded Patient Dot Net Developer Expl anation Power of Software Engineer Intern 10/09/2014 POWER OF A TTORNEY * Full Code (Latest Code Status on File) Date Activated Date Inactivated Comments 06/13/2009 3:57 PM 06/19/2009 3:27 PM This order reflects the patients wishes and were consensually agreed upon. Question Answer Comments Discussion of Advance Direct sebastián occurred with: Patient Does the patient have a Living Will? Yes, in [place] rt and reviewed as current Care Teams Cage Clerk Relationship Specialty Start Date End Date Rolanda Connors MD [address] [place] [address] PCP - General Family Medicine 10/01/23 documented as of this encounter
--- OUTSIDE RECORDS SUMMARY | 2024-08-08 20:58 | External Medical Summary | Summary of Care ---
Author Name Unknown Organization [facility] Address [address] [place] [facility] [place] [address] Phone [phone] Care Team Providers Care Fund Accountant Name Role Phone Rolanda Connors MD Primary Care Provider [phone] Reason for Visit * Reason Onset Date Comments Advice 11/25/2023 Encounter Details Date Type Department Care Team (Late st Contact Info) Description 11/25/2023 Telephone Family Practice [facility] [address] [facility] [place] [address] Rolanda Connors MD [address] [place] [address] Advice Allergies Active Allergy Reactions Criticality Noted Date [...] 04/09/2009 Acrylic used with a dental procedure. --return agent for dental procedures with polymer Developed blisters and edema in mouth and throat. Penicillins 02/15/2003 Blisters in mouth Sulfa Antibiotics 10/22/2016 Tuna Flavor 09/02/2005 Tuna fish documented as of this encounter (statuses as of 02/24/2024) Medications Medication Sig Dispensed Refills Start Date [...] Tablet by mouth in the morning. Active documented as of this encounter (statuses as of 02/24/2024) Active Problems Problem Noted Date Diagnosed Date [...] as of this encounter (statuses as of 02/24/2024) Resolved Problems Problem Noted Date Diagnosed Date [...] as of this encounter (statuses as of 02/24/2024) Immunizations Name Administration Dates Next Due COVID-19 [...] Miscellaneous Notes * Telephone Encounter - Jagruti Crabtree LPN - 11/25/2023 4:34 PM EDT Rosalia from [facility] calling about with concern about torsemide order due to [facility] regulations on the home. [facility] received a RX for Torsemide 20 mg take 2 tabs daily, she has the tabs to give pt. Today she received a new order that reads torsemide 40 mg give one tab daily but has not received the tablets. Even though the the orders are for the same mg dose, the [facility] requires the written script to match the tablets on hand. Rosalia indicates she will see if the pharm will send the 40mg torsemide tablets. If they will, she will call back for D/c order for the torsemide 20 mg 2 tabs daily. If they won't, she will call backto get an order indicating to use the 20 mg tabs until they run out of supply on hand. Then switch to 40 mg tabs. This is fyi * Telephone Encounter - Kathy Martin OSA - 11/25/2023 4:32 PM EDT Reason for patient's call: [facility] - [facility] Caller was transferred to [place] at the nurse line. documented in this encounter Plan of Treatment Upcoming Encounters Date Type Department Care Team (Late st Contact Info) Description 05/02/2024 1:00 PM EDT Office Visit Family Practice State [facility] Barker [address] [place] [address] Rolanda Connors MD [address] [place] [address] Health Maintenance Due Date Last Done Comments [...] this encounter Medical Devices Implanted Type Area Guide Plant Device Identifier Shelf Expiration Date Model / Serial / Lot Mesh Flat Sheet 10x14 [id number] - [id number] Implanted:Qty: 1 on 06/13/2009 at OR [facility] [place] N/A: Abdomen CR BARD : DAVOL 09/02/2013 [id number] / / [id number] Description:Bard Mesh monofi lament knitted polypropylene 10 x 14 inches documented as of this encounter Advance Directives Documents on File Type Date Recorded Patient Manufacturing Assistant Expl anation Power of Custom Applicator 10/09/2014 POWER OF A TTORNEY * Full Code (Latest Code Status on File) Date Activated Date Inactivated Comments 06/13/2009 3:57 PM 06/19/2009 3:27 PM This order reflects the patients wishes and were consensually agreed upon. Question Answer Comments Discussion of Advance Direct sebastián occurred with: Patient Does the patient have a Living Will? Yes, in [facility] rt and reviewed as current Care Teams Fund Accountant Relationship Specialty Start Date End Date Rolanda Connors MD [address] [facility] [place] [address] PCP - General Family Medicine 10/01/23 documented as of this encounter
--- OUTSIDE RECORDS SUMMARY | 2024-08-08 20:58 | External Medical Summary | Summary of Care ---
Author Name Unknown Organization [facility] Address [address] [place] [address] Phone [phone] Care Team Providers Care Wearing Apparel Folder Name Role Phone Rolanda Connors MD Primary Care Provider [phone] Reason for Visit * Reason Onset Date Comments Forms Request 03/16/2024 [employer] Form Encounter Details Date Type Department Care Team (Late st Contact Info) Description 03/16/20[address] [place] [address] Specified, [place] No Resource [address] [place] [address] Forms Request ([employer] Form) Allergies Active Allergy Reactions Criticality Noted [...] 04/09/2009 Acrylic used with a dental procedure. 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 Penicillins 02/15/2003 Blisters in mouth Sulfa Antibiotics 10/22/2016 Tuna Flavor 09/02/2005 Tuna fish documented as of this encounter (statuses as of 03/16/2024) Medications Medication Sig Dispensed Refills Start Date [...] as of this encounter (statuses as of 03/16/2024) Active Problems Problem Noted Date Diagnosed Date [...] as of this encounter (statuses as of 03/16/2024) Resolved Problems Problem Noted Date Diagnosed Date [...] as of this encounter (statuses as of 03/16/2024) Immunizations Name Administration Dates Next Due COVID-19 [...] 03/16/2024 2:22 PM EDT Received initial [employer] form, from [facility]. This has been scanned and placed in provider's folder, for completion. When form is completed please return to sales secretary. SAMY Koch Route Encounter : No Routing needed. documented in this encounter Plan of Treatment Upcoming Encounters Date Type Department Care Team (Late st Contact Info) Description 05/02/2024 1:00 PM EDT Office Visit Family Practice [facility] [address] [place], [place] [address] Rolanda Connors MD [address] [place], [place] [address] Health Maintenance Due Date Last Done Comments [...] this encounter Medical Devices Implanted Type Area Solderer Barrel Ribs Device Identifier Shelf Expiration Date Model / Serial / Lot Mesh Flat Sheet 10x14 [id number] - [id number] Implanted:Qty: 1 on 06[place]13/2009 [place] [facility] [place]A: Abdomen CR BARD : DAVOL 09/02/2013 [id number] / / [id number] Description:Bard Mesh monofi lament knitted polypropylene 10 x 14 inches documented as of this encounter Advance Directives Documents on File Type Date Recorded Patient Receptionist Telephone Operator Expl anation Power of Cushion Assembler 10/09/2014 POWER OF A TTORNEY * Full Code (Latest Code Status on File) Date Activated Date Inactivated Comments 06/13/2009 3:57 PM 06/19/2009 3:27 PM This order reflects the patients wishes and were consensually agreed upon. Question Answer Comments Discussion of Advance Direct sebastián occurred with: Patient Does the patient have a Living Will? Yes, in jarad rt and reviewed as current Care Teams Wearing Apparel Folder Relationship Specialty Start Date End Date Rolanda Connors MD [address] [place] [address] PCP - General Family Medicine 10/01/23 documented as of this encounter
[2024-08-08 23:16] LABS: Appearance Urine Clear (Clear); Bilirubin Urine Negative (Negative); Blood Urine Negative (Negative); Color Urine Yellow; Glucose Urine UA Negative (Negative); Ketones Urine 1+ (Negative); Leukocyte Esterase Urine Negative (Negative); Nitrite Urine Negative (Negative); Protein Urine Negative (Negative); Specific Gravity Urine 1.017 (1.000-1.030); Urobilinogen Urine Negative (Negative); pH Urine 5.5 (4.5-7.5)
[2024-08-08] MEDS: ACETAMINOPHEN 1,000 MG/100 ML VIAL IV PRN (23:53)
[2024-08-09] MEDS: DEXTROSE 5% 1,000 ML IV SCH (01:26)
[2024-08-09 03:51] LABS: Hemoglobin 11.2 g/dl (12.0-16.0); Mean Corpuscular Hemoglobin 31.4 pg (25.0-34.0); Mean Corpuscular Hgb Conc 31.1 g/dL (32.0-36.0); Mean Corpuscular Volume 100.8 fL (80.0-100.0); Mean Platelet Volume 11.5 fL (9.4-12.4); Platelet Count 102 K/uL (130-400); RDW Coefficient of Variation 15.6 % (11.5-14.5); RDW Standard Deviation 57.3 fL (36.4-46.3); Red Blood Count 3.57 M/uL (4.20-5.40); White Blood Count 13.89 K/ul (4.8-10.8)
[2024-08-09 03:58] LABS: BUN Creatinine Ratio 27.7 (10-20); Calcium 8.7 mg/dl (8.6-10.3); Creatinine Clr Calc Pharmacy 32.3 ml/min; Magnesium 2.1 mg/dl (1.7-2.4); Phosphorus 2.9 mg/dl (2.5-4.9)
[2024-08-09] MEDS ORDERED: LEVALBUTEROL 1.25 MG/3 ML NEB NEB PRN (05:09)
[2024-08-09] MEDS: LEVOTHYROXINE SODIUM 50 MCG TABLET PO SCH (05:54)
[2024-08-09] MEDS: OSELTAMIVIR PHOSPHATE SUSP 30 MG/5 ML UDP PO SCH (09:47)
[2024-08-09] MEDS: METOPROLOL SUCC 25MG EXT REL TAB PO SCH (09:47)
[2024-08-09] MEDS: ASPIRIN 81 MG CHEW PO SCH (09:47)
[2024-08-09] MEDS: TORSEMIDE 20 MG TAB PO SCH (09:48)
--- NOTE | 2024-08-09 12:25 | Nephrology Consultation ---
Date of Consultation August 09, 2024 Assessment & Plan (1) Acute hypernatremia: acute hypernatremia with a serum sodium of 151 in a patient who is very susceptible for this as she has advanced dementia. she also had associated prerenal type acute kidney injury with a creatinine of 1.5 up from her baseline of less than 1. Renal function is getting better and creatinine is down to 1.3. serum sodium has not come down yet as she received normal saline initially and was also getting torsemide. She has not received enough free water she is not in a position to drink water at this time as she is totally unresponsive given this we will continue D5 water at 100 mL/hour will give this for about 2000 mL. check renal panel once daily however patient's clinical condition appears to be very advanced with features of terminal dementia including hypernatremia. this is by definition 1 of the Hallmark feature of terminal dementia. strongly consider Palliative Medicine consult for hospice care. (2) Influenza A: current trigger for acute decline causing hypoxia and hypotension. She is getting appropriate treatment with antivirals. Oxygen saturation is much better now at 98% on 2 L nasal cannula History of Present Illness Reason for Consultation: hypernatremia in a patient with the advanced dementia now admitted with influenza Attending Physician: Marissa Jackson MD History of Present Illness 78-year-old female who was sent over from [place] which is a [facility] for dementia patients. patient had hypotension and hypoxia earlier with oxygen saturation as low as 60% and blood pressure in the 80s systolic. She was found to have influenza a and she is currently on oxygen. serum sodium was 151. She initially received normal saline but now she is getting D5 water at 60 mL/hour. she does have a Ortiz catheter and that has been flushed and reposition and with that it is working better. blood pressure is better now and oxygen saturation is also much better with 2 L nasal cannula. however patient has advanced dementia and she is totally unresponsive with eyes closed and I was not able to get any response from the patient. review of systems not possible to obtain as patient is unresponsive with eyes closed. Did not respond on calling her name nor with gentle sternal rub physical examination elderly white female who is completely unresponsive and did not respond on calling her name nor with gentle sternal rub eyes closed mucous membrane is moist neck is supple no JVD chest bilateral diminished breath sound poor inspiratory effort occasional basal crackles CVS S1 and S2 regular tachycardic soft systolic murmur abdomen is soft nontender extremities shows trace edema Allergies Allergy/AdvReac Type Severity Reaction Status Date / Time bee venom protein (honey bee) Allergy Severe ANAPHYLAXIS Verified 11/13/23 20:42 Iodinated Contrast Media Allergy Severe Anaphylaxis Verified 11/13/23 20:42 iodine Allergy Severe Anaphylaxis Verified 11/13/23 20:42 latex Allergy Severe itchy, Verified 11/13/23 20:42 shortness of breath Penicillins Allergy Severe Anaphylaxis Verified 11/13/23 20:44 povidone-iodine Allergy Severe Anaphylaxis Verified 11/13/23 20:42 tuna oil Allergy Severe HIVES AND Verified 11/13/23 20:42 ANAPHYLAXIS bisacodyl Allergy Intermediate Hives Verified 11/13/23 20:42 codeine Allergy Intermediate GI SYMPTOMS Verified 11/13/23 20:42 ephedrine Allergy Intermediate RASH Verified 08/20/23 15:06 cat dander Allergy short of Verified 11/13/23 20:44 breath Sulfa (Sulfonamide Allergy Unknown Verified 11/13/23 20:43 Antibiotics) ENVIRONMENTAL Allergy Severe SHORTNESS Uncoded 08/20/23 15:06 OF BREATH ACRYLIC CEMENT OR BONDING Allergy Intermediate EDEMA Uncoded 08/20/23 15:06 FACE/LIPS/TONGUE JEWELRY Allergy Intermediate BLISTERS Uncoded 08/20/23 15:06 WITH "CHEAP JEWELRY" Home Medications Medication Instructions Recorded Confirmed Type epinephrine 0.3 mg/0.3 mL 0.3 mg IM DIRECTED PRN Allergic 09/12/18 08/08/24 History injection, auto-injector (EpiPen) Reaction levothyroxine 50 mcg tablet 50 mcg PO QAM 02/26/21 08/08/24 History donepezil 10 mg tablet 10 mg PO QAM 02/26/22 08/08/24 History potassium chloride 10 mEq 20 meq PO QAM 09/22/22 08/08/24 History capsule,extended release memantine 10 mg tablet 10 mg PO BID 05/29/23 08/08/24 History ondansetron HCl 4 mg tablet 4 mg PO Q8 PRN Nausea/vomiting 05/29/23 08/08/24 History melatonin 5 mg tablet 5 mg PO HS 08/20/23 08/08/24 History quetiapine 50 mg tablet 50 mg PO BID 08/20/23 08/08/24 History metoprolol succinate 25 mg 25 mg PO QAM #30 tabs 08/22/23 08/08/24 Rx tablet,extended release 24 hr torsemide 20 mg tablet 20 mg PO DAILY #30 tabs 08/22/23 08/08/24 Rx aspirin 81 mg chewable tablet 81 mg PO DAILY #30 tabs 08/25/23 08/08/24 Rx (Children's Aspirin) Phenergan Gel 25 mg topical Q6 PRN Nausea And 11/13/23 08/08/24 History Vomiting acetaminophen 325 mg tablet 650 mg PO Q6 PRN Fever Or Pain 11/13/23 08/08/24 History acetaminophen 500 mg tablet 1,000 mg PO .DAILY IN MORNING 11/13/23 08/08/24 History (Tylenol Extra Strength) atropine sulfate (PF) 1 % eye 2 drp .EVERY HOUR PRN terminal 11/13/23 08/08/24 History drops in a dropperette secretions loperamide 2 mg tablet (Imodium 2 mg PO QID PRN Diarrhea 11/13/23 08/08/24 History A-D) morphine concentrate 100 mg/5 mL 10 mg PO .EVERY 2 HOURS PRN 11/13/23 08/08/24 History (20 mg/mL) oral solution pain/respiratory dist rate>28/min polyethylene glycol 3350 17 17 g PO DAILY 11/13/23 08/08/24 History gram/dose oral powder (Miralax) torsemide 20 mg tablet 20 mg PO .DAILY X 5 DAYS PRN wt 11/13/23 08/08/24 History gain of 3LBS in 24hrs or 5LBS in week divalproex 125 mg capsule,delayed 500 mg PO QAM 08/08/24 08/08/24 History release sprinkle divalproex 125 mg capsule,delayed See Rx Instructions .Route .COMPLEX 08/08/24 08/08/24 History release sprinkle Patient History Medical History Tricuspid regurgitation Benign neoplasm of colon Acute posthemorrhagic anemia 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 Garces Family History Mother Cancer Diabetes Stroke Social History Smoking Status: Unknown if ever smoked Second Hand Exposure: No; Do You Dip or Chew Tobacco: No; Hx Alcohol Use: No Hx Substance Use: No Preferred Language: [place] Communication Ability: Unable Communication Ability Comment: Dementia Active Directory Architect Required: No Beliefs That Will Affect Care: None marital status: Single Current Living Situation: [facility]dc Feels Safe at Home: Yes Assistive Devices: None Results & Data Vital Signs (Past 12 Hours) Vital Signs Temp Pulse Pulse Resp BP BP Pulse Ox 08/09/24 12:00 37.6 C H 101 H 18 144/84 H 98 08/09/24 09:42 74 16 08/09/24 09:36 75 17 95 08/09/24 09:31 101/51 L 08/09/24 09:31 101/51 L 08/09/24 09:12 66 18 92 08/09/24 09:03 106 H 19 08/09/24 08:42 109 H 30 H 95 08/09/24 08:30 128/91 08/09/24 08:30 128/91 08/09/24 08:30 86 18 08/09/24 08:15 92 H 21 93 08/09/24 08:01 134/86 08/09/24 07:51 85 17 95 08/09/24 07:31 133/108 H 08/09/24 07:31 133/108 H 08/09/24 07:31 133/108 H 08/09/24 07:24 100 H 19 96 08/09/24 07:20 105 H 08/09/24 07:03 108 H 23 98 08/09/24 07:02 87/67 L 08/09/24 07:02 87/67 L 08/09/24 06:54 104 H 17 98 08/09/24 06:42 98 H 24 98 08/09/24 06:33 102 H 25 H 96 08/09/24 06:32 130/111 H 08/09/24 06:32 130/111 H 08/09/24 06:27 97 H 18 99 08/09/24 06:15 89 25 H 93 08/09/24 06:01 104/67 08/09/24 06:01 104/67 08/09/24 06:01 104/67 08/09/24 06:00 89 18 97 08/09/24 05:51 95 H 27 H 96 08/09/24 05:42 102 H 16 99 08/09/24 05:37 136/116 H 08/09/24 05:37 136/116 H 08/09/24 05:30 118 H 20 92 08/09/24 05:27 131 H 21 89 L 08/09/24 05:25 91/77 L 08/09/24 05:25 91/77 L 08/09/24 05:25 37 C 109 H 15 91/77 L 94 08/09/24 05:24 100 H 23 96 08/09/24 05:03 102 H 17 97 08/09/24 04:30 102 H 21 97 08/09/24 04:24 117 H 22 93 08/09/24 04:18 144/88 H 08/09/24 04:15 96 08/09/24 04:00 108 H 23 94 08/09/24 03:57 110 H 23 92 08/09/24 03:50 94 H 20 95 08/09/24 03:33 106 H 25 H 95 08/09/24 03:21 115 H 25 H 93 08/09/24 03:00 114/88 08/09/24 03:00 114/88 08/09/24 03:00 123 H 23 93 08/09/24 02:57 111 H 23 94 08/09/24 02:42 127 H 21 93 08/09/24 02:32 112/89 08/09/24 02:32 112/89 08/09/24 02:32 112/89 08/09/24 02:30 23 97 08/09/24 02:00 109/85 08/09/24 02:00 109/85 08/09/24 02:00 117 H 29 H 94 08/09/24 01:54 134 H 19 96 08/09/24 01:45 97 H 23 96 08/09/24 01:36 128 H 22 97 08/09/24 01:30 120/89 08/09/24 01:30 120/89 08/09/24 01:30 120/89 08/09/24 01:30 37.6 C H 107 H 23 120/89 93 08/09/24 01:27 112 H 30 H 92 08/09/24 01:24 105 H 27 H 90 08/09/24 01:12 108 H 96 08/09/24 01:00 121 H 08/09/24 00:51 112 H 26 H 08/09/24 00:45 124 H 17 08/09/24 00:40 37.9 C H 106 H 23 105/59 L 92 08/09/24 00:33 127 H 31 H 08/09/24 00:24 113 H 28 H 91 O2 Del Method O2 Flow Rate 08/09/24 12:00 Nasal Cannula 2 08/09/24 09:42 08/09/24 09:36 2 08/09/24 09:31 08/09/24 09:31 08/09/24 09:12 2 08/09/24 09:03 08/09/24 08:42 2 08/09/24 08:30 08/09/24 08:30 08/09/24 08:30 08/09/24 08:15 2 08/09/24 08:01 08/09/24 07:51 2 08/09/24 07:31 08/09/24 07:31 08/09/24 07:31 08/09/24 07:24 08/09/24 07:20 08/09/24 07:03 08/09/24 07:02 08/09/24 07:02 08/09/24 06:54 2 08/09/24 06:42 2 08/09/24 06:33 2 08/09/24 06:32 08/09/24 06:32 08/09/24 06:27 2 08/09/24 06:15 2 08/09/24 06:01 08/09/24 06:01 08/09/24 06:01 08/09/24 06:00 2 08/09/24 05:51 2 08/09/24 05:42 2 08/09/24 05:37 08/09/24 05:37 08/09/24 05:30 2 08/09/24 05:27 08/09/24 05:25 08/09/24 05:25 08/09/24 05:25 08/09/24 05:24 08/09/24 05:03 08/09/24 04:30 08/09/24 04:24 08/09/24 04:18 08/09/24 04:15 08/09/24 04:00 08/09/24 03:57 08/09/24 03:50 Nasal Cannula 2 08/09/24 03:33 08/09/24 03:21 08/09/24 03:00 08/09/24 03:00 08/09/24 03:00 08/09/24 02:57 08/09/24 02:42 08/09/24 02:32 08/09/24 02:32 08/09/24 02:32 08/09/24 02:30 08/09/24 02:00 08/09/24 02:00 08/09/24 02:00 08/09/24 01:54 08/09/24 01:45 08/09/24 01:36 08/09/24 01:30 08/09/24 01:30 08/09/24 01:30 08/09/24 01:30 Nasal Cannula 2 08/09/24 01:27 08/09/24 01:24 08/09/24 01:12 08/09/24 01:00 08/09/24 00:51 08/09/24 00:45 08/09/24 00:40 Nasal Cannula 2 08/09/24 00:33 08/09/24 00:24 Laboratory Results CBC renal panel respiratory panel reviewed as well as chest x-ray
--- NOTE | 2024-08-09 13:18 | Hospitalist Progress Note ---
Date of Service August 09, 2024 Assessment & Plan (1) Influenza A: (2) Acute hypernatremia: (3) Alzheimer's dementia: (4) Chondrocalcinosis of knee: Plan Influenza A: Became hypoxic and hypotensive SpO2 68%, BP 88/62 Hypothermic 95.3; placed on a bearhugger CXR moderate right pleural effusion/atelectasis no leukocytosis, lactic acid 1.7 Negative troponin Procalcitonin negative Flu positive on bio fire Will keep n.p.o. as patient lethargic If patient passes dysphagia screen; can start Tamiflu Currently she remains lethargic Pt's son Jovi contacted, will be by with his brother for further discussion of goals of care given pt just taken off of hopsice Consider palliative care consult Acute hypernatremia: Likely secondary to decreased p.o. intake Want to be cautious with fluid rehydration due to CHF Continue D5w Nephrology consulted, appreicate recs KENNETH: Likely secondary to decreased PO intake as above creatinine 1.48; baseline 1.08-1.15 Neprhology consulted, appreciate recs Alzheimer's dementia: Chronic Fast scale all of 6 and up to 7b Uses a walker at baseline; uses a wheelchair and can ambulate well with an assist Incontinent of bowel and urine at baseline Was recently discharged from Hospice services on Friday 08/04 due to not meeting recertification Sons will be by to discuss further Goals of care conversation; discussion: Lengthy conversation with patient's son Galo at [phone] patient confirmed CODE STATUS DNR/DNI Patient has been declining over the last Consider palliative care consult Chondrocalcinosis of the knee: Chronic Was being followed as an outpatient for joint fluid removal; has recently stopped due to advanced dementia Tramadol was increased from BID--> TID 6-8 weeks ago and noticed patient became more sedentary around the same time Will order Voltaren gel and scheduled tylenol for chronic pain in this patient with dementia. HFpEF: Chronic Takes Torsemide 20 mg daily and 20 mg PRN at [facility] based on weight gain Nephrology on board- holding diuretics in setting of hypernatremia Diet: NPO DVT prophylaxis: SCDs Admission and Anticipated Discharge Date Admission Date: August 08, 2024 Subjective Pt was seen while still down in the ED. Moans but nonverbal, does not open her eyes. Son Jovi called and updated Review of Systems Review of Systems: All systems reviewed & are unremarkable except as noted in Subjective Physical Exam Physical Exam: General: unarousable Skin: No noted rashes or bruises Neuro: No gross deficits HEENT: NC/AT CV: RRR Resp: Breath sounds coarse and "wet" bilaterally Abdomen: Soft Extremities:edema in lower extremities bilaterally. Results & Data Results & Data Vital Signs (Past 12 Hours) Vital Signs Temp Pulse Pulse Resp BP BP Pulse Ox 08/09/24 12:00 37.6 C H 101 H 18 144/84 H 98 08/09/24 09:42 74 16 08/09/24 09:36 75 17 95 08/09/24 09:31 101/51 L 08/09/24 09:31 101/51 L 08/09/24 09:12 66 18 92 08/09/24 09:03 106 H 19 08/09/24 08:42 109 H 30 H 95 08/09/24 08:30 128/91 08/09/24 08:30 128/91 08/09/24 08:30 86 18 08/09/24 08:15 92 H 21 93 08/09/24 08:01 134/86 08/09/24 07:51 85 17 95 08/09/24 07:31 133/108 H 08/09/24 07:31 133/108 H 08/09/24 07:31 133/108 H 08/09/24 07:24 100 H 19 96 08/09/24 07:20 105 H 08/09/24 07:03 108 H 23 98 08/09/24 07:02 87/67 L 08/09/24 07:02 87/67 L 08/09/24 06:54 104 H 17 98 08/09/24 06:42 98 H 24 98 08/09/24 06:33 102 H 25 H 96 08/09/24 06:32 130/111 H 08/09/24 06:32 130/111 H 08/09/24 06:27 97 H 18 99 08/09/24 06:15 89 25 H 93 08/09/24 06:01 104/67 08/09/24 06:01 104/67 08/09/24 06:01 104/67 08/09/24 06:00 89 18 97 08/09/24 05:51 95 H 27 H 96 01/08/25 05:42 102 H 16 99 08/09/24 05:37 136/116 H 08/09/24 05:37 136/116 H 08/09/24 05:30 118 H 20 92 08/09/24 05:27 131 H 21 89 L 08/09/24 05:25 91/77 L 08/09/24 05:25 91/77 L 08/09/24 05:25 37 C 109 H 15 91/77 L 94 08/09/24 05:24 100 H 23 96 08/09/24 05:03 102 H 17 97 08/09/24 04:30 102 H 21 97 08/09/24 04:24 117 H 22 93 08/09/24 04:18 144/88 H 08/09/24 04:15 96 08/09/24 04:00 108 H 23 94 08/09/24 03:57 110 H 23 92 08/09/24 03:50 94 H 20 95 08/09/24 03:33 106 H 25 H 95 08/09/24 03:21 115 H 25 H 93 08/09/24 03:00 114/88 08/09/24 03:00 114/88 08/09/24 03:00 123 H 23 93 08/09/24 02:57 111 H 23 94 08/09/24 02:42 127 H 21 93 08/09/24 02:32 112/89 08/09/24 02:32 112/89 08/09/24 02:32 112/89 08/09/24 02:30 23 97 08/09/24 02:00 109/85 08/09/24 02:00 109/85 08/09/24 02:00 117 H 29 H 94 08/09/24 01:54 134 H 19 96 08/09/24 01:45 97 H 23 96 08/09/24 01:36 128 H 22 97 08/09/24 01:30 120/89 08/09/24 01:30 120/89 08/09/24 01:30 120/89 08/09/24 01:30 37.6 C H 107 H 23 120/89 93 08/09/24 01:27 112 H 30 H 92 08/09/24 01:24 105 H 27 H 90 O2 Del Method O2 Flow Rate 08/09/24 12:00 Nasal Cannula 2 08/09/24 09:42 08/09/24 09:36 2 08/09/24 09:31 08/09/24 09:31 08/09/24 09:12 2 08/09/24 09:03 08/09/24 08:42 2 08/09/24 08:30 08/09/24 08:30 08/09/24 08:30 08/09/24 08:15 2 08/09/24 08:01 08/09/24 07:51 2 08/09/24 07:31 08/09/24 07:31 08/09/24 07:31 08/09/24 07:24 08/09/24 07:20 08/09/24 07:03 08/09/24 07:02 08/09/24 07:02 08/09/24 06:54 2 08/09/24 06:42 2 08/09/24 06:33 2 08/09/24 06:32 08/09/24 06:32 08/09/24 06:27 2 08/09/24 06:15 2 08/09/24 06:01 08/09/24 06:01 08/09/24 06:01 08/09/24 06:00 2 08/09/24 05:51 2 08/09/24 05:42 2 08/09/24 05:37 08/09/24 05:37 08/09/24 05:30 2 08/09/24 05:27 08/09/24 05:25 08/09/24 05:25 08/09/24 05:25 08/09/24 05:24 08/09/24 05:03 08/09/24 04:30 08/09/24 04:24 08/09/24 04:18 08/09/24 04:15 08/09/24 04:00 08/09/24 03:57 08/09/24 03:50 Nasal Cannula 2 08/09/24 03:33 08/09/24 03:21 08/09/24 03:00 08/09/24 03:00 08/09/24 03:00 08/09/24 02:57 08/09/24 02:42 08/09/24 02:32 08/09/24 02:32 08/09/24 02:32 08/09/24 02:30 08/09/24 02:00 08/09/24 02:00 08/09/24 02:00 08/09/24 01:54 08/09/24 01:45 08/09/24 01:36 08/09/24 01:30 08/09/24 01:30 08/09/24 01:30 08/09/24 01:30 Nasal Cannula 2 08/09/24 01:27 08/09/24 01:24
[2024-08-09] MEDS: METOPROLOL TARTRATE 1 MG/ML VIAL IV STA (23:54)
[2024-08-10 06:18] LABS: Albumin Level 3.1 gm/dl (3.4-5.0); BUN Creatinine Ratio 21.4 (10-20); Bilirubin,Total 0.7 mg/dl (0.2-1.0); Calcium 8.8 mg/dl (8.6-10.3); Creatinine Clr Calc Pharmacy 33.1 ml/min; Phosphorus 2.4 mg/dl (2.5-4.9); Potassium 3.6 mmol/L (3.5-5.1); Total Protein 6.1 gm/dl (6.0-8.3)
[2024-08-10 06:50] LABS: Hematocrit (blood only) 33.2 % (37.0-47.0); Hemoglobin 10.6 g/dl (12.0-16.0); Mean Corpuscular Hemoglobin 32.1 pg (25.0-34.0); Mean Corpuscular Hgb Conc 31.9 g/dL (32.0-36.0); Mean Corpuscular Volume 100.6 fL (80.0-100.0); Mean Platelet Volume 11.1 fL (9.4-12.4); Platelet Count 83 K/uL (130-400); RDW Coefficient of Variation 15.9 % (11.5-14.5); RDW Standard Deviation 58.8 fL (36.4-46.3); White Blood Count 8.12 K/ul (4.8-10.8)
[2024-08-10 06:51] LABS: Basophils # (auto) 0.01 K/uL (0.00-0.20); Basophils % (auto) 0.1 %; Immature Granulocytes % (auto) 1.2 %; Lymphocytes # (auto) 0.38 K/uL (1.20-3.40); Lymphocytes % (auto) 4.7 %; Monocytes # (auto) 0.51 K/uL (0.11-0.59); Monocytes % (auto) 6.3 %; Neutrophils # (auto) 7.12 K/uL (1.40-6.50); Neutrophils % (auto) 87.7 %; Platelet Estimate Decreased (Normal); Polychromasia 1+
[2024-08-10] MEDS ORDERED: POTASSIUM PHOS 3 MMOL/1 ML INFUSION IV STA (08:24)
[2024-08-10] MEDS: POTASSIUM PHOSPHATE 15 MMOL in SODIUM CHLORIDE 0.9% 250 ML IV ONE (08:57)
--- NOTE | 2024-08-10 10:56 | Nephrology Progress Note ---
Date of Service August 10, 2024 Assessment & Plan Admission and Anticipated Discharge Date Admission Date: August 08, 2024 Subjective Assessment & Plan (1) Acute hypernatremia: acute hypernatremia with a serum sodium of 151 in a patient who is very susceptible for this as she has advanced dementia. she also had associated prerenal type acute kidney injury with a creatinine of 1.5 up from her baseline of less than 1. Renal function is getting better and creatinine is down to 1.3. Na is better at 149. She has not received enough free water she is not in a position to drink water at this time as she is totally unresponsive so given this we will continue D5 water at 100 mL/hour till Na normal and then would need some for maintenance also. stop torsemide forever. check renal panel once daily however patient's clinical condition appears to be very advanced with features of terminal dementia including hypernatremia. this is by definition 1 of the Hallmark feature of terminal dementia. strongly consider Palliative Medicine consult for hospice care. (2) Influenza A: current trigger for acute decline causing hypoxia and hypotension. She is g etting appropriate treatment with antivirals. Oxygen saturation is much better now at 98% on 2 L nasal cannula S--No new issues. Vital signs stable. on o2 3 liters. review of systems not possible to obtain as patient is unresponsive with eyes closed. Did not respond on calling her name nor with gentle sternal rub physical examination elderly white female who is completely unresponsive and did not respond on calling her name nor with gentle sternal rub eyes closed mucous membrane is moist neck is supple no JVD chest bilateral diminished breath sound poor inspiratory effort occasional basal crackles CVS S1 and S2 regular tachycardic soft systolic murmur abdomen is soft nontender extremities shows trace edema Results & Data Vital Signs (Past 12 Hours) Vital Signs Temp Pulse Pulse Resp BP BP Pulse Ox 08/10/24 08:17 37.3 C 102 H 20 116/47 L 98 08/10/24 07:35 08/10/24 07:04 59 L 08/10/24 04:03 37.9 C H 104 H 20 137/90 93 08/10/24 00:09 94 H 132/65 08/09/24 23:54 121 H 132/65 08/09/24 23:53 36.8 C 121 H 18 132/65 98 O2 Del Method O2 Flow Rate 08/10/24 08:17 Nasal Cannula 3 08/10/24 07:35 Nasal Cannula 2 08/10/24 07:04 08/10/24 04:03 Nasal Cannula 2 08/10/24 00:09 08/09/24 23:54 08/09/24 23:53 Nasal Cannula 2.5
--- NOTE | 2024-08-10 13:18 | Hospitalist Progress Note ---
Date of Service August 10, 2024 Assessment & Plan (1) Influenza A: (2) Acute hypernatremia: (3) Alzheimer's dementia: (4) Chondrocalcinosis of knee: Plan Ms Soares is an 78yoF with PMHx significant for CHF, advanced dementia, hypothyroidism, HTN who is currently admitted with AMS and respiratory failure in the setting of an acute influenza infection. Reportedly pt was just taken off of hospice services a few days before admission. Acute hypoxic respiratory failure Influenza A: Became hypoxic and hypotensive SpO2 68%, BP 88/62 Hypothermic 95.3; placed on a bearhugger CXR moderate right pleural effusion/atelectasis no leukocytosis, lactic acid 1.7 Negative troponin Procalcitonin negative Flu positive on bio fire Will keep n.p.o. as patient lethargic If patient passes dysphagia screen; can start Tamiflu Currently she remains lethargic patient's sons agreeable to palliative care consult palliative care consulted, appreciate further recs Acute hypernatremia: Likely secondary to decreased p.o. intake Want to be cautious with fluid rehydration due to CHF Continue D5w Nephrology consulted, appreciate recs. Recommended/stated the following: "stop torsemide forever. check renal panel once daily however patient's clinical condition appears to be very advanced with features of terminal dementia including hypernatremia. this is by definition 1 of the Hallmark feature of terminal dementia. strongly consider Palliative Medicine consult for hospice care." KENNETH: Likely secondary to decreased PO intake as above creatinine 1.48; baseline 1.08-1.15 Neprhology consulted, appreciate recs Alzheimer's dementia: Chronic Fast scale all of 6 and up to 7b Uses a walker at baseline; uses a wheelchair and can ambulate well with an assist Incontinent of bowel and urine at baseline Was recently discharged from Hospice services on Friday 08/04 due to not meeting recertification Sons will be by to discuss further Goals of care conversation; discussion: Lengthy conversation with patient's son Galo at [phone] patient confirmed CODE STATUS DNR/DNI Patient has been declining over the last Consider palliative care consult Chondrocalcinosis of the knee: Chronic Was being followed as an outpatient for joint fluid removal; has recently stopped due to advanced dementia Tramadol was increased from BID--> TID 6-8 weeks ago and noticed patient became more sedentary around the same time Will order Voltaren gel and scheduled tylenol for chronic pain in this patient with dementia. HFpEF: Chronic Takes Torsemide 20 mg daily and 20 mg PRN at [facility] based on weight gain Nephrology on board- holding diuretics in setting of hypernatremia Diet:minced and moist per speech DVT prophylaxis: SCDs Admission and Anticipated Discharge Date Admission Date: August 08, 2024 Subjective patient was seen in the AM. More alert today but still nonverbal Per son Galo who was called and updated, she is typically verbal and able to eat on her own. Send is agreeable to palliative care evaluation and further discussion of goals of care They do note that she recently came off of hospice services Review of Systems Review of Systems: All systems reviewed & are unremarkable except as noted in Subjective Physical Exam Physical Exam: General: alert, nonverbal Skin: No noted rashes or bruises HEENT: NC/AT CV: RRR Resp: Breath sounds coarse and "wet" bilaterally Abdomen: Soft Extremities:edema in lower extremities bilaterally. Results & Data Results & Data Vital Signs (Past 12 Hours) Vital Signs Temp Pulse Pulse Resp BP Pulse Ox O2 Del Method 08/10/24 11:20 37.3 C 100 H 20 122/65 92 Nasal Cannula 08/10/24 08:17 37.3 C 102 H 20 116/47 L 98 Nasal Cannula 08/10/24 07:35 Nasal Cannula 08/10/24 07:04 59 L 08/10/24 04:03 37.9 C H 104 H 20 137/90 93 Nasal Cannula O2 Flow Rate 08/10/24 11:20 3 08/10/24 08:17 3 08/10/24 07:35 2 08/10/24 07:04 08/10/24 04:03 2 Diagnostic Findings Chest X-Ray 08/08/24 12:07 XR chest 1V portable CLINICAL HISTORY: confusion; lethargy TECHNIQUE: Single frontal radiograph of the chest was obtained. Comparison: Comparison is made to chest radiograph 11/13/2023 FINDINGS: No lines and tubes are seen. Calcified aortic knob is seen. Right lower lung airspace opacities are seen. Moderate pleural effusion is again seen. IMPRESSION: Moderate right pleural effusion with underlying airspace opacities likely representing atelectasis. These are unchanged from prior exam. ACT 112: Negative or not required by law. Electronically signed by: Dequan Scott M.D. 08/08/2024 12:[address] 08/08/24 12:25 CT head/brain wo con CLINICAL HISTORY: 78 years-old Female with weakness. Acute weakness TECHNIQUE: Multiple axial CT images of the head were obtained without contrast. A dose lowering technique was utilized adhering to the principles of ALARA. CT DOSE: 1250.21 mGy.cm COMPARISON: 11/13/2023 FINDINGS: No acute intracranial hemorrhage, midline shift, intracranial mass, hydrocephalus, territorial ischemia or abnormal extra-axial collection. Involutional changes with ex vacuo ventriculomegaly redemonstrated. White matter hypodensities suggestive of chronic microvascular ischemic disease. Coarse calcifications of the falx cerebri. The calvarium is intact. Bilateral lens repair. Mastoid air cells are clear. Mild mucosal thickening of the nasal turbinates, ethmoid air cells and left maxillary sinus. IMPRESSION: No acute intracranial abnormality. ACT 112: Negative or not required by law. The above report was generated using voice recognition software. It may contain grammatical, syntax or spelling errors. Electronically signed by: Diego De La Cruz M.D. 08/08/2024 12:58 PM
[2024-08-10] MEDS: DEXTROSE 5% 500 ML IV SCH (18:11)
[2024-08-11 06:09] LABS: Basophils # (auto) 0.02 K/uL (0.00-0.20); Basophils % (auto) 0.3 %; Eosinophils # (auto) 0.01 K/uL (0.00-0.50); Eosinophils % (auto) 0.1 %; Hematocrit (blood only) 32.5 % (37.0-47.0); Hemoglobin 10.1 g/dl (12.0-16.0); Immature Granulocytes # (auto) 0.13 K/uL (0.01-0.20); Immature Granulocytes % (auto) 1.8 %; Lymphocytes # (auto) 0.71 K/uL (1.20-3.40); Mean Corpuscular Hemoglobin 31.5 pg (25.0-34.0); Mean Corpuscular Hgb Conc 31.1 g/dL (32.0-36.0); Mean Corpuscular Volume 101.2 fL (80.0-100.0); Mean Platelet Volume 10.2 fL (9.4-12.4); Monocytes # (auto) 0.47 K/uL (0.11-0.59); Monocytes % (auto) 6.6 %; Neutrophils # (auto) 5.78 K/uL (1.40-6.50); Neutrophils % (auto) 81.2 %; Platelet Count 76 K/uL (130-400); RDW Coefficient of Variation 15.8 % (11.5-14.5); RDW Standard Deviation 59.6 fL (36.4-46.3); Red Blood Count 3.21 M/uL (4.20-5.40); White Blood Count 7.12 K/ul (4.8-10.8)
[2024-08-11 06:22] LABS: Albumin Level 3.1 gm/dl (3.4-5.0); BUN Creatinine Ratio 25.3 (10-20); Bilirubin,Total 0.8 mg/dl (0.2-1.0); Calcium 8.6 mg/dl (8.6-10.3); Creatinine Clr Calc Pharmacy 40.8 ml/min; Globulin 3.1 gm/dl (2.5-4.0); Phosphorus 2.7 mg/dl (2.5-4.9); Potassium 3.5 mmol/L (3.5-5.1); Total Protein 6.2 gm/dl (6.0-8.3)
--- NOTE | 2024-08-11 09:58 | CT Scan Report ---
CT OF THE CHEST WITHOUT IV CONTRAST CLINICAL HISTORY: hypoxic resp failure, rule out fluid vs. pneumonia COMPARISON STUDY: Chest CT August 22, 2023. Chest radiograph August 08, 2024. CT DOSE: 471.67 mGy.cm TECHNIQUE: Axial images of the chest were obtained without IV contrast. Images were reviewed in the axial, sagittal, and coronal planes. IV contrast was not administered for this examination. Automat ed exposure control was utilized for the study. A dose lowering technique was utilized adhering to t he principles of ALARA. FINDINGS: A low-attenuation anterior mediastinal density is similar to prior exam. This is likely be nign. The heart is moderately enlarged. There is no pericardial effusion. There is a prominent lower right paratracheal lymph node. This is likely benign. There is no pneumothorax. A moderate right pleu ral effusion is present. Associated right lower lobe airspace opacity favors segmental atelectasis. A dditional left pleural effusion. A 5.3 cm focus of dense consolidation within the left lower lobe is present. Ground glass and tree-in-bud nodules within the left lower lobe are also present. There is m ild groundglass opacity within the right middle lobe. No central obstructing mass is present. There a re no fractures or suspicious lesions within the bony thorax. Visualized portions of the upper abdome n are unremarkable on unenhanced exam. IMPRESSION: 1. Moderate size right pleural effusion. Associated right lower lobe airspace opacity favors compress gus atelectasis. 2. 5.3 cm focus of dense consolidation within the left lower lobe with adjacent airspace opacity. Thi s is suggestive of pneumonia or aspiration pneumonitis. Follow-up chest CT in 2 months to ensure reso lution is recommended. 3. Moderate cardiomegaly. 4. Low-attenuation anterior mediastinal density which is similar to prior CT. Although indeterminate, this is probably benign and can be assessed on follow-up chest CT. ACT 112: Positive. There are findings on this exam that require communication between the performing entity and the patient following Patient Test Result Information Act ([place] Act 112) guidelines. Electronically signed by: Girma Calderon M.D. 08/11/2024 9:55 AM
--- NOTE | 2024-08-11 10:22 | Nephrology Progress Note ---
Date of Service August 11, 2024 Assessment & Plan Admission and Anticipated Discharge Date Admission Date: August 08, 2024 Subjective Assessment & Plan (1) Acute hypernatremia: acute hypernatremia with a serum sodium of 151 in a patient who is very susceptible for this as she has advanced dementia. she also had associated prerenal type acute kidney injury with a creatinine of 1.5 up from her baseline of less than 1. Renal function is getting better and creatinine is down to 1.3. Na is better at 149. She has not received enough free water she is not in a position to drink water at this time as she is totally unresponsive so given this we will continue D5 water at 100 mL/hour till Na normal and then would need some for maintenance also. stop torsemide forever. check renal panel once daily however patient's clinical condition appears to be very advanced with features of terminal dementia including hypernatremia. this is by definition 1 of the Hallmark feature of terminal dementia. strongly consider Palliative Medicine consult for hospice care. hypernatremia is free water deficit--would recommend some IVF--d5w at 80ml/hr if felt appropriate by primary team. hard to examine lungs--Por effort and Some basal crackles could be Atelectasis/Aspiration/CHF. Will sign off. Call if any change in plan. (2) Influenza A: current trigger for acute decline causing hypoxia and hypotension. She is getting appropriate treatment with antivirals. Oxygen saturation is much better now at 98% on 2 L nasal cannula S--No new issues. Slightly more alert today. Vital signs stable. on o2 3 liters. review of systems not possible to obtain as patient is unresponsive with eyes closed. Did not respond on calling her name nor with gentle sternal rub physical examination elderly white female who is completely unresponsive and did not respond on calling her name nor with gentle sternal rub eyes closed mucous membrane is moist neck is supple no JVD chest bilateral diminished breath sound poor inspiratory effort occasional basal crackles CVS S1 and S2 regular tachycardic soft systolic murmur abdomen is soft nontender extremities shows trace edema Results & Data Vital Signs (Past 12 Hours) Vital Signs Temp Pulse Pulse Resp BP BP Pulse Ox 08/11/24 07:43 36.9 C 93 H 18 136/68 95 08/11/24 07:22 08/11/24 07:11 106 H 08/11/24 04:45 36.9 C 99 H 20 138/78 94 08/11/24 00:33 36.9 C 84 20 125/81 97 08/10/24 23:00 98 H O2 Del Method O2 Flow Rate 08/11/24 07:43 Nasal Cannula 4 08/11/24 07:22 Nasal Cannula 4 08/11/24 07:11 08/11/24 04:45 Nasal Cannula 4 08/11/24 00:33 Nasal Cannula 4 08/10/24 23:00
--- NOTE | 2024-08-11 11:32 | Palliative Care Consultation ---
Date of Consultation August 11, 2024 Assessment & Plan (1) Palliative care by specialist: (2) Counseling regarding goals of care: Plan Pt does require a proxy for medical decisions. Patient has exhibited current lack of decisional capacity based on the inability to convey understanding of personal PMHx, current medical condition, treatment options nor the risks / benefits of those options, and lack of ability to make decisions based on such knowledge. Hospital does not have written documentation of patient wishes concerning his chosen proxy for medical decisions. Per PA [id number], in absence of written documentation of patient wishes, pt's proxy for medical decisions would be her two adult sons. Spoke with pt's sons on phone, They expressed that the pt had been on hospice care at SNF until just this last week when the hospice team deemed that she had improved and no longer is eligible for hospice level care. They shared that initially pt been enrolled with hospice due to her CHF exacerbation but with some diet modification and diuresis her health has improved and hospice services were no longer an option at SNF. We discussed the pt's advanced dementia. Neither son had a good understanding of dementia so we spent a substantial amount of time discussing the progressively debilitating nature of dementia. Explained that dementia is incurable and irreversible, and can include progressive/worsening memory loss, confusion, language difficulties/lack of comprehension skills/loss of verbal skills eventually, mood changes, impaired judgment, trouble with motor skills/coordination/balance issues, visual and spatial problems, hallucinations, and personality changes. The rate of progression in mixed dementia can vary widely from person to person. Factors such as the types of dementia involved, overall health, and genetics can influence the speed of progression. Some individuals experience a more gradual decline, while others may progress more rapidly through the stages. We discussed and differentiated dementia from delirium and helped family understand that they can co-exist. I reviewed Dementia is a terminal illness. Aggressive medical treatment for patients with advanced dementia is often inappropriate for medical reasons, has a low rate of success, and can have negative outcomes that hasten functional decline and . ([place] [employer] Ethics Committee and Clinical Practice and Models of Care Committee. J Am Geriatr Soc. 2014 Mar;62(8):1590-3 and Max SL, Janis JM, Mckay SC, Syed V. A national study of the location of for older persons with dementia. J Am Geriatr Soc 2005; 53(2):299-305.). Helped them understand differences between dementia and delirium. Discussed typical progression of dementia and how it may be staged. Stage 1: Normal Functioning: In the early stage, individuals show no signs of dementia, and their cognitive function is normal Stage 2: Very Mild Cognitive Decline: Minor memory lapses and forgetfulness may occur but are often attributed to normal aging Stage 3: Mild Cognitive Decline: Early signs of dementia become more noticeable, such as memory problems and difficulty finding words Stage 4: Moderate Cognitive Decline: Memory loss becomes more pronounced, and individuals may struggle with tasks like managing finances and planning Stage 5: Moderately Severe Cognitive Decline: Daily functioning becomes challenging, and individuals may require assistance with tasks like dressing and bathing Stage 6: Severe Cognitive Decline: In this stage, individuals need substantial help with daily activities, and communication becomes increasingly difficult Stage 7: Very Severe Cognitive Decline: In the final stage, individuals may lose the ability to communicate, walk, and perform basic tasks. They require [id number] care. Older adults with dementia frequently receive acute care in their last year of life although Hospice care was more common for home/[facility] residents. Overall time in hospice remains short due to the underutilization of the hospice benefit for terminal dementia (Shelly MM, Juana JM, Braxotn KM, Vito DE, Nasim PY. Dementia Care in the Last Year of Life: Experiences in a Community Practice and in Correction Facilities. J Palliat Care. 2022;38(2):135-142. doi:10.1177/[id number]) Home Hospice is a valuable option for terminal dementia who desire to have peaceful EOL at home. Home hospice care for advanced dementia can improve symptom management and caregiver satisfaction, while d ecreasing caregiver burden, preventing hospitalizations and discontinuing unnecessary medication (Janis MARTIN, Leon R, Noman G, et al. Home hospice for older people with advanced dementia: a police pilot project [published correction appears in Isr J Health Policy Res. 2019 Jan 30;8(1):56]. Isr J Health Policy Res. 2019;8(1):42. Published 2018December 05. doi:10.1186/s91061-273-4420-k). We discussed that at this point pt has difficulty speaking and is increasingly confused, but currently eating wihtout assistance and needing minor assistance withother ADLs. Sons shared that as pt's dementia progresses They may again request hospice services, but at this time they wish to continue current level of care. We will sign off on this patient as goals of care are clearly established for DNR/DNI but continue all other life prolonging therapies. Pt has no other active palliative needs. Thank you for including Palliative Care in the management of this patient. Please call with any questions or concerns regarding this consultation. History of Present Illness Reason for Consultation: goals of care Requesting Physician: Marissa Jackson MD Attending Physician: Marissa Jackson MD History of Present Illness Ms. Soares is an 78-year-old female with PMHx of CHF, advanced dementia, hypothyroidism, HTN. who presented to ED from [facility] after staff found her hypoxic SpO2 68%, hypotensive BP 88/62, hypothermic 95.3 and confused. Chest x-ray reveals moderate right pleural effusions and atelectasis. Head CT was negative in ED. Reportedly she was under hospice services up until Friday 08/04 due to not meeting hospice recertification criteria. Patient was admitted for medical management of influenza A, KENNETH and acute hypernatremia. Per ED notes, family overarching goal is to return to [facility] with hospice services but given tht she currently does not meet criteria for hospice care, they would like to see how patient does with PT/OT to determine if patient requires more skilled support prior to return to [facility]. Palliative care was consulted to assist with clarification of these goals. Allergies Allergy/AdvReac Type Severity Reaction Status Date / Time bee venom protein (honey bee) Allergy Severe ANAPHYLAXIS Verified 11/13/23 20:42 Iodinated Contrast Media Allergy Severe Anaphylaxis Verified 11/13/23 20:42 iodine Allergy Severe Anaphylaxis Verified 11/13/23 20:42 latex Allergy Severe itchy, Verified 11/13/23 20:42 shortness of breath Penicillins Allergy Severe Anaphylaxis Verified 11/13/23 20:44 povidone-iodine Allergy Severe Anaphylaxis Verified 11/13/23 20:42 tuna oil Allergy Severe HIVES AND Verified 11/13/23 20:42 ANAPHYLAXIS bisacodyl Allergy Intermediate Hives Verified 11/13/23 20:42 codeine Allergy Intermediate GI SYMPTOMS Verified 11/13/23 20:42 ephedrine Allergy Intermediate RASH Verified 08/20/23 15:06 cat dander Allergy short of Verified 11/13/23 20:44 breath Sulfa (Sulfonamide Allergy Unknown Verified 11/13/23 20:43 Antibiotics) ENVIRONMENTAL Allergy Severe SHORTNESS Uncoded 08/20/23 15:06 OF BREATH ACRYLIC CEMENT OR BONDING Allergy Intermediate EDEMA Uncoded 08/20/23 15:06 FACE/LIPS/TONGUE JEWELRY Allergy Intermediate BLISTERS Uncoded 08/20/23 15:06 WITH "CHEAP JEWELRY" Home Medications Medication Instructions Recorded Confirmed Type epinephrine 0.3 mg/0.3 mL 0.3 mg IM DIRECTED PRN Allergic 09/12/18 08/08/24 History injection, auto-injector (EpiPen) Reaction levothyroxine 50 mcg tablet 50 mcg PO QAM 02/26/21 08/08/24 History donepezil 10 mg tablet 10 mg PO QAM 02/26/22 08/08/24 History potassium chloride 10 mEq 20 meq PO QAM 09/22/22 08/08/24 History capsule,extended release memantine 10 mg tablet 10 mg PO BID 05/29/23 08/08/24 History ondansetron HCl 4 mg tablet 4 mg PO Q8 PRN Nausea/vomiting 05/29/23 08/08/24 History melatonin 5 mg tablet 5 mg PO HS 08/20/23 08/08/24 History quetiapine 50 mg tablet 50 mg PO BID 08/20/23 08/08/24 History metoprolol succinate 25 mg 25 mg PO QAM #30 tabs 08/22/23 08/08/24 Rx tablet,extended release 24 hr torsemide 20 mg tablet 20 mg PO DAILY #30 tabs 08/22/23 08/08/24 Rx aspirin 81 mg chewable tablet 81 mg PO DAILY #30 tabs 08/25/23 08/08/24 Rx (Children's Aspirin) Phenergan Gel 25 mg topical Q6 PRN Nausea And 11/13/23 08/08/24 History Vomiting acetaminophen 325 mg tablet 650 mg PO Q6 PRN Fever Or Pain 11/13/23 08/08/24 History acetaminophen 500 mg tablet 1,000 mg PO .DAILY IN MORNING 11/13/23 08/08/24 History (Tylenol Extra Strength) atropine sulfate (PF) 1 % eye 2 drp .EVERY HOUR PRN terminal 11/13/23 08/08/24 History drops in a dropperette secretions loperamide 2 mg tablet (Imodium 2 mg PO QID PRN Diarrhea 11/13/23 08/08/24 History A-D) morphine concentrate 100 mg/5 mL 10 mg PO .EVERY 2 HOURS PRN 11/13/23 08/08/24 History (20 mg/mL) oral solution pain/respiratory dist rate>28/min polyethylene glycol 3350 17 17 g PO DAILY 11/13/23 08/08/24 History gram/dose oral powder (Miralax) torsemide 20 mg tablet 20 mg PO .DAILY X 5 DAYS PRN wt 11/13/23 08/08/24 History gain of 3LBS in 24hrs or 5LBS in week divalproex 125 mg capsule,delayed 500 mg PO QAM 08/08/24 08/08/24 History release sprinkle divalproex 125 mg capsule,delayed See Rx Instructions .Route .COMPLEX 08/08/24 08/08/24 History release sprinkle Patient History Medical History Tricuspid regurgitation Benign neoplasm of colon Acute posthemorrhagic anemia Lymph node cancer pt states lymph nodes removed from right breast/axillia Surgical History [place]ary [place]oplasty [place] [facility] [place] [place]x of breast biopsy 04/22/09 Dr. Garces Family History Mother Cancer Diabetes Stroke Social History Smoking Status: Unknown if ever smoked Second Hand Exposure: No; Do You Dip or Chew Tobacco: No; Hx Alcohol Use: No Hx Substance Use: No Preferred Language: Angolan Communication Ability: Impaired Communication Ability Comment: Dementia Toll Mechanic Required: No Beliefs That Will Affect Care: None marital status: Single Current Living Situation: Longterm Feels Safe at Home: Yes Assistive Devices: Wheelchair Review of Systems Review of Systems: Unobtainable due to cognitive status Physical Exam Physical Exam: General: alert, confused (at baseline) Skin: No noted rashes or bruises HEENT: NC/AT CV: RRR Resp: Breath sounds coarse and "wet" bilaterally Abdomen: Soft Extremities:edema in lower extremities bilaterally. Results & Data Vital Signs (Past 12 Hours) Vital Signs Temp Pulse Pulse Resp BP BP Pulse Ox 08/11/24 07:43 36.9 C 93 H 18 136/68 95 08/11/24 07:22 08/11/24 07:11 106 H 08/11/24 04:45 36.9 C 99 H 20 138/78 94 08/11/24 00:33 36.9 C 84 20 125/81 97 O2 Del Method O2 Flow Rate 08/11/24 07:43 Nasal Cannula 4 08/11/24 07:22 Nasal Cannula 4 08/11/24 07:11 08/11/24 04:45 Nasal Cannula 4 08/11/24 00:33 Nasal Cannula 4 Laboratory Results Abnormal lab results 08/11/24 Range/Units 05:20 RBC 3.21 L (4.20-5.40) M/uL Hgb 10.1 L (12.0-16.0) g/dl Hct 32.5 L (37.0-47.0) % MCV 101.2 H (80.0-100.0) fL MCHC 31.1 L (32.0-36.0) g/dL RDW Std Deviation 59.6 H (36.4-46.3) fL RDW Coeff of Angel 15.8 H (11.5-14.5) % Plt Count 76 L (130-400) K/uL Lymph # (Auto) 0.71 L (1.20-3.40) K/uL Sodium 150 H (136-145) mmol/L Chloride 112 H (98-107) mmol/L BUN 24 H (6-23) mg/dl BUN/Creatinine Ratio 25.3 H (10-20) AST 44 H (13-39) U/L Alkaline Phosphatase 128 H (34-104) U/L Albumin 3.1 L (3.4-5.0) gm/dl Diagnostic Findings Chest X-Ray 08/08/24 12:07 XR chest 1V portable CLINICAL HISTORY: confusion; lethargy TECHNIQUE: Single frontal radiograph of the chest was obtained. Comparison: Comparison is made to chest radiograph 11/13/2023 FINDINGS: No lines and tubes are seen. Calcified aortic knob is seen. Right lower lung airspace opacities are seen. Moderate pleural effusion is again seen. IMPRESSION: Moderate right pleural effusion with underlying airspace opacities likely representing atelectasis. These are unchanged from prior exam. ACT 112: Negative or not required by law. Electronically signed by: Dequan Scott M.D. 08/08/2024 12:[address] 08/08/24 12:25 CT head/brain wo con CLINICAL HISTORY: 78 years-old Female with weakness. Acute weakness TECHNIQUE: Multiple axial CT images of the head were obtained without contrast. A dose lowering technique was utilized adhering to the principles of ALARA. CT DOSE: 1250.21 mGy.cm COMPARISON: 11/13/2023 FINDINGS: No acute intracranial hemorrhage, midline shift, intracranial mass, hydrocephalus, territorial ischemia or abnormal extra-axial collection. Involutional changes with ex vacuo ventriculomegaly redemonstrated. White matter hypodensities suggestive of chronic microvascular ischemic disease. Coarse calcifications of the falx cerebri. The calvarium is intact. Bilateral lens repair. Mastoid air cells are clear. Mild mucosal thickening of the nasal turbinates, ethmoid air cells and left maxillary sinus. IMPRESSION: No acute intracranial abnormality. ACT 112: Negative or not required by law. The above report was generated using voice recognition software. It may contain grammatical, syntax or spelling errors. Electronically signed by: Diego De La Cruz M.D. 08/08/2024 12:[address] 08/11/24 08:17 CT OF THE CHEST WITHOUT IV CONTRAST CLINICAL HISTORY: hypoxic resp failure, rule out fluid vs. pneumonia COMPARISON STUDY: Chest CT August 22, 2023. Chest radiograph August 08, 2024. CT DOSE: 471.67 mGy.cm TECHNIQUE: Axial images of the chest were obtained without IV contrast. Images were reviewed in the axial, sagittal, and coronal planes. IV contrast was not administered for this examination. Automated exposure control was utilized for the study. A dose lowering technique was utilized adhering to the principles of ALARA. FINDINGS: A low-attenuation anterior mediastinal density is similar to prior exam. This is likely benign. The heart is moderately enlarged. There is no pericardial effusion. There is a prominent lower right paratracheal lymph node. This is likely benign. There is no pneumothorax. A moderate right pleural effusion is present. Associated right lower lobe airspace opacity favors segmental atelectasis. Additional left pleural effusion. A 5.3 cm focus of dense consolidation within the left lower lobe is present. Ground glass and tree-in-bud nodules within the left lower lobe are also present. There is mild groundglass opacity within the right middle lobe. No central obstructing mass is present. There are no fractures or suspicious lesions within the bony thorax. Visualized portions of the upper abdomen are unremarkable on unenhanced exam. IMPRESSION: 1. Moderate size right pleural effusion. Associated right lower lobe airspace opacity favors compressive atelectasis. 2. 5.3 cm focus of dense consolidation within the left lower lobe with adjacent airspace opacity. This is suggestive of pneumonia or aspiration pneumonitis. Follow-up chest CT in 2 months to ensure resolution is recommended. 3. Moderate cardiomegaly. 4. Low-attenuation anterior mediastinal density which is similar to prior CT. Although indeterminate, this is probably benign and can be assessed on follow-up chest CT. ACT 112: Positive. There are findings on this exam that require communication between the performing entity and the patient following Patient Test Result Information Act ([place] Act 112) guidelines. Electronically signed by: Girma Calderon M.D. 08/11/2024 9:55 AM Medications Administered Current Inpatient Medications Acetaminophen (Acetaminophen 325 Mg Tab) 650 mg PO Q4H PRN PRN Reason: Pain or Fever Stop: 09/07/24 16:03 Al Hydrox/Mg Hydrox/Simethicone (Aluminum/Magnesium Susp 30 Ml Udc) 15 ml PO Q4H PRN PRN Reason: Dyspepsia Stop: 09/07/24 16:03 Aspirin (Aspirin 81 Mg Chew) 81 mg PO DAILY [facility] Stop: 09/08/24 08:59 Last Admin: 08/11/24 07:30 Dose: Not Given Diclofenac Sodium (Diclofenac Sod 1% Gel 100 Gm Tube) 2 gm EXT BID CALEB; Protocol Stop: 09/07/24 20:59 Last Admin: 08/11/24 19:52 Dose: 2 gm Acetaminophen (Ofirmev) 1,000 mg in 100 mls @ 400 mls/hr IV Q8H PRN PRN Reason: Pain or Fever Stop: 08/11/24 23:45 Last Infusion: 08/10/24 15:52 Dose: Infused Dextrose (D5w) 500 mls @ 80 mls/hr IV .Q6H15M [facility] Stop: 08/12/24 03:29 Last Admin: 08/11/24 21:30 Dose: 80 mls/hr Levalbuterol HCl (Levalbuterol 1.25 Mg/3 Ml Neb) 1.25 mg NEB Q4H PRN PRN Reason: Shortness Of Breath Or Wheezing Stop: 09/08/24 05:08 Levothyroxine Sodium (Levothyroxine Sodium 50 Mcg Tablet) 50 mcg PO DAILYBB [facility] Stop: 09/08/24 06:29 Last Admin: 08/11/24 05:38 Dose: Not Given Magnesium Hydroxide (Magnesium Hydroxide Susp 30 Ml Udc) 30 ml PO Q12H PRN PRN Reason: Constipation Stop: 09/07/24 16:03 Metoprolol Succinate (Metoprolol Succ 25mg Ext Rel Tab) 25 mg PO QAM [facility] Stop: 09/08/24 08:59 Last Admin: 08/11/24 07:30 Dose: Not Given Ondansetron HCl (Ondansetron Inj 2 Mg/Ml 2 Ml Vial) 4 mg IV Q6H PRN PRN Reason: Nausea Stop: 09/07/24 16:03 Oseltamivir Phosphate (Oseltamivir Phosphate Susp 30 Mg/5 Ml Udp) 30 mg PO BID [facility]; Protocol Stop: 08/14/24 08:59 Last Admin: 08/11/24 19:55 Dose: Not Given Polyethylene Glycol (Polyethylene (Miralax) 17 Gm Pack) 17 gm PO DAILY PRN PRN Reason: Constipation Stop: 09/07/24 16:03 PG Care Time/CCT Total # of Minutes Spent Total Time Spent with Patient: Total time spent is greater than 50% in coordination of care (as documented) at patient's floor/unit and/or counseling patient: Advanced Care Planning 65358 Advanced Care Planning 30 [place] [address] IN/OBS CONSULT LVL 2,35M Patient Type New History Problem Focused Exam Problem Focused Medical Decision Making Low Complexity Diagnoses Palliative care by specialist Z51.5 Counseling regarding goals of care Z71.89 Additional Codes Advanced Care Planning - 61295 Advanced Care Planning 30 Min: 14976 Advanced Care Planning 30 Min ([id number])
--- NOTE | 2024-08-11 11:42 | Hospitalist Progress Note ---
Date of Service August 11, 2024 Assessment & Plan (1) Influenza A: (2) Acute hypernatremia: (3) Alzheimer's dementia: (4) Chondrocalcinosis of knee: Plan Ms Soares is an 78yoF with PMHx significant for CHF, advanced dementia, hypothyroidism, HTN who is currently admitted with AMS and respiratory failure in the setting of an acute influenza infection. Reportedly pt was just taken off of hospice services a few days before admission. Acute hypoxic respiratory failure Influenza A: Became hypoxic and hypotensive SpO2 68%, BP 88/62 Hypothermic 95.3; placed on a bearhugger CXR moderate right pleural effusion/atelectasis no leukocytosis, lactic acid 1.7 Negative troponin Procalcitonin negative Flu positive on bio fire Will keep n.p.o. as patient lethargic If patient passes dysphagia screen; can start Tamiflu Currently she remains lethargic patient's sons agreeable to palliative care consult palliative care consulted, appreciate further recs Acute hypernatremia: Likely secondary to decreased p.o. intake Want to be cautious with fluid rehydration due to CHF Continue D5w Nephrology consulted, appreciate recs. Recommended/stated the following: "stop torsemide forever. check renal panel once daily however patient's clinical condition appears to be very advanced with features of terminal dementia including hypernatremia. this is by definition 1 of the Hallmark feature of terminal dementia. strongly consider Palliative Medicine consult for hospice care." Palliative care consult placed KENNETH: Likely secondary to decreased PO intake as above creatinine 1.48; baseline 1.08-1.15 Nephrology consulted, appreciate recs Currently wnl Alzheimer's dementia: Chronic Fast scale all of 6 and up to 7b Uses a walker at baseline; uses a wheelchair and can ambulate well with an assist Incontinent of bowel and urine at baseline Was recently discharged from Hospice services on Friday 08/04 due to not meeting recertification Palliative care conult placed Goals of care conversation; discussion: Lengthy conversation with patient's son Galo at [phone] patient confirmed CODE STATUS DNR/DNI Patient has been declining over the last Palliative care consulted, appreciate recs Chondrocalcinosis of the knee: Chronic Was being followed as an outpatient for joint fluid removal; has recently stopped due to advanced dementia Tramadol was increased from BID--> TID 6-8 weeks ago and noticed patient became more sedentary around the same time Will order Voltaren gel and scheduled tylenol for chronic pain in this patient with dementia. HFpEF: Chronic Takes Torsemide 20 mg daily and 20 mg PRN at [facility] based on weight gain Nephrology on board- holding diuretics in setting of hypernatremia Diet:minced and moist per speech DVT prophylaxis: SCDs Dispo: to [facility] once medically stable Admission and Anticipated Discharge Date Admission Date: August 08, 2024 Subjective Sandy was seen in the a.m. She is alert but still nonverbal Palliative care evaluated her today Review of Systems Review of Systems: All systems reviewed & are unremarkable except as noted in Subjective Physical Exam Physical Exam: General: alert, nonverbal Skin: No noted rashes or bruises HEENT: NC/AT CV: RRR Resp: Breath sounds coarse and "wet" bilaterally Abdomen: Soft Extremities:edema in lower extremities bilaterally. Results & Data Results & Data Vital Signs (Past 12 Hours) Vital Signs Temp Pulse Pulse Resp BP BP Pulse Ox 08/11/24 07:43 36.9 C 93 H 18 136/68 95 08/11/24 07:22 08/11/24 07:11 106 H 08/11/24 04:45 36.9 C 99 H 20 138/78 94 08/11/24 00:33 36.9 C 84 20 125/81 97 O2 Del Method O2 Flow Rate 08/11/24 07:43 Nasal Cannula 4 08/11/24 07:22 Nasal Cannula 4 08/11/24 07:11 08/11/24 04:45 Nasal Cannula 4 08/11/24 00:33 Nasal Cannula 4
[2024-08-11] MEDS: DEXTROSE 5% 500 ML IV SCH (15:28)
[2024-08-12 07:08] LABS: Basophils # (auto) 0.02 K/uL (0.00-0.20); Basophils % (auto) 0.3 %; Eosinophils # (auto) 0.01 K/uL (0.00-0.50); Eosinophils % (auto) 0.1 %; Hemoglobin 9.7 g/dl (12.0-16.0); Immature Granulocytes # (auto) 0.09 K/uL (0.01-0.20); Immature Granulocytes % (auto) 1.3 %; Lymphocytes # (auto) 0.96 K/uL (1.20-3.40); Lymphocytes % (auto) 14.1 %; Mean Corpuscular Hemoglobin 31.7 pg (25.0-34.0); Mean Corpuscular Hgb Conc 31.3 g/dL (32.0-36.0); Mean Corpuscular Volume 101.3 fL (80.0-100.0); Mean Platelet Volume 10.1 fL (9.4-12.4); Monocytes % (auto) 10.3 %; Neutrophils # (auto) 5.01 K/uL (1.40-6.50); Neutrophils % (auto) 73.9 %; Platelet Count 63 K/uL (130-400); RDW Coefficient of Variation 15.3 % (11.5-14.5); RDW Standard Deviation 57.2 fL (36.4-46.3); Red Blood Count 3.06 M/uL (4.20-5.40); White Blood Count 6.79 K/ul (4.8-10.8)
[2024-08-12 07:32] LABS: Albumin Level 2.8 gm/dl (3.4-5.0); BUN Creatinine Ratio 23.5 (10-20); Bilirubin,Total 0.7 mg/dl (0.2-1.0); Calcium 8.1 mg/dl (8.6-10.3); Creatinine Clr Calc Pharmacy 45.6 ml/min; Globulin 2.8 gm/dl (2.5-4.0); Phosphorus 2.7 mg/dl (2.5-4.9); Potassium 3.5 mmol/L (3.5-5.1); Total Protein 5.6 gm/dl (6.0-8.3)
[2024-08-12] MEDS: DEXTROSE 5% 1,000 ML IV SCH (09:30)
--- NOTE | 2024-08-12 11:40 | Hospitalist Progress Note ---
Date of Service August 12, 2024 Assessment & Plan (1) Influenza A: (2) Acute hypernatremia: (3) Alzheimer's dementia: (4) Chondrocalcinosis of knee: Plan Ms Soares is an 78yoF with PMHx significant for CHF, advanced dementia, hypothyroidism, HTN who is currently admitted with AMS and respiratory failure in the setting of an acute influenza infection. Reportedly pt was just taken off of hospice services a few days before admission. Acute hypoxic respiratory failure Influenza A: Became hypoxic and hypotensive SpO2 68%, BP 88/62 Hypothermic 95.3; placed on a bearhugger CXR moderate right pleural effusion/atelectasis no leukocytosis, lactic acid 1.7 Negative troponin Procalcitonin negative Flu positive on bio fire Will keep n.p.o. as patient lethargic If patient passes dysphagia screen; can start Tamiflu Currently she remains lethargic patient's sons agreeable to palliative care consult palliative care consulted, appreciate further recs 08/12: pt with progressive cough, repeat chest XRAY ordered Acute hypernatremia: Likely secondary to decreased p.o. intake Want to be cautious with fluid rehydration due to CHF Continue D5w Nephrology consulted, appreciate recs. Recommended/stated the following: "stop torsemide forever. check renal panel once daily however patient's clinical condition appears to be very advanced with features of terminal dementia including hypernatremia. this is by definition 1 of the Hallmark feature of terminal dementia. strongly consider Palliative Medicine consult for hospice care." Palliative care consult placed Improving with d5w Abdominal pain/distention patient with pain on palpation on August 12, 2024 Abdomen also noted to be distended Patient with contrast allergy with noted anaphylactic reaction CT abdomen pelvis without contrast ordered KENNETH: Likely secondary to decreased PO intake as above creatinine 1.48; baseline 1.08-1.15 Nephrology consulted, appreciate recs Currently wnl Alzheimer's dementia: Chronic Fast scale all of 6 and up to 7b Uses a walker at baseline; uses a wheelchair and can ambulate well with an assist Incontinent of bowel and urine at baseline Was recently discharged from Hospice services on Friday 08/04 due to not meeting recertification Palliative care conult placed Goals of care conversation; discussion: Lengthy conversation with patient's son Galo at [phone] patient confirmed CODE STATUS DNR/DNI Patient has been declining over the last Palliative care consulted, appreciate recs Chondrocalcinosis of the knee: Chronic Was being followed as an outpatient for joint fluid removal; has recently stopped due to advanced dementia Tramadol was increased from BID--> TID 6-8 weeks ago and noticed patient became more sedentary around the same time Will order Voltaren gel and scheduled tylenol for chronic pain in this patient with dementia. HFpEF: Chronic Takes Torsemide 20 mg daily and 20 mg PRN at [facility] based on weight gain Nephrology on board- holding diuretics in setting of hypernatremia Diet:minced and moist per speech DVT prophylaxis: SCDs Dispo: to [facility] once medically stable Admission and Anticipated Discharge Date Admission Date: August 08, 2024 Subjective Patient was seen laying in bed eyes closed However she open Upon palpation of her abdomen expressing pain Spoke to son Jovi who would like a meeting with him and his brother to discuss patient's medical conditions Review of Systems Review of Systems: All systems reviewed & are unremarkable except as noted in Subjective Physical Exam Physical Exam: General: alert, nonverbal Skin: No noted rashes or bruises HEENT: NC/AT CV: RRR Resp: Breath sounds coarse and "wet" bilaterally Abdomen: Soft Extremities:edema in lower extremities bilaterally. Results & Data Results & Data Vital Signs (Past 12 Hours) Vital Signs Temp Pulse Pulse Resp BP Pulse Ox O2 Del Method 08/12/24 11:37 36.7 C 67 16 122/88 95 Nasal Cannula 08/12/24 10:53 Nasal Cannula 08/12/24 08:08 36.6 C 72 16 120/68 93 Room Air 08/12/24 07:43 97 H 08/12/24 04:00 37.0 C 85 18 111/61 96 Nasal Cannula O2 Flow Rate 08/12/24 11:37 4 08/12/24 10:53 4 08/12/24 08:08 08/12/24 07:43 08/12/24 04:00 4
--- NOTE | 2024-08-12 15:48 | Nephrology Progress Note ---
Date of Service August 12, 2024 Assessment & Plan (1) Acute hypernatremia: Plan: acute hypernatremia with a serum sodium of 148 in a patient who is very susceptible for this as she has advanced dementia. she also had associated prerenal type acute kidney injury with a creatinine of 1.5 but that has improved back to baseline of 0.8 given this we will continue D5 water at 80 mL/hour check renal panel once daily - encourage oral intake Admission and Anticipated Discharge Date Admission Date: August 08, 2024 Subjective Seen for hypernatremia. Patient remains confused. Sodium downtrending to 148 Review of Systems 2 Review of Systems: unable to obtain due to altered mental status Physical Exam 2 Physical Exam: General exam: Appears comfortable, no acute distress HEENT: Pupils are equal and reactive to light Neck: No JVD, neck is supple trachea is midline Respiratory system: Clear breath sounds bilaterally. Gastrointestinal: Abdomen is soft, non distended, non tender, bowel sounds are present CVS: Regular rate and rhythm. No murmurs, rubs or gallops Musculoskeletal: No joint or muscle tenderness Extremities: Non tender, no edema, peripheral pulses are present Neuro: Oriented, no tremors, no focal neurological deficits Skin: No rashes Results & Data Vital Signs (Past 12 Hours) Vital Signs Temp Pulse Pulse Resp BP Pulse Ox Pulse Ox 08/12/24 15:34 36.4 C L 101 H 17 132/80 91 08/12/24 14:25 83 08/12/24 14:00 91 08/12/24 13:58 92 08/12/24 11:37 36.7 C 67 16 122/88 95 08/12/24 10:53 08/12/24 08:08 36.6 C 72 16 120/68 93 08/12/24 07:43 97 H 08/12/24 04:00 37.0 C 85 18 111/61 96 O2 Del Method O2 Flow Rate O2 Flow Rate 08/12/24 15:34 Room Air 08/12/24 14:25 08/12/24 14:00 Room Air 08/12/24 13:58 0 08/12/24 11:37 Nasal Cannula 4 08/12/24 10:53 Nasal Cannula 4 08/12/24 08:08 Room Air 08/12/24 07:43 08/12/24 04:00 Nasal Cannula 4 Laboratory Results 08/12/24 06:30 08/12/24 06:30 WBC 6.79 RBC 3.06 L MCV 101.3 H MCH 31.7 MCHC 31.3 L RDW Std Deviation 57.2 H RDW Coeff of Angel 15.3 H Plt Count 63 L MPV 10.1 Phosphorus 2.7 Albumin 2.8 L
--- NOTE | 2024-08-12 16:52 | XRay Report ---
Chest radiograph, one view History: Cough Comparison: 08/08/2024 Findings: Single AP view of the chest performed. Persistent right pleural effusion with subjacent atelectasis or scarring. No pneumothorax. The cardiomediastinal silhouette is within normal limits. Normal pulmonary vascularity. No evidence for lymphadenopathy. No visualized bony or soft tissue abnormality. Right chest wall surgical clips. Impression: Similar-appearing right pleural effusion Electronically signed by Dm Le 08-12-2024 4:51 PM
--- NOTE | 2024-08-12 17:39 | CT Scan Report ---
EXAM: CT Abdomen and Pelvis Without Intravenous Contrast INDICATION: Abdominal pain and distention. TECHNIQUE: Axial computed tomography images of the abdomen and pelvis without intravenous contrast. Sagittal and coronal reformatted images were created and reviewed. This CT exam was performed using one or more of the following dose reduction techniques: automated exposure control, adjustment of the mA and/or kV according to patient size, and/or use of iterative reconstruction technique. COMPARISON: 03/17/2017 FINDINGS: Limitations: None. Lung bases: See below. Pleural space: Very small left and small to moderate right layering pleural effusions partially imaged. There is coarse consolidation within the lower lobes and atelectasis in the right middle lobe. Heart: There has been interval global enlargement of the heart. No pericardial effusion noted. There is calcification of the aortic and mitral valve. Mediastinum: No abnormality noted. ABDOMEN: Liver: Lack of intravenous contrast limits detection of some masses. No abnormality noted. Gallbladder and bile ducts: No calcified stones or surrounding fluid. Pancreas: No pancreatic mass, calcification, inflammation or ductal dilation noted. Spleen: No significant abnormality noted. Adrenals: No significant abnormality noted. Kidneys and ureters: No abnormality noted. No stones. No hydronephrosis. No significant perinephric fluid. Stomach and bowel: There is extensive left diverticulosis. Typical amounts of formed stool throughout the colon without obstruction. There is groundglass density within the mesenteric root. PELVIS: Appendix: No findings to suggest acute appendicitis. Bladder: There is a catheter balloon inflated in the urinary bladder which is collapsed and not optimally assessed. No stones. Reproductive: Hysterectomy. ABDOMEN and PELVIS: Intraperitoneal space: No free air. No significant fluid collection. Bones/joints: Degenerative changes noted in the scoliotic spine. No acute osseous abnormality noted. Soft tissues: No significant abnormality noted. Vasculature: Atherosclerotic calcification of the aorta and branches. No aneurysm. Lymph nodes: No pathologically enlarged lymph nodes. IMPRESSION: 1. There is slight edema in the root of the small bowel mesentery which is nonspecific and could be inflammatory or scarring. It was not present on the prior examination in 2017. 2. Diverticulosis without diverticulitis. 3. Pleural effusions right greater than left with consolidates in both lungs likely reflecting compressive atelectasis. Pneumonia not completely excluded. 4. Marked global cardiomegaly. ACT 112: Negative or not required by law. Electronically signed by Pamela Solorio 08-12-2024 5:39 PM
[2024-08-13 06:14] LABS: Basophils # (auto) 0.01 K/uL (0.00-0.20); Basophils % (auto) 0.2 %; Eosinophils # (auto) 0.08 K/uL (0.00-0.50); Eosinophils % (auto) 1.4 %; Hematocrit (blood only) 30.1 % (37.0-47.0); Hemoglobin 9.4 g/dl (12.0-16.0); Immature Granulocytes # (auto) 0.07 K/uL (0.01-0.20); Immature Granulocytes % (auto) 1.2 %; Lymphocytes # (auto) 1.26 K/uL (1.20-3.40); Lymphocytes % (auto) 21.6 %; Mean Corpuscular Hemoglobin 31.4 pg (25.0-34.0); Mean Corpuscular Hgb Conc 31.2 g/dL (32.0-36.0); Mean Corpuscular Volume 100.7 fL (80.0-100.0); Mean Platelet Volume 10.3 fL (9.4-12.4); Monocytes # (auto) 0.54 K/uL (0.11-0.59); Monocytes % (auto) 9.2 %; Neutrophils # (auto) 3.88 K/uL (1.40-6.50); Neutrophils % (auto) 66.4 %; Platelet Count 87 K/uL (130-400); RDW Coefficient of Variation 15.2 % (11.5-14.5); RDW Standard Deviation 56.1 fL (36.4-46.3); Red Blood Count 2.99 M/uL (4.20-5.40); White Blood Count 5.84 K/ul (4.8-10.8)
[2024-08-13 06:35] LABS: Albumin Level 2.7 gm/dl (3.4-5.0); BUN Creatinine Ratio 27.4 (10-20); Bilirubin,Total 0.6 mg/dl (0.2-1.0); Creatinine Clr Calc Pharmacy 46.1 ml/min; Globulin 2.8 gm/dl (2.5-4.0); Phosphorus 2.7 mg/dl (2.5-4.9); Total Protein 5.5 gm/dl (6.0-8.3)
--- NOTE | 2024-08-13 08:26 | Pulmonary Consultation ---
Date of Consultation August 13, 2024 Assessment & Plan (1) Pleural effusion: Plan Impression: 78-year-old female with advanced Alzheimer dementia presenting with influenza A. She has a chronic right effusion. Recommendation: 1. Pleural effusion on the right: This effusion has been chronic and present for over a year. 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 Patient is unable to describe complaints referring to the pleural effusion. The patient's not a candidate for aggressive invasive procedures. Reportedly she becomes agitated when she has to undergo procedures so I think the risk and benefits of thoracentesis at this point time would preclude proceeding with the procedure. In addition the patient is unable to provide consent. There are clinical notes indicating palliative consultation which I think is appropriate. 2. Influenza: Management per primary service. Thanks for the opportunity participating the care of this patient. Pulmonary will sign off at this point in time. Feel free to contact us with questions or concerns History of Present Illness Attending Physician: Marissa Jackson MD History of Present Illness Asked by hospitalist to evaluate this patient with pleural effusion. History is limited from the patient due to advanced dementia. Most the history is obtained from review the electronic medical record. Patient is an 78-year-old female with advanced Alzheimer's disease. She apparently was enrolled in hospice but was discharged due to not meeting criteria. She presented to the hospital from her care center where she was hypoxemic hypotensive and hypothermic and confused. She was found to have influenza. She was hyponatremic. Nephrology was consulted. They recommended palliative care consultation as well as hydration. She was noted to have a pleural effusion and pulmonary was consulted. Of note, pulmonary was also consulted 1 year ago for the same finding. At that point in time it was recommended that she not undergo invasive procedures due to her advanced dementia with lack of significant symptoms. History is entirely unobtainable from the patient currently as she perseverates. She is awake and alert. Allergies Allergy/AdvReac Type Severity Reaction Status Date / Time bee venom protein (honey bee) Allergy Severe ANAPHYLAXIS Verified 11/13/23 20:42 Iodinated Contrast Media Allergy Severe Anaphylaxis Verified 11/13/23 20:42 iodine Allergy Severe Anaphylaxis Verified 11/13/23 20:42 latex Allergy Severe itchy, Verified 11/13/23 20:42 shortness of breath Penicillins Allergy Severe Anaphylaxis Verified 11/13/23 20:44 povidone-iodine Allergy Severe Anaphylaxis Verified 11/13/23 20:42 tuna oil Allergy Severe HIVES AND Verified 11/13/23 20:42 ANAPHYLAXIS bisacodyl Allergy Intermediate Hives Verified 11/13/23 20:42 codeine Allergy Intermediate GI SYMPTOMS Verified 11/13/23 20:42 ephedrine Allergy Intermediate RASH Verified 08/20/23 15:06 cat dander Allergy short of Verified 11/13/23 20:44 breath Sulfa (Sulfonamide Allergy Unknown Verified 11/13/23 20:43 Antibiotics) ENVIRONMENTAL Allergy Severe SHORTNESS Uncoded 08/20/23 15:06 OF BREATH ACRYLIC CEMENT OR BONDING Allergy Intermediate EDEMA Uncoded 08/20/23 15:06 FACE/LIPS/TONGUE JEWELRY Allergy Intermediate BLISTERS Uncoded 08/20/23 15:06 WITH "CHEAP JEWELRY" Home Medications Medication Instructions Recorded Confirmed Type epinephrine 0.3 mg/0.3 mL 0.3 mg IM DIRECTED PRN Allergic 09/12/18 08/08/24 History injection, auto-injector (EpiPen) Reaction levothyroxine 50 mcg tablet 50 mcg PO QAM 02/26/21 08/08/24 History donepezil 10 mg tablet 10 mg PO QAM 02/26/22 08/08/24 History potassium chloride 10 mEq 20 meq PO QAM 09/22/22 08/08/24 History capsule,extended release memantine 10 mg tablet 10 mg PO BID 05/29/23 08/08/24 History ondansetron HCl 4 mg tablet 4 mg PO Q8 PRN Nausea/vomiting 05/29/23 08/08/24 History melatonin 5 mg tablet 5 mg PO HS 08/20/23 08/08/24 History quetiapine 50 mg tablet 50 mg PO BID 08/20/23 08/08/24 History metoprolol succinate 25 mg 25 mg PO QAM #30 tabs 08/22/23 08/08/24 Rx tablet,extended release 24 hr torsemide 20 mg tablet 20 mg PO DAILY #30 tabs 08/22/23 08/08/24 Rx aspirin 81 mg chewable tablet 81 mg PO DAILY #30 tabs 08/25/23 08/08/24 Rx (Children's Aspirin) Phenergan Gel 25 mg topical Q6 PRN Nausea And 11/13/23 08/08/24 History Vomiting acetaminophen 325 mg tablet 650 mg PO Q6 PRN Fever Or Pain 11/13/23 08/08/24 His tory acetaminophen 500 mg tablet 1,000 mg PO .DAILY IN MORNING 11/13/23 08/08/24 History (Tylenol Extra Strength) atropine sulfate (PF) 1 % eye 2 drp .EVERY HOUR PRN terminal 11/13/23 08/08/24 History drops in a dropperette secretions loperamide 2 mg tablet (Imodium 2 mg PO QID PRN Diarrhea 11/13/23 08/08/24 History A-D) morphine concentrate 100 mg/5 mL 10 mg PO .EVERY 2 HOURS PRN 11/13/23 08/08/24 History (20 mg/mL) oral solution pain/respiratory dist rate>28/min polyethylene glycol 3350 17 17 g PO DAILY 11/13/23 08/08/24 History gram/dose oral powder (Miralax) torsemide 20 mg tablet 20 mg PO .DAILY X 5 DAYS PRN wt 11/13/23 08/08/24 History gain of 3LBS in 24hrs or 5LBS in week divalproex 125 mg capsule,delayed 500 mg PO QAM 08/08/24 08/08/24 History release sprinkle divalproex 125 mg capsule,delayed See Rx Instructions .Route .COMPLEX 08/08/24 08/08/24 History release sprinkle Patient History Medical History Tricuspid regurgitation Benign neoplasm of colon Acute posthemorrhagic anemia 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 Garces Family History Mother Cancer Diabetes Stroke Social History Smoking Status: Unknown if ever smoked Second Hand Exposure: No; Do You Dip or Chew Tobacco: No; Hx Alcohol Use: No Hx Substance Use: No Preferred Language: Yi Communication Ability: Impaired Communication Ability Comment: Dementia Heel Curver Required: No Beliefs That Will Affect Care: None marital status: Single Current Living Situation: Detention Feels Safe at Home: Yes Assistive Devices: Wheelchair Review of Systems Review of Systems: Unobtainable due to cognitive status Physical Exam Constitutional: WD/WN, vitals as above Neck: trachea midline, no thyromegaly Respiratory: no respiratory distress, no labored breathing, no cough and not tachypneic Auscultation: + diminished lung sounds Decreased breath sounds right lung base with dullness to percussion Cardiovascular: RRR, no murmur, no edema Gastrointestinal (Abdomen): normal bowel sounds, soft, nontender, no hepatosplenomegaly Musculoskeletal: Extremities: extremities normal to inspection Skin: no rashes, warm and dry Neurologic: Advanced dementia Lymphatic: no cervical lymphadenopathy Results & Data Results & Data Vital Signs (Past 12 Hours) Vital Signs Temp Pulse Pulse Resp BP Pulse Ox O2 Del Method 08/13/24 07:47 Nasal Cannula 08/13/24 07:41 36.4 C L 88 20 141/63 H 93 Nasal Cannula 08/13/24 04:00 36.7 C 84 18 117/66 94 Nasal Cannula 08/12/24 23:48 86 08/12/24 22:35 36.5 C 84 18 123/69 95 Room Air 08/12/24 22:23 Nasal Cannula O2 Flow Rate 08/13/24 07:47 2 08/13/24 07:41 2 08/13/24 04:00 2 08/12/24 23:48 08/12/24 22:35 08/12/24 22:23 1 Critical Care Results & Data Vital Signs (Past 12 Hours) Vital Signs Temp Pulse Pulse Resp BP Pulse Ox O2 Del Method 08/13/24 07:47 Nasal Cannula 08/13/24 07:41 36.4 C L 88 20 141/63 H 93 Nasal Cannula 08/13/24 04:00 36.7 C 84 18 117/66 94 Nasal Cannula 08/12/24 23:48 86 08/12/24 22:35 36.5 C 84 18 123/69 95 Room Air 08/12/24 22:23 Nasal Cannula O2 Flow Rate 08/13/24 07:47 2 08/13/24 07:41 2 08/13/24 04:00 2 08/12/24 23:48 08/12/24 22:35 08/12/24 22:23 1 Lab & Micro Results (Past 24 Hours) RBC 2.99 M/uL (4.20-5.40) L 08/13/24 WBC 5.84 K/ul (4.8-10.8) 08/13/24 Hgb 9.4 g/dl (12.0-16.0) L 08/13/24 Hct 30.1 % (37.0-47.0) L 08/13/24 MCV 100.7 fL (80.0-100.0) H 08/13/24 MCH 31.4 pg (25.0-34.0) 08/13/24 MCHC 31.2 g/dL (32.0-36.0) L 08/13/24 RDW Standard Deviation 56.1 fL (36.4-46.3) H 08/13/24 RDW Coefficient of Variation 15.2 % (11.5-14.5) H 08/13/24 Plt Count 87 K/uL (130-400) L 08/13/24 MPV 10.3 fL (9.4-12.4) 08/13/24 Neutrophils (%) (Auto) 66.4 % 08/13/24 Lymphocytes (%) (Auto) 21.6 % 08/13/24 Monocytes # (Auto) 0.54 K/uL (0.11-0.59) 08/13/24 Eosinophils # (Auto) 0.08 K/uL (0.00-0.50) 08/13/24 Immature Granulocyte % (Auto) 1.2 % 08/13/24 Neutrophils # (Auto) 3.88 K/uL (1.40-6.50) 08/13/24 Lymphocytes # (Auto) 1.26 K/uL (1.20-3.40) 08/13/24 Monocytes # (Auto) 0.54 K/uL (0.11-0.59) 08/13/24 Eosinophils # (Auto) 0.08 K/uL (0.00-0.50) 08/13/24 Basophils # (Auto) 0.01 K/uL (0.00-0.20) 08/13/24 Immature Granulocyte # (Auto) 0.07 K/uL (0.01-0.20) 5 Na 145 mmol/L (136-145) 08/13/24 K 4.0 mmol/L (3.5-5.1) 08/13/24 Cl 112 mmol/L (98-107) H 08/13/24 CO2 28 mmol/L (21-32) 08/13/24 Anion Gap 5 (3-11) 08/13/24 BUN 23 mg/dl (6-23) 08/13/24 Creatinine 0.84 mg/dl (0.6-1.2) 08/13/24 BUN/Creatinine Ratio 27.4 (10-20) H 08/13/24 Glu 82 mg/dl (70-99(Fasting)) 08/13/24 Ca 8.0 mg/dl (8.6-10.3) L 08/13/24 Phosphorus Level 2.7 mg/dl (2.5-4.9) 08/13/24 Total Bilirubin 0.6 mg/dl (0.2-1.0) 08/13/24 AST 53 U/L (13-39) H 08/13/24 ALT 35 U/L (7-52) 08/13/24 Alkaline Phosphatase 116 U/L (34-104) H 08/13/24 TP 5.5 gm/dl (6.0-8.3) L 08/13/24 Albumin 2.7 gm/dl (3.4-5.0) L 08/13/24 Globulin 2.8 gm/dl (2.5-4.0) 08/13/24 Albumin/Globulin Ratio 1.0 (0.9-2) 08/13/24 Mg 2.0 mg/dl (1.7-2.4) 08/13/24 05:21 Calcium Level 8.0 mg/dl (8.6-10.3) L 08/13/24 05:21 Diagnostic Findings (Past 24 Hours) Chest X-Ray 08/12/24 16:16 Chest radiograph, one view History: Cough Comparison: 08/08/2024 Findings: Single AP view of the chest performed. Persistent right pleural effusion with subjacent atelectasis or scarring. No pneumothorax. The cardiomediastinal silhouette is within normal limits. Normal pulmonary vascularity. No evidence for lymphadenopathy. No visualized bony or soft tissue abnormality. Right chest wall surgical clips. Impression: Similar-appearing right pleural effusion Electronically signed by Dm Le 08-12-2024 4:51 PM Abdomen/Pelvis CT 08/12/24 16:17 EXAM: CT Abdomen and Pelvis Without Intravenous Contrast INDICATION: Abdominal pain and distention. TECHNIQUE: Axial computed tomography images of the abdomen and pelvis without intravenous contrast. Sagittal and coronal reformatted images were created and reviewed. This CT exam was performed using one or more of the following dose reduction techniques: automated exposure control, adjustment of the mA and/or kV according to patient size, and/or use of iterative reconstruction technique. COMPARISON: 03/17/2017 FINDINGS: Limitations: None. Lung bases: See below. Pleural space: Very small left and small to moderate right layering pleural effusions partially imaged. There is coarse consolidation within the lower lobes and atelectasis in the right middle lobe. Heart: There has been interval global enlargement of the heart. No pericardial effusion noted. There is calcification of the aortic and mitral valve. Mediastinum: No abnormality noted. ABDOMEN: Liver: Lack of intravenous contrast limits detection of some masses. No abnormality noted. Gallbladder and bile ducts: No calcified stones or surrounding fluid. Pancreas: No pancreatic mass, calcification, inflammation or ductal dilation noted. Spleen: No significant abnormality noted. Adrenals: No significant abnormality noted. Kidneys and ureters: No abnormality noted. No stones. No hydronephrosis. No significant perinephric fluid. Stomach and bowel: There is extensive left diverticulosis. Typical amounts of formed stool throughout the colon without obstruction. There is groundglass density within the mesenteric root. PELVIS: Appendix: No findings to suggest acute appendicitis. Bladder: There is a catheter balloon inflated in the urinary bladder which is collapsed and not optimally assessed. No stones. Reproductive: Hysterectomy. ABDOMEN and PELVIS: Intraperitoneal space: No free air. No significant fluid collection. Bones/joints: Degenerative changes noted in the scoliotic spine. No acute osseous abnormality noted. Soft tissues: No significant abnormality noted. Vasculature: Atherosclerotic calcification of the aorta and branches. No aneurysm. Lymph nodes: No pathologically enlarged lymph nodes. IMPRESSION: 1. There is slight edema in the root of the small bowel mesentery which is nonspecific and could be inflammatory or scarring. It was not present on the prior examination in 2017. 2. Diverticulosis without diverticulitis. 3. Pleural effusions right greater than left with consolidates in both lungs likely reflecting compressive atelectasis. Pneumonia not completely excluded. 4. Marked global cardiomegaly. ACT 112: Negative or not required by law. Electronically signed by Pamela Solorio 08-12-2024 5:39 PM I & O Totals 24 Hours 08/12/24 08/13/24 08/14/24 06:59 06:59 06:59 Intake Total 982.667 / 982.667 698.667 / 698.667 Output Total 850 / 850 950 / 950 Balance 132.667 / 132.667 -251.333 / -251.333 Cumulative 08/08/24 11:55 thru 08/13/24 06:00 Intake Total 5236.334 Output Total 3265 Balance 1971.334 RT Ventilator Mngmt (Last Documented) Ventilator Ordered Settings Respiratory Rate 20 08/13/24 07:41 Ventilator - PT Measurements Respiratory Rate 20 PG Care Time/CCT Total # of Minutes Spent Total Time Spent with Patient: Total time spent is greater than 50% in coordination of care (as documented) at patient's floor/unit and/or counseling patient: Coding Level of Care Code 63201 INT INP/OBS CARE 2/55MIN Diagnoses Pleural effusion J90
--- NOTE | 2024-08-13 12:04 | Hospitalist Progress Note ---
Date of Service August 13, 2024 Assessment & Plan (1) Influenza A: (2) Acute hypernatremia: (3) Alzheimer's dementia: (4) Chondrocalcinosis of knee: Plan Ms Soares is an 78yoF with PMHx significant for CHF, advanced dementia, hypothyroidism, HTN who is currently admitted with AMS and respiratory failure in the setting of an acute influenza infection. Reportedly pt was just taken off of hospice services a few days before admission. On August 13, discussion with both sons present in the room. Discussion of patient's current hypernatremia requiring treatment with D5 fluids, and her noted pleural effusion not amenable to thoracentesis per pulmonology recommendations. Pleural effusion also not amenable to Lasix treatment due to need for fluid hydration to treat the hypernatremia. Discussion of her terminal dementia and the recommendations of nephrology and pulmonology for palliative care. Patient's son states that they are interested in getting her back on hospice and would like [facility], as she was previously working with that service. Advised that case management would be contacted tomorrow August 14 and advised of this request. Sons also noted that she was on tramadol scheduled for chronic pain, and were agreeable to that being restarted. Son also brought in her written wishes which will be scanned into the chart. Acute hypoxic respiratory failure Influenza A: Became hypoxic and hypotensive SpO2 68%, BP 88/62 Hypothermic 95.3; placed on a bearhugger CXR moderate right pleural effusion/atelectasis no leukocytosis, lactic acid 1.7 Negative troponin Procalcitonin negative Flu positive on bio fire Will keep n.p.o. as patient lethargic If patient passes dysphagia screen; can start Tamiflu Currently she remains lethargic patient's sons agreeable to palliative care consult palliative care consulted, appreciate further recs 08/12: pt with progressive cough, repeat chest XRAY ordered 08/13: chest xray noting a pleural effusion on the R. pulmonology consulted, appreciate recs Acute hypernatremia: Likely secondary to decreased p.o. intake Want to be cautious with fluid rehydration due to CHF Continue D5w Nephrology consulted, appreciate recs. Recommended/stated the following: "stop torsemide forever. check renal panel once daily however patient's clinical condition appears to be very advanced with features of terminal dementia including hypernatremia. this is by definition 1 of the Hallmark feature of terminal dementia. strongly consider Palliative Medicine consult for hospice care." Palliative care consult placed Improving with d5w Abdominal pain/distention patient with pain on palpation on August 12, 2024 Abdomen also noted to be distended Patient with contrast allergy with noted anaphylactic reaction CT abdomen pelvis without contrast ordered -noted edema in the mesentery (non specific) -pleural effusions at the bases KENNETH: Likely secondary to decreased PO intake as above creatinine 1.48; baseline 1.08-1.15 Nephrology consulted, appreciate recs Currently wnl Alzheimer's dementia: Chronic Fast scale all of 6 and up to 7b Uses a walker at baseline; uses a wheelchair and can ambulate well with an assist Incontinent of bowel and urine at baseline Was recently discharged from Hospice services on Friday 08/04 due to not meeting recertification Palliative care conult placed Goals of care conversation; discussion: Lengthy conversation with patient's son Galo at [phone] patient confirmed CODE STATUS DNR/DNI Patient has been declining over the last Palliative care consulted, appreciate recs Chondrocalcinosis of the knee: Chronic Was being followed as an outpatient for joint fluid removal; has recently stopped due to advanced dementia Tramadol was increased from BID--> TID 6-8 weeks ago and noticed patient became more sedentary around the same time Will order Voltaren gel and scheduled tylenol for chronic pain in this patient with dementia. HFpEF: Chronic Takes Torsemide 20 mg daily and 20 mg PRN at [facility] based on weight gain Nephrology on board- holding diuretics in setting of hypernatremia Diet:minced and moist per speech DVT prophylaxis: SCDs Dispo: to [facility] once medically stable Admission and Anticipated Discharge Date Admission Date: August 08, 2024 Subjective patient was seen multiple times during the day Initially in the a.m. looking better with more talkative Later called to bedside at about 2 PM to talk to patient's sons about her ho spital course and the treatments that we were doing. Son noting that he had brought in her wishes which were signed. Given to nurse in area secretary area to be scanned into the chart and for hardcopy to be placed in her chart on the floor. Son also notes that she was previously on tramadol scheduled and would like that back on and titrated up as needed. They would like her to go back on hospice with this physician's recommendation. Advised that case management will be contacted tomorrow to begin that process once more for them. Review of Systems Review of Systems: All systems reviewed & are unremarkable except as noted in Subjective Physical Exam Physical Exam: General: alert, nonverbal Skin: No noted rashes or bruises HEENT: NC/AT CV: RRR Resp: Breath sounds coarse and "wet" bilaterally Abdomen: Soft Extremities:edema in lower extremities bilaterally. Results & Data Results & Data Vital Signs (Past 12 Hours) Vital Signs Temp Pulse Resp BP Pulse Ox O2 Del Method O2 Flow Rate 08/13/24 11:04 36.5 C 91 H 16 130/81 93 Room Air 08/13/24 07:47 Nasal Cannula 2 08/13/24 07:41 36.4 C L 88 20 141/63 H 93 Nasal Cannula 2 08/13/24 04:00 36.7 C 84 18 117/66 94 Nasal Cannula 2 Diagnostic Findings Chest X-Ray 08/08/24 12:07 XR chest 1V portable CLINICAL HISTORY: confusion; lethargy TECHNIQUE: Single frontal radiograph of the chest was obtained. Comparison: Comparison is made to chest radiograph 11/13/2023 FINDINGS: No lines and tubes are seen. Calcified aortic knob is seen. Right lower lung airspace opacities are seen. Moderate pleural effusion is again seen. IMPRESSION: Moderate right pleural effusion with underlying airspace opacities likely representing atelectasis. These are unchanged from prior exam. ACT 112: Negative or not required by law. Electronically signed by: Dequan Scott M.D. 08/08/2024 12:[address] 08/08/24 12:25 CT head/brain wo con CLINICAL HISTORY: 78 years-old Female with weakness. Acute weakness TECHNIQUE: Multiple axial CT images of the head were obtained without contrast. A dose lowering technique was utilized adhering to the principles of ALARA. CT DOSE: 1250.21 mGy.cm COMPARISON: 11/13/2023 FINDINGS: No acute intracranial hemorrhage, midline shift, intracranial mass, hydrocephalus, territorial ischemia or abnormal extra-axial collection. Involutional changes with ex vacuo ventriculomegaly redemonstrated. White matter hypodensities suggestive of chronic microvascular ischemic disease. Coarse calcifications of the falx cerebri. The calvarium is intact. Bilateral lens repair. Mastoid air cells are clear. Mild mucosal thickening of the nasal turbinates, ethmoid air cells and left maxillary sinus. IMPRESSION: No acute intracranial abnormality. ACT 112: Negative or not required by law. The above report was generated using voice recognition software. It may contain grammatical, syntax or spelling errors. Electronically signed by: Diego De La Cruz M.D. 08/08/2024 12:[address] 08/11/24 08:17 CT OF THE CHEST WITHOUT IV CONTRAST CLINICAL HISTORY: hypoxic resp failure, rule out fluid vs. pneumonia COMPARISON STUDY: Chest CT August 22, 2023. Chest radiograph August 08, 2024. CT DOSE: 471.67 mGy.cm TECHNIQUE: Axial images of the chest were obtained without IV contrast. Images were reviewed in the axial, sagittal, and coronal planes. IV contrast was not administered for this examination. Automated exposure control was utilized for the study. A dose lowering technique was utilized adhering to the principles of ALARA. FINDINGS: A low-attenuation anterior mediastinal density is similar to prior exam. This is likely benign. The heart is moderately enlarged. There is no pericardial effusion. There is a prominent lower right paratracheal lymph node. This is likely benign. There is no pneumothorax. A moderate right pleural effusion is present. Associated right lower lobe airspace opacity favors segmental atelectasis. Additional left pleural effusion. A 5.3 cm focus of dense consolidation within the left lower lobe is present. Ground glass and tree-in-bud nodules within the left lower lobe are also present. There is mild groundglass opacity within the right middle lobe. No central obstructing mass is present. There are no fractures or suspicious lesions within the bony thorax. Visualized portions of the upper abdomen are unremarkable on unenhanced exam. IMPRESSION: 1. Moderate size right pleural effusion. Associated right lower lobe airspace opacity favors compressive atelectasis. 2. 5.3 cm focus of dense consolidation within the left lower lobe with adjacent airspace opacity. This is suggestive of pneumonia or aspiration pneumonitis. Follow-up chest CT in 2 months to ensure resolution is recommended. 3. Moderate cardiomegaly. 4. Low-attenuation anterior mediastinal density which is similar to prior CT. Although indeterminate, this is probably benign and can be assessed on follow-up chest CT. ACT 112: Positive. There are findings on this exam that require communication between the performing entity and the patient following Patient Test Result I nformation Act ([place] Act 112) guidelines. Electronically signed by: Girma Calderon M.D. 08/11/2024 9:55 AM Chest X-Ray 08/12/24 16:16 Chest radiograph, one view History: Cough Comparison: 08/08/2024 Findings: Single AP view of the chest performed. Persistent right pleural effusion with subjacent atelectasis or scarring. No pneumothorax. The cardiomediastinal silhouette is within normal limits. Normal pulmonary vascularity. No evidence for lymphadenopathy. No visualized bony or soft tissue abnormality. Right chest wall surgical clips. Impression: Similar-appearing right pleural effusion Electronically signed by Dm Le 08-12-2024 4:51 PM Abdomen/Pelvis CT 08/12/24 16:17 EXAM: CT Abdomen and Pelvis Without Intravenous Contrast INDICATION: Abdominal pain and distention. TECHNIQUE: Axial computed tomography images of the abdomen and pelvis without intravenous contrast. Sagittal and coronal reformatted images were created and reviewed. This CT exam was performed using one or more of the following dose reduction techniques: automated exposure control, adjustment of the mA and/or kV according to patient size, and/or use of iterative reconstruction technique. COMPARISON: 03/17/2017 FINDINGS: Limitations: None. Lung bases: See below. Pleural space: Very small left and small to moderate right layering pleural effusions partially imaged. There is coarse consolidation within the lower lobes and atelectasis in the right middle lobe. Heart: There has been interval global enlargement of the heart. No pericardial effusion noted. There is calcification of the aortic and mitral valve. Mediastinum: No abnormality noted. ABDOMEN: Liver: Lack of intravenous contrast limits detection of some masses. No abnormality noted. Gallbladder and bile ducts: No calcified stones or surrounding fluid. Pancreas: No pancreatic mass, calcification, inflammation or ductal dilation noted. Spleen: No significant abnormality noted. Adrenals: No significant abnormality noted. Kidneys and ureters: No abnormality noted. No stones. No hydronephrosis. No significant perinephric fluid. Stomach and bowel: There is extensive left diverticulosis. Typical amounts of formed stool throughout the colon without obstruction. There is groundglass density within the mesenteric root. PELVIS: Appendix: No findings to suggest acute appendicitis. Bladder: There is a catheter balloon inflated in the urinary bladder which is collapsed and not optimally assessed. No stones. Reproductive: Hysterectomy. ABDOMEN and PELVIS: Intraperitoneal space: No free air. No significant fluid collection. Bones/joints: Degenerative changes noted in the scoliotic spine. No acute osseous abnormality noted. Soft tissues: No significant abnormality noted. Vasculature: Atherosclerotic calcification of the aorta and branches. No aneurysm. Lymph nodes: No pathologically enlarged lymph nodes. IMPRESSION: 1. There is slight edema in the root of the small bowel mesentery which is nonspecific and could be inflammatory or scarring. It was not present on the prior examination in 2017. 2. Diverticulosis without diverticulitis. 3. Pleural effusions right greater than left with consolidates in both lungs likely reflecting compressive atelectasis. Pneumonia not completely excluded. 4. Marked global cardiomegaly. ACT 112: Negative or not required by law. Electronically signed by Pamela Solorio 08-12-2024 5:39 PM
--- NOTE | 2024-08-13 14:59 | Nephrology Progress Note ---
Date of Service August 13, 2024 Assessment & Plan (1) Acute hypernatremia: Plan: acute hypernatremia with a serum sodium of 145 in a patient who is very susceptible for this as she has advanced dementia. she also had associated prerenal type acute kidney injury with a creatinine of 1.5 but that has improved back to baseline of 0.8 - stop D5 drip. Encourage patient to drink at least 1.5 L daily -check renal panel once daily - encourage oral intake - renal will sign off case. Please call if additional questions or concerns. Admission and Anticipated Discharge Date Admission Date: August 08, 2024 Subjective Seen for hyponatremia. Patient remains confused. Sodium improving to 145 today. She is eating and drinking. Review of Systems 2 Review of Systems: unable to obtain due to altered mental status Physical Exam 2 Physical Exam: General exam: Appears comfortable, no acute distress HEENT: Pupils are equal and reactive to light Neck: No JVD, neck is supple trachea is midline Respiratory system: Clear breath sounds bilaterally. Gastrointestinal: Abdomen is soft, non distended, non tender, bowel sounds are present CVS: Regular rate and rhythm. No murmurs, rubs or gallops Musculoskeletal: No joint or muscle tenderness Extremities: Non tender, no edema, peripheral pulses are present Neuro: disoriented, no tremors, no focal neurological deficits Skin: No rashes Results & Data Vital Signs (Past 12 Hours) Vital Signs Temp Pulse Resp BP Pulse Ox O2 Del Method O2 Flow Rate 08/13/24 14:56 36.5 C 81 18 121/75 91 Room Air 08/13/24 11:04 36.5 C 91 H 16 130/81 93 Room Air 08/13/24 07:47 Nasal Cannula 2 08/13/24 07:41 36.4 C L 88 20 141/63 H 93 Nasal Cannula 2 08/13/24 04:00 36.7 C 84 18 117/66 94 Nasal Cannula 2 Laboratory Results 08/13/24 05:21 08/13/24 05:21 WBC 5.84 RBC 2.99 L MCV 100.7 H MCH 31.4 MCHC 31.2 L RDW Std Deviation 56.1 H RDW Coeff of Angel 15.2 H Plt Count 87 L MPV 10.3 Phosphorus 2.7 Albumin 2.7 L
[2024-08-13] MEDS: traMADol HCL 50 MG TABLET PO SCH (16:16)
[2024-08-14 06:29] LABS: Basophils # (auto) 0.02 K/uL (0.00-0.20); Basophils % (auto) 0.2 %; Eosinophils # (auto) 0.04 K/uL (0.00-0.50); Eosinophils % (auto) 0.5 %; Hematocrit (blood only) 31.3 % (37.0-47.0); Immature Granulocytes # (auto) 0.06 K/uL (0.01-0.20); Immature Granulocytes % (auto) 0.7 %; Lymphocytes # (auto) 1.11 K/uL (1.20-3.40); Lymphocytes % (auto) 12.9 %; Mean Corpuscular Hemoglobin 32.1 pg (25.0-34.0); Mean Corpuscular Hgb Conc 31.9 g/dL (32.0-36.0); Mean Corpuscular Volume 100.3 fL (80.0-100.0); Mean Platelet Volume 10.4 fL (9.4-12.4); Monocytes # (auto) 0.75 K/uL (0.11-0.59); Monocytes % (auto) 8.7 %; Neutrophils # (auto) 6.62 K/uL (1.40-6.50); Platelet Count 119 K/uL (130-400); RDW Coefficient of Variation 14.9 % (11.5-14.5); Red Blood Count 3.12 M/uL (4.20-5.40)
[2024-08-14 06:42] LABS: Albumin Level 2.9 gm/dl (3.4-5.0); BUN Creatinine Ratio 29.6 (10-20); Bilirubin,Total 0.7 mg/dl (0.2-1.0); Calcium 8.2 mg/dl (8.6-10.3); Creatinine Clr Calc Pharmacy 47.8 ml/min; Globulin 2.9 gm/dl (2.5-4.0); Phosphorus 2.9 mg/dl (2.5-4.9); Potassium 4.4 mmol/L (3.5-5.1); Total Protein 5.8 gm/dl (6.0-8.3)
[2024-08-14 07:01] LABS: Ferritin 469.5 ng/ml (8-388)
[2024-08-14 07:16] LABS: Folate (Folic Acid),Ser orPlas 11.44 ng/ml (>5.38)
[2024-08-14] MEDS: IRON SUCROSE 300 MG in SODIUM CHLORIDE 0.9% 250 ML IV ONE (09:10)
--- NOTE | 2024-08-14 10:31 | Hospitalist Progress Note ---
Date of Service August 14, 2024 Assessment & Plan (1) Influenza A: (2) Acute hypernatremia: (3) Alzheimer's dementia: (4) Chondrocalcinosis of knee: Plan Ms Soares is an 78yoF with PMHx significant for CHF, advanced dementia, hypothyroidism, HTN who is currently admitted with AMS and respiratory failure in the setting of an acute influenza infection. Reportedly pt was just taken off of hospice services a few days before admission. On August 13, discussion with both sons present in the room. Discussion of patient's current hypernatremia requiring treatment with D5 fluids, and her noted pleural effusion not amenable to thoracentesis per pulmonology recommendations. Pleural effusion also not amenable to Lasix treatment due to need for fluid hydration to treat the hypernatremia. Discussion of her terminal dementia and the recommendations of nephrology and pulmonology for palliative care. Patient's son states that they are interested in getting her back on hospice and would like [facility], as she was previously working with that service. Advised that case management would be contacted tomorrow August 14 and advised of this request. Sons also noted that she was on tramadol scheduled for chronic pain, and were agreeable to that being restarted. Son also brought in her written wishes which will be scanned into the chart. 08/14/24- pt accepted back onto Hospice. Meds to be renewed and sent to [facility]. Acute hypoxic respiratory failure Influenza A: Became hypoxic and hypotensive SpO2 68%, BP 88/62 Hypothermic 95.3; placed on a bearhugger CXR moderate right pleural effusion/atelectasis no leukocytosis, lactic acid 1.7 Negative troponin Procalcitonin negative Flu positive on bio fire Will keep n.p.o. as patient lethargic If patient passes dysphagia screen; can start Tamiflu Currently she remains lethargic patient's sons agreeable to palliative care consult palliative care consulted, appreciate further recs 08/12: pt with progressive cough, repeat chest XRAY ordered 08/13: chest xray noting a pleural effusion on the R. pulmonology consulted, appreciate recs Acute hypernatremia: Likely secondary to decreased p.o. intake Want to be cautious with fluid rehydration due to CHF Continue D5w Nephrology consulted, appreciate recs. Recommended/stated the following: "stop torsemide forever. check renal panel once daily however patient's clinical condition appears to be very advanced with features of terminal dementia including hypernatremia. this is by definition 1 of the Hallmark feature of terminal dementia. strongly consider Palliative Medicine consult for hospice care." Palliative care consult placed Improving with d5w Abdominal pain/distention patient with pain on palpation on August 12, 2024 Abdomen also noted to be distended Patient with contrast allergy with noted anaphylactic reaction CT abdomen pelvis without contrast ordered -noted edema in the mesentery (non specific) -pleural effusions at the bases KENNETH: Likely secondary to decreased PO intake as above creatinine 1.48; baseline 1.08-1.15 Nephrology consulted, appreciate recs Currently wnl Alzheimer's dementia: Chronic Fast scale all of 6 and up to 7b Uses a walker at baseline; uses a wheelchair and can ambulate well with an assist Incontinent of bowel and urine at baseline Was recently discharged from Hospice services on Friday 08/04 due to not meeting recertification Palliative care conult placed Goals of care conversation; discussion: Lengthy conversation with patient's son Galo at [phone] patient confirmed CODE STATUS DNR/DNI Patient has been declining over the last Palliative care consulted, appreciate recs Chondrocalcinosis of the knee: Chronic Was being followed as an outpatient for joint fluid removal; has recently stopped due to advanced dementia Tramadol was increased from BID--> TID 6-8 weeks ago and noticed patient became more sedentary around the same time Will order Voltaren gel and scheduled tylenol for chronic pain in this patient with dementia. HFpEF: Chronic Takes Torsemide 20 mg daily and 20 mg PRN at [facility] based on weight gain Nephrology on board- holding diuretics in setting of hypernatremia Diet:minced and moist per speech DVT prophylaxis: SCDs Dispo: to [facility] once medically stable Admission and Anticipated Discharge Date Admission Date: August 08, 2024 Subjective Patient was seen with nursing at bedside Unintelligible speech at times Review of Systems Review of Systems: All systems reviewed & are unremarkable except as noted in Subjective Physical Exam Physical Exam: General: alert HEENT: NC/AT CV: RRR Resp: Breath sounds coarse bilaterally Abdomen: Soft Extremities:edema in lower extremities bilaterally. Results & Data Results & Data Vital Signs (Past 12 Hours) Vital Signs Temp Pulse Pulse Resp BP Pulse Ox O2 Del Method 08/14/24 08:27 36.4 C L 78 20 132/63 95 Room Air 08/14/24 07:29 73 08/14/24 04:00 36.5 C 83 18 119/74 96 Room Air 08/14/24 02:21 90 08/13/24 22:49 37.1 C 94 H 16 120/72 93 Room Air
[2024-08-15 06:29] LABS: Basophils # (auto) 0.03 K/uL (0.00-0.20); Basophils % (auto) 0.3 %; Hemoglobin 9.1 g/dl (12.0-16.0); Immature Granulocytes # (auto) 0.08 K/uL (0.01-0.20); Immature Granulocytes % (auto) 0.8 %; Lymphocytes # (auto) 0.82 K/uL (1.20-3.40); Lymphocytes % (auto) 7.9 %; Mean Corpuscular Hgb Conc 31.4 g/dL (32.0-36.0); Mean Corpuscular Volume 102.1 fL (80.0-100.0); Monocytes # (auto) 0.97 K/uL (0.11-0.59); Monocytes % (auto) 9.4 %; Neutrophils # (auto) 8.47 K/uL (1.40-6.50); Neutrophils % (auto) 81.6 %; Platelet Count 159 K/uL (130-400); RDW Coefficient of Variation 14.8 % (11.5-14.5); RDW Standard Deviation 55.1 fL (36.4-46.3); Red Blood Count 2.84 M/uL (4.20-5.40); White Blood Count 10.37 K/ul (4.8-10.8)
[2024-08-15 06:44] LABS: Albumin Level 2.9 gm/dl (3.4-5.0); BUN Creatinine Ratio 29.1 (10-20); Bilirubin,Total 0.5 mg/dl (0.2-1.0); Calcium 8.6 mg/dl (8.6-10.3); Phosphorus 2.3 mg/dl (2.5-4.9); Potassium 4.2 mmol/L (3.5-5.1); Total Protein 5.9 gm/dl (6.0-8.3)
[2024-08-15 08:06] VITALS: RESP 20
[2024-08-15 11:22] VITALS: PULSE 91; TEMP 98.2; O2SAT 94
--- NOTE | 2024-08-15 12:19 | Hospitalist Progress Note ---
Date of Service August 15, 2024 Assessment & Plan (1) Influenza A: (2) Acute hypernatremia: (3) Alzheimer's dementia: (4) Chondrocalcinosis of knee: Plan Ms Soares is an 78yoF with PMHx significant for CHF, advanced dementia, hypothyroidism, HTN who is currently admitted with AMS and respiratory failure in the setting of an acute influenza infection. Reportedly pt was just taken off of hospice services a few days before admission. On August 13, discussion with both sons present in the room. Discussion of patient's current hypernatremia requiring treatment with D5 fluids, and her noted pleural effusion not amenable to thoracentesis per pulmonology recommendations. Pleural effusion also not amenable to Lasix treatment due to need for fluid hydration to treat the hypernatremia. Discussion of her terminal dementia and the recommendations of nephrology and pulmonology for palliative care. Patient's son states that they are interested in getting her back on hospice and would like [facility], as she was previously working with that service. Advised that case management would be contacted tomorrow August 14 and advised of this request. Sons also noted that she was on tramadol scheduled for chronic pain, and were agreeable to that being restarted. Son also brought in her written wishes which will be scanned into the chart. 08/14/24- pt accepted back onto Hospice. Meds to be renewed and sent to [facility]. Acute hypoxic respiratory failure Influenza A: Became hypoxic and hypotensive SpO2 68%, BP 88/62 Hypothermic 95.3; placed on a bearhugger CXR moderate right pleural effusion/atelectasis no leukocytosis, lactic acid 1.7 Negative troponin Procalcitonin negative Flu positive on bio fire Will keep n.p.o. as patient lethargic If patient passes dysphagia screen; can start Tamiflu Currently she remains lethargic patient's sons agreeable to palliative care consult palliative care consulted, appreciate further recs 08/12: pt with progressive cough, repeat chest XRAY ordered 08/13: chest xray noting a pleural effusion on the R. pulmonology consulted, appreciate recs Acute hypernatremia: Likely secondary to decreased p.o. intake Want to be cautious with fluid rehydration due to CHF Continue D5w Nephrology consulted, appreciate recs. Recommended/stated the following: "stop torsemide forever. check renal panel once daily however patient's clinical condition appears to be very advanced with features of terminal dementia including hypernatremia. this is by definition 1 of the Hallmark feature of terminal dementia. strongly consider Palliative Medicine consult for hospice care." Palliative care consult placed Improving with d5w Abdominal pain/distention patient with pain on palpation on August 12, 2024 Abdomen also noted to be distended Patient with contrast allergy with noted anaphylactic reaction CT abdomen pelvis without contrast ordered -noted edema in the mesentery (non specific) -pleural effusions at the bases KENNETH: Likely secondary to decreased PO intake as above creatinine 1.48; baseline 1.08-1.15 Nephrology consulted, appreciate recs Currently wnl Alzheimer's dementia: Chronic Fast scale all of 6 and up to 7b Uses a walker at baseline; uses a wheelchair and can ambulate well with an assist Incontinent of bowel and urine at baseline Was recently discharged from Hospice services on Friday 08/04 due to not meeting recertification Palliative care conult placed Goals of care conversation; discussion: Lengthy conversation with patient's son Galo at [phone] patient confirmed CODE STATUS DNR/DNI Patient has been declining over the last Palliative care consulted, appreciate recs Chondrocalcinosis of the knee: Chronic Was being followed as an outpatient for joint fluid removal; has recently stopped due to advanced dementia Tramadol was increased from BID--> TID 6-8 weeks ago and noticed patient became more sedentary around the same time Will order Voltaren gel and scheduled tylenol for chronic pain in this patient with dementia. HFpEF: Chronic Takes Torsemide 20 mg daily and 20 mg PRN at [facility] based on weight gain Nephrology on board- holding diuretics in setting of hypernatremia Diet:minced and moist per speech DVT prophylaxis: SCDs Dispo: to [facility] once medically stable Admission and Anticipated Discharge Date Admission Date: August 08, 2024 Physical Exam Physical Exam: General: alert HEENT: NC/AT CV: RRR Resp: Breath sounds coarse bilaterally Abdomen: Soft Extremities:edema in lower extremities bilaterally. Results & Data Results & Data Vital Signs (Past 12 Hours) Vital Signs Temp Pulse Pulse Resp BP Pulse Ox O2 Del Method 08/15/24 11:21 36.8 C 91 H 20 125/78 94 Nasal Cannula 08/15/24 08:04 36.5 C 93 H 20 141/57 H 95 Nasal Cannula 08/15/24 08:00 Nasal Cannula 08/15/24 04:00 36.7 C 90 18 122/73 94 Nasal Cannula 08/15/24 02:32 Nasal Cannula 08/15/24 02:27 93 H O2 Flow Rate 08/15/24 11:21 3 08/15/24 08:04 3 08/15/24 08:00 3 08/15/24 04:00 2 08/15/24 02:32 3 08/15/24 02:27
--- NOTE | 2024-08-15 13:46 | Discharge Summary ---
Discharge Summary Date of Service August 15, 2024 Principal Dx & Hospital Course #1 = Principal Diagnosis (1) Influenza A: (2) Acute hypernatremia: (3) Alzheimer's dementia: (4) Chondrocalcinosis of knee: Plan Ms Soares is an 78yoF with PMHx significant for CHF, advanced dementia, hypothyroidism, HTN who is currently admitted with AMS and respiratory failure in the setting of an acute influenza infection. Reportedly pt was just taken off of hospice services a few days before admission. Patient presented with a sodium level of 151. She was treated with D5W as needed and her sodium decreased to 149 on discharge. Treatment of her hyponatremia was complicated by a noted pleural effusion not amenable to thoracentesis per pulmonology recommendations. She was evaluated by the experimental mechanic spacecraft who recommended or stated the following: "... patient's clinical condition appears to be very advanced with features of terminal dementia including hypernatremia. this is by definition 1 of the Hallmark feature of terminal dementia. strongly consider Palliative Medicine consult for hospice care." On August 13, 2024 Nephrology recommended/stated the following: "acute hypernatremia with a serum sodium of 145 in a patient who is very susceptible for this as she has advanced dementia. she also had associated prerenal type acute kidney injury with a creatinine of 1.5 but that has improved back to baseline of 0.8 - stop D5 drip. Encourage patient to drink at least 1.5 L daily -check renal panel once daily - encourage oral intake" Pulmonology also recommended the following concerning the noted pleural effusion: "1. Pleural effusion on the right: This effusion has been chronic and present for over a year. As per previous pulmonary notes, unlikely to be infected or malignant and either way would likely not change control manager. Patient is unable to describe complaints referring to the pleural effusion. The patient's not a candidate for aggressive invasive procedures. Reportedly she becomes agitated when she has to undergo procedures so I think the risk and benefits of thoracentesis at this point time would preclude proceeding with the procedure. In addition the patient is unable to provide consent. There are clinical notes indicating palliative consultation which I think is appropriate." Patient was evaluated by palliative care. On August 13, discussion with both sons present in the room with hospitalist. Discussion of patient's current hypernatremia requiring treatment with D5 fl uids, and her noted pleural effusion not amenable to thoracentesis per pulmonology recommendations. Pleural effusion also not amenable to Lasix treatment due to need for fluid hydration to treat the hypernatremia. patient unable to sustain drinking 1.5 L daily on her own due to her history of dementia. Discussion of her terminal dementia and the recommendations of nephrology and pulmonology for palliative care. Patient's son states that they are interested in getting her back on hospice and would like [facility], as she was previously working with that service. Sons also noted that she was on tramadol scheduled for chronic pain, and were agreeable to that being restarted. Son also brought in her written wishes which will be scanned into the chart. Patient was accepted back on hospice to her personal care facility. On the day of discharge she was back to baseline mentally and her symptoms from the flu were improved. Sodium of 149, her KENNETH had resolved. Occasionally requiring use of oxygen via nasal cannula. She had been evaluated by speech therapy who recommended a minced and moist diet as well as aspiration precautions. She was discharged back on tramadol 25 mg daily to be titrated up by her hospice provider. Please encourage p.o. fluid intake as able per the recommendations of nephrology. Notes For Next Care Provider pt discharged back on hospice Please encourage po intake of fluids, 1.5L per nephrology Medication Changes From Visit tramadol 25mg daily Hold home Diuretics at this time Admission HPI Per Admitting Provider Ms. Soares is an 78-year-old female that presented to the [facility] from [facility] where she is a permanent residence after staff found that she was hypoxic SpO2 68%, hypotensive BP 88/62, hypothermic 95.3 and confused off of her normal mental state. she does have advanced Alzheimer's disease and over the last 2 months she has been slowing down. Additional past medical history includes CHF, advanced dementia, hypot hyroidism, HTN Chest x-ray reveals moderate right pleural effusions and atelectasis. Head CT was negative in ED. No leukocytosis, lactate normal, troponin normal, procalcitonin negative. Some KENNETH noted creatinine 1.48; baseline 1.08-1.41.415 suspect secondary to dehydration and poor p.o. intake over past few days. I had a lengthy conversation with [facility] staff member, Mehreen, and the p laina's son Galo, separately at [phone]. He was able to get some insight that she was being followed as an outpatient for joint fluid removal and is recently stopped due to her advanced dementia. Her tramadol was increased to 3 times daily about 2 months ago and since then they have noticed the patient becoming more sedentary and less interactive around the same time. She does have advanced dementia with a fast scale of all of 6 and up to 70. She uses a walker at baseline but does use a wheelchair as well. She is incontinent of bowel and urine at baseline. Reportedly she is under hospice services up until Friday 08/04 due to not meeting recertification criteria; hospice services were discontinued. Patient did open her eyes to painful stimuli, but was unable to respond to verbal stimuli. Patient will be admitted for further evaluation and management of her influenza A, acute hypernatremia with D5 normal to reduce her sodium levels, anticipate KENNETH improves with IV fluids; will trend. Patient's family overarching goal is to return to [facility] with hospice services but would like to see how patient does participate in PT OT to determine if patient requires more skilled support if she does not return to [facility]. Admission Exam Per Admitting Provider Neuro: AAOx1, PERRLA, no aphagia, memory changes, CNII-XII grossly intact HEENT: head normocephalic, moist mucus membranes CV: S1/S2, (-) M/G/R, (+) 2BL LE edema, cap refill < 3 seconds Resp: Lungs coarse throughout. On 2LNC GI: Abdomen S/NT/ND, Ax4 bowel sounds. Musculoskeletal: unable to assess. withdraws to painful stimuli. Skin: (-) rashes , (-) erythema. Psych: unable to assess due to advanced dementia Discharge Exam General: alert HEENT: NC/AT CV: RRR Resp: Breath sounds coarse bilaterally Abdomen: Soft Extremities:edema in lower extremities bilaterally. Updated Medication List Medication Instructions Recorded Confirmed Type epinephrine 0.3 mg/0.3 mL 0.3 mg IM DIRECTED PRN Allergic 09/12/18 08/08/24 History injection, auto-injector (EpiPen) Reaction levothyroxine 50 mcg tablet 50 mcg PO QAM 02/26/21 08/08/24 History donepezil 10 mg tablet 10 mg PO QAM 02/26/22 08/08/24 History potassium chloride 10 mEq 20 meq PO QAM 09/22/22 08/08/24 History capsule,extended release memantine 10 mg tablet 10 mg PO BID 05/29/23 08/08/24 History ondansetron HCl 4 mg tablet 4 mg PO Q8 PRN Nausea/vomiting 05/29/23 08/08/24 History melatonin 5 mg tablet 5 mg PO HS 08/20/23 08/08/24 History quetiapine 50 mg tablet 50 mg PO BID 08/20/23 08/08/24 History metoprolol succinate 25 mg 25 mg PO QAM #30 tabs 08/22/23 08/08/24 Rx tablet,extended release 24 hr aspirin 81 mg chewable tablet 81 mg PO DAILY #30 tabs 08/25/23 08/08/24 Rx (Children's Aspirin) Phenergan Gel 25 mg topical Q6 PRN Nausea And 11/13/23 08/08/24 History Vomiting acetaminophen 325 mg tablet 650 mg PO Q6 PRN Fever Or Pain 11/13/23 08/08/24 History acetaminophen 500 mg tablet 1,000 mg PO .DAILY IN MORNING 11/13/23 08/08/24 History (Tylenol Extra Strength) atropine sulfate (PF) 1 % eye 2 drp .EVERY HOUR PRN terminal 11/13/23 08/08/24 History drops in a dropperette secretions loperamide 2 mg tablet (Imodium 2 mg PO QID PRN Diarrhea 11/13/23 08/08/24 History A-D) morphine concentrate 100 mg/5 mL 10 mg PO .EVERY 2 HOURS PRN 11/13/23 08/08/24 History (20 mg/mL) oral solution pain/respiratory dist rate>28/min polyethylene glycol 3350 17 17 g PO DAILY 11/13/23 08/08/24 History gram/dose oral powder (Miralax) divalproex 125 mg capsule,delayed 500 mg PO QAM 08/08/24 08/08/24 History release sprinkle divalproex 125 mg capsule,delayed See Rx Instructions .Route .COMPLEX 08/08/24 08/08/24 History release sprinkle tramadol 50 mg tablet 25 mg (1/2 x 50 mg) PO DAILY #2 08/15/24 Rx tabs Hospital Stay Data Consultations 08/08/24 15:58 ED Decision to Admit Stat 08/09/24 10:09 Consult Nephrology Routine 08/10/24 17:50 Consult Palliative Care Routine 08/12/24 17:49 Consult Pulmonology Routine Diagnostic Imagining Performed 08/08/24 12:25 CT head/brain wo con Stat 08/11/24 08:17 CT chest diagnostic wo con Urgent 08/12/24 16:17 CT abd pelvis wo con Urgent Chest X-Ray 08/08/24 12:07 XR chest 1V portable CLINICAL HISTORY: confusion; lethargy TECHNIQUE: Single frontal radiograph of the chest was obtained. Comparison: Comparison is made to chest radiograph 11/13/2023 FINDINGS: No lines and tubes are seen. Calcified aortic knob is seen. Right lower lung airspace opacities are seen. Moderate pleural effusion is again seen. IMPRESSION: Moderate right pleural effusion with underlying airspace opacities likely representing atelectasis. These are unchanged from prior exam. ACT 112: Negative or not required by law. Electronically signed by: Dequan Scott M.D. 08/08/2024 12:[address] 08/08/24 12:25 CT head/brain wo con CLINICAL HISTORY: 78 years-old Female with weakness. Acute weakness TECHNIQUE: Multiple axial CT images of the head were obtained without contrast. A dose lowering technique was utilized adhering to the principles of ALARA. CT DOSE: 1250.21 mGy.cm COMPARISON: 11/13/2023 FINDINGS: No acute intracranial hemorrhage, midline shift, intracranial mass, hydrocephalus, territorial ischemia or abnormal extra-axial collection. Involutional changes with ex vacuo ventriculomegaly redemonstrated. White matter hypodensities suggestive of chronic microvascular ischemic disease. Coarse calcifications of the falx cerebri. The calvarium is intact. Bilateral lens repair. Mastoid air cells are clear. Mild mucosal thickening of the nasal turbinates, ethmoid air cells and left maxillary sinus. IMPRESSION: No acute intracranial abnormality. ACT 112: Negative or not required by law. The above report was generated using voice recognition software. It may contain grammatical, syntax or spelling errors. Electronically signed by: Diego De La Cruz M.D. 08/08/2024 12:[address] 08/11/24 08:17 CT OF THE CHEST WITHOUT IV CONTRAST CLINICAL HISTORY: hypoxic resp failure, rule out fluid vs. pneumonia COMPARISON STUDY: Chest CT August 22, 2023. Chest radiograph August 08, 2024. CT DOSE: 471.67 mGy.cm TECHNIQUE: Axial images of the chest were obtained without IV contrast. Images were reviewed in the axial, sagittal, and coronal planes. IV contrast was not administered for this examination. Automated exposure control was utilized for the study. A dose lowering technique was utilized adhering to the principles of ALARA. FINDINGS: A low-attenuation anterior mediastinal density is similar to prior exam. This is likely benign. The heart is moderately enlarged. There is no pericardial effusion. There is a prominent lower right paratracheal lymph node. This is likely benign. There is no pneumothorax. A moderate right pleural effusion is present. Associated right lower lobe airspace opacity favors segmental atelectasis. Additional left pleural effusion. A 5.3 cm focus of dense consolidation within the left lower lobe is present. Ground glass and tree-in-bud nodules within the left lower lobe are also present. There is mild groundglass opacity within the right middle lobe. No central obstructing mass is present. There are no fractures or suspicious lesions within the bony thorax. Visualized portions of the upper abdomen are unremarkable on unenhanced exam. IMPRESSION: 1. Moderate size right pleural effusion. Associated right lower lobe airspace opacity favors compressive atelectasis. 2. 5.3 cm focus of dense consolidation within the left lower lobe with adjacent airspace opacity. This is suggestive of pneumonia or aspiration pneumonitis. Follow-up chest CT in 2 months to ensure resolution is recommended. 3. Moderate cardiomegaly. 4. Low-attenuation anterior mediastinal density which is similar to prior CT. Although indeterminate, this is probably benign and can be assessed on follow-up chest CT. ACT 112: Positive. There are findings on this exam that require communication between the performing entity and the patient following Patient Test Result Information Act ([place] Act 112) guidelines. Electronically signed by: Girma Calderon M.D. 08/11/2024 9:55 AM Chest X-Ray 08/12/24 16:16 Chest radiograph, one view History: Cough Comparison: 08/08/2024 Findings: Single AP view of the chest performed. Persistent right pleural effusion with subjacent atelectasis or scarring. No pneumothorax. The cardiomediastinal silhouette is within normal limits. Normal pulmonary vascularity. No evidence for lymphadenopathy. No visualized bony or soft tissue abnormality. Right chest wall surgical clips. Impression: Similar-appearing right pleural effusion Electronically signed by Dm Le 08-12-2024 4:51 PM Abdomen/Pelvis CT 08/12/24 16:17 EXAM: CT Abdomen and Pelvis Without Intravenous Contrast INDICATION: Abdominal pain and distention. TECHNIQUE: Axial computed tomography images of the abdomen and pelvis without intravenous contrast. Sagittal and coronal reformatted images were created and reviewed. This CT exam was performed using one or more of the following dose reduction techniques: automated exposure control, adjustment of the mA and/or kV according to patient size, and/or use of iterative reconstruction technique. COMPARISON: 03/17/2017 FINDINGS: Limitations: None. Lung bases: See below. Pleural space: Very small left and small to moderate right layering pleural effusions partially imaged. There is coarse consolidation within the lower lobes and atelectasis in the right middle lobe. Heart: There has been interval global enlargement of the heart. No pericardial effusion noted. There is calcification of the aortic and mitral valve. Mediastinum: No abnormality noted. ABDOMEN: Liver: Lack of intravenous contrast limits detection of some masses. No abnormality noted. Gallbladder and bile ducts: No calcified stones or surrounding fluid. Pancreas: No pancreatic mass, calcification, inflammation or ductal dilation noted. Spleen: No significant abnormality noted. Adrenals: No significant abnormality noted. Kidneys and ureters: No abnormality noted. No stones. No hydronephrosis. No significant perinephric fluid. Stomach and bowel: There is extensive left diverticulosis. Typical amounts of formed stool throughout the colon without obstruction. There is groundglass density within the mesenteric root. PELVIS: Appendix: No findings to suggest acute appendicitis. Bladder: There is a catheter balloon inflated in the urinary bladder which is collapsed and not optimally assessed. No stones. Reproductive: Hysterectomy. ABDOMEN and PELVIS: Intraperitoneal space: No free air. No significant fluid collection. Bones/joints: Degenerative changes noted in the scoliotic spine. No acute osseous abnormality noted. Soft tissues: No significant abnormality noted. Vasculature: Atherosclerotic calcification of the aorta and branches. No aneurysm. Lymph nodes: No pathologically enlarged lymph nodes. IMPRESSION: 1. There is slight edema in the root of the small bowel mesentery which is nonspecific and could be inflammatory or scarring. It was not present on the prior examination in 2017. 2. Diverticulosis without diverticulitis. 3. Pleural effusions right greater than left with consolidates in both lungs likely reflecting compressive atelectasis. Pneumonia not completely excluded. 4. Marked global cardiomegaly. ACT 112: Negative or not required by law. Electronically signed by Pamela Solorio 08-12-2024 5:39 PM Pending Results Patient Have Any Pending Studies at Discharge: No Discharge Instructions Given to Patient (Per Discharging Provider) Sandy, You are admitted and treated for an influenza infection as well as hyponatremia. It was noted that you had very large pleural effusion for which thoracentesis can be done and your diuretics were on hold given your hyponatremia requiring fluid treatment. The experimental mechanic spacecraft as well as the water pollution specialist were recommending palliative care services. You are being discharged back to your personal care facility on hospice services. Please keep close follow-up with your hospice provider after discharge. Please keep close follow up with your primary care provider after discharge. Please do not hesitate to come back to the emergency room if your symptoms worsen or return. It was a pleasure taking care of you while you were here. Total Time Total Time Spent Total Time Spent (In Minutes): 65
[2024-08-15 14:12] VITALS: BP 124/69
== END 2024-08-15 15:19 | disposition hospice, inpatient (51) | DRG 193 ==
LOC: ED 12:02 → SUATTDRO 15:44 → EDINP 15:44 → 2N 19:32